=== PATIENT | female | born 1955 | race Caucasian/White ===

== ENCOUNTER → 2016-09-19 | Outpatient (CLI) | payer MEDICARE, OTHER ==
--- NOTE | 2016-09-19 11:50 | USB ---
Reason for exam: additional evaluation requested from prior study. History: Patient has history of breast cancer at age 59 and history of other cancer. Family history of breast cancer in mother at age 60. Benign US biopsy breast VAD RT of the right breast, September 02, 2015. Malignant US biopsy breast VAD RT of the right breast, January 27, 2015. Malignant US biopsy breast add'l VAD RT of the right breast, January 27, 2015. Malignant US biopsy breast add'l VAD RT of the right breast, January 27, 2015. Benign excisional biopsy of the right breast, 2013. Benign excisional biopsy of the left breast. US Breast RT Right breast ultrasound includes all four quadrants, the retroareolar region and axilla. Finding demonstrates a 1.9 x 0.7 x 1.1cm oval, solid, hypoechoic lesion at palpable 10 o'clock for which a biopsy is recommended, a 0.6 x 0.4 x 0.5cm oval, solid, hypoechoic lesion with some shadowing at 10 o'clock for which a biopsy is recommended and a 0.4 x 0.4 x 0.4cm oval, solid, hypoechoic lesion with some shadowing at 10 o'clock for which a biopsy is recommended. These results were verbally communicated with the patient and result sheet given to the patient on 09/19/16. ASSESSMENT: Suspicious, BI-RAD 4 RECOMMENDATION: Surgical consultation and ultrasound core biopsy of the right breast. (x 3) Called Dr. Lowry with mammographic findings patient will call on her own to schedule an appointment. PRELIMINARY REPORT CALLED AND FAXED TO DR. LOWRY ON 09/19/16 AT 300/TP.
== END | disposition home or self-care (01) ==
LOC: RADUSWWP 09:01
PROVIDERS: ATTEND Surgery
DX: R92.8 Other abnormal and inconclusive findings on diagnostic imaging of breast (principal); Z85.3 Personal history of malignant neoplasm of breast

== ENCOUNTER → 2016-09-19 | Outpatient (CLI) | payer MEDICARE, OTHER ==
--- NOTE | 2016-09-19 11:46 | MM ---
Reason for exam: additional evaluation requested from prior study. Last mammogram was performed 1 year and 8 months ago. History: Patient has history of breast cancer at age 59 and history of other cancer. Family history of breast cancer in mother at age 60. Benign US biopsy breast VAD RT of the right breast, September 02, 2015. Malignant US biopsy breast VAD RT of the right breast, January 27, 2015. Malignant US biopsy breast add'l VAD RT of the right breast, January 27, 2015. Malignant US biopsy breast add'l VAD RT of the right breast, January 27, 2015. Benign excisional biopsy of the right breast, 2013. Benign excisional biopsy of the left breast. Physical Findings: Nurse Summary: 0.5cm nodule in the right breast at 9 o'clock (nurse swati). MG 3D Diag Mammo W/Cad RT CC, MLO, ML, and XCCL view(s) were taken of the right breast. Prior study comparison: January 27, 2015, right breast MG diagnostic mammo RT wo CAD. There are scattered fibroglandular densities. Finding #1: There are fine, segmental calcifications in the right breast, 11 cm from the nipple, present on 2014. Finding #2: There is a typically benign 13mm fat containing, oval, circumscribed, superficial mass located 3 cm from the nipple in the upper outer quadrant of the right breast, consistent with palpable area, new from prior. New finding since January 27, 2015. These results were verbally communicated with the patient and result sheet given to the patient on 09/19/16. ASSESSMENT: Suspicious, BI-RAD 4 RECOMMENDATION: Surgical consultation and ultrasound core biopsy of the right breast. Called Dr. Lowry with mammographic findings patient will call on her own to schedule an appointment. PRELIMINARY REPORT CALLED AND FAXED TO DR. LOWRY ON 09/19/16 AT 300/TP.
== END | disposition home or self-care (01) ==
LOC: RADMAMWWP 08:55
PROVIDERS: ATTEND Surgery Plastic and Reconstructive Surgery
DX: C50.919 Malignant neoplasm of unspecified site of unspecified female breast (principal)
CPT/HCPCS: G0206; G0279

== ENCOUNTER 2016-10-31 13:31 | Observation (INO) | payer MEDICARE, OTHER ==
[2016-10-31] MEDS ORDERED: SODIUM CHLORIDE 0.9% 1,000 ML IV STA (15:27)
[2016-10-31 16:23] LABS: Basophils % (A) 0 %; CH 32.5; Eosinophils # (A) 0.1 k/uL (0-0.7); Eosinophils % (A) 2 %; HCT 42.1 % (34.0-46.0); HDW 3.01; HGB 14.4 gm/dL (11.4-16.0); Luc # (Auto) 0.12; Luc % (Auto) 1; Lymphocytes # (A) 1.6 k/uL (1.0-4.8); Lymphocytes % (A) 18 %; MCHC 34.2 g/dL (31.0-37.0); MCV 93.4 fL (80.0-100.0); Mean Platelet Volume 7.7; Monocytes # (A) 0.5 k/uL (0-1.0); Monocytes % (A) 5 %; Neutrophils # (A) 6.5 k/uL (1.3-7.7); Neutrophils % (A) 74 %; RBC 4.51 m/uL (3.80-5.40); RDW 14.1 % (11.5-15.5); WBC 8.8 k/uL (3.8-10.6); WBC (Perox) 8.15
[2016-10-31 16:24] LABS: Appearance,Urine Clear (Clear); Bilirubin,Urine Negative (Negative); Glucose,Urine (UA) Negative (Negative); Ketones,Urine Negative (Negative); Leukocyte Esterase,Urine Negative (Negative); Nitrite,Urine Negative (Negative); Protein,Urine Negative (Negative); Specific Gravity,Urine 1.004 (1.001-1.035); UA Billing (MACRO vs. MICRO) CHEM; Urobilinogen,Urine <2.0 mg/dL (<2.0)
--- NOTE | 2016-10-31 16:25 | XR ---
EXAMINATION TYPE: XR chest 2V DATE OF EXAM: 10/31/2016 4:22 PM COMPARISON: 02/28/2016 HISTORY: Shortness of breath TECHNIQUE: Frontal and lateral views of the chest are obtained. FINDINGS: Scattered senescent parenchymal changes noted. Hyperinflation compatible with COPD. No evidence for infiltrate. No evidence for atelectasis. Heart size is stable. Mediastinal structures are stable and grossly unremarkable. No evidence for hilar prominence. Degenerative changes dorsal spine. IMPRESSION: 1. No evidence for acute pulmonary disease.
[2016-10-31 16:30] LABS: INR 1.1 (<1.1); Prothrombin Time 11.2 sec (9.0-12.0)
[2016-10-31 16:34] LABS: ALT 23 U/L (9-52); AST 17 U/L (14-36); Alkaline Phosphatase 104 U/L (38-126); Anion Gap 12 mmol/L; Blood Urea Nitrogen 9 mg/dL (7-17); Calcium 9.3 mg/dL (8.4-10.2); Carbon Dioxide 27 mmol/L (22-30); Chloride 104 mmol/L (98-107); Glucose 101 mg/dL (74-99); Non-African American GFR(MDRD) >60 (>60 ml/min/1.73 sqM); Potassium 3.5 mmol/L (3.5-5.1); Sodium 143 mmol/L (137-145); Total Bilirubin 0.4 mg/dL (0.2-1.3); Total Protein 7.5 g/dL (6.3-8.2)
[2016-10-31 16:42] LABS: Partial Thromboplastin Time 21.1 sec (22.0-30.0)
[2016-10-31 16:53] LABS: Creatine Kinase 28 U/L (30-135)
[2016-10-31 17:03] LABS: Creatine Kinase MB 0.3 ng/mL (0.0-2.4)
[2016-10-31 17:06] LABS: Troponin I <0.012 ng/mL (0.000-0.034)
[2016-10-31] MEDS ORDERED: LORazepam 1 MG TAB PO STA (17:41)
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
[2016-10-31] MEDS ORDERED: LABETALOL 5 MG/ML VIAL MDV IVP STA (18:33)
[2016-10-31] MEDS ORDERED: NITROGLYCERIN SL TABS 0.4 MG TAB SUBLINGUAL PRN (19:57)
[2016-10-31] MEDS ORDERED: ACETAMINOPHEN PO PRN (20:03)
[2016-10-31] MEDS ORDERED: DIPHENHYDRAMINE PO PRN (20:03)
[2016-10-31] MEDS ORDERED: MELOXICAM 7.5 MG TAB PO PRN (20:03)
[2016-10-31] MEDS ORDERED: ALPRAZolam 0.25 MG TAB PO PRN (20:03)
[2016-10-31] MEDS ORDERED: PANTOPRAZOLE 40 MG TABLET PO PRN (20:03)
[2016-10-31] MEDS ORDERED: ALBUTEROL NEBULIZED 2.5 MG/3 ML INHALATION PRN (20:03)
[2016-10-31] MEDS: FUROSEMIDE 40 MG TAB PO SCH (21:51)
[2016-10-31] MEDS: PHENYTOIN SODIUM EXTENDED 100 MG CAP PO SCH (21:52)
[2016-10-31] MEDS: busPIRone HCl 10 MG TAB PO SCH (21:52)
[2016-10-31] MEDS: NYSTATIN 100,000 UNIT/GM POWD 15 GM TOPICAL SCH (21:54)
[2016-10-31] MEDS: AMMONIUM LACTATE 12% LOTION 225 GM BTL TOPICAL SCH (21:54)
[2016-10-31] MEDS: TRIAMCINOLONE 0.1% CREAM 80 GM TUBE TOPICAL SCH (21:54)
[2016-10-31 22:15] VITALS: BMI 48.2
[2016-10-31] MEDS: ACETAMINOPHEN TAB 325 MG TAB PO PRN (22:34)
[2016-10-31 22:44] LABS: Creatine Kinase 29 U/L (30-135)
[2016-10-31 22:58] LABS: Creatine Kinase MB <0.2 ng/mL (0.0-2.4); Troponin I <0.012 ng/mL (0.000-0.034)
[2016-10-31 23:54] VITALS: RESP 18
[2016-11-01 03:33] LABS: Cholesterol 181 mg/dL (<200); HDL Cholesterol 43 mg/dL (40-60); Triglycerides 125 mg/dL (<150)
[2016-11-01 03:47] LABS: Creatine Kinase 30 U/L (30-135)
[2016-11-01 04:00] LABS: Creatine Kinase MB <0.2 ng/mL (0.0-2.4); Troponin I <0.012 ng/mL (0.000-0.034)
[2016-11-01] MEDS ORDERED: ESCITALOPRAM 20 MG TAB PO SCH (09:00)
[2016-11-01] MEDS ORDERED: SPIRONOLACTONE 25 MG TAB PO SCH (09:00)
[2016-11-01] MEDS ORDERED: ATORVASTATIN 10 MG TAB PO SCH (09:00)
[2016-11-01] MEDS ORDERED: CHOLECALCIFEROL 1,000 UNIT TAB PO SCH (09:00)
[2016-11-01] MEDS ORDERED: amLODIPine 10 MG TAB PO SCH (09:00)
[2016-11-01] MEDS ORDERED: LORATADINE 10 MG TAB PO SCH (09:00)
[2016-11-01] MEDS ORDERED: DOCUSATE 100 MG CAP PO SCH (09:00)
[2016-11-01] MEDS ORDERED: LETROZOLE 2.5 MG TAB PO SCH (09:00)
[2016-11-01] MEDS ORDERED: ASPIRIN 325 MG TAB PO SCH (09:00)
[2016-11-01] MEDS ORDERED: METOPROLOL SUCCINATE (ER) 50 MG TAB.ER.24H PO SCH (09:00)
[2016-11-01] MEDS ORDERED: ASPIRIN 81 MG CHEW PO SCH (09:00)
[2016-11-01] MEDS ORDERED: ATORVASTATIN 20 MG TAB PO SCH (09:30)
--- NOTE | 2016-11-01 09:45 | CONS ---
DATE OF CONSULTATION: A 61-year-old female. The patient presented to the hospital with elevated blood pressure and atypical chest discomfort. Her blood pressure on admission was 172/80 mmHg. She did have low-grade fever of 100.9 and 100.1. She stated that at home her blood pressure was 180 systolic. Pulse was 113. She was dizzy and lightheaded and she had chest discomfort off and on and was complaining of shortness of breath. She is taking a lot of water pills, but has not really helped her. REVIEW OF SYSTEMS: She denies any fever, chills or rigors. No cough or expectoration. No nausea, vomiting or diarrhea. No hematuria or dysuria. No strokes or seizures. No skin lesions or musculoskeletal complaints at this time. ALLERGIES. She has an extensive allergy list including MARY KAY INHIBITORS. She had swelling around her mouth with MARY KAY INHIBITORS. Her medication list was also reviewed and it is quite extensive. The cardiac medications are Lasix 40 mg twice daily, metoprolol succinate 50 mg daily, aspirin, spironolactone 25 mg daily, atorvastatin 10 mg daily, amlodipine 10 mg daily. Past medical history includes morbid obesity, heart failure, however, LV function on 2-D echo is normal. She states she has pulmonary hypertension and her PA pressures are only mildly increased by echo. She has history of pulmonary embolism, seizure disorder, dyslipidemia and hypertension. She also had breast cancer and had problems with her breast including hematoma. She has been seen by ID in the past. She has a history of kidney stones and gallstones. There is a history of seizures. She has also had adenoidectomy and tonsillectomy. She is a current smoker. On examination, she is lying comfortably in bed. She looks very comfortable. No respiratory distress. Blood pressure is 175/77 mmHg , pulse rate is in the 70s. Temperature is 99.7, 98.3 and 98.9. Heart sounds S1 and S2 soft. No murmurs or gallops. Breath sounds are reduced bilaterally and reduced air entry bilaterally, poor respiratory effort. Abdomen is soft, nontender. No JVD. She is obese, but she was able to lie flat in bed without any respiratory distress. Labs are reviewed. White count is normal. Hemoglobin is normal. Electrolytes are normal. Kidney functions are normal. Three sets of cardiac enzymes are normal. LDL was 113. IMPRESSION: 1. Uncontrolled hypertension. 2. Morbid obesity. 3. Current smoker. 4. Normal stress test last year. The 2-D echo shows preserved LV systolic function and mild pulmonary hypertension only. SUGGEST: Hypertension management. I would avoid MARY KAY INHIBITORS and also unfortunately I would have to avoid angiotensin receptor blockers because it seems based upon her history that she may have had angioedema to LISINOPRIL. I would stop metoprolol and switch to carvedilol 6.25 mg twice daily also increase the dose of spironolactone to 50 mg p.o. daily, which will help with any diastolic heart failure. Continue Lasix at the current dose. LDL is 113 and I would increase the dose of atorvastatin to 20 mg p.o. daily. Other pulmonary and medical issues management per admitting physicians. From a cardiac standpoint, she may go to the medical floor on telemetry and get a pulmonary and medical workup as clinically indicated. From a cardiac standpoint, she has had an echocardiogram within the last 6 months. She has had a stress test, which was normal within the last 6 months or so. She will follow up with Dr. Marsha Rushing upon discharge. I would also check a cortisol level and a TSH level.
[2016-11-01] MEDS: FUROSEMIDE 40 MG TAB PO SCH (10:54)
[2016-11-01] MEDS: PHENYTOIN SODIUM EXTENDED 100 MG CAP PO SCH (10:55)
[2016-11-01] MEDS: busPIRone HCl 10 MG TAB PO SCH (10:56)
[2016-11-01] MEDS: NYSTATIN 100,000 UNIT/GM POWD 15 GM TOPICAL SCH (11:01)
[2016-11-01] MEDS: AMMONIUM LACTATE 12% LOTION 225 GM BTL TOPICAL SCH (11:01)
[2016-11-01] MEDS: TRIAMCINOLONE 0.1% CREAM 80 GM TUBE TOPICAL SCH (11:01)
[2016-11-01] MEDS: ACETAMINOPHEN TAB 325 MG TAB PO PRN (12:57)
[2016-11-01 13:35] VITALS: BP 178/80; PULSE 82; TEMP 99.8
[2016-11-01] MEDS ORDERED: RX INFO: IV CONTRAST WAS GIVEN 1 EACH MISC MISCELLANE PRN (15:59)
--- NOTE | 2016-11-01 16:58 | HP ---
DATE OF ADMISSION: This dictation is both H&P and discharge summary. Patient is a 61-year-old obese female, who came in with complaints of chest pain which is sharp in nature, across the chest area with some associated shortness of breath. Blood pressure is elevated, because of which patient was concerned and came to the hospital. Patient was tachycardic apparently at home. Patient's pain was about 10/10 in severity, nonradiating, not associated with diaphoresis, constant pain. Going on about 5 days before hospitalization. Still has pain in the chest, was complaining of some lightheadedness. Patient was evaluated by Cardiology. They cleared her for discharge although patient has low-grade fevers. I cannot explain the low-grade fevers. They are actually better compared to yesterday. Yesterday night she was having 100.7. The 24-hour T-max is 100.9 and today morning it is 99.8. Patient denied any dysuria. Patient's chest x-ray did not show pneumonic process. Patient does not have any leukocytosis. I cannot explain her fevers. Patient was asked to check the temperatures at home and patient was not started on antibiotics since there is no source of infection. Patient does not have any cellulitis anywhere. Except for some minimal abdominal discomfort, I did not find any significant source of infection. Patient was complaining of diarrhea because of which we obtained a Clostridium difficile. Patient had one episode of soft stool and lab was unable to run the lab test for Clostridium difficile because it is formed stool. Patient has home care at home. Home care will closely follow her at home and patient will follow with primary care physician and Dr. Ashley Rushing as an outpatient. Patient will be discharged today. Patient's d-dimer initially was 0.59 and second one is 0.7, minimally elevation, then normal. Although patient's chest pain is nonpleuritic reproducible in nature, probably musculoskeletal and fevers are probably related to her recent breast malignancy and most of her symptoms appeared to be anxiety. Patient does have significant anxiety since her diagnosis of breast cancer and lumpectomy. REVIEW OF SYSTEMS: CONSTITUTIONAL: No fever, no malaise, no fatigue. HEENT: No recent visual problems or hearing problems. Denied any sore throat. CARDIOVASCULAR: As described in HPI. PULMONARY: No shortness of breath, no cough, no hemoptysis. GASTROINTESTINAL: As described in HPI. NEUROLOGICAL: No headaches, no weakness, no numbness. HEMATOLOGICAL: Denies any bleeding or petechiae. GENITOURINARY: Denies any burning micturition, frequency, or urgency. MUSCULOSKELETAL/RHEUMATOLOGICAL: Denies any joint pain, swelling, or any muscle pain. ENDOCRINE: Denies any polyuria or polydipsia. GENERAL: As described in HPI. The rest of the 14 point review of systems is negative. Medications include: phenytoin, Lasix, Toprol-XL 50 mg p.o. daily, alprazolam, albuterol, aspirin, cholecalciferol, femora, spironolactone, buspirone, ( ), Avastatin, triamcinolone, amlodipine, acetaminophen, hydrochloride, diphenhydramine, ammonium lactate, docusate, fexofenadine, meloxicam, nystatin, omeprazole. ALLERGIES: MULTIPLE ALLERGIES. Please refer to the documentation. Past medical history is significant for: Asthma, diastolic heart failure without any acute exacerbation, chronic obstructive pulmonary disease, CVA, TIA, DVT in the past, hyperlipidemia, hypertension, history of pulmonary embolism in the past, seizure disorder Patient is not on any anticoagulation at this point of time. Seizure disorder, adenoidectomy, tonsillectomy in the past, anxiety, depression. SOCIAL HISTORY: Patient used to smoke occasionally, but she quit. Denied any alcohol abuse or any drug abuse. FAMILY HISTORY: Significant for DVT and cancer in mother and mother of cerebrovascular accident. Father had CVA, TIA. PHYSICAL EXAMINATION: Temperature 99.8, pulse of 82, respiratory rate of 18, blood pressure 178/80, saturating at 94% on room air. GENERAL: Morbidly obese. Alert and oriented x3. HEENT: Pupils are round and equally reacting to light. EOMI. No scleral icterus. No conjunctival pallor. Normocephalic, atraumatic. No pharyngeal erythema. No thyromegaly. CARDIOVASCULAR: Patient has reproducible chest pain. PULMONARY: Chest is clear to auscultation, no wheezing or crackles. ABDOMEN: Soft, nontender, nondistended, normoactive bowel sounds. No palpable organomegaly. MUSCULOSKELETAL: No joint swelling or deformity. EXTREMITIES: No cyanosis, clubbing, or pedal edema. NEUROLOGICAL: Gross neurological examination did not reveal any focal deficits. SKIN: No rashes. ASSESSMENT AND PLAN: 1. Chest pain, appears to be reproducible in nature, musculoskeletal in nature. Ruled out acute coronary artery syndromes and unstable angina. Cardiology evaluated the patient. 2. Low-grade fever. My suspicion is low for pulmonary embolism. Patient had history of pulmonary embolism in the past. Patient is definitely high risk for pulmonary embolism. Her pretest probability is high. Since the d-dimer is negative, my suspicion is low for pulmonary embolism. Low-grade fevers are probably because of her malignancy itself. I did not find anything signs or symptoms of infection at this point of time. 3. Chronic diastolic dysfunction without any acute exacerbation. 4. Essential hypertension and accelerated hypertension for which metoprolol is being changed to Coreg. Patient had a stress test last year which was negative. 5. Recent diagnosis of breast cancer. 6. Cerebrovascular accident. 7. Seizure disorder. 8. Hyperlipidemia. 9. Hypertension. 10. Morbid obesity. Counseling was provided. Patient will be discharged today. The patient will continue all of her medications. The only change we are making is Coreg 6.25 p.o. b.i.d. Patient is not tachycardic. Patient will follow with Dr. Ashley Rushing on November 17 at 11:30, primary care physician Dr. Lisa Mcgill in 3 to 7 days. Activity as tolerated. Cardiac diet. Discharge instructions will be provided.
[2016-11-01] MEDS ORDERED: CARVEDILOL 6.25 MG TAB PO SCH (17:30)
[2016-11-02] MEDS ORDERED: SPIRONOLACTONE 25 MG TAB PO SCH (09:00)
== END 2016-11-01 16:13 | disposition home health service (06) ==
LOC: EC 13:31 → 3OBS 19:57
PROVIDERS: ADMIT Hospitalist; ATTEND Hospitalist
DX: R07.89 Other chest pain (principal); R50.9 Fever, unspecified; R19.7 Diarrhea, unspecified; Z86.718 Personal history of other venous thrombosis and embolism; F41.9 Anxiety disorder, unspecified; J45.909 Unspecified asthma, uncomplicated; J44.9 Chronic obstructive pulmonary disease, unspecified; I50.32 Chronic diastolic (congestive) heart failure; I11.0 Hypertensive heart disease with heart failure; E78.5 Hyperlipidemia, unspecified; R79.89 Other specified abnormal findings of blood chemistry; G40.909 Epilepsy, unspecified, not intractable, without status epilepticus; G80.9 Cerebral palsy, unspecified; G51.0 Bell's palsy; F32.9 Major depressive disorder, single episode, unspecified; E66.01 Morbid (severe) obesity due to excess calories; Z68.42 Body mass index [BMI] 45.0-49.9, adult; F17.210 Nicotine dependence, cigarettes, uncomplicated; Z79.899 Other long term (current) drug therapy; Z79.1 Long term (current) use of non-steroidal anti-inflammatories (NSAID); Z79.82 Long term (current) use of aspirin; Z88.1 Allergy status to other antibiotic agents; Z91.041 Radiographic dye allergy status; Z88.5 Allergy status to narcotic agent; Z91.010 Allergy to peanuts; Z88.0 Allergy status to penicillin; Z88.2 Allergy status to sulfonamides; Z88.8 Allergy status to other drugs, medicaments and biological substances; Z91.018 Allergy to other foods; Z91.048 Other nonmedicinal substance allergy status; Z86.711 Personal history of pulmonary embolism; Z85.3 Personal history of malignant neoplasm of breast; Z86.73 Personal history of transient ischemic attack (TIA), and cerebral infarction without residual deficits; Z79.811 Long term (current) use of aromatase inhibitors; I27.2 Other secondary pulmonary hypertension
CPT/HCPCS: 96374; 99285; 36415; 93005; 85379 ×2; 83880; 80061; 80053; 84443; 82533; 82550 ×2; 82553 ×2; 80185; 83735; 84484 ×2; 85025; 85610; 85730; 81003; 87040; 87086; 71020; G0378 ×2

== ENCOUNTER → 2016-11-08 | Day surgery (SDC) | payer MEDICARE, OTHER ==
[~2016-11-08] MED LIST: BACITRACIN OINT 1 EACH PACKET TOPICAL ONE
--- NOTE | 2016-11-08 15:38 | USB ---
Ultrasound-guided core biopsy right breast CLINICAL HISTORY: Abnormal right breast mammogram and ultrasound COMPARISON: 09/19/2016 ultrasound and mammogram FINDINGS: Only 2 lesions are seen at the 10:00 position of the right breast on today's exam. Third lesion was not replicated. The procedure was discussed with the patient. The risks, complications, benefits , and alternatives were discussed and any questions were answered. Informed consent was obtained. The patient was placed supine on the ultrasound table and prepped and draped in the usual sterile fashion. All elements of maximal barrier and sterile technique were utilized. Under ultrasound guidance, access into the The 2 lesions at the 10:00 position of the right breast was obtained, and 5 samples were obtained from each lesion. Surgical clip was placed post biopsy. Mammogram demonstrated the clip to be in ideal position relative to each lesion. The patient was stable throughout the procedure and remained stable upon discharge from Department of Radiology. IMPRESSION: 1. Successful ultrasound guided core biopsy of 2 lesions at the 10:00 position right breast. Note is made the third lesion described was not seen on today's exam. Pathology Results: Benign A. BREAST, RIGHT SITE A AT TEN O'CLOCK, ULTRASOUND GUIDED CORE BIOPSY: FAT NECROSIS WITH HYALINIZED FIBROSIS, FIBROPLASIA, VASCULAR PROLIFERATION, LYMPHOHISTIOCYTIC INFLAMMATION AND HEMOSIDERIN PIGMENT. BREAST ELEMENTS ARE NOT IDENTIFIED. B. BREAST, RIGHT SITE B AT TEN O'CLOCK, ULTRASOUND GUIDED CORE BIOPSY: FAT NECROSIS, FIBROSIS, FIBROPLASIA, VASCULAR PROLIFERATION, LYMPHOHISTIOCYTIC INFLAMMATION AND HEMOSIDERIN DEPOSITION. BREAST ELEMENTS ARE NOT IDENTIFIED. Recommendation Follow up ultrasound of the right breast in 6 months. Manage on a clinical basis. VIPUL
--- NOTE | 2016-11-09 07:48 | MM ---
Reason for exam: additional evaluation requested from abnormal screening. Last mammogram was performed 2 months ago. History: Patient has history of breast cancer at age 59 and history of other cancer. Family history of breast cancer in mother at age 60. Benign US biopsy breast VAD RT of the right breast, September 02, 2015. Malignant US biopsy breast VAD RT of the right breast, January 27, 2015. Malignant US biopsy breast add'l VAD RT of the right breast, January 27, 2015. Malignant US biopsy breast add'l VAD RT of the right breast, January 27, 2015. Benign excisional biopsy of the right breast, 2013. Benign excisional biopsy of the left breast. MG Diagnostic Mammo RT Wo CAD CC and MLO view(s) were taken of the right breast. Prior study comparison: September 19, 2016, right breast MG 3d diag mammo w/cad RT. January 27, 2015, right breast MG diagnostic mammo RT wo CAD. ASSESSMENT: Post procedure mammogram for marker placement RECOMMENDATION: Ultrasound of the right breast in 6 months. PENDING PATHOLOGY RESULTS.
== END ==
LOC: RADUSWWP 13:57
PROVIDERS: ATTEND Surgery
DX: R92.8 Other abnormal and inconclusive findings on diagnostic imaging of breast (principal); N64.1 Fat necrosis of breast; N60.31 Fibrosclerosis of right breast; Z85.3 Personal history of malignant neoplasm of breast; Z85.9 Personal history of malignant neoplasm, unspecified; Z80.3 Family history of malignant neoplasm of breast; Z88.5 Allergy status to narcotic agent; Z88.0 Allergy status to penicillin; Z88.2 Allergy status to sulfonamides; Z88.8 Allergy status to other drugs, medicaments and biological substances; Z91.041 Radiographic dye allergy status
CPT/HCPCS: 88305; 19083; 19084; G0206; A4648

== ENCOUNTER → 2017-02-23 | Outpatient (CLI) | payer MEDICARE, OTHER ==
--- NOTE | 2017-02-27 09:37 | MM ---
Reason for exam: follow-up at short interval from prior study. Last mammogram was performed 3 months ago. History: Patient is postmenopausal, has history of breast cancer at age 59, and has history of other cancer at age 59. Family history of breast cancer in mother at age 60. Benign US breast needle core RT of the right breast, November 08, 2016. Benign US breast needle core addl RT of the right breast, November 08, 2016. Benign US biopsy breast VAD RT of the right breast, September 02, 2015. Malignant US biopsy breast VAD RT of the right breast, January 27, 2015. Malignant US biopsy breast add'l VAD RT of the right breast, January 27, 2015. Malignant US biopsy breast add'l VAD RT of the right breast, January 27, 2015. Benign excisional biopsy of the right breast, 2013. Benign excisional biopsy of the left breast. Taking antineoplastic for 2 years. Physical Findings: Nurse Summary: A 2 x 2cm nodule in the right breast at 10 o'clock (nurse ts). MG 3D Diag Mammo W/Cad PRADIP Bilateral CC and MLO view(s) were taken. Prior study comparison: November 08, 2016, right breast MG diagnostic mammo RT wo CAD. September 19, 2016, right breast MG 3d diag mammo w/cad RT. The breast tissue is heterogeneously dense. This may lower the sensitivity of mammography. Finding #1: Architectural distortion in the upper outer quadrant, posterior position of the right breast consistent with known lumpectomy. Finding #2: There are typically benign round calcifications in the upper inner quadrant of both breasts. There are grouped benign calcifications in the posterior position of the right breast, stable. Previous mammotome biopsy in the right breast x 4. There is no discrete abnormality. Left breast smaller in size. These results were verbally communicated with the patient and result sheet given to the patient on 02/23/17. ASSESSMENT: Benign, BI-RAD 2 RECOMMENDATION: Follow-up diagnostic mammogram of both breasts in 1 year.
--- NOTE | 2017-02-27 09:39 | USB ---
Reason for exam: follow-up at short interval from prior study. History: Patient is postmenopausal, has history of breast cancer at age 59, and has history of other cancer at age 59. Family history of breast cancer in mother at age 60. Benign US breast needle core RT of the right breast, November 08, 2016. Benign US breast needle core addl RT of the right breast, November 08, 2016. Benign US biopsy breast VAD RT of the right breast, September 02, 2015. Malignant US biopsy breast VAD RT of the right breast, January 27, 2015. Malignant US biopsy breast add'l VAD RT of the right breast, January 27, 2015. Malignant US biopsy breast add'l VAD RT of the right breast, January 27, 2015. Benign excisional biopsy of the right breast, 2013. Benign excisional biopsy of the left breast. Taking antineoplastic for 2 years. US Breast RT Right breast ultrasound includes all four quadrants, the retroareolar region and axilla. Finding demonstrate a 1.6 x 1.2 x 1.1cm solid, hypoechoic, lesion at 10 o'clock with fat density mammogram, benign biopsied October 2016. These results were verbally communicated with the patient and result sheet given to the patient on 02/23/17. ASSESSMENT: Benign, BI-RAD 2 RECOMMENDATION: Follow-up diagnostic mammogram of both breasts in 1 year.
== END | disposition home or self-care (01) ==
LOC: RADMAMWWP 13:38
PROVIDERS: ATTEND Surgery
DX: Z08 Encounter for follow-up examination after completed treatment for malignant neoplasm (principal); Z85.3 Personal history of malignant neoplasm of breast
CPT/HCPCS: 76641; G0204; G0279

== ENCOUNTER 2017-04-03 12:41 | Inpatient (IN) | payer MEDICARE, OTHER ==
[2017-04-03] MEDS ORDERED: LORazepam 1 MG TAB PO STA (13:04)
[2017-04-03] MEDS ORDERED: KETOROLAC 60 MG/2 ML VIAL IM STA (13:32)
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
[2017-04-03] MEDS ORDERED: KETOROLAC 30 MG/ML 1 ML VIAL IVP STA (13:43)
[2017-04-03 13:48] LABS: Basophils % (A) 0 %; Eosinophils # (A) 0.3 k/uL (0-0.7); Eosinophils % (A) 3 %; HCT 42.6 % (34.0-46.0); HGB 13.9 gm/dL (11.4-16.0); Luc # (Auto) 0.15; Luc % (Auto) 2; Lymphocytes # (A) 1.1 k/uL (1.0-4.8); Lymphocytes % (A) 15 %; MCH 31.8 pg (25.0-35.0); MCHC 32.6 g/dL (31.0-37.0); MCV 97.6 fL (80.0-100.0); Mean Platelet Volume 7.1; Monocytes # (A) 0.4 k/uL (0-1.0); Monocytes % (A) 5 %; Neutrophils # (A) 5.4 k/uL (1.3-7.7); Neutrophils % (A) 75 %; RBC 4.36 m/uL (3.80-5.40); WBC 7.3 k/uL (3.8-10.6); WBC (Perox) 6.86
[2017-04-03 14:03] LABS: ALT 24 U/L (9-52); AST 17 U/L (14-36); Alkaline Phosphatase 109 U/L (38-126); Anion Gap 9 mmol/L; Blood Urea Nitrogen 7 mg/dL (7-17); Calcium 9.2 mg/dL (8.4-10.2); Carbon Dioxide 27 mmol/L (22-30); Chloride 103 mmol/L (98-107); Glucose 117 mg/dL (74-99); Non-African American GFR(MDRD) >60 (>60 ml/min/1.73 sqM); Sodium 139 mmol/L (137-145); Total Bilirubin 0.4 mg/dL (0.2-1.3); Total Protein 7.2 g/dL (6.3-8.2)
--- NOTE | 2017-04-03 14:14 | XR ---
EXAMINATION TYPE: XR chest 2V DATE OF EXAM: 04/03/2017 COMPARISON: 03/08/2017 HISTORY: Weakness, anxiety, headache and chest pain. TECHNIQUE: Frontal and lateral views of the chest are obtained. FINDINGS: There is no focal air space opacity, pleural effusion, or pneumothorax seen. The cardiac silhouette size is mildly enlarged. The osseous structures are intact. Minimal degenerative changes are seen of the thoracic spine. IMPRESSION: No acute cardiopulmonary process.
[2017-04-03 14:16] LABS: Creatine Kinase 30 U/L (30-135)
[2017-04-03 14:25] LABS: Appearance,Urine Clear (Clear); Bacteria,Urine Rare /hpf; Bilirubin,Urine Negative (Negative); Glucose,Urine (UA) Negative (Negative); Ketones,Urine Negative (Negative); Leukocyte Esterase,Urine Small (Negative); Mucus,Urine Rare /hpf; Nitrite,Urine Negative (Negative); PH, Urine 6.5 (5.0-8.0); Particle Count 1589; Protein,Urine Negative (Negative); RBC,Urine 2 /hpf (0-5); Specific Gravity,Urine 1.003 (1.001-1.035); Squamous Epithelial Cell,Urine 1 /hpf (0-4); UA Billing (MACRO vs. MICRO) MICRO; Urobilinogen,Urine <2.0 mg/dL (<2.0); WBC,Urine 7 /hpf (0-5)
[2017-04-03 14:29] LABS: Creatine Kinase MB 0.4 ng/mL (0.0-2.4); Troponin I <0.012 ng/mL (0.000-0.034)
[2017-04-03] MEDS ORDERED: ACETAMINOPHEN TAB 325 MG TAB PO PRN (14:54)
[2017-04-03] MEDS ORDERED: NALOXONE 0.4 MG/ML 1 ML VIAL IV PRN (14:54)
[2017-04-03] MEDS ORDERED: ALBUTEROL INHALER 60 PUFF/8 GM INHALER INHALATION PRN (15:00)
[2017-04-03] MEDS ORDERED: SENNOSIDES-DOCUSATE SODIUM 1 EACH TAB PO PRN (15:00)
[2017-04-03] MEDS ORDERED: NON-FORMULARY DRUG (Acetaminophen [Tylenol 8 Hour] 650 MG) PO PRN (15:00)
[2017-04-03] MEDS ORDERED: PROCHLORPERAZINE 10 MG TAB PO PRN (15:00)
[2017-04-03] MEDS ORDERED: ceFAZolin 1,000 MG in DEXTROSE/WATER 1 50ML.BAG IVPB STA (15:07)
[2017-04-03] MEDS ORDERED: VANCOMYCIN 1,000 MG in SODIUM CHLORIDE 0.9% 250 ML IVPB STA (15:15)
[2017-04-03] MEDS ORDERED: VANCOMYCIN IV PER PHARMACY 1 EACH MISC MISCELLANE PRN (15:15)
[2017-04-03] MEDS ORDERED: DAPTOmycin 500 MG in SODIUM CHLORIDE 0.9% 50 ML IV STA (15:27)
[2017-04-03] MEDS: CARVEDILOL 12.5 MG TAB PO SCH (16:38)
[2017-04-03] MEDS: PHENYTOIN SODIUM EXTENDED 100 MG CAP PO SCH ×2 (16:38→21:43)
[2017-04-03] MEDS: LOPERAMIDE 2 MG CAP PO SCH ×2 (16:38→21:43)
[2017-04-03] MEDS ORDERED: NON-FORMULARY DRUG (Omeprazole [Omeprazole] 20 MG) PO PRN (20:48)
[2017-04-03] MEDS: IPRATROPIUM-ALBUTEROL 3 ML NEB INHALATION PRN (21:09)
[2017-04-03] MEDS: busPIRone HCl 10 MG TAB PO SCH ×2 (21:26→21:43)
[2017-04-03] MEDS: HYDROcodone/APAP 5-325MG 1 EACH TAB PO PRN (21:42)
[2017-04-03] MEDS: FUROSEMIDE 40 MG TAB PO SCH (21:43)
[2017-04-03] MEDS: ceFAZolin 1,000 MG in DEXTROSE/WATER 1 50ML.BAG IVPB SCH (21:43)
[2017-04-04] MEDS ORDERED: ALPRAZolam 0.5 MG TAB PO STA (01:09)
[2017-04-04] MEDS: DICLOFENAC SODIUM GEL 100 GM TUBE TOPICAL SCH ×5 (01:29→21:41)
[2017-04-04] MEDS ORDERED: HYDROcodone/APAP 5-325MG 1 EACH TAB ONE (03:22)
--- NOTE | 2017-04-04 05:30 | HP ---
HISTORY AND PHYSICAL DATE OF ADMISSION: 04/03/2017 PRESENTING COMPLAINT: Lower extremity cellulitis. HISTORY OF PRESENTING COMPLAINT: This is a 61-year-old patient who follows with visiting physicians. Patient's chronic stable medical conditions include COPD, morbid obesity, lower extremity lymphedema, hypertension, hyperlipidemia, seizure disorder, depression, anxiety. Patient lives at home, has her son and the granddaughter's mother. Patient noticed some increasing swelling of the lower extremity, some redness. She is also troubled why her granddaughter's mother who is not letting being taking care of herself does not allow any help to come in the home hence she is rather frustrated about the same. Normally patient is able to get around the house, sometimes may use a cane or walker. REVIEW OF SYSTEMS: CONSTITUTIONAL: None. HEENT: None. RESPIRATORY: None. CARDIOVASCULAR: None. GASTROINTESTINAL: Occasional diarrhea. GENITOURINARY: None. MUSCULOSKELETAL: Aches and pains in the joints. DERMATOLOGICAL: Redness in the lower extremity. HEMATOLOGICAL: None. LYMPHATIC: None. Psychiatry: Some anxiety. NEUROLOGICAL: None. PAST MEDICAL HISTORY: Seizure disorder, pulmonary embolism, hypertension, hyperlipidemia, DVT, questionable stroke, COPD, pulmonary hypertension, some cerebral palsy, grand mal seizure last one at the age of 18, kidney stones. PAST SURGICAL HISTORY: Adenoidectomy, tonsillectomy, partial mastectomy on the left, right breast lumpectomy and removal of 12 cancerous lymph nodes. PSYCH HISTORY: History of anxiety depression. SOCIAL HISTORY: The patient is a . At home family members are there. Patient occasionally will smoke a cigarette here and there and occasionally drink alcohol. 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 FAMILY HISTORY: Family history of stroke, DVT. HOME MEDICATIONS: 1. Senokot S 1 tablet p.o. b.i.d. p.r.n. 2. Compazine 10 mg p.o. q.6 p.r.n. 3. Buspirone 30 mg p.o. b.i.d. 4. Aldactone 25 mg p.o. daily. 5. Dilantin 100 mg p.o. q.i.d. 6. Omeprazole 20 mg p.o. daily p.r.n. 7. Femara 2.5 mg p.o. daily. 8. DuoNeb q.i.d. p.r.n. 9. Lasix 40 mg p.o. b.i.d. 10.Radha 180 mg p.o. daily. 11.Lexapro 20 mg p.o. daily. 12.Vitamin D3, 2000 units p.o. daily. 13.Coreg 12.5 p.o. b.i.d. 14.Lipitor 10 mg p.o. daily. 15.Aspirin 81 mg p.o. daily. 16.ProAir 2 puffs q.4 p.r.n. ALLERGIES: Allergies to ADHESIVES, CORTISONE, CRANBERRY, BENADRYL, IV CONTRAST DYE, LISINOPRIL, REGLAN, PENICILLIN, BACTRIM. PHYSICAL EXAMINATION: On examination, temperature 98.7 pulse 90, respiratory 18, blood pressure 139/98, pulse ox 98% on room air. GENERAL APPEARANCE: Well built, BMI 52.7, sitting up, not in distress. EYES: Pupils equal. Conjunctivae normal. HENT: Oral cavity normal. NECK: Short thick. JVD unable to assess. Mass not palpable. RESPIRATORY: Effort normal. LUNGS: Diminished breath sounds. CARDIOVASCULAR: First and second sounds normal. Some edema present. ABDOMEN: Large, soft. Liver and spleen not palpable. No tenderness. LYMPHATIC: No lymph node palpable in the neck or axillae. PSYCHIATRY: Alert and oriented x3. Mood and affect normal. EXTREMITIES: Lower extremity lymphedema including swelling and has redness just above the ankles with mild tenderness. INVESTIGATIONS: White count 7.3, hemoglobin 13.9. Potassium 4. BUN 7, creatinine 0.49. ASSESSMENT: 1. Bilateral lower extremity cellulitis, present on admission. 2. Bilateral lower extremity lymphedema. 3. Morbid obesity, body mass index more than 50. 4. Chronic obstructive pulmonary disease. 5. Essential hypertension. 6. Hyperlipidemia. 7. Chronic seizure disorder. 8. Depression anxiety, not otherwise specified. 9. Social stressor. PLAN: Home medications will be resumed. Patient is put on IV Ancef. Will also use Silvadene cream with Kerlix and Humza wrap. dairy farm worker is involved, consulted as patient not keen to go back to the same place. Care was discussed with the patient. Dr. Gaviria from [place] was consulted. MMODL / IJN: [id number] /
[2017-04-04] MEDS: busPIRone HCl 10 MG TAB PO SCH ×2 (08:38→21:42)
[2017-04-04] MEDS: PHENYTOIN SODIUM EXTENDED 100 MG CAP PO SCH ×4 (08:38→21:43)
[2017-04-04] MEDS: LETROZOLE 2.5 MG TAB PO SCH (08:38)
[2017-04-04] MEDS: FUROSEMIDE 40 MG TAB PO SCH ×2 (08:39→21:43)
[2017-04-04] MEDS: CARVEDILOL 12.5 MG TAB PO SCH ×2 (08:39→16:43)
[2017-04-04] MEDS: ASPIRIN 81 MG PO SCH (08:39)
[2017-04-04] MEDS: ENOXAPARIN 40 MG/0.4 ML SYRINGE SQ SCH (08:39)
[2017-04-04] MEDS: LORATADINE 10 MG TAB PO SCH (08:39)
[2017-04-04] MEDS: ESCITALOPRAM 20 MG TAB PO SCH (08:39)
[2017-04-04] MEDS: CHOLECALCIFEROL 1,000 UNIT TAB PO SCH (08:39)
[2017-04-04] MEDS: SPIRONOLACTONE 25 MG TAB PO SCH (08:39)
[2017-04-04] MEDS: ATORVASTATIN 10 MG TAB PO SCH (08:39)
[2017-04-04] MEDS: HYDROcodone/APAP 5-325MG 1 EACH TAB PO PRN ×3 (08:41→21:43)
[2017-04-04] MEDS: LOPERAMIDE 2 MG CAP PO SCH ×4 (08:41→21:43)
[2017-04-04] MEDS: IPRATROPIUM-ALBUTEROL 3 ML NEB INHALATION PRN ×3 (09:12→20:44)
[2017-04-04] MEDS: ceFAZolin 1,000 MG in DEXTROSE/WATER 1 50ML.BAG IVPB SCH ×2 (10:14→12:09)
[2017-04-04] MEDS: PANTOPRAZOLE 40 MG/10 ML VIAL IV SCH (10:14)
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
[2017-04-04] MEDS: DAPTOmycin 500 MG in SODIUM CHLORIDE 0.9% 50 ML IV SCH (16:42)
[2017-04-04] MEDS ORDERED: SILVER sulfADIAZINE Cream 400 GM 1 APPLIC APPLIC TOPICAL SCH (19:13)
--- NOTE | 2017-04-04 19:20 | PN ---
PROGRESS NOTE DATE OF SERVICE: April 04, 2017. PRESENT COMPLAINT: Lower extremity cellulitis. INTERVAL HISTORY: Patient admitted with bilateral lower extremity cellulitis, has chronic lymphedema. Also got some social situation at home. Sitting up. Did tolerate a diet. No fever. REVIEW OF SYSTEMS: Done for constitutional, cardiovascular, GI, pulmonary, dermatologic, relevant findings as above. CURRENT MEDICATIONS: Reviewed that include IV daptomycin and Silvadene cream. PHYSICAL EXAMINATION: Temperature 98.3, pulse 88, respiratory rate 16. Blood pressure is 144/72 pulse ox noted. General appearance: Sitting up, comfortable. EYES: Pupils equal. Conjunctivae normal. Neck JVD not raised. Mass not palpable. Respiratory effort lungs fair entry. Cardiovascular first and second sounds normal. Edema present. ABDOMEN: Soft, nontender. Lower extremity dermatological cellulitis present. INVESTIGATIONS: No blood work from today. ASSESSMENT: 1. Bilateral lower extremity cellulitis acute present on admission. 2. Bilateral chronic lower extremity lymphedema. 3. Morbid obesity. BMI more than 150. 4. Chronic obstructive pulmonary disease. 5. Essential hypertension. 6. Hyperlipidemia. 7. Chronic seizure disorder. 8. Depression/anxiety not otherwise specified. 9. Social stressors. PLAN: Continue current antibiotics. Silvadene with acrylics and Humza wraps. break off worker is involved. Follow. MMODL / IJN: [id number] /
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
[2017-04-05] MEDS ORDERED: NAPROXEN 250 MG TAB PO PRN (01:46)
[2017-04-05] MEDS ORDERED: hydrOXYzine HCL 25 MG TAB PO PRN (01:56)
[2017-04-05] MEDS: HYDROcodone/APAP 5-325MG 1 EACH TAB PO PRN ×3 (02:31→17:11)
[2017-04-05] MEDS: CARVEDILOL 12.5 MG TAB PO SCH ×2 (08:30→17:11)
[2017-04-05] MEDS: ASPIRIN 81 MG PO SCH (08:30)
[2017-04-05] MEDS: busPIRone HCl 10 MG TAB PO SCH ×2 (08:31→21:05)
[2017-04-05] MEDS: CHOLECALCIFEROL 1,000 UNIT TAB PO SCH (08:31)
[2017-04-05] MEDS: ATORVASTATIN 10 MG TAB PO SCH (08:31)
[2017-04-05] MEDS: DICLOFENAC SODIUM GEL 100 GM TUBE TOPICAL SCH ×4 (08:31→21:04)
[2017-04-05] MEDS: ESCITALOPRAM 20 MG TAB PO SCH (08:32)
[2017-04-05] MEDS: ENOXAPARIN 40 MG/0.4 ML SYRINGE SQ SCH (08:32)
[2017-04-05] MEDS: FUROSEMIDE 40 MG TAB PO SCH ×2 (08:32→21:04)
[2017-04-05] MEDS: LETROZOLE 2.5 MG TAB PO SCH (08:33)
[2017-04-05] MEDS: LORATADINE 10 MG TAB PO SCH (08:33)
[2017-04-05] MEDS: LOPERAMIDE 2 MG CAP PO SCH ×4 (08:33→21:04)
[2017-04-05] MEDS: PANTOPRAZOLE 40 MG/10 ML VIAL IV SCH (08:33)
[2017-04-05] MEDS: SPIRONOLACTONE 25 MG TAB PO SCH (08:34)
[2017-04-05] MEDS: PHENYTOIN SODIUM EXTENDED 100 MG CAP PO SCH ×4 (08:34→21:04)
[2017-04-05] MEDS: DAPTOmycin 500 MG in SODIUM CHLORIDE 0.9% 50 ML IV SCH (15:46)
--- NOTE | 2017-04-05 19:31 | P.PN ---
Progress Note - Text Progress Note Date: 04/05/17 DATE OF SERVICE: 04/05/2017 PRESENTING COMPLAINT: Extremity cellulitis HISTORY OF PRESENT ILLNESS: 61-year-old female who currently lives with her son and [id number] noted some increasing swelling to her lower extremity and some redness. There are some social concerns about the care received by the patient, family is not allowing outside help to come in to assist. Patient admitted for lower extremity cellulitis. INTERVAL HISTORY: 04/05/2017: Patient seen in follow-up today, patient sitting up in a chair appears mildly anxious. Her extremities continue to be managed with local wound care of Silvadene and soft dressings. Antimicrobial therapy of daptomycin until cultures returned. States she would prefer to go to [facility] for rehab. Case management following this part of her case. Patient's tolerating her diet, ambulatory with some assistance with a cane or a walker, moving her bowels REVIEW OF SYSTEMS: Done for constitutional ,cardiovascular, GI, pulmonary with relevant findings as above. CURRENT MEDICATIONS Tylenol, [place], DuoNeb's, aspirin, Lipitor, BuSpar, Coreg, vitamin D3, will tear and gel, Lovenox, Lasix, Atarax, Femara, Imodium, Claritin, Naprosyn, Protonix, Dilantin, Compazine. PHYSICAL EXAM VITAL SIGNS: Temperature 98.8, pulse 72, respiratory rate 16, blood pressure 120/77, oxygen saturation 94% on room air. GENERAL APPEARANCE: Sitting up in the chair mildly anxious EYES: Pupils equal. Conjunctiva normal. NECK: JVD not raised. Mass not palpable. RESPIRATORY: Respiratory effort normal. Lungs diminished to auscultation. CARDIOVASCULAR: First and second sounds normal. Mild edema. ABDOMEN: Soft. Liver and spleen not palpable. No tenderness. No mass palpable. PSYCHIATRY: Alert and oriented x3. Mood and affect only anxious. INVESTIGATIONS: No new daily labs ASSESSMENT: -Bilateral lower extremity cellulitis, present on admission. -Bilateral lower extremity lymphedema. -Morbid obesity, body mass index more than 50. -Chronic obstructive pulmonary disease. -Essential hypertension. -Hyperlipidemia. -Chronic seizure disorder. -Depression anxiety not otherwise specified. -Social stressor. PLAN: Continue IV antibiotics, local dressing changes with Silvadene and Kerlix and Humza wraps. Social work involved to help with placement of patient at discharge. Plan of care discussed with the patient the bedside she is in agreement. We will follow closely. TINSMITH APPRENTICE statement: Patient was seen and examined by nurse practitioner Anna Gordillo and all elements of the case discussed with attending Dr. Perdue
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
--- NOTE | 2017-04-05 23:02 | PN ---
PROGRESS NOTE DATE OF SERVICE: 04/05/2017. ATTENDING NOTE: Patient was seen and examined by me. I discussed with my nurse practitioner, Ms. Gordillo. Patient admitted with bilateral lower extremity cellulitis. Having a lot of itching; hence, Silvadene is being changed to zinc. Looking into an ECF. EXAMINATION: Afebrile, pulse 72, respirations 16, blood pressure 125/77. LUNGS: Clear. CARDIOVASCULAR: Heart sounds muffled. Awake, comfortable, tolerating a diet. ASSESSMENT: Bilateral lower extremity cellulitis. PLAN: Continue with antibiotics as per Dr. Gaviria. Silvadene cream has been changed to zinc. Looking at discharge to ECF. MMODL / IJN: [id number] /
[2017-04-05] MEDS: ZINC OXIDE 20% OINT 28.4 GM TUBE TOPICAL SCH (23:22)
[2017-04-06] MEDS ORDERED: PANTOPRAZOLE 40 MG TABLET PO SCH (07:30)
[2017-04-06 07:54] VITALS: BP 155/98; PULSE 84; RESP 16; TEMP 97.6
[2017-04-06] MEDS: ATORVASTATIN 10 MG TAB PO SCH (07:55)
[2017-04-06] MEDS: CHOLECALCIFEROL 1,000 UNIT TAB PO SCH (07:55)
[2017-04-06] MEDS: ASPIRIN 81 MG PO SCH (07:55)
[2017-04-06] MEDS: busPIRone HCl 10 MG TAB PO SCH (07:55)
[2017-04-06] MEDS: CARVEDILOL 12.5 MG TAB PO SCH (07:55)
[2017-04-06] MEDS: DICLOFENAC SODIUM GEL 100 GM TUBE TOPICAL SCH ×2 (07:55→13:26)
[2017-04-06] MEDS: ESCITALOPRAM 20 MG TAB PO SCH ×2 (07:56→07:59)
[2017-04-06] MEDS: ENOXAPARIN 40 MG/0.4 ML SYRINGE SQ SCH (07:56)
[2017-04-06] MEDS: FUROSEMIDE 40 MG TAB PO SCH (07:56)
[2017-04-06] MEDS: LOPERAMIDE 2 MG CAP PO SCH ×2 (07:57→13:26)
[2017-04-06] MEDS: LETROZOLE 2.5 MG TAB PO SCH (07:57)
[2017-04-06] MEDS: PHENYTOIN SODIUM EXTENDED 100 MG CAP PO SCH ×2 (07:57→13:26)
[2017-04-06] MEDS: LORATADINE 10 MG TAB PO SCH (07:57)
[2017-04-06] MEDS: ZINC OXIDE 20% OINT 28.4 GM TUBE TOPICAL SCH (07:58)
[2017-04-06] MEDS: SPIRONOLACTONE 25 MG TAB PO SCH (07:58)
[2017-04-06] MEDS: HYDROcodone/APAP 5-325MG 1 EACH TAB PO PRN (08:05)
--- NOTE | 2017-04-06 14:45 | DS ---
DISCHARGE SUMMARY DATE OF ADMISSION: 04/03/17. DATE OF DISCHARGE: 04/06/17. FINAL DIAGNOSES: 1. Acute bilateral lower extremity cellulitis present on admission. 2. Chronic bilateral lower extremity lymphedema. 3. Morbid obesity. BMI more than 50. 4. Chronic obstructive pulmonary disease. 5. Essential hypertension. 6. Hyperlipidemia. 7. Chronic seizure disorder. 8. Depression and anxiety, not otherwise specified. HOSPITAL COURSE: This is a patient who presented with bilateral lower extremity cellulitis, was put on IV Augmentin and did well. Initially Silvadene cream was used but she started itching with that; hence, switched to zinc ointment. The patient is having difficulty managing her affairs; hence, the social security specialist has gone to the court to get guardianship. Otherwise patient is tolerating a diet. EXAM: LUNGS: Decreased breath sounds. CARDIOVASCULAR: Heart sounds muffled. EXTREMITIES: Redness on both lower extremities above the ankle decreased. The patient's potassium is 4, white count is 7.3. DISCHARGE MEDICATIONS: 1. Dilantin 100 mg p.o. q.i.d. 2. Lasix 40 mg p.o. b.i.d. 3. ProAir 2 puffs q.4h p.r.n. 4. Aspirin 81 mg p.o. daily. 5. Vitamin D3 2000 units p.o. daily. 6. Humira 2.5 mg p.o. daily. 7. Aldactone 25 mg p.o. daily. 8. Lexapro 20 mg p.o. daily. 9. Lipitor 10 mg p.o. daily. 10.Tylenol 650 mg p.o. t.i.d. p.r.n. 11.Radha 180 mg p.o. daily. 12.Omeprazole 20 mg p.o. daily p.r.n. 13.Coreg 12.5 p.o. b.i.d. 14.Buspirone 30 mg p.o. b.i.d. 15.DuoNeb q.i.d. p.r.n. 16.Compazine 10 mg q.6h p.r.n. 17.Imodium 2 mg q.i.d. p.r.n. 18.Naproxen 250 mg p.o. b.i.d., 20 tablets. 19.Bactrim DS 1 tab p.o. q.12 for 10 tablets. 20.Zinc oxide 20% topical b.i.d. lower extremity. 21.Atarax 25 mg p.o. t.i.d. p.r.n. for itching. DISPOSITION: [facility]. Lower extremity wound to get zinc to continue. Follow up with Dr. Boogie at [facility] and patient to follow with visiting physician after discharge from [facility]. Coordination of care and DC planning more than 35 minutes. MMODL / IJN: [id number] /
[2017-04-06] MEDS: DAPTOmycin 500 MG in SODIUM CHLORIDE 0.9% 50 ML IV SCH (15:12)
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
== END 2017-04-06 15:55 | DRG 603 ==
LOC: EC 12:41 → 4MS4W 14:56
PROVIDERS: ADMIT Hospitalist; ATTEND Hospitalist
DX: L03.115 Cellulitis of right lower limb (principal); I27.20 Pulmonary hypertension, unspecified; Z68.43 Body mass index [BMI] 50.0-59.9, adult; I11.0 Hypertensive heart disease with heart failure; I50.9 Heart failure, unspecified; E66.01 Morbid (severe) obesity due to excess calories; G40.409 Other generalized epilepsy and epileptic syndromes, not intractable, without status epilepticus; I89.0 Lymphedema, not elsewhere classified; L03.116 Cellulitis of left lower limb; E78.5 Hyperlipidemia, unspecified; J44.9 Chronic obstructive pulmonary disease, unspecified; G80.9 Cerebral palsy, unspecified; F17.210 Nicotine dependence, cigarettes, uncomplicated; L29.9 Pruritus, unspecified; F41.8 Other specified anxiety disorders; Z79.811 Long term (current) use of aromatase inhibitors; Z79.82 Long term (current) use of aspirin; Z79.899 Other long term (current) drug therapy; Z86.711 Personal history of pulmonary embolism; Z86.718 Personal history of other venous thrombosis and embolism; Z87.442 Personal history of urinary calculi; Z90.12 Acquired absence of left breast and nipple; Z86.73 Personal history of transient ischemic attack (TIA), and cerebral infarction without residual deficits; Z91.048 Other nonmedicinal substance allergy status; Z88.8 Allergy status to other drugs, medicaments and biological substances; Z91.018 Allergy to other foods; Z91.041 Radiographic dye allergy status; Z88.0 Allergy status to penicillin; Z88.2 Allergy status to sulfonamides; Z88.1 Allergy status to other antibiotic agents; Z88.5 Allergy status to narcotic agent; Z91.010 Allergy to peanuts
CPT/HCPCS: 36415; 71020; 80053; 81001; 82550; 82553; 83735; 83880; 84100; 84484; 85025; 93005; 94640; 94760; 96365; 96375; 99285

== ENCOUNTER → 2017-10-12 | Outpatient (CLI) | payer MEDICARE, OTHER ==
--- NOTE | 2017-10-12 10:04 | CT ---
EXAMINATION TYPE: CT abdomen pelvis wo con DATE OF EXAM: 10/12/2017 COMPARISON: 08/21/2015 HISTORY: Kidney stones and Frequent UTI CT DLP: 1428 mGycm Examination of the solid and hollow viscera is limited given the lack of contrast. FINDINGS: LUNG BASES: No evidence for nodule. No evidence for infiltrate. There is evidence of cardiomegaly. LIVER/GB: Calcified cholelithiasis. No space-occupying hepatic lesion. PANCREAS: No pancreatic mass identified. No inflammatory process seen. SPLEEN: No evidence for splenomegaly. No intrasplenic lesions seen. ADRENALS: No adrenal nodules identified. No evidence for thickening. 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 1 cm calculus lower pole right kidne y nonobstructing. No additional renal calculi are seen. There is no evidence for hydronephrosis or re nal mass. BOWEL: Appendix has a normal appearance. No evidence of bowel obstruction. No inflammatory process. Lymph nodes: No evidence for adenopathy greater than 1 cm. Abdominal aorta: Atheromatous changes seen. No evidence for aneurysm. Genital organs: Small ovarian left follicular cyst measuring 1.1 cm with focal calcification. Unchang ed from prior study. Uterus and right ovary are unremarkable. Other: No significant abnormality. IMPRESSION: 1. Nonobstructing right-sided nephrolithiasis. 2. Stable left ovarian cystic lesion with focal calcification. 3. Cholelithiasis.
== END | disposition home or self-care (01) ==
LOC: RADCTMAIN 09:20
PROVIDERS: ATTEND Urology
DX: N20.0 Calculus of kidney (principal); N83.202 Unspecified ovarian cyst, left side; K80.20 Calculus of gallbladder without cholecystitis without obstruction
CPT/HCPCS: 74176

== ENCOUNTER → 2017-11-08 | Outpatient (CLI) | payer MEDICARE, OTHER ==
--- NOTE | 2017-11-08 13:29 | BD ---
EXAMINATION TYPE: Axial Bone Density DATE OF EXAM: 11/08/2017 COMPARISON: NONE CLINICAL HISTORY: Postmenopausal female. Osteoporosis screening. Height: 58.5 IN Weight: 260 LBS FRAX RISK QUESTIONS: RISK FACTORS HISTORY OF: History of Wrist Fracture: LEFT WRIST When: AGE 8 Family History of Osteoporosis: YES MOTHER AND GRANDMOTHER Active: LIMITED Postmenopausal woman: AGE 49 Lost more than 2 inches in height since high school: YES 3 " Adrenal Insufficiency: YES MEDICATIONS: Additional Medications: ACETAMINOPHEN, ALBUTEROL, ASPIRIN 81 MG, ATORVASTATIN, BUSPIRONE HCL, DUONEB, FEMARA, HYDROXYZINE, LAC-HYDRIN CREAM, LASIX, LEXAPRO, MELATONIN, MOBIC, NORCO, NORVASC, OMEPRAZOLE, OXYBUTYNIN CHLORIDE, PHENTOIN, POTASSIUM, SENNA PLUS, SPIRONOLACTONE, XANAX Additional History: BREAST CANCER WITH CHEMO AGE 59 LIMITED DUE TO PT COUGHING AND PTS MOBILITY. EXAM MEASUREMENTS: Bone mineral densitometry was performed using the [employer] System. Bone mineral density as measured about the Lumbar spine is: ----- L1-L4(G/cm2): 1.196 T Score Values are as follows: ----- L2: -0.2 ----- L3: 0.0 ----- L4: -1.4 ----- L1-L4: 0.1 Bone mineral density BASELINE Bone mineral density about the R hip (g/cm2): 0.779 Bone mineral density about the L hip (g/cm2): 0.727 T Score values are as follows: -----R Neck: -1.9 -----L Neck: -2.2 -----R Total: -1.9 -----L Total: -2.3 Bone mineral density BASELINE IMPRESSION: Osteopenia (T Score between -2.5 and -1). There is slightly increased risk of fracture and the patient may be considered for treatment. Re-Screen 2-5 years. NOTE: T-SCORE=SD OF THE YOUNG ADULT MEAN.
== END | disposition home or self-care (01) ==
LOC: RADBDWWP 08:01
PROVIDERS: ATTEND Internal Medicine Hematology & Oncology
DX: C50.511 Malignant neoplasm of lower-outer quadrant of right female breast (principal); M85.88 Other specified disorders of bone density and structure, other site; I10 Essential (primary) hypertension; E78.5 Hyperlipidemia, unspecified; Z87.39 Personal history of other diseases of the musculoskeletal system and connective tissue
CPT/HCPCS: 77080

== ENCOUNTER → 2017-12-14 | Outpatient (CLI) | payer MEDICARE, OTHER ==
--- NOTE | 2017-12-14 14:36 | XR ---
EXAMINATION TYPE: XR KUB DATE OF EXAM: 12/14/2017 2:27 PM CLINICAL HISTORY: Kidney stone per order. TECHNIQUE: Two Upright KUB images of the abdomen are obtained. COMPARISON: CT abdomen and pelvis October 12, 2017 . FINDINGS: There is persistent 13 mm calculus lower pole right kidney cyst superior L5 level. No new n ephrolithiasis. There is overall nonobstructive bowel gas pattern. There is multilevel spurring and disc space narrow ing throughout the spine. Slight levoconvex scoliosis is redemonstrated. Moderate degenerative change in both hips with joint space narrowing and spurring is present. IMPRESSION: Stable roughly 13 mm right renal calculus lower pole collecting system.
== END | disposition home or self-care (01) ==
LOC: RADXRMAIN 14:12
PROVIDERS: ATTEND Urology
DX: N20.0 Calculus of kidney (principal)
CPT/HCPCS: 74018

== ENCOUNTER 2018-11-15 17:16 | Emergency (ER) | payer MEDICARE, OTHER ==
--- NOTE | 2018-11-15 18:23 | XR ---
EXAMINATION TYPE: XR shoulder complete RT DATE OF EXAM: 11/15/2018 COMPARISON: NONE HISTORY: Shoulder pain TECHNIQUE: 3 views FINDINGS: There is spurring of the humeral head. I see no fracture nor dislocation. There is spurring at the AC joint. IMPRESSION: Osteoarthritis. No fracture seen.
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
[2018-11-15 20:45] VITALS: BP 142/78; PULSE 88; RESP 20; TEMP 98
== END 2018-11-15 20:48 | disposition home or self-care (01) ==
LOC: EC 17:16
DX: S43.004A Unspecified dislocation of right shoulder joint, initial encounter (principal); J44.9 Chronic obstructive pulmonary disease, unspecified; I11.0 Hypertensive heart disease with heart failure; I50.9 Heart failure, unspecified; E78.5 Hyperlipidemia, unspecified; F32.9 Major depressive disorder, single episode, unspecified; F41.9 Anxiety disorder, unspecified; G40.909 Epilepsy, unspecified, not intractable, without status epilepticus; Z79.02 Long term (current) use of antithrombotics/antiplatelets; Z79.899 Other long term (current) drug therapy; Z91.040 Latex allergy status; Z88.8 Allergy status to other drugs, medicaments and biological substances; Z91.018 Allergy to other foods; Z88.1 Allergy status to other antibiotic agents; Z88.5 Allergy status to narcotic agent; Z91.041 Radiographic dye allergy status; Z88.0 Allergy status to penicillin; Z88.2 Allergy status to sulfonamides; Z91.010 Allergy to peanuts; Z87.891 Personal history of nicotine dependence; Z86.718 Personal history of other venous thrombosis and embolism; Z86.73 Personal history of transient ischemic attack (TIA), and cerebral infarction without residual deficits; Z86.711 Personal history of pulmonary embolism; Z90.12 Acquired absence of left breast and nipple
CPT/HCPCS: 23650; 99284

== ENCOUNTER 2018-11-18 06:21 | Emergency (ER) | payer MEDICARE, OTHER ==
[2018-11-18 06:57] VITALS: RESP 18; TEMP 99.1
--- NOTE | 2018-11-18 07:08 | XR ---
EXAM: XR Right Shoulder Complete, 2 or More Views CLINICAL HISTORY: Pain TECHNIQUE: Two or more views of the right shoulder. COMPARISON: 11/15/2018 FINDINGS: Bones/joints: Degenerative changes are noted involving the glenohumeral joint and the acromioclavicular joint, similar to previous exam. No dislocation or acute traumatic injury identified. Soft tissues: No significant interval change. No soft tissue calcifications identified. IMPRESSION: Similar degenerative changes of the right shoulder without acute traumatic injury or abnormal alignment.
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
[2018-11-18 08:26] VITALS: BP 156/95; PULSE 78
== END 2018-11-18 08:44 | disposition home or self-care (01) ==
LOC: EC 06:21
DX: S46.911A Strain of unspecified muscle, fascia and tendon at shoulder and upper arm level, right arm, initial encounter (principal); J44.9 Chronic obstructive pulmonary disease, unspecified; I11.0 Hypertensive heart disease with heart failure; I50.9 Heart failure, unspecified; E78.5 Hyperlipidemia, unspecified; G40.909 Epilepsy, unspecified, not intractable, without status epilepticus; F41.9 Anxiety disorder, unspecified; F32.9 Major depressive disorder, single episode, unspecified; Z79.82 Long term (current) use of aspirin; Z79.899 Other long term (current) drug therapy; Z91.048 Other nonmedicinal substance allergy status; Z88.8 Allergy status to other drugs, medicaments and biological substances; Z91.018 Allergy to other foods; Z88.1 Allergy status to other antibiotic agents; Z88.5 Allergy status to narcotic agent; Z91.010 Allergy to peanuts; Z91.041 Radiographic dye allergy status; Z88.0 Allergy status to penicillin; Z88.2 Allergy status to sulfonamides; Z87.891 Personal history of nicotine dependence; Z90.12 Acquired absence of left breast and nipple; Z86.73 Personal history of transient ischemic attack (TIA), and cerebral infarction without residual deficits; Z86.718 Personal history of other venous thrombosis and embolism; Z86.711 Personal history of pulmonary embolism; X50.9XXA Other and unspecified overexertion or strenuous movements or postures, initial encounter
CPT/HCPCS: 99283

== ENCOUNTER → 2019-04-02 | Outpatient (CLI) | payer MEDICARE, OTHER ==
--- NOTE | 2019-04-02 13:45 | MM ---
Reason for exam: additional evaluation requested from prior study. Last mammogram was performed 2 years and 1 month ago. History: Patient is postmenopausal, has history of breast cancer at age 59, and has history of other cancer at age 59. Family history of breast cancer in mother at age 60. Benign US breast needle core RT of the right breast, November 08, 2016. Benign US breast needle core addl RT of the right breast, November 08, 2016. Benign US biopsy breast VAD RT of the right breast, September 02, 2015. Malignant US biopsy breast VAD RT of the right breast, January 27, 2015. Malignant US biopsy breast add'l VAD RT of the right breast, January 27, 2015. Malignant US biopsy breast add'l VAD RT of the right breast, January 27, 2015. Benign excisional biopsy of the right breast, 2013. Benign excisional biopsy of the left breast. Lumpectomy. Chemotherapy. Taking antineoplastic for 4 years. Physical Findings: Nurse Summary: 1 x 1cm nodule in the right breast at 12 o'clock (nurse TM). MG 3D Diag Mammo W/Cad PRADIP Bilateral CC and MLO view(s) were taken. Prior study comparison: February 23, 2017, bilateral MG 3d diag mammo w/cad PRADIP. November 08, 2016, right breast MG diagnostic mammo RT wo CAD. Finding: There are increased typically benign course grouped/clustered calcifications in the upper outer quadrant, anterior position of the right breast adjacent to ribbon clip. This corresponds to palpable. Consider biopsy of palpable. No radiation history. These results were verbally communicated with the patient and result sheet given to the patient on 04/02/19. ASSESSMENT: Incomplete: need additional imaging evaluation, BI-RAD 0 RECOMMENDATION: Ultrasound of the right breast.
--- NOTE | 2019-04-02 13:48 | USB ---
Reason for exam: additional evaluation requested from abnormal screening. History: Patient is postmenopausal, has history of breast cancer at age 59, and has history of other cancer at age 59. Family history of breast cancer in mother at age 60. Benign US breast needle core RT of the right breast, November 08, 2016. Benign US breast needle core addl RT of the right breast, November 08, 2016. Benign US biopsy breast VAD RT of the right breast, September 02, 2015. Malignant US biopsy breast VAD RT of the right breast, January 27, 2015. Malignant US biopsy breast add'l VAD RT of the right breast, January 27, 2015. Malignant US biopsy breast add'l VAD RT of the right breast, January 27, 2015. Benign excisional biopsy of the right breast, 2013. Benign excisional biopsy of the left breast. Lumpectomy. Chemotherapy. Taking antineoplastic for 4 years. US Breast Limited RT Right limited breast ultrasound including focal area of concern, retroareolar and axilla demonstrates a 15 x 11 x 13mm irregular, hypoechoic lesion at 10 o'clock. This had been present. No shadowing appears to corresponds. No dystrophic calcifications. No cystic or solid lesion at palpable. Biopsied 2017 with benign results. These results were verbally communicated with the patient and result sheet given to the patient on 04/02/19. ASSESSMENT: Benign, BI-RAD 2 RECOMMENDATION: Follow-up diagnostic mammogram of both breasts in 1 year.
== END | disposition home or self-care (01) ==
LOC: RADMAMWWP 10:34
PROVIDERS: ATTEND Internal Medicine Hematology & Oncology
DX: Z08 Encounter for follow-up examination after completed treatment for malignant neoplasm (principal); Z85.3 Personal history of malignant neoplasm of breast
CPT/HCPCS: 77066; 76642; G0279; 77062

== ENCOUNTER → 2020-09-28 | Outpatient (CLI) | payer MEDICARE, OTHER ==
--- NOTE | 2020-09-28 14:43 | CT ---
EXAMINATION TYPE: CT soft tissue neck wo con DATE OF EXAM: 09/28/2020 HISTORY: Mass in neck, R 22.1 COMPARISON: None CT DLP: 625.30 mGycm. Automated Exposure Control for Dose Reduction was Utilized. TECHNIQUE: CT scan of the neck is performed without contrast, axial images are obtained, coronal and sagittal reformatted images are reviewed. FINDINGS: Lack of contrast could compromise sensitivity. Patient is canted within the gantry which co uld limit evaluation Airway: No gross abnormality seen. Parotid/submandibular glands: No gross abnormality seen. Carotid/Vascular Structures: Not evaluated due to lack of contrast Osseous Structures: Degenerative disc changes are present , there is multilevel facet arthropathy, fo raminal encroachment Other: Thyroid gland shows heterogeneous density and there is a small focal calcification on the righ t. There is no supraclavicular or cervical adenopathy. Question a soft tissue mass, asymmetric appear ance to the medial aspect of the right orbit as compared to the left which is incompletely evaluated. IMPRESSION: No significant abnormality is seen within the neck. Possible right orbital mass is in ad equately evaluated. Noncontrast exam.
== END | disposition home or self-care (01) ==
LOC: RADCTMAIN 10:34
PROVIDERS: ATTEND Family Medicine
DX: R22.1 Localized swelling, mass and lump, neck (principal)
CPT/HCPCS: 70490

== ENCOUNTER → 2020-12-23 | Outpatient (CLI) | payer MEDICARE, OTHER ==
--- NOTE | 2020-12-23 16:54 | MR ---
EXAMINATION TYPE: MR orbits wo con DATE OF EXAM: 12/23/2020 COMPARISON: CT neck September 28, [address] brain August 03, 2014 HISTORY: Right orbital mass. TECHNIQUE: Multiplanar, multisequence imaging of the orbits is performed without IV contrast. Patient refused IV contrast as ordered. FINDINGS: Exam is degraded by patient motion artifact making evaluation suboptimal. The globes are in tact bilaterally. Rectus muscles are likely symmetric and within normal limits but artifact degradati on is present. There is redemonstration of oval intraorbital extraconal lesion in the right orbit [place] ng the superior medial aspect that is fairly well defined measuring roughly 1.9 cm AP diameter by 1.4 cm transversely series 601 image 11 by roughly 1.8 cm craniocaudal dimension coronal image 11. This lesion is isointense to brain parenchyma on T1 fat saturation images and shows low signal posterior t hree fourths with increased signal anterior one fourth portion on T2 weighted images with horizontal separation. Lesion in retrospect was present 2015 study axial image 37 through 39 but was smaller in size versus 21 CT where it has soft tissue density on both. It is distinct from the medial rectus mus antonio. Difficulty evaluating its relationship to the superior oblique muscle but likely not part of or contiguous with. Without contrast imaging further characterization cannot be performed. No bony destr uction on CT. No calcification. IMPRESSION: As above. Suboptimal study, given the lesion in retrospect was present 2014 and is slowly growing in size a nonaggressive etiology is strongly favored.
== END | disposition home or self-care (01) ==
LOC: RADMRIMAIN 10:05
PROVIDERS: ATTEND Nurse Practitioner Gerontology
DX: H05.89 Other disorders of orbit (principal)
CPT/HCPCS: 70540

== ENCOUNTER 2022-01-20 04:12 | Emergency (ER) | payer MEDICARE, OTHER ==
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
[2022-01-20] MEDS ORDERED: MAGNESIUM CITRATE 296 ML BOTTLE PO ONE (06:10)
[2022-01-20 07:27] VITALS: BP 133/77; PULSE 87; RESP 18; TEMP 98.7
== END 2022-01-20 08:45 | disposition home or self-care (01) ==
LOC: EC 04:12 → EEVIPCON 04:12 → EC 07:28
DX: K59.00 Constipation, unspecified (principal); K64.9 Unspecified hemorrhoids; J45.909 Unspecified asthma, uncomplicated; J44.9 Chronic obstructive pulmonary disease, unspecified; Z86.73 Personal history of transient ischemic attack (TIA), and cerebral infarction without residual deficits; Z86.718 Personal history of other venous thrombosis and embolism; E78.5 Hyperlipidemia, unspecified; I11.9 Hypertensive heart disease without heart failure; N18.9 Chronic kidney disease, unspecified; F41.9 Anxiety disorder, unspecified; F32.A Depression, unspecified; Z88.8 Allergy status to other drugs, medicaments and biological substances; Z91.018 Allergy to other foods; Z91.041 Radiographic dye allergy status; Z88.0 Allergy status to penicillin; Z88.2 Allergy status to sulfonamides
CPT/HCPCS: 99284

== ENCOUNTER → 2022-04-18 | Outpatient (CLI) | payer OTHER ==
--- NOTE | 2022-04-18 16:07 | CT ---
EXAMINATION TYPE: CT abdomen pelvis wo con DATE OF EXAM: 04/18/2022 HISTORY: Kidney stone CT DLP: 743.5 mGycm. Automated Exposure Control for Dose Reduction was Utilized. TECHNIQUE: CT scan of the abdomen and pelvis is performed without oral or IV contrast. COMPARISON: Prior CT August 02, 2021 and older studies Findings: LUNG BASES: Cardiomegaly is redemonstrated. Coronary artery calcification and/or coronary stents are redemonstrated. LIVER/GB: Rim calcified 1.4 cm gallstone in gallbladder is redemonstrated. PANCREAS: No significant abnormality is seen. SPLEEN: No significant abnormality is seen. ADRENALS: Low dense thickening to left adrenal gland favoring benign lipid rich hyperplasia is redemo nstrated. KIDNEYS: Staghorn type calculus lower pole right kidney measuring 2.5 cm long axis axial image 52 is redemonstrated . No left-sided nephrolithiasis is clearly seen. Stable prominent right renal pelvis without hydroureter or new calyceal dilatation. There is no left-sided hydroureter. There are multip le scattered pelvic phleboliths redemonstrated. BOWEL: A small hiatal hernia is redemonstrated. Normal appearing appendix is seen from cecum in the right lower quadrant. Moderate right-sided colonic fecal prominence current study. Hyperdense materia l distal colon could reflect ingested food product. No suspicious small or large bowel dilatation is present. GENITAL ORGANS: Anteverted uterus projects to left of midline. Slightly bulky fundus redemonstrated.. Fairly stable 2.8 cm hypodense left ovarian lesion favor benign thin-walled cyst. LYMPH NODES: No greater than 1cm abdominal or pelvic lymph nodes are appreciated. Prominent and sligh tly enlarged bilateral groin lymph nodes are larger from prior studies. For reference series 2.1 x 1. 5 cm right groin lymph node axial image 123 on current study. More prominent bilateral iliac chain ly mph nodes the bilateral pelvis. OSSEOUS STRUCTURES: Osseous structures remain demineralized. Multilevel spurring in the thoracic and upper lumbar spine is present. There is levoconvex scoliosis redemonstrated. OTHER: No significant additional abnormality is seen. IMPRESSION: 1. Stable 2.5 cm staghorn type calculus posteriorly in the right kidney. No new hydronephrosis. 2. New bilateral groin adenopathy and borderline pelvic iliac chain adenopathy. Neoplasm such as lymp alexa needs to be considered. Other etiologies not excluded. Clinical correlation and follow-up advise chen
== END | disposition home or self-care (01) ==
LOC: RADCTMAIN 14:35
PROVIDERS: ATTEND Emergency Medicine
DX: N20.0 Calculus of kidney (principal); R59.0 Localized enlarged lymph nodes
CPT/HCPCS: 74176

== ENCOUNTER → 2022-05-16 | Outpatient (CLI) | payer OTHER ==
--- NOTE | 2022-05-16 15:10 | MM ---
Reason for Exam: Follow-up at short interval from prior study. Last mammogram was performed 3 year(s) and 1 month(s) ago. Patient History: Menarche at age 11. Postmenopausal. Other cancer, age 59. Breast cancer, age 59. Lumpectomy. Benign Excisional Biopsy on the left side. 2013, Benign Excisional Biopsy on the right side. 11/08/2016, Benign Core Biopsy on the right side. 11/08/2016, Benign Core Biopsy on the right side. 09/02/2015, Benign Core Biopsy on the right side. 01/27/2015, Malignant Core Biopsy on the right side. 01/27/2015, Malignant Core Biopsy on the right side. 01/27/2015, Malignant Core Biopsy on the right side. Chemotherapy. Mother had breast cancer, age 60. Tissue Density: There are scattered fibroglandular densities. Findings: Analyzed By CAD. There is poor visualization of the left breast due to the patient's physical condition with stroke symptoms. However, this appearance is stable from prior examinations Right breast: Multiple core markers are present. There are several groups of calcifications present previously. Additional scattered benign-appearing calcifications are present. No suspicious cluster of microcalcifications is evident. No suspicious abnormality account for right breast pain is mammographically apparent. Overall Assessment: Benign, BI-RAD 2 Management: Screening Mammogram of both breasts in 1 year. A clinical breast exam by your physician is recommended on an annual basis and results should be correlated with mammographic findings. This exam should not preclude additional follow-up of suspicious palpable abnormalities. Results were given to the patient verbally at the time of exam. Electronically signed and approved by: Malcolm Zaldivar D.O. Radiologis
== END | disposition home or self-care (01) ==
LOC: RADMAMWWP 14:10
PROVIDERS: ATTEND Emergency Medicine
DX: C50.511 Malignant neoplasm of lower-outer quadrant of right female breast (principal); R59.9 Enlarged lymph nodes, unspecified; Z85.3 Personal history of malignant neoplasm of breast; Z80.3 Family history of malignant neoplasm of breast; Z78.0 Asymptomatic menopausal state; Z98.890 Other specified postprocedural states
CPT/HCPCS: 77062; 77066

== ENCOUNTER 2022-06-26 16:55 | Emergency (ER) | payer OTHER ==
[2022-06-26 17:04] VITALS: TEMP 98.1
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
--- NOTE | 2022-06-26 17:58 | CT ---
EXAMINATION TYPE: CT brain andriy wo con DATE OF EXAM: 06/26/2022 COMPARISON: CT brain 08/03/2014 HISTORY: fall CT DLP: 1634.2 mGycm Automated exposure control for dose reduction was used. Images of the brain and cervical spine obtained with no contrast. There is large area of encephalomalacia involving the right cerebral hemisphere in the posterior temp oral lobe and parietal lobe. There is no mass effect or midline shift. No sign of intracranial hemorr raf. There is normal aeration of the mastoid sinuses. There is cerebral cortical atrophy. The cervical vertebra have normal alignment. Disc spaces are fairly normal. No compression fracture. Facet joints are intact. There is multilevel cervical facet arthropathy. IMPRESSION: Negative CT scan cervical spine. No fracture. Encephalomalacia and atrophy involving the right posterior temporoparietal lobe without change compar ed to old exam. No acute intracranial abnormality. Cerebral atrophy.
--- NOTE | 2022-06-26 18:32 | XR ---
EXAMINATION TYPE: XR chest 2V DATE OF EXAM: 06/26/2022 COMPARISON: 04/03/2017 HISTORY: Pain TECHNIQUE: 2 views FINDINGS: There is no heart failure nor confluent pneumonic infiltrate. Costophrenic angles are clear . There are no hilar masses. Bony thorax is intact. IMPRESSION: No active cardiopulmonary disease. No change.
--- NOTE | 2022-06-26 18:33 | XR ---
EXAMINATION TYPE: XR shoulder complete RT DATE OF EXAM: 06/26/2022 COMPARISON: NONE HISTORY: Shoulder pain TECHNIQUE: 3 views FINDINGS: There is spurring at the glenohumeral joint. There is spurring at the AC joint. No fracture seen. Scapula is intact. 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 No fracture.
[2022-06-26 21:27] VITALS: BP 131/73; PULSE 79; RESP 15
== END 2022-06-26 21:55 | disposition home or self-care (01) ==
LOC: EC 16:55
DX: S16.1XXA Strain of muscle, fascia and tendon at neck level, initial encounter (principal); S00.81XA Abrasion of other part of head, initial encounter; S09.90XA Unspecified injury of head, initial encounter; M47.812 Spondylosis without myelopathy or radiculopathy, cervical region; M19.011 Primary osteoarthritis, right shoulder; G93.89 Other specified disorders of brain; I11.0 Hypertensive heart disease with heart failure; I50.9 Heart failure, unspecified; J44.9 Chronic obstructive pulmonary disease, unspecified; E78.5 Hyperlipidemia, unspecified; F32.A Depression, unspecified; F41.9 Anxiety disorder, unspecified; Z86.73 Personal history of transient ischemic attack (TIA), and cerebral infarction without residual deficits; Z86.711 Personal history of pulmonary embolism; Z88.2 Allergy status to sulfonamides; Z88.1 Allergy status to other antibiotic agents; Z88.0 Allergy status to penicillin; Z88.8 Allergy status to other drugs, medicaments and biological substances; Z91.09 Other allergy status, other than to drugs and biological substances; Z91.041 Radiographic dye allergy status; Z79.82 Long term (current) use of aspirin; Z79.899 Other long term (current) drug therapy; W18.09XA Striking against other object with subsequent fall, initial encounter
CPT/HCPCS: 70450; 71046; 72125; 99285

== ENCOUNTER → 2022-09-01 | Outpatient (CLI) | payer OTHER ==
[2022-09-01 15:55] LABS: ALT 35 U/L (8-44); AST 24 U/L (13-35); African American GFR (CKD) 110.3 (60.0-200.0); Albumin 4.3 g/dL (3.8-4.9); Albumin/Globulin Ratio 1.78 (1.60-3.17); Alkaline Phosphatase 57 U/L (41-126); BUN/Creat Ratio 21.98 Ratio (12.00-20.00); Blood Urea Nitrogen 13.1 mg/dL (9.0-27.0); Calcium 9.5 mg/dL (8.7-10.3); Carbon Dioxide 24.8 mmol/L (20.0-27.5); Chloride 107 mmol/L (96-109); Chol/HDL Ratio 2.33 Ratio; Globulin 2.4 g/dL (1.6-3.3); Glucose 84 mg/dL (70-110); LDL Cholesterol,Calculated 53.6 mg/dL (0.0-131.0); Non-African American GFR(CKD) 95.2 (60.0-200.0); Potassium 4.4 mmol/L (3.5-5.5); Sodium 142 mmol/L (135-145); Total Protein 6.7 g/dL (6.2-8.2)
[2022-09-01 16:45] LABS: Basophils # (A) 0.03 X 10*3/uL (0.00-0.10); Basophils % (A) 0.5 %; Eosinophils # (A) 0.13 X 10*3/uL (0.04-0.35); Eosinophils % (A) 2.3 %; HCT 36.6 % (37.2-46.3); HGB 11.6 g/dL (12.0-15.0); Immature Grans, Automated 0.4 %; Lymphocytes # (A) 1.39 X 10*3/uL (0.90-5.00); Lymphocytes % (A) 24.8 %; MCH 31.4 pg (27.0-32.0); MCHC 31.7 g/dL (32.0-37.0); MCV 98.9 fL (80.0-97.0); Mean Platelet Volume 12.1 fL (9.5-12.2); Monocytes # (A) 0.31 X 10*3/uL (0.20-1.00); Monocytes % (A) 5.5 %; NRBC Per 100 WBC 0 /100 WBCS (0.0-0.0); Neutrophils # (A) 3.72 X 10*3/uL (1.80-7.70); Neutrophils % (A) 66.5 %; Platelet Count 179 X 10*3/uL (140-440); RDW 13.2 % (11.5-14.5)
== END | disposition home or self-care (01) ==
LOC: LABWHC1 10:10
PROVIDERS: ATTEND Emergency Medicine
DX: I11.0 Hypertensive heart disease with heart failure (principal); I50.22 Chronic systolic (congestive) heart failure; E78.2 Mixed hyperlipidemia; G40.89 Other seizures
CPT/HCPCS: 36415; 80053; 80061; 80177; 82306; 84439; 84443; 85025

== ENCOUNTER → 2022-11-03 | Outpatient (CLI) | payer OTHER ==
--- NOTE | 2022-11-03 14:38 | US ---
EXAMINATION TYPE: US thyroid st tissue head/neck DATE OF EXAM: 11/03/2022 COMPARISON: CT cervical spine June 26, 2022 CLINICAL INDICATION: Female, 67 years old with history of M43.6 TORTICOLLIS R13.10 DYSPHAGIA, UNSPECI FIED; Dysphagia. Patient states having enlarged lymph nodes in her groin and waiting to see if it is lymphoma. GLAND SIZE: Right Lobe: 4.5 x 2.2 x 2.3 cm Overall Parenchyma: homogenous Left Lobe: 4.5 x 1.7 x 1.8 cm Overall Parenchyma: homogeneous Isthmus Thickness: 0.3 cm NODULES RIGHT: # of nodules measured on right: 3 1. 0.8 X 0.7 x 0.7 cm, upper lateral, mixed cystic and solid, hypoechoic nodule, which is wider randy n tall, with ill-defined margins, without echogenic foci. Prior size: no prior 2. 1.0 X 0.9 x 1.4 cm, lower mid, solid or almost completely solid, hypoechoic nodule, which is julianne ler than wide, with ill-defined margins, with macrocalcification. Prior size: no prior TR 5 lesion. 3. 1.1 X 1.1 x 1.0 cm, lower lateral, solid or almost completely solid, isoechoic nodule, which is wider than tall, with ill-defined margins, without echogenic foci. Prior size: No prior LEFT: # of nodules measured on left: 1 1. 0.4 X 0.4 x 0.5 cm, lower mid, solid or almost completely solid, hypoechoic nodule, which is julianne ler than wide, with ill-defined margins, without echogenic foci. Prior size: No prior ISTHMUS: # of nodules measured in the isthmus: 0 Bilateral neck scanned, prominent lymph nodes visualized bilaterally. Largest on right lateral super ior neck with short axis measurement = 0.8 cm and cortical thickness- 4.0 mm. Largest on left later al neck with short axis measurement = 0.6 cm and cortical thickness- 3.5 mm, possible two lymph nodes together. Homogeneous normal-sized thyroid with small bilateral nodules noted as detailed above IMPRESSION: As above. Imaging guided sampling of the #2 right sided nodule recommended.
== END | disposition home or self-care (01) ==
LOC: RADUSWWP 13:09
PROVIDERS: ATTEND Emergency Medicine
DX: M43.6 Torticollis (principal); R13.10 Dysphagia, unspecified
CPT/HCPCS: 76536

== ENCOUNTER 2023-05-17 08:32 | Inpatient (IN) | payer OTHER ==
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
[~2023-05-17 08:32] MED LIST changes: -BACITRACIN OINT 1 EACH PACKET TOPICAL ONE; +DEXAMETHASONE SOD PHOSPHATE 4 MG/ML 1 ML VIAL IV ONE; +ONDANSETRON 4 MG/2 ML VIAL IVP ONE
--- NOTE | 2023-05-17 09:09 | XR ---
EXAMINATION TYPE: XR KUB DATE OF EXAM: 05/17/2023 HISTORY: Pain Comparison: None.Single KUB is submitted for interpretation. Findings: Right renal calculi: Right-sided staghorn calculus measuring 3.2 x 2.0 cm. Additional calculus overli es the right kidney at its upper pole likely reflective of a gallstone. Right ureteral calculi: None Visualized. Left renal calculi: Limited by overlying bowel content. Left ureteral calculi: None Visualized. Pelvic calcifications: None Visualized. Bowel gas pattern is unremarkable. No free air. No mass effects. IMPRESSION: 1. Right-sided staghorn calculus measuring 3.2 x 2.0 cm. Additional calculus overlies the right kidne y at its upper pole likely reflective of a gallstone.
[2023-05-17] MEDS ORDERED: IOPAMIDOL-370 50ML BTL MISCELLANE ONE ×2 (10:08)
[2023-05-17] MEDS: LACTATED RINGERS 1,000 ML IV SCH ×2 (10:40→15:34)
[2023-05-17] MEDS ORDERED: NEOSTIGMINE 1 MG/ML 10 ML VIAL ONE (10:47)
[2023-05-17] MEDS ORDERED: MIDAZOLAM 2 MG/2 ML VIAL ONE (10:47)
[2023-05-17] MEDS ORDERED: ROCURONIUM 10 MG/ML (5 ML VIAL) IV ONE (10:47)
[2023-05-17] MEDS ORDERED: ePHEDrine 50 MG/ML 1 ML VIAL ONE (10:47)
[2023-05-17] MEDS ORDERED: GENTAMICIN 80 MG in SODIUM CHLORIDE 0.9% 100 ML IVPB ONE (10:47)
[2023-05-17] MEDS ORDERED: GLYCOPYRROLATE 0.2 MG/ML 2 ML VIAL ONE (10:47)
[2023-05-17] MEDS ORDERED: fentaNYL (PF) 50 MCG/ML 2 ML AMP ONE (10:47)
[2023-05-17] MEDS ORDERED: ETOMIDATE 2 MG/ML 10 ML VIAL ONE (10:47)
[2023-05-17] MEDS ORDERED: LIDOCAINE 1% INJ 10MG/ML (20 ML MDV) ONE (10:47)
[2023-05-17] MEDS ORDERED: IV FLUID CONTINUATION 1,000 ML IV ONE ×2 (10:49→11:17)
[2023-05-17] MEDS ORDERED: LACTATED RINGERS 1,000 ML IV ONE (12:04)
[2023-05-17] MEDS ORDERED: CARBAMIDE PEROXIDE 6.5% DROPS 15 ML BTL BOTH EARS PRN (12:14)
[2023-05-17] MEDS ORDERED: MECLIZINE 25 MG TAB PO PRN (12:14)
[2023-05-17] MEDS ORDERED: LORATADINE 10 MG TAB PO PRN (12:14)
[2023-05-17] MEDS ORDERED: ALBUTEROL NEBULIZED 2.5 MG/3 ML INHALATION PRN (12:14)
[2023-05-17] MEDS ORDERED: MAG HYDROX/AL HYDROX/SIMETH 30 ML CUP PO PRN (12:18)
[2023-05-17] MEDS ORDERED: ONDANSETRON 4 MG/2 ML VIAL IVP PRN ×2 (12:18→15:43)
[2023-05-17] MEDS ORDERED: MORPHINE SULFATE 2 MG/ML SYRINGE IVP PRN ×2 (12:19→15:42)
--- NOTE | 2023-05-17 12:23 | P.OP ---
Date of Procedure: 05/17/23 Preoperative Diagnosis: Right renal stone, large, infected Postoperative Diagnosis: Same Procedure(s) Performed: Cystoscopy, placement of occluding balloon catheter right, percutaneous nephrostomy (Dr. velazquez), percutaneous nephrostolithotomy ultrasound right, placement of 10 J nephrostomy tube right Anesthesia: [place] Surgeon: Doug Cleveland Estimated Blood Loss (ml): 100 Pathology: other Condition: stable (Stone) Disposition: PACU Indications for Procedure: Patient is 67. She has an infected partial staghorn 3 x 2 cm in the right upper pole the kidney. She comes for percutaneous nephrostolithotomy, right Description of Procedure: Patient brought to the operating suite. On the transport renny is given a general anesthetic. She's placed in a frog position with a sterile prep. Cystoscopy Foroblique lens and 21-Panamanian sheath identifies the right ureteral orifice which was intubated with an occluding balloon catheter up to the UPJ. The cystoscope was removed. A Dimas catheters placed in the bladder and secured to the ureteral catheter The patient is placed in prone position. The right flank is exposed and prepped. Dr. Velazquez of radiology performed percutaneous access to the right upper pole calyx. I then dilate the tract to 30-Panamanian and put in a rigid sheath. The stones are seen. With ultrasound I break the stone into smaller pieces the largest of which are basketed. I then take the flexible nephroscope looked throughout the collecting system basketing a small fragments. There is no remaining stone at the end of the procedure. A 10 J nephrostomy tubes placed over the working wire and secured to the skin. The patient is awakened and returned recovery room good condition. Blood loss is approximately 100 mL. She'll be placed in the hospital postoperatively.
[2023-05-17] MEDS: fentaNYL (PF) 50 MCG/ML 2 ML AMP IV PRN ×2 (12:44→12:59)
[2023-05-17] MEDS ORDERED: HYDROmorphone 0.5 MG/0.5 ML SYRINGE IVP ONE ×3 (13:24→15:02)
--- NOTE | 2023-05-17 13:26 | XR ---
EXAMINATION TYPE: XR chest 1V DATE OF EXAM: 05/17/2023 COMPARISON: NONE HISTORY: Line placement. TECHNIQUE: Single frontal view of the chest is obtained. IMPRESSION: Left internal jugular central venous catheter has its catheter tip near the brachiocephalic and super ior vena cava junction. The lungs are clear. The cardiac silhouette is moderately enlarged and the pulmonary vessels are within normal limits.
--- NOTE | 2023-05-17 13:28 | FL ---
EXAMINATION TYPE: FL Perc Nephrostomy New Access DATE OF EXAM: 05/17/2023 COMPARISON: NONE HISTORY: Procedure had been discussed with the patient by Dr. Cleveland, risks, benefits, alternatives, were dis cussed and any questions were answered. Informed consent was obtained. The patient was in a semipro ne position prepped and draped on the OR table in the usual sterile fashion. Utilizing a 15 cm lengt h Chiba needle a single pass was made into a lower pole posterior calyx under fluoroscopic guidance. An 0.018 guidewire is passed through the needle and there was placement of a 6-Sammarinese catheter sheat h system. There was conversion to a 0.035 system was performed with passage of a guidewire into the ureter utilizing a directional catheter. A second safety wire was placed. Remaining portion of pro cedure performed by . Approximately 1 minute and 31 seconds of fluoroscopy was provided. T he DAP 10.623. IMPRESSION: 1. Successful intraoperative right nephrostomy prior to nephrolithotomy.
[2023-05-17] MEDS ORDERED: ACETAMINOPHEN IV (For NPO) 1,000 MG/100 ML VIAL IVPB ONE (14:21)
[2023-05-17] MEDS: DEXTROSE 5%-0.45% NACL 1,000 ML IV SCH (16:10)
[2023-05-17] MEDS: levETIRAcetam 500 MG TAB PO SCH ×2 (17:05→20:00)
[2023-05-17] MEDS: oxyBUTYnin chloride 5 MG TAB PO SCH (17:05)
[2023-05-17] MEDS: HYDROcodone/APAP 7.5-325MG 1 EACH TAB PO PRN (19:26)
[2023-05-17] MEDS: FLUTICASONE 50MCG/SPRAY NASAL 16GM NASAL SCH (20:00)
[2023-05-17] MEDS: ATORVASTATIN 10 MG TAB PO SCH (20:00)
[2023-05-18] MEDS: DEXTROSE 5%-0.45% NACL 1,000 ML IV SCH ×3 (00:15→14:36)
[2023-05-18] MEDS: HYDROcodone/APAP 7.5-325MG 1 EACH TAB PO PRN ×4 (04:41→23:56)
[2023-05-18] MEDS: FUROSEMIDE 40 MG TAB PO SCH (09:30)
[2023-05-18] MEDS: POTASSIUM CHLORIDE ER 20 MEQ TAB.ER PO SCH (09:30)
[2023-05-18] MEDS: ESCITALOPRAM 20 MG TAB PO SCH (09:30)
[2023-05-18] MEDS: FAMOTIDINE 20 MG TAB PO SCH (09:30)
[2023-05-18] MEDS: amLODIPine 10 MG TAB PO SCH (09:31)
[2023-05-18] MEDS: oxyBUTYnin chloride 5 MG TAB PO SCH ×3 (09:31→17:56)
[2023-05-18] MEDS: FLUTICASONE 50MCG/SPRAY NASAL 16GM NASAL SCH ×2 (09:31→20:01)
[2023-05-18] MEDS: SPIRONOLACTONE 25 MG TAB PO SCH (09:31)
[2023-05-18] MEDS: levETIRAcetam 500 MG TAB PO SCH ×3 (09:32→20:01)
[2023-05-18] MEDS: HYDROmorphone 0.5 MG/0.5 ML SYRINGE IVP PRN ×2 (09:32→19:50)
[2023-05-18] MEDS: LACTATED RINGERS 1,000 ML IV SCH (09:36)
--- NOTE | 2023-05-18 12:45 | P.PN ---
Subjective patient did have a fever of 101 last night, is complaining of right flank pain this morning. Objective - Vital Signs Vital signs: Vital Signs Temp 100.1 F H 05/18/23 11:35 Pulse 88 05/18/23 11:35 Resp 27 H 05/18/23 11:35 BP 152/82 05/18/23 11:35 Pulse Ox 94 L 05/18/23 11:35 FiO2 Intake & Output 05/17/23 05/18/23 05/18/23 18:59 06:59 18:59 Intake Total 1951 120 Output Total 1050 600 Balance 902 -480 Weight 81.5 kg Intake: IV 1951 Oral 120 Output: Drainage 200 Right Back 200 Urine 950 400 Uretheral (Mcfarland) 400 Estimated Blood Loss 100 Other: Voiding Method Indwelling Catheter Indwelling Catheter Indwelling Catheter - Constitutional General appearance: Present: no acute distress - Gastrointestinal General gastrointestinal: Present: soft, tenderness (right flank) Assessment and Plan Assessment: statys post right PCNL, having pain and low-grade fever -pain control -keep mcfarland in place -will start Ceftrixone
[2023-05-18] MEDS: ACETAMINOPHEN TAB 325 MG TAB PO PRN (20:01)
[2023-05-18] MEDS: ATORVASTATIN 10 MG TAB PO SCH (20:01)
[2023-05-18] MEDS: methocarbamoL 750 MG TAB PO SCH (21:18)
[2023-05-18] MEDS: ALPRAZolam 0.25 MG TAB PO PRN (23:55)
[2023-05-19] MEDS: HYDROmorphone 0.5 MG/0.5 ML SYRINGE IVP PRN (00:32)
[2023-05-19] MEDS: DEXTROSE 5%-0.45% NACL 1,000 ML IV SCH ×2 (00:33→13:44)
[2023-05-19] MEDS: PROCHLORPERAZINE INJ 10 MG/2 ML VIAL IVP PRN (06:07)
[2023-05-19] MEDS: ALPRAZolam 0.25 MG TAB PO PRN ×2 (08:07→19:59)
[2023-05-19] MEDS: HYDROcodone/APAP 7.5-325MG 1 EACH TAB PO PRN ×3 (08:07→19:59)
[2023-05-19] MEDS: SPIRONOLACTONE 25 MG TAB PO SCH (08:08)
[2023-05-19] MEDS: FAMOTIDINE 20 MG TAB PO SCH (08:08)
[2023-05-19] MEDS: levETIRAcetam 500 MG TAB PO SCH ×3 (08:08→19:59)
[2023-05-19] MEDS: FUROSEMIDE 40 MG TAB PO SCH (08:08)
[2023-05-19] MEDS: POTASSIUM CHLORIDE ER 20 MEQ TAB.ER PO SCH (08:08)
[2023-05-19] MEDS: amLODIPine 10 MG TAB PO SCH (08:08)
[2023-05-19] MEDS: FLUTICASONE 50MCG/SPRAY NASAL 16GM NASAL SCH ×2 (08:08→19:58)
[2023-05-19] MEDS: methocarbamoL 750 MG TAB PO SCH ×3 (08:09→19:59)
[2023-05-19] MEDS: oxyBUTYnin chloride 5 MG TAB PO SCH ×3 (08:51→18:11)
[2023-05-19] MEDS: ESCITALOPRAM 20 MG TAB PO SCH (08:53)
--- NOTE | 2023-05-19 11:47 | P.PN ---
Subjective Progress Note Date: 05/19/23 The patient is status post right percutaneous nephrostolithotomy for an infected Staghorn calculus did the surgery was done 05/17/23. She is now afebrile. She is still having a moderate amount of discomfort. The urine in the nephrostomy tube is still has old blood. The urine in the catheter is clear. Objective - Vital Signs Vital signs: Vital Signs Temp 98.8 F 05/19/23 08:00 Pulse 100 05/19/23 08:00 Resp 16 05/19/23 08:00 BP 143/82 05/19/23 08:00 Pulse Ox 94 L 05/19/23 08:00 FiO2 Intake & Output 05/18/23 05/19/23 05/19/23 18:59 06:59 18:59 Intake Total 1200 Output Total 683 745 Balance -683 455 Intake: Intake, IV Titration 1200 Amount Dextrose 5%-0.45% NaCl 1, 1200 000 ml @ 100 mls/hr IV . Q10H [facility] Rx#:[id number] Output: Drainage 8 45 Right Back 8 45 Urine 675 700 Other: Voiding Method Indwelling Catheter Indwelling Catheter Ileal Conduit (Right) Assessment and Plan Assessment: Impression: Status post percutaneous nephrostolithotomy right. History of cerebral palsy with decreased mobility. Recommendations: The patient will continue with IV antibiotics and supportive IV fluids. Suspect she'll be here another 48 hours. Leave the tube can be removed and this will help control her discomfort. The patient lives by herself and with her immobility if she is ready to for discharge but can't care for herself she may require temporary rehab
[2023-05-19 18:51] LABS: Basophils % (A) 0 %; Eosinophils % (A) 0 %; HCT 32.3 % (34.0-46.0); HGB 10.7 gm/dL (11.4-16.0); Lymphocytes # (A) 0.6 k/uL (1.0-4.8); Lymphocytes % (A) 4 %; MCH 32.3 pg (25.0-35.0); MCHC 33.3 g/dL (31.0-37.0); Mean Platelet Volume 9.6; Monocytes # (A) 0.5 k/uL (0-1.0); Monocytes % (A) 4 %; Neutrophils # (A) 12.3 k/uL (1.3-7.7); Neutrophils % (A) 91 %; Platelet Count 100 k/uL (150-450); RBC 3.33 m/uL (3.80-5.40); WBC 13.6 k/uL (3.8-10.6)
[2023-05-19] MEDS: ATORVASTATIN 10 MG TAB PO SCH (19:59)
[2023-05-19 23:15] LABS: ALT 21 U/L (8-44); AST 28 U/L (13-35); Albumin 3.2 g/dL (3.8-4.9); Albumin/Globulin Ratio 1.39 Ratio (1.60-3.17); Alkaline Phosphatase 66 U/L (41-126); Calcium 8.6 mg/dL (8.7-10.3); Carbon Dioxide 25.9 mmol/L (21.6-31.8); Chloride 100 mmol/L (96-109); Globulin 2.3 g/dL (1.6-3.3); Glucose 119 mg/dL (70-110); Potassium 3.6 mmol/L (3.5-5.5); Sodium 134 mmol/L (135-145); Total Bilirubin 0.8 mg/dL (0.3-1.2); Total Protein 5.5 g/dL (6.2-8.2)
[2023-05-20] MEDS: DEXTROSE 5%-0.45% NACL 1,000 ML IV SCH ×3 (00:51→21:46)
[2023-05-20] MEDS: HYDROmorphone 0.5 MG/0.5 ML SYRINGE IVP PRN ×2 (03:43→21:47)
[2023-05-20] MEDS: PROCHLORPERAZINE INJ 10 MG/2 ML VIAL IVP PRN (03:44)
[2023-05-20] MEDS: POTASSIUM CHLORIDE ER 20 MEQ TAB.ER PO SCH (07:45)
[2023-05-20] MEDS: SPIRONOLACTONE 25 MG TAB PO SCH (07:45)
[2023-05-20] MEDS: FAMOTIDINE 20 MG TAB PO SCH (07:45)
[2023-05-20] MEDS: levETIRAcetam 500 MG TAB PO SCH ×3 (07:45→21:47)
[2023-05-20] MEDS: ESCITALOPRAM 20 MG TAB PO SCH (07:47)
[2023-05-20] MEDS: FUROSEMIDE 40 MG TAB PO SCH (07:48)
[2023-05-20] MEDS: methocarbamoL 750 MG TAB PO SCH ×3 (07:48→21:47)
[2023-05-20] MEDS: oxyBUTYnin chloride 5 MG TAB PO SCH ×3 (07:48→17:28)
[2023-05-20] MEDS: FLUTICASONE 50MCG/SPRAY NASAL 16GM NASAL SCH ×2 (07:48→21:54)
[2023-05-20] MEDS: amLODIPine 10 MG TAB PO SCH (07:48)
--- NOTE | 2023-05-20 12:41 | P.PN ---
Subjective Progress Note Date: 05/20/23 The patient is status post right percutaneous nephrostolithotomy. Lives alone. She has cerebral palsy. She has been minimally active during this hospitalization. Her urine is clearing from the right nephrostomy tube. She is on IV antibiotics for her urine infection as the Proteus that she is growing is resistant to oral antibiotics that she can tolerate. She states that she has multiple antibiotic ALLERGIES. I will advance her diet. Hopefully can pull the nephrostomy tube tomorrow. The catheter in the bladder can be removed tomorrow. She may need temporary rehab placement. Objective - Vital Signs Vital signs: Vital Signs Temp 99 F 05/20/23 10:45 Pulse 107 H 05/20/23 08:00 Resp 16 05/20/23 08:00 BP 115/75 05/20/23 08:00 Pulse Ox 93 L 05/20/23 08:00 FiO2 Intake & Output 05/19/23 05/20/23 05/20/23 18:59 06:59 18:59 Intake Total 2090 Output Total 1150 1200 Balance -1150 890 Intake: Intake, IV Titration 1200 Amount Dextrose 5%-0.45% NaCl 1, 1200 000 ml @ 100 mls/hr IV . Q10H [facility] Rx#:[id number] Oral 890 Output: Drainage 50 Right Back 50 Urine 1100 1200 Other: Voiding Method Indwelling Catheter Indwelling Catheter Indwelling Catheter Ileal Conduit (Right) Ileal Conduit (Right) Ileal Conduit (Right) - Labs CBC & Chem 7: 05/19/23 17:33 05/19/23 17:33 Labs: Abnormal Lab Results - Last 24 Hours (Table) 05/19/23 05/19/23 Range/Units 17:33 17:33 WBC 13.6 H (3.8-10.6) k/uL RBC 3.33 L (3.80-5.40) m/uL Hgb 10.7 L (11.4-16.0) gm/dL Hct 32.3 L (34.0-46.0) % Plt Count 100 L (150-450) k/uL Neutrophils # 12.3 H (1.3-7.7) k/uL Lymphocytes # 0.6 L (1.0-4.8) k/uL Sodium 134 L (135-145) mmol/L Glucose 119 H (70-110) mg/dL Calcium 8.6 L (8.7-10.3) mg/dL Total Protein 5.5 L (6.2-8.2) g/dL Albumin 3.2 L (3.8-4.9) g/dL Albumin/Globulin Ratio 1.39 L (1.60-3.17) Ratio
[2023-05-20] MEDS: HYDROcodone/APAP 7.5-325MG 1 EACH TAB PO PRN (18:32)
[2023-05-20] MEDS: ATORVASTATIN 10 MG TAB PO SCH (21:47)
[2023-05-21] MEDS: HYDROcodone/APAP 7.5-325MG 1 EACH TAB PO PRN (04:51)
[2023-05-21] MEDS: amLODIPine 10 MG TAB PO SCH (08:02)
--- NOTE | 2023-05-21 08:02 | P.PN ---
Subjective Progress Note Date: 05/21/23 The patient is status post right percutaneous nephrostolithotomy for a staghorn infected calculus. SHe is slowly recuperating. The nephrostomy tube was removed this morning. The Dimas catheter be removed later. Social work was involved for temporary rehab until she is able to care for herself at home. Objective - Vital Signs Vital signs: Vital Signs Temp 99.1 F 05/21/23 07:07 Pulse 115 H 05/21/23 07:07 Resp 15 05/21/23 07:07 BP 94/65 05/21/23 07:07 Pulse Ox 93 L 05/21/23 07:07 FiO2 Intake & Output 05/20/23 05/21/23 05/21/23 18:59 06:59 18:59 Intake Total 480 Output Total 600 1000 10 Balance -120 -1000 -10 Intake: Oral 480 Output: Drainage 10 Right Back 10 Urine 600 1000 Uretheral (Dimas) 600 Other: Voiding Method Indwelling Catheter Indwelling Catheter Ileal Conduit (Right) Ileal Conduit (Right) - Labs CBC & Chem 7: 05/19/23 17:33 05/19/23 17:33
[2023-05-21] MEDS: DEXTROSE 5%-0.45% NACL 1,000 ML IV SCH ×2 (08:09→18:40)
[2023-05-21] MEDS: methocarbamoL 750 MG TAB PO SCH ×3 (08:12→23:34)
[2023-05-21] MEDS: oxyBUTYnin chloride 5 MG TAB PO SCH ×3 (08:12→18:14)
[2023-05-21] MEDS: FAMOTIDINE 20 MG TAB PO SCH (08:13)
[2023-05-21] MEDS: FUROSEMIDE 40 MG TAB PO SCH ×2 (08:13→10:58)
[2023-05-21] MEDS: FLUTICASONE 50MCG/SPRAY NASAL 16GM NASAL SCH ×2 (08:13→21:54)
[2023-05-21] MEDS: SPIRONOLACTONE 25 MG TAB PO SCH (08:13)
[2023-05-21] MEDS: levETIRAcetam 500 MG TAB PO SCH ×4 (08:13→22:07)
[2023-05-21] MEDS: ESCITALOPRAM 20 MG TAB PO SCH (08:13)
[2023-05-21] MEDS: POTASSIUM CHLORIDE ER 20 MEQ TAB.ER PO SCH (08:13)
[2023-05-21] MEDS: ACETAMINOPHEN TAB 325 MG TAB PO PRN (16:45)
[2023-05-21] MEDS ORDERED: IPRATROPIUM-ALBUTEROL 3 ML NEB INHALATION PRN (17:08)
[2023-05-21] MEDS ORDERED: NYSTATIN 100,000 UNIT/GM POWD 15 GM TOPICAL PRN (17:11)
[2023-05-21] MEDS ORDERED: ACETAMINOPHEN TAB 325 MG TAB PO PRN (17:11)
--- NOTE | 2023-05-21 17:33 | XR ---
EXAMINATION TYPE: XR chest 1V portable DATE OF EXAM: 05/21/2023 5:14 PM CLINICAL INDICATION:Female, 67 years old with history of fever; COMPARISON: Chest radiographs from 05/17/2023. TECHNIQUE: XR chest 1V portable Frontal view of the chest. FINDINGS: Lungs/Pleura: There is no evidence of pleural effusion, focal consolidation, or pneumothorax. Pulmonary vascularity: Unremarkable. Heart/mediastinum: Cardiomediastinal silhouette is unremarkable. Musculoskeletal: No acute osseous pathology. Other findings: None Left central venous catheter with tip terminating at the superior cavoatrial junction. IMPRESSION: Cardiomegaly, pulmonary vascular congestion and bilateral pleural effusions. Correlate with BNP for c ongestive heart failure.
[2023-05-21] MEDS: IPRATROPIUM-ALBUTEROL 3 ML NEB INHALATION SCH ×2 (17:46→21:09)
[2023-05-21] MEDS: CEFEPIME 2 GM in SODIUM CHLORIDE 0.9% 100 ML IVPB SCH (18:14)
[2023-05-21] MEDS: HEPARIN SODIUM,PORCINE 5,000 UNIT/ML 1 ML VIAL SQ SCH ×2 (18:14→23:33)
[2023-05-21] MEDS ORDERED: FUROSEMIDE 10 MG/ML 2 ML VIAL IV STA (18:21)
--- NOTE | 2023-05-21 18:25 | P.PN ---
Subjective Progress Note Date: 05/21/23 Patient is in the hospital with a right percutaneous nephrostolithotomy for an infected stone. She underwent this successfully. She had some fever postoperatively as expected she seemed to defervesce. I pulled her nephrostomy tube this morning. She developed a fever this evening. Objective - Vital Signs Vital signs: Vital Signs Temp 99.1 F 05/21/23 11:40 Pulse 98 05/21/23 11:40 Resp 16 05/21/23 11:40 BP 89/60 05/21/23 11:40 Pulse Ox 92 L 05/21/23 11:40 FiO2 Intake & Output 05/20/23 05/21/23 05/21/23 18:59 06:59 18:59 Intake Total 480 Output Total 600 1000 1710 Balance -120 -1000 -1710 Intake: Oral 480 Output: Drainage 10 Right Back 10 Urine 600 1000 1700 Uretheral (Dimas) 600 Other: Voiding Method Indwelling Catheter Indwelling Catheter Indwelling Catheter Ileal Conduit (Right) Ileal Conduit (Right) Ileal Conduit (Right) - Constitutional General appearance: Present: cooperative - Gastrointestinal Gastrointestinal Comment(s): Mild tenderness right upper quadrant - Labs CBC & Chem 7: 05/19/23 17:33 05/19/23 17:33 Assessment and Plan Assessment: Impression: Postoperative fever. Atelectasis or pulmonary congestion on chest x-ray. history of congestive heart failure. Recommendations: Dr. Tobin of medicine was asked to see the patient. He is add ed cefepime. The chest x-minerva noted. She seems to be oriented this evening. Cultures have been obtained. A CBC will be drawn. We will see how she does.
[2023-05-21 19:01] LABS: Basophils % (A) 0 %; Eosinophils # (A) 0.1 k/uL (0-0.7); Eosinophils % (A) 0 %; HCT 32.6 % (34.0-46.0); HGB 10.7 gm/dL (11.4-16.0); Lymphocytes # (A) 0.7 k/uL (1.0-4.8); Lymphocytes % (A) 5 %; MCH 31.5 pg (25.0-35.0); MCHC 32.7 g/dL (31.0-37.0); MCV 96.4 fL (80.0-100.0); Mean Platelet Volume 8.6; Monocytes # (A) 0.6 k/uL (0-1.0); Monocytes % (A) 5 %; Neutrophils # (A) 11.3 k/uL (1.3-7.7); Neutrophils % (A) 87 %; Platelet Count 136 k/uL (150-450); RBC 3.38 m/uL (3.80-5.40); RDW 12.9 % (11.5-15.5); WBC 13.1 k/uL (3.8-10.6)
[2023-05-21] MEDS ORDERED: DILTIAZEM 125 MG in SODIUM CHLORIDE 0.9% 100 ML IV SCH (20:45)
[2023-05-21] MEDS: ALPRAZolam 0.25 MG TAB PO PRN (21:52)
[2023-05-21] MEDS: ATORVASTATIN 10 MG TAB PO SCH (21:52)
[2023-05-21] MEDS: HYDROCORTISONE 1% CREAM 30 GM TUBE TOPICAL SCH (23:33)
[2023-05-22] MEDS: CEFEPIME 2 GM in SODIUM CHLORIDE 0.9% 100 ML IVPB SCH ×3 (01:53→18:10)
--- NOTE | 2023-05-22 04:08 | CONS ---
CONSULTATION REASON FOR CONSULTATION: Advice regarding fever and other medical issues, requested by Urology. HISTORY OF PRESENT ILLNESS: This is a 67-year-old woman with a past medical history of multiple medical problems including asthma COPD, CHF, CVA, underwent multiple procedures for right large partial staghorn calculus. The patient also had recurrent Proteus infections previously. Currently, the patient is running fever. There is no history of headache, loss of consciousness, or seizures. The patient is extremely weak, also being worked up for ECF rehab. PAST MEDICAL HISTORY: Reviewed include asthma, CHF, COPD, CVA, TIA, DVT, pulmonary embolism, multiple other medical problems. Rest of the history and rest of the chart is also reviewed. HOME MEDICATIONS: Reviewed include carbamide. Dose and rest of medications reviewed. ALLERGIES: Reviewed include adhesives. Rest of the allergies are reviewed. FAMILY HISTORY: History of DVT and cancer. SOCIAL HISTORY: The patient used to be a retired nurse. No smoking. No alcohol. REVIEW OF SYSTEMS: Fourteen-point review is negative except as mentioned earlier. PHYSICAL EXAMINATION: VITAL SIGNS: Pulse is 98, blood pressure 89/60, respirations 16. HEENT: Conjunctivae normal. NECK: No JVD. CARDIOVASCULAR: S1, S2 muffled. RESPIRATION: Breath sounds diminished at the bases. A few scattered rhonchi and crackles. ABDOMEN: Soft, obese, nontender. LEGS: No edema. NERVOUS SYSTEM: Nonfocal. SKIN: No ulcer, rash, bleeding. JOINTS: No active deforming arthropathy. LABORATORY DATA: WBC 13.6, hemoglobin is 10.7. Chest x-ray, portable chest x-ray reviewed, right lower opacity present. ASSESSMENT: 1. Fever, for evaluation, possible right lower lobe pneumonia, rule out sepsis/urinary tract infection. 2. History of recent cystoscopy and percutaneous nephrostomy for right renal stone, large, infected. 3. Asthma, chronic obstructive pulmonary disease. 4. History of congestive heart failure. 5. Deep venous thrombosis. 6. Hypertension. 7. Hyperlipidemia. 8. History of pulmonary embolism. 9. History of seizure disorder. 10.Multiple complex medical issues. 11.Gait dysfunction. 12.ESBL in the urine and MRSA of the leg. RECOMMENDATIONS AND DISCUSSION: This is a 67-year-old woman, presented with multiple medical issues. At this time, I recommend to continue the current medication. I would recommend empiric Zosyn, change the antibiotic Zosyn because the patient is on Rocephin for several days. I would also recommend a chest x-ray PA and lateral to elucidate the possible pneumonia on the right side. Incentive spirometry. Intensive bronchodilator. Resume the home medications. DVT prophylaxis. I would also recommend a D-dimer also. If it is positive, I would recommend a CT angio of the chest. We will follow the patient closely. Resume the home medications. MMODL / IJN: [id number] /
[2023-05-22] MEDS: IPRATROPIUM-ALBUTEROL 3 ML NEB INHALATION SCH ×4 (08:59→22:03)
[2023-05-22] MEDS: HYDROCORTISONE 1% CREAM 30 GM TUBE TOPICAL SCH ×2 (09:00→20:35)
[2023-05-22] MEDS: ESCITALOPRAM 20 MG TAB PO SCH (09:46)
[2023-05-22] MEDS: oxyBUTYnin chloride 5 MG TAB PO SCH ×3 (09:46→18:10)
[2023-05-22] MEDS: MULTIVITAMINS, THERA 1 EACH TAB PO SCH (09:46)
[2023-05-22] MEDS: FUROSEMIDE 40 MG TAB PO SCH (09:46)
[2023-05-22] MEDS: ASPIRIN 81 MG PO SCH (09:47)
[2023-05-22] MEDS: POTASSIUM CHLORIDE ER 20 MEQ TAB.ER PO SCH ×4 (09:47→18:10)
[2023-05-22] MEDS: SPIRONOLACTONE 25 MG TAB PO SCH (09:47)
[2023-05-22] MEDS: methocarbamoL 750 MG TAB PO SCH ×3 (09:47→21:24)
[2023-05-22] MEDS: HEPARIN SODIUM,PORCINE 5,000 UNIT/ML 1 ML VIAL SQ SCH (09:48)
[2023-05-22] MEDS: FLUTICASONE 50MCG/SPRAY NASAL 16GM NASAL SCH ×2 (09:48→20:35)
[2023-05-22] MEDS: FAMOTIDINE 20 MG TAB PO SCH (09:48)
[2023-05-22 10:47] LABS: ALT 29 U/L (4-34); AST 38 U/L (14-36); African American GFR (CKD) >90 (>60 ml/min/1.73 sqM); Albumin 2.7 g/dL (3.5-5.0); Alkaline Phosphatase 73 U/L (38-126); Anion Gap 11 mmol/L; Blood Urea Nitrogen 18 mg/dL (7-17); Calcium 8.2 mg/dL (8.4-10.2); Carbon Dioxide 25 mmol/L (22-30); Chloride 97 mmol/L (98-107); Glucose 99 mg/dL (74-99); Non-African American GFR(CKD) >90 (>60 ml/min/1.73 sqM); Sodium 133 mmol/L (137-145); Total Bilirubin 1.4 mg/dL (0.2-1.3); Total Protein 5.5 g/dL (6.3-8.2)
[2023-05-22 11:03] LABS: Potassium 2.7 mmol/L (3.5-5.1)
[2023-05-22] MEDS: APIXABAN 5 MG TAB PO SCH ×2 (12:09→20:33)
[2023-05-22] MEDS: ALPRAZolam 0.25 MG TAB PO PRN (12:09)
[2023-05-22] MEDS: HYDROcodone/APAP 7.5-325MG 1 EACH TAB PO PRN (12:09)
[2023-05-22] MEDS: METOPROLOL TARTRATE 25 MG TAB PO SCH ×3 (12:09→21:24)
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
[2023-05-22 12:34] LABS: Basophils % (A) 0 %; Eosinophils % (A) 0 %; HCT 30.5 % (34.0-46.0); HGB 10.5 gm/dL (11.4-16.0); Lymphocytes # (A) 0.7 k/uL (1.0-4.8); Lymphocytes % (A) 6 %; MCH 32.7 pg (25.0-35.0); MCHC 34.3 g/dL (31.0-37.0); MCV 95.4 fL (80.0-100.0); Mean Platelet Volume 11.1; Monocytes # (A) 0.7 k/uL (0-1.0); Monocytes % (A) 6 %; Neutrophils % (A) 86 %; Platelet Count 139 k/uL (150-450); RDW 12.7 % (11.5-15.5); WBC 11.7 k/uL (3.8-10.6)
--- NOTE | 2023-05-22 14:08 | P.PN ---
Subjective Progress Note Date: 05/22/23 The patient is 5 days status post right percutaneous nephrostolithotomy for an upper pole staghorn calculus infected. She has cerebral palsy. She has had a slow postoperative course. Yesterday evening she had some low-grade fever and tachycardia. Josue was asked to see her in subsequent cardiology. She has atrial fibrillation which is no onset. Chest x-ray shows bilateral pleural effusions right greater than left. Her white count is down to 11 7. Pulmonary has been asked to see the patient. Objective - Vital Signs Vital signs: Vital Signs Temp 98.5 F 05/22/23 08:00 Pulse 106 H 05/22/23 12:00 Resp 18 05/22/23 12:00 BP 122/67 05/22/23 12:00 Pulse Ox 96 05/22/23 12:00 FiO2 Intake & Output 05/21/23 05/22/23 05/22/23 18:59 06:59 18:59 Output Total 1710 3000 Balance -1710 -3000 Output: Drainage 10 Right Back 10 Urine 1700 3000 Other: Voiding Method Indwelling Catheter Indwelling Catheter Indwelling Catheter Ileal Conduit (Right) - Labs CBC & Chem 7: 05/22/23 09:29 05/22/23 09:29 Labs: Abnormal Lab Results - Last 24 Hours (Table) 05/21/23 05/21/23 05/22/23 Range/Units 18:02 18:36 09:29 WBC 13.1 H (3.8-10.6) k/uL RBC 3.38 L (3.80-5.40) m/uL Hgb 10.7 L (11.4-16.0) gm/dL Hct 32.6 L (34.0-46.0) % Plt Count 136 L (150-450) k/uL Neutrophils # 11.3 H (1.3-7.7) k/uL Lymphocytes # 0.7 L (1.0-4.8) k/uL D-Dimer 12.81 H (<0.60) mg/L FEU Sodium 133 L (137-145) mmol/L Potassium 2.7 L* (3.5-5.1) mmol/L Chloride 97 L (98-107) mmol/L BUN 18 H (7-17) mg/dL Calcium 8.2 L (8.4-10.2) mg/dL Total Bilirubin 1.4 H (0.2-1.3) mg/dL AST 38 H (14-36) U/L Total Protein 5.5 L (6.3-8.2) g/dL Albumin 2.7 L (3.5-5.0) g/dL TSH (0.465-4.680) mIU/L 05/22/23 05/22/23 Range/Units 09:29 09:29 WBC 11.7 H (3.8-10.6) k/uL RBC 3.20 L (3.80-5.40) m/uL Hgb 10.5 L (11.4-16.0) gm/dL Hct 30.5 L (34.0-46.0) % Plt Count 139 L (150-450) k/uL Neutrophils # 10.0 H (1.3-7.7) k/uL Lymphocytes # 0.7 L (1.0-4.8) k/uL D-Dimer (<0.60) mg/L FEU Sodium (137-145) mmol/L Potassium (3.5-5.1) mmol/L Chloride (98-107) mmol/L BUN (7-17) mg/dL Calcium (8.4-10.2) mg/dL Total Bilirubin (0.2-1.3) mg/dL AST (14-36) U/L Total Protein (6.3-8.2) g/dL Albumin (3.5-5.0) g/dL TSH 0.311 L (0.465-4.680) mIU/L Assessment and Plan Assessment: Impression: Atrial fibrillation postoperatively. Pleural effusion. Status post percutaneous nephrostolithotomy Recommendation: I'll obtain a computed tomography scan to make sure there is nothing related to the percutaneous nephrostolithotomy that could contribute to the pleural effusion. Appreciate cardiology's consultation and pulmonary consultation is pending.
[2023-05-22 14:17] LABS: T4, Free (Free Thyroxine) 2.02 ng/dL (0.78-2.19)
[2023-05-22 15:13] LABS: Potassium 2.8 mmol/L (3.5-5.1)
--- NOTE | 2023-05-22 16:53 | PN ---
PROGRESS NOTE DATE OF SERVICE: 05/22/2023 SUBJECTIVE: This is a 67-year-old woman, who was admitted after urological surgery, had fever. The patient also developed atrial fibrillation. The patient also had possibly right pleural effusion and features of CHF also. The patient was transferred to telemetry and monitored closely at this time. The patient is started on empiric antibiotics also. Cardizem has been initiated. PAST MEDICAL HISTORY: Reviewed. REVIEW OF SYSTEMS: Fourteen-point review is negative except as mentioned earlier. CURRENT MEDICATIONS: Reviewed include cefepime and DuoNeb. Doses and rest of the medications are noted. PHYSICAL EXAMINATION: VITAL SIGNS: Pulse is 100, blood pressure 120/60, respirations 18. HEENT: Conjunctivae are normal. NECK: No jugular venous distention. CARDIOVASCULAR: S1 and S2 muffled. RESPIRATORY: Breath sounds diminished at the bases. Few scattered rhonchi. ABDOMEN: Soft and nontender. LEGS: No edema. LABORATORY DATA: Sodium 138, potassium 2.6. Rest of the labs are noted. ASSESSMENT: 1. Fever, possible right lower lobe pneumonia. Rule out sepsis/urinary tract infection. 2. Atrial fibrillation with fast ventricular rate. 3. Hypokalemia. 4. History of recent cystoscopy and percutaneous nephrostomy for right renal stone, large, infected. 5. Asthma/chronic obstructive pulmonary disease history. 6. History of congestive heart failure. 7. History of deep venous thrombosis. 8. Hypertension. 9. Hyperlipidemia. 10.History of pulmonary embolism. 11.History of seizure disorder. 12.Multiple complex medical issues. 13.Gait dysfunction. 14.Extended-spectrum beta-lactamase in the urine and methicillin-resistant Staphylococcus aureus in the leg previously. RECOMMENDATIONS: Recommend to continue current medical management. Continue symptomatic treatment. Continue with antibiotics. D-dimer is elevated to 0.81. I would recommend CT angio of the chest. Closely follow with multiple consultants. Continue with Cardizem. I would also recommend a 2D echo with Doppler. Potassium supplementation. Check magnesium and supplement magnesium. Prognosis is guarded because of multiple complex medical issues. Further recommendations to follow. TSH is 0.311, but free T4 is 2.02 upper limit of normal. I will check a T3 also to rule out the possibility of T3 toxicosis. MMODL / IJN: [id number] /
--- NOTE | 2023-05-22 17:14 | XR ---
EXAMINATION TYPE: XR chest 1V portable DATE OF EXAM: 05/22/2023 4:42 PM CLINICAL INDICATION:Female, 67 years old with history of chf; COMPARISON: Chest radiographs from 05/21/2023 TECHNIQUE: XR chest 1V portable Frontal view of the chest. FINDINGS: Lungs/Pleura: Large right pleural effusion remains. Small left pleural effusion possible. There is no evidence of pleural effusion, focal consolidation, or pneumothorax. Pulmonary vascularity: Unremarkable. Heart/mediastinum: Cardiomediastinal silhouette is unremarkable. Musculoskeletal: Degenerative changes of the shoulder joints. Left central venous catheter with tip near the superior cavoatrial junction. IMPRESSION: 1. Cardiomegaly with suspected large right pleural effusion 2. Left central venous catheter with tip near the superior cavoatrial junction.
[2023-05-22] MEDS: levETIRAcetam 500 MG TAB PO SCH ×2 (18:10→20:33)
[2023-05-22] MEDS: DEXTROSE 5%-0.45% NACL 1,000 ML IV SCH (18:11)
--- NOTE | 2023-05-22 19:00 | CT ---
EXAMINATION TYPE: CT chest abdomen wo con CT DLP: 621.9 mGycm, Automated exposure control for dose reduction was used. DATE OF EXAM: 05/22/2023 5:19 PM COMPARISON: 07/26/2022. CLINICAL INDICATION:Female, 67 years old with history of rt Pleural effusion post rt perc nephostlith otomy; PHH, Rt Pleural effusion post rt perc nephostlithotomy. Technique: Multiple axial images were obtained. Two-dimensional coronal and sagittal reconstructions were obtained. Contrast used: None Oral contrast used: without Oral Contrast Findings: CHEST: LUNGS/ PLEURA: Moderate right and small left pleural effusion with associated atelectasis. No airspac e consolidation. No pneumothorax. Low lung volumes are present. AIRWAY: Patent and unremarkable. HEART: There is mildly enlarged for size. Large severe atherosclerosis of the arterial vasculature. MEDIASTINUM: No gross evidence of adenopathy. VASCULATURE: No aortic aneurysm. Left central venous catheter tip in the superior vena cava. MUSCULOSKELETAL: Moderate disc degeneration changes are present throughout the thoracolumbar spine. M oderate to severe degeneration changes of the shoulders. SOFT TISSUES/LYMPH NODES: Unremarkable. LOWER NECK: No significant findings. ABDOMEN: ABDOMEN LIVER: Unremarkable GALLBLADDER AND BILE DUCTS: Gallstone present in the gallbladder lumen. PANCREAS: Unremarkable. SPLEEN: Unremarkable. ADRENAL GLANDS: Unremarkable. KIDNEYS AND URETERS: There is heterogenous products around the right kidney compatible with blood pro ducts hematoma measuring 8.4 x 4.3 x 7.7 cm there is a single focus of gas present within this fluid. There remains a right renal desiccation measuring 9 mm. Mild right hydroureteronephrosis. No left-si ded obstructive uropathy or calculus visualized. STOMACH AND BOWEL: No evidence of bowel obstruction. PERITONEUM: No evidence of pneumoperitoneum or free fluid. VASCULATURE: No evidence of aortic aneurysm. MUSCULOSKELETAL: No acute osseous abnormalities. Moderate disc degeneration changes are present throu ghout the thoracolumbar spine. LYMPH NODES: No gross evidence for lymphadenopathy. SOFT TISSUE/ABDOMINAL WALL: Unremarkable IMPRESSION: 1. Posttreatment changes to the right kidney with perinephric probable hematoma and focus of gas. Co rrelate with date of surgery. If surgery was not performed recently been these could represent infect ious/inflammatory process. 2. There is a mild right hydroureteronephrosis which could be reactive to inflammation and blood pro ducts on the right kidney. Correlate for signs and symptoms of obstructive uropathy. 3. Persistent right nephric calcification measuring 9 mm. 4. Moderate right and small left pleural effusion. 5. Cholelithiasis. Follow up recommendations for incidental pulmonary nodules are per [employer] or [employer].
[2023-05-22] MEDS: ACETAMINOPHEN TAB 325 MG TAB PO PRN (20:33)
[2023-05-22] MEDS: ATORVASTATIN 10 MG TAB PO SCH (20:33)
[2023-05-23] MEDS: CEFEPIME 2 GM in SODIUM CHLORIDE 0.9% 100 ML IVPB SCH ×3 (01:57→16:51)
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
[2023-05-23] MEDS: HYDROcodone/APAP 7.5-325MG 1 EACH TAB PO PRN ×2 (06:34→18:31)
[2023-05-23] MEDS: APIXABAN 5 MG TAB PO SCH (07:02)
[2023-05-23] MEDS: IPRATROPIUM-ALBUTEROL 3 ML NEB INHALATION SCH ×4 (07:50→20:23)
--- NOTE | 2023-05-23 08:05 | P.PN ---
Progress Note - Text Progress Note Date: 05/23/23 The patient is in her 6 postoperative day from a right percutaneous nephrostolithotomy for an infected partial staghorn calculus of the upper pole. She has had a slow postoperative course. She is developed atrial fibrillation and has a significant right pleural effusion. A computed tomography scan of the abdomen was obtained yesterday identifying some blood around the kidney as expected but a notable pleural effusion. Upon reviewing the CAT scan it would appear as if the nephrostomy tube traverse below the lung based on anatomical location between the 11th and 12th rib. She has been seen by cardiology and pulmonary medicine. An aspiration of the pleura on the right side is being co nsidered. From urologic standpoint the patient can go on anticoagulation once the pulmonary status is clarified. There are couple remaining stones that we'll need to be dealt with ureteroscopically at a later date. The patient's white count was down to 11.7. Her hemoglobin is stable. Vital signs are stable other than the atrial fibrillation.
[2023-05-23] MEDS: ESCITALOPRAM 20 MG TAB PO SCH (08:54)
[2023-05-23] MEDS: ASPIRIN 81 MG PO SCH (08:54)
[2023-05-23] MEDS: levETIRAcetam 500 MG TAB PO SCH ×3 (08:54→22:03)
[2023-05-23] MEDS: METOPROLOL TARTRATE 25 MG TAB PO SCH (08:54)
[2023-05-23] MEDS: oxyBUTYnin chloride 5 MG TAB PO SCH ×3 (08:54→16:51)
[2023-05-23] MEDS: SPIRONOLACTONE 25 MG TAB PO SCH (08:54)
[2023-05-23] MEDS: FAMOTIDINE 20 MG TAB PO SCH (08:54)
[2023-05-23] MEDS: POTASSIUM CHLORIDE ER 20 MEQ TAB.ER PO SCH (08:55)
[2023-05-23] MEDS: FUROSEMIDE 40 MG TAB PO SCH (08:55)
[2023-05-23] MEDS: MULTIVITAMINS, THERA 1 EACH TAB PO SCH (08:55)
[2023-05-23] MEDS: methocarbamoL 750 MG TAB PO SCH ×3 (08:55→22:03)
[2023-05-23] MEDS: HYDROmorphone 0.5 MG/0.5 ML SYRINGE IVP PRN (09:00)
[2023-05-23] MEDS: FLUTICASONE 50MCG/SPRAY NASAL 16GM NASAL SCH ×2 (09:06→22:06)
--- NOTE | 2023-05-23 11:04 | CA ---
Transthoracic Echo Report Name: Kat Gonzalez Age: 67 Gender: F : 1955 Exam Date: 05/22/2023 12:00 Exam Location: [place] [facility] Ht (in): 56 Wt (lb): 179 Ordering Physician: Sumemr Wallace Attending/Referring Phys: [id number], [employer] Norberto Fleming Procedure CPT: Indications: LVF Cardiac Hx: Technical Quality: Fair Contrast 1: Total Dose (mL): Contrast 2: Total Dose (mL): MEASUREMENTS (Male / Female) Normal Values 2D ECHO LV Diastolic Diameter PLAX 4.8 cm 4.2 - 5.9 / 3.9 - 5.3 cm LV Systolic Diameter PLAX 3.1 cm IVS Diastolic Thickness 1.0 cm 0.6 - 1.0 / 0.6 - 0.9 cm LVPW Diastolic Thickness 1.4 cm 0.6 - 1.0 / 0.6 - 0.9 cm LV Relative Wall Thickness 0.5 RV Internal Dim ED PLAX 4.2 cm LVOT Diameter 2.0 cm Aortic Root Diameter 3.1 cm LA Systolic Diameter LX 4.1 cm 3.0 - 4.0 / 2.7 - 3.8 cm LV Diastolic Volume MOD BP 50.9 cm??? 67 - 155 / 56 - 104 cm??? LV Systolic Volume MOD BP 19.6 cm??? 22 - 58 / 19 - 49 cm??? LV Ejection Fraction MOD BP 61.4 % >= 55 % LV Cardiac Index MOD BP 1645.6 cm???/min???m??? LV Diastolic Volume MOD 4C 41.5 cm??? LV Systolic Volume MOD 4C 14.5 cm??? LV Ejection Fraction MOD 4C 65.0 % LV Cardiac Index MOD 4C 1422.5 cm???/min???m??? LV Diastolic Length 4C 6.6 cm LV Systolic Length 4C 5.7 cm LV Diastolic Volume MOD 2C 58.8 cm??? LV Systolic Volume MOD 2C 23.9 cm??? LV Ejection Fraction MOD 2C 59.3 % LV Cardiac Index MOD 2C 1838.2 cm???/min???m??? LV Diastolic Length 2C 7.0 cm LV Systolic Length 2C 6.3 cm LA Volume 53.1 cm??? 18 - 58 / 22 - 52 cm??? LA Volume Index 28.8 cm???/m??? 16 - 28 cm???/m??? Ascending Aorta Diameter 3.2 cm DOPPLER AV Peak Velocity 160.8 cm/s AV Peak Gradient 10.3 mmHg LVOT Peak Velocity 88.9 cm/s LVOT Peak Gradient 3.2 mmHg LVOT Velocity Time Integral 14.1 cm LVOT Stroke Volume 44.3 cm??? LVOT Stroke Volume Index 26.1 ml/m??? LVOT Cardiac Index 2329.9 cm???/min???m??? AV Area Cont Eq pk 1.7 cm??? MV Peak Velocity 131.3 cm/s MV Peak Gradient 6.9 mmHg MV Mean Velocity 64.9 cm/s MV Mean Gradient 2.2 mmHg MV Velocity Time Integral 26.5 cm MR Peak Velocity 184.6 cm/s MR Peak Gradient 13.6 mmHg Mitral E Point Velocity 97.7 cm/s Mitral A Point Velocity 33.0 cm/s Mitral E to A Ratio 3.0 MV Deceleration Time 269.4 ms TR Peak Velocity 273.3 cm/s TR Peak Gradient 29.9 mmHg Right Ventricular Systolic Press 34.9 mmHg PV Peak Velocity 175.7 cm/s PV Peak Gradient 12.3 mmHg FINDINGS Left Ventricle Normal LV size and wall thickness. Left ventricular ejection fraction is estimated at 55-60 %. Right Ventricle Moderate right ventricular dilatation. RVSP= 35mmHg. Right Atrium Moderate right atrial dilatation. Left Atrium Mildly increased left atrial diameter. Mildly increased left atrial volume. LA volume index= 31ml/m2 Mitral Valve Mild posterior annulus calcification. No mitral regurgitation. Aortic Valve Trileaflet aortic valve. Mild AV calcification. No aortic stenosis. No aortic regurgitation. Tricuspid Valve Structurally normal tricuspid valve. Mild TR. Pulmonic Valve Structurally normal pulmonic valve. No pulmonic regurgitation. Pericardium Normal pericardium. Right pleural effusion. Aorta Normal size aortic root and proximal ascending aorta. CONCLUSIONS Normal LV systolic function Normal pulmonary systolic pressure Aortic sclerosis was no stenosis or regurgitation Mitral annular calcification Previewed by: Dr. Shay Ellington MD (Electronically Signed) Final Date: 23 May 2023 11:03
[2023-05-23] MEDS ORDERED: METOPROLOL TARTRATE 25 MG TAB PO STA (11:28)
[2023-05-23 12:07] LABS: Basophils % (A) 0 %; Eosinophils # (A) 0.1 k/uL (0-0.7); Eosinophils % (A) 1 %; HCT 30.6 % (34.0-46.0); Lymphocytes # (A) 0.7 k/uL (1.0-4.8); Lymphocytes % (A) 7 %; MCH 31.6 pg (25.0-35.0); MCHC 32.8 g/dL (31.0-37.0); MCV 96.4 fL (80.0-100.0); Mean Platelet Volume 8.6; Monocytes # (A) 0.8 k/uL (0-1.0); Monocytes % (A) 9 %; Neutrophils # (A) 7.5 k/uL (1.3-7.7); Neutrophils % (A) 80 %; Platelet Count 219 k/uL (150-450); RBC 3.18 m/uL (3.80-5.40); RDW 12.8 % (11.5-15.5); WBC 9.4 k/uL (3.8-10.6)
[2023-05-23] MEDS: HYDROCORTISONE 1% CREAM 30 GM TUBE TOPICAL SCH ×2 (12:22→22:06)
[2023-05-23 12:28] LABS: African American GFR (CKD) >90 (>60 ml/min/1.73 sqM); Anion Gap 10 mmol/L; Blood Urea Nitrogen 18 mg/dL (7-17); Calcium 8.3 mg/dL (8.4-10.2); Carbon Dioxide 26 mmol/L (22-30); Chloride 96 mmol/L (98-107); Glucose 100 mg/dL (74-99); Non-African American GFR(CKD) >90 (>60 ml/min/1.73 sqM); Potassium 3.8 mmol/L (3.5-5.1); Sodium 132 mmol/L (137-145)
--- NOTE | 2023-05-23 14:09 | P.PN ---
Subjective Progress Note Date: 05/23/23 History of present illness: This is a 67 year old female patient of Dr. Romain Deutsch with past medical history of hypertension, family history of premature coronary artery disease, morbid obesity and dyslipidemia. We have been asked to evaluate the patient for A. fib with RVR. Patient was admitted to the hospital on 05/16 due to recurrent urinary tract infection with Proteus and right partial staghorn calculus in the upper pole status post cystoscopy, placement of occluding balloon catheter right, percutaneous nephrostomy placement of J nephrostomy tube right. The patient denies having any previous history of atrial fibrillation. Patient went into atrial fibrillation last evening. This morning she states that she is feeling tired. She states her breathing is better. She has a little chest pain nonspecific. No palpitations and no dizziness. She denies any recent cough no fevers today. She denies any lower extremity edema, no PND and no nausea or vomiting. EKG A. fib with RVR at 124 bpm Chest x-ray: Performed 05/21 cardiomegaly. Pulmonary vascular congestion and bilateral pleural effusions. WBC 13.1, hemoglobin 10.7, platelet count 137. Sodium 133, potassium 2.7, chloride 97, CO2 25, BUN 18 and creatinine 0.65. Calcium 8.2. Total bilirubin 1.4, AST 38, ALT 29, alkaline phosphatase 73. Home cardiac medications: Amlodipine 10 mg daily, aspirin 81 mg daily, atorvastatin 10 mg at bedtime, Lasix 40 mg daily, potassium chloride 20 mg daily, Aldactone 25 mg daily Dobutamine stress test performed in the office on 12/22/2022 was negative with normal myocardial perfusion and function. Echocardiogram performed 2017 in the office revealed normal LV size and function. Mild concentric hypertrophy. Mild mitral regurgitation. Mild tricuspid regurgitation. Mild pulmonic regurgitation. 05/23 Yesterday, patient was started on Lopressor 25 mg 3 times daily and also eliquis if cleared by urology. Eliquis is on hold for possible thoracentesis. Patient now has hematuria as well. Hemoglobin is at 10, BUN 18 creatinine 0.63. TSH 0.311. Normal free T4 2 0.02. Echocardiogram is pending. Patient has been afebrile, heart rate 102, blood pressure 111/73, pulse ox 95% on 2 L. Yesterday evening, patient underwent a chest x-ray which revealed cardiomegaly, pulmonary vascular congestion and bilateral pleural effusions. Patient is been seen by pulmonary medicine and plan for possible thoracentesis. Patient also had a CAT scan of the chest and abdomen which revealed posttreatment changes to the right kidney with perinephric probably hematoma and focus of gas. Correlate with date of surgery. Could be inflammation. Mild right hydroureteronephrosis which could be reactive to inflammation and blood products on the right kidney. Persistent right nephric calcification measuring I millimeters. Moderate right and small left pleural effusion. Cholelithiasis. Physical examination: Gen: This is a 67-year-old female. She is resting in bed appears to be comfortable and in no acute distress. VS: reviewed HEENT: Head is atraumatic, normocephalic. Pupils equal, round. Sclerae is anicteric. NECK: Supple. No JVD. LUNGS: Clear to auscultation. No wheezes or rhonchi. No intercostal retractions. HEART: Irregular rate and rhythm. No murmur. ABDOMEN: Soft No tenderness. EXTREMITIES: Mild bilateral pedal edema. No calf tenderness. NEUROLOGICAL: Patient is awake, alert and oriented x3. Assessment: New onset paroxysmal atrial fibrillation with RVR Recurrent urinary tract infections and renal calculus Bicytopenia with anemia and thrombocytopenia Hypokalemia Hypertension Dyslipidemia Morbid obesity Plan: Change Lopressor to 50 mg twice daily Hold eliquis Repeat lab work in the morning Obtain 2-D echocardiogram and Doppler study to assess cardiac structure and function Further recommendations to follow based upon clinical course Nurse practitioner note has been reviewed, I agree with documented findings and plan of care. Patient was seen and examined. Objective - Vital Signs Vital signs: Vital Signs Temp 99.1 F 05/23/23 12:00 Pulse 102 H 05/23/23 12:00 Resp 18 05/23/23 12:00 BP 111/73 05/23/23 12:00 Pulse Ox 95 05/23/23 12:00 FiO2 Intake & Output 05/22/23 05/23/23 05/23/23 18:59 06:59 18:59 Intake Total 240 0 Output Total 850 1075 600 Balance -112 -9718 -600 Intake: Oral 240 0 Output: Urine 850 1075 600 Other: Voiding Method Indwelling Catheter Indwelling Catheter Indwelling Catheter - Labs CBC & Chem 7: 05/23/23 11:30 05/23/23 11:30 Labs: Abnormal Lab Results - Last 24 Hours (Table) 05/22/23 05/23/23 05/23/23 Range/Units 14:47 11:30 11:30 RBC 3.18 L (3.80-5.40) m/uL Hgb 10.0 L (11.4-16.0) gm/dL Hct 30.6 L (34.0-46.0) % Lymphocytes # 0.7 L (1.0-4.8) k/uL Sodium 132 L (137-145) mmol/L Potassium 2.8 L (3.5-5.1) mmol/L Chloride 96 L (98-107) mmol/L BUN 18 H (7-17) mg/dL Glucose 100 H (74-99) mg/dL Calcium 8.3 L (8.4-10.2) mg/dL Free T3 pg/mL 2.1 L (2.8-5.3) pg/ml Microbiology - Last 24 Hours (Table) 05/21/23 18:08 Blood Culture - Preliminary Blood
--- NOTE | 2023-05-23 14:14 | PN ---
PROGRESS NOTE DATE OF SERVICE: 05/23/2023 SUBJECTIVE: This is a 67-year-old woman, who was admitted with possibly fever initially with urology surgery, had possibly right lower lobe pneumonia and fluid also. Dr. Thurston is following the patient closely. Chest and abdominal CAT scan was done, which showed right moderate pleural effusion and cholelithiasis. PHYSICAL EXAMINATION: VITAL SIGNS: Pulse is 102, blood pressure 120/70, respirations 18. HEENT: Conjunctivae are normal. NECK: No jugular venous distention. CARDIOVASCULAR: S1 and S2 muffled. RESPIRATORY: Breath sounds diminished at the bases, right more than left. ABDOMEN: Soft. Status post surgery. NERVOUS SYSTEM: Nonfocal. LABORATORY DATA: Potassium 3.8. Hemoglobin is 10. Free T4 is 2.1, which is actually low. ASSESSMENT: 1. Fever, possible right lower lobe pneumonia, rule out sepsis/urinary tract infection. 2. Atrial fibrillation with fast ventricular rate. 3. Hypokalemia. 4. Bilateral pleural effusion, right more than left. 5. History of recent cystoscopy and percutaneous nephrostomy for the right renal stone, large, infected. 6. Asthma/chronic obstructive pulmonary disease history. 7. History of congestive heart failure. 8. History of deep venous thrombosis. 9. Hypertension. 10.Hyperlipidemia. 11.History of pulmonary embolism. 12.History of seizure disorder. 13.Multiple complex medical issues. 14.Gait dysfunction. 15.Extended-spectrum beta-lactamase and methicillin-resistant Staphylococcus aureus history previously. RECOMMENDATIONS: Recommend to continue current medical management. Continue symptomatic treatment. Otherwise, continue with broad-spectrum IV antibiotics. Consult with Dr. Thurston for possible thoracocentesis. Follow closely with Urology. Cultures are negative so far. I would recommend to repeat labs in the morning. Further recommendations to follow. PT and OT evaluation. Possibly eventual ECF rehab. MMODL / IJN: [id number] /
[2023-05-23] MEDS: METOPROLOL TARTRATE 50 MG TAB PO SCH ×2 (16:51→22:02)
[2023-05-23] MEDS: DEXTROSE 5%-0.45% NACL 1,000 ML IV SCH (17:20)
[2023-05-23] MEDS: ATORVASTATIN 10 MG TAB PO SCH (22:03)
[2023-05-24] MEDS: CEFEPIME 2 GM in SODIUM CHLORIDE 0.9% 100 ML IVPB SCH ×3 (01:39→17:00)
[2023-05-24] MEDS: HYDROcodone/APAP 7.5-325MG 1 EACH TAB PO PRN ×3 (03:13→16:59)
[2023-05-24] MEDS: DEXTROSE 5%-0.45% NACL 1,000 ML IV SCH (06:34)
--- NOTE | 2023-05-24 07:31 | P.PN ---
Subjective Progress Note Date: 05/24/23 The patient is status post right percutaneous nephrostolithotomy for an infected stone. She has a slow postoperative course including congestive heart failure pleural effusion, atrial fibrillation. She has been seen by medicine,cardiology and pulmonary medicine. She is slowly feeling better. Her urine is clearing. Vital signs are stable. Her temperature is less than 100.. Objective - Vital Signs Vital signs: Vital Signs Temp 99.2 F 05/24/23 04:00 Pulse 105 H 05/24/23 04:00 Resp 18 05/24/23 04:00 BP 106/64 05/24/23 04:00 Pulse Ox 96 05/24/23 04:00 FiO2 Intake & Output 05/23/23 05/24/23 05/24/23 18:59 06:59 18:59 Intake Total 0 10 Output Total 1974 750 Balance -1974 Intake: IV 10 Invasive Line 2 10 Oral 0 Output: Urine 1974 Other: Voiding Method Indwelling Catheter Indwelling Catheter # Voids 1 - Labs CBC & Chem 7: 05/23/23 11:30 05/23/23 11:30 Labs: Abnormal Lab Results - Last 24 Hours (Table) 05/23/23 05/23/23 Range/Units 11:30 11:30 RBC 3.18 L (3.80-5.40) m/uL Hgb 10.0 L (11.4-16.0) gm/dL Hct 30.6 L (34.0-46.0) % Lymphocytes # 0.7 L (1.0-4.8) k/uL Sodium 132 L (137-145) mmol/L Chloride 96 L (98-107) mmol/L BUN 18 H (7-17) mg/dL Glucose 100 H (74-99) mg/dL Calcium 8.3 L (8.4-10.2) mg/dL Microbiology - Last 24 Hours (Table) 05/21/23 18:08 Blood Culture - Preliminary Blood 05/21/23 17:15 Urine Culture - Final Urine,Catheterized Assessment and Plan Assessment: Postop right percutaneous nephrostolithotomy for an infected Staghorn calculus. Atrial fibrillation, pleural effusion postoperative weakness Recommendations: The patient continues to recuperate. She'll probably need to go to [facility] for rehab prior to going home.
[2023-05-24] MEDS: IPRATROPIUM-ALBUTEROL 3 ML NEB INHALATION SCH ×4 (07:44→23:18)
[2023-05-24] MEDS: POTASSIUM CHLORIDE ER 20 MEQ TAB.ER PO SCH ×4 (09:05→13:30)
[2023-05-24] MEDS: ESCITALOPRAM 20 MG TAB PO SCH (09:05)
[2023-05-24] MEDS: oxyBUTYnin chloride 5 MG TAB PO SCH ×3 (09:05→17:00)
[2023-05-24] MEDS: levETIRAcetam 500 MG TAB PO SCH ×3 (09:05→20:51)
[2023-05-24] MEDS: METOPROLOL TARTRATE 50 MG TAB PO SCH ×2 (09:05→15:10)
[2023-05-24] MEDS: FAMOTIDINE 20 MG TAB PO SCH (09:05)
[2023-05-24] MEDS: ASPIRIN 81 MG PO SCH (09:05)
[2023-05-24] MEDS: SPIRONOLACTONE 25 MG TAB PO SCH (09:06)
[2023-05-24] MEDS: FLUTICASONE 50MCG/SPRAY NASAL 16GM NASAL SCH ×2 (09:06→20:52)
[2023-05-24] MEDS: HYDROCORTISONE 1% CREAM 30 GM TUBE TOPICAL SCH ×2 (09:06→20:52)
[2023-05-24] MEDS: methocarbamoL 750 MG TAB PO SCH ×2 (09:06→15:10)
[2023-05-24] MEDS: MULTIVITAMINS, THERA 1 EACH TAB PO SCH (09:06)
[2023-05-24] MEDS: FUROSEMIDE 40 MG TAB PO SCH (09:06)
[2023-05-24 09:33] LABS: HCT 30.4 % (34.0-46.0); HGB 9.9 gm/dL (11.4-16.0); MCH 31.9 pg (25.0-35.0); MCHC 32.6 g/dL (31.0-37.0); MCV 97.9 fL (80.0-100.0); Mean Platelet Volume 8.7; Platelet Count 211 k/uL (150-450); RBC 3.11 m/uL (3.80-5.40); RDW 12.9 % (11.5-15.5)
[2023-05-24 09:40] LABS: ALT 52 U/L (4-34); AST 60 U/L (14-36); African American GFR (CKD) >90 (>60 ml/min/1.73 sqM); Albumin 2.6 g/dL (3.5-5.0); Alkaline Phosphatase 91 U/L (38-126); Anion Gap 9 mmol/L; Blood Urea Nitrogen 18 mg/dL (7-17); Calcium 8.2 mg/dL (8.4-10.2); Carbon Dioxide 26 mmol/L (22-30); Chloride 96 mmol/L (98-107); Glucose 116 mg/dL (74-99); Non-African American GFR(CKD) >90 (>60 ml/min/1.73 sqM); Potassium 3.3 mmol/L (3.5-5.1); Sodium 131 mmol/L (137-145); Total Bilirubin 1.1 mg/dL (0.2-1.3); Total Protein 5.5 g/dL (6.3-8.2)
[2023-05-24 10:11] LABS: Band Neutrophils % 1 %; Eosinophils # (M) 0.43 k/uL (0-0.7); Lymphocytes # (M) 0.68 k/uL (1.0-4.8); Monocytes # (M) 0.68 k/uL (0-1.0); Neutrophils % (M) 78 %; Nucleated Red Blood Cells 1 /100 WBC (0-0); Total Cells Counted 200; WBC 8.5 k/uL (3.8-10.6)
[2023-05-24] MEDS ORDERED: Potassium Replacement Protocol 1 EACH MISC MISCELLANE PRN (10:44)
--- NOTE | 2023-05-24 14:24 | P.PN ---
Subjective Progress Note Date: 05/24/23 History of present illness: This is a 67 year old female patient of Dr. Romain Deutsch with past medical history of hypertension, family history of premature coronary artery disease, morbid obesity and dyslipidemia. We have been asked to evaluate the patient for A. fib with RVR. Patient was admitted to the hospital on 05/16 due to recurrent urinary tract infection with Proteus and right partial staghorn calculus in the upper pole status post cystoscopy, placement of occluding balloon catheter right, percutaneous nephrostomy placement of J nephrostomy tube right. The patient denies having any previous history of atrial fibrillation. Patient went into atrial fibrillation last evening. This morning she states that she is feeling tired. She states her breathing is better. She has a little chest pain nonspecific. No palpitations and no dizziness. She denies any recent cough no fevers today. She denies any lower extremity edema, no PND and no nausea or vomiting. EKG A. fib with RVR at 124 bpm Chest x-ray: Performed 05/21 cardiomegaly. Pulmonary vascular congestion and bilateral pleural effusions. WBC 13.1, hemoglobin 10.7, platelet count 137. Sodium 133, potassium 2.7, chloride 97, CO2 25, BUN 18 and creatinine 0.65. Calcium 8.2. Total bilirubin 1.4, AST 38, ALT 29, alkaline phosphatase 73. Home cardiac medications: Amlodipine 10 mg daily, aspirin 81 mg daily, atorvastatin 10 mg at bedtime, Lasix 40 mg daily, potassium chloride 20 mg daily, Aldactone 25 mg daily Dobutamine stress test performed in the office on 12/22/2022 was negative with normal myocardial perfusion and function. Echocardiogram performed 2017 in the office revealed normal LV size and function. Mild concentric hypertrophy. Mild mitral regurgitation. Mild tricuspid regurgitation. Mild pulmonic regurgitation. 05/23 Yesterday, patient was started on Lopressor 25 mg 3 times daily and also eliquis if cleared by urology. Eliquis is on hold for possible thoracentesis. Patient now has hematuria as well. Hemoglobin is at 10, BUN 18 creatinine 0.63. TSH 0.311. Normal free T4 2 0.02. Echocardiogram is pending. Patient has been afebrile, heart rate 102, blood pressure 111/73, pulse ox 95% on 2 L. Yesterday evening, patient underwent a chest x-ray which revealed cardiomegaly, pulmonary vascular congestion and bilateral pleural effusions. Patient is been seen by pulmonary medicine and plan for possible thoracentesis. Patient also had a CAT scan of the chest and abdomen which revealed posttreatment changes to the right kidney with perinephric probably hematoma and focus of gas. Correlate with date of surgery. Could be inflammation. Mild right hydroureteronephrosis which could be reactive to inflammation and blood products on the right kidney. Persistent right nephric calcification measuring I millimeters. Moderate right and small left pleural effusion. Cholelithiasis. 05/24 Patient continues to have hematuria. Eliquis is on hold and has been cleared to resume tomorrow by Dr. Thurston. Dr. Cleveland has cleared eliquis to be resumed as well. Patient remains in atrial fibrillation heart rate is in the 80s and 90s, blood pressure 111/74, pulse ox 94% on 2 L. Repeat blood work reveals hemoglobin of 9.9. Sodium 131, potassium 3.3, BUN 18 creatinine 0.42. AST 60 and ALT 52. Potassium has been replaced. Echocardiogram reveals normal LV systolic function. Normal pulmonary systolic pressure. Aortic sclerosis with no stenosis or regurgitation. Mitral annular calcification. Physical examination: Gen: This is a 67-year-old female. She is resting in bed appears to b e comfortable and in no acute distress. VS: reviewed HEENT: Head is atraumatic, normocephalic. Pupils equal, round. Sclerae is anicteric. NECK: Supple. No JVD. LUNGS: Clear to auscultation. No wheezes or rhonchi. No intercostal retractions. HEART: Irregular rate and rhythm. No murmur. ABDOMEN: Soft No tenderness. Dim[place] with hematuria. EXTREMITIES: Mild bilateral pedal edema. No calf tenderness. NEUROLOGICAL: Patient is awake, alert and oriented x3. Assessment: New onset paroxysmal atrial fibrillation with RVR Recurrent urinary tract infections and renal calculus Bicytopenia with anemia and thrombocytopenia Hypokalemia Hypertension Dyslipidemia Morbid obesity Plan: Change Lopressor to 50 mg twice daily Hold eliquis Repeat lab work in the morning Resume eliquis 5 mg twice daily tomorrow Further recommendations to follow based upon clinical course Nurse practitioner note has been reviewed, I agree with documented findings and plan of care. Patient was seen and examined. Objective - Vital Signs Vital signs: Vital Signs Temp 98.4 F 05/24/23 08:48 Pulse 89 05/24/23 13:56 Resp 16 05/24/23 11:09 BP 111/74 05/24/23 11:09 Pulse Ox 94 L 05/24/23 11:09 FiO2 Intake & Output 05/23/23 05/24/23 05/24/23 18:59 06:59 18:59 Intake Total 0 10 Output Total 1974 591 725 Balance -1974740 -725 Weight 81.5 kg Intake: IV 10 Invasive Line 2 10 Oral 0 Output: Urine 1974 750 725 Other: Voiding Method Indwelling Catheter Indwelling Catheter Indwelling Catheter # Voids 1 - Labs CBC & Chem 7: 05/24/23 08:51 05/24/23 08:51 Labs: Abnormal Lab Results - Last 24 Hours (Table) 05/24/23 05/24/23 Range/Units 08:51 08:51 RBC 3.11 L (3.80-5.40) m/uL Hgb 9.9 L (11.4-16.0) gm/dL Hct 30.4 L (34.0-46.0) % Lymphocytes # (Manual) 0.68 L (1.0-4.8) k/uL Nucleated RBCs 1 H (0-0) /100 WBC Sodium 131 L (137-145) mmol/L Potassium 3.3 L (3.5-5.1) mmol/L Chloride 96 L (98-107) mmol/L BUN 18 H (7-17) mg/dL Creatinine 0.42 L (0.52-1.04) mg/dL Glucose 116 H (74-99) mg/dL Calcium 8.2 L (8.4-10.2) mg/dL AST 60 H (14-36) U/L ALT 52 H (4-34) U/L Total Protein 5.5 L (6.3-8.2) g/dL Albumin 2.6 L (3.5-5.0) g/dL Microbiology - Last 24 Hours (Table) 05/21/23 18:08 Blood Culture - Preliminary Blood 05/21/23 17:15 Urine Culture - Final Urine,Catheterized
[2023-05-24] MEDS: HYDROmorphone 0.5 MG/0.5 ML SYRINGE IVP PRN (15:09)
--- NOTE | 2023-05-24 15:51 | P.PN ---
Subjective Progress Note Date: 05/24/23 I am seeing this patient in consultation today 05/23/2023 for a moderate size right pleural effusion. Patient is a 67-year-old white female with extensive past medical history significant for cerebral palsy, seizure disorder, CVA, hyperlipidemia, hypertension, pulmonary embolus, among other things. She has recurrent urinary tract infections with Proteus mirabilis and infected right- sided renal calculus. She was brought in for elective right-sided percutaneous nephrostolithotomy and placement of a J nephrostomy tube on May 17. No immediate perioperative complications reported. 2 days ago, she went atrial fibrillation with ventricular rate. She was transferred to the cardiac stepdown unit. Temporarily on cardizem infusion, which is discontinued. Patient self denies any history of atrial fibrillation. Chest x-ray showed cardiomegaly, pulmonary vascular Congestion, and bilateral pleural effusions. She does receive Lasix 40 mg by mouth every morning and Aldactone. Repeat chest x-ray yesterday morning continues to show a moderate size right pleural effusion. Patient is currently resting in bed, on 2 L/m nasal cannula, in no acute distress. Patient is a poor historian. She reportedly lives independently in an apartment with PACE assistance. She is oriented to self and time. She is crying. She is febrile and diaphoretic. She remains in atrial fibrillation with RVR. Heart rate averaging 100-120 bpm. BP is normotensive. She is anticoagulated on Eliquis. She is empirically covered on cefepime for her previous Proteus urinary infection. She has a indwelling urinary catheter draining an adequate amount of shanique colored urine. Follow-up abdominal CT done yesterday demo nstrates posttreatment changes to the right kidney with perinephric probable hematoma and focus of gas measuring 8.4 x 4.3 x 7.7 cm. There is mild right hydroureteronephrosis which could be reactive inflammation and blood products on the right kidney. There is persistent right nephric calcification measuring 9 mm. There is moderate right and small left pleural effusions. And cholelithiasis without cholecystitis. The moderate right and small left pleural effusions were again noted. There is associated atelectasis. No focal consolidations. Most recent CBC from yesterday shows a WBC count 11.7, hemoglobin 10.5, hematocrit 30.5, platelets 139. Sodium 133, potassium 2.8, chloride 97, serum bicarb 25, UN 18, creatinine 0.65, glucose 99. Potassium is being replaced. Patient is being monitored on the cardiac stepdown unit. On today's evaluation of 05/24/2023, no interval worsening the patient was started status. The patient is currently stable. The patient is on 2 L of oxygen by nasal cannula. Producing adequate urine output. BUN is at 80 with a creatinine of 0.4 and sodium levels of 131. The white cell count of 8.4 with a hemoglobin of 9.9. The patient remains on IV cefepime. Respiratory medications are unchanged and the patient continues to be on anticoagulation with Eliquis. Objective - Vital Signs Vital signs: Vital Signs Temp 98.4 F 05/24/23 08:48 Pulse 89 05/24/23 11:09 Resp 16 05/24/23 11:09 BP 111/74 05/24/23 11:09 Pulse Ox 94 L 05/24/23 11:09 FiO2 Intake & Output 05/23/23 05/24/23 05/24/23 18:59 06:59 18:59 Intake Total 0 10 Output Total 1974 750 725 Balance -1974 -740 -725 Weight 81.5 kg Intake: IV 10 Invasive Line 2 10 Oral 0 Output: Urine 1974 750 725 Other: Voiding Method Indwelling Catheter Indwelling Catheter Indwelling Catheter # Voids 1 - Exam GENERAL EXAM: Alert, 67-year-old white female, she is diaphoretic and weak, she is crying. HEAD: Normocephalic and atraumatic EYES: Normal reaction of pupils, equal size. NOSE: Clear with pink turbinates. THROAT: No erythema or exudates. NECK: No masses, no JVD. Left IJ triple-lumen central line catheter. CHEST: No chest wall deformity. LUNGS: Equal air entry with dullness at the bases. No crackles, rhonchi, wheezes. On 2 L/m nasal cannula. No conversational dyspnea or accessory muscle use.. CVS: S1 and S2 normal with no audible murmur, irregular rhythm. No extra heart sounds. Tachycardic ABDOMEN: No hepatosplenomegaly, active bowel sounds, no guarding or rigidity. SPINE: No scoliosis or deformity. Percutaneous site right inferior back, dressed with gauze. No shadowing. SKIN: Bilateral lower extremity chronic venous changes. CENTRAL NERVOUS SYSTEM: There appears to be left-sided hemiparesis. She is oriented to self and place. EXTREMITIES: There is no peripheral edema, clubbing, or cyanosis. Peripheral pulses are intact. - Labs CBC & Chem 7: 05/24/23 08:51 05/24/23 08:51 Labs: Abnormal Lab Results - Last 24 Hours (Table) 05/24/23 05/24/23 Range/Units 08:51 08:51 RBC 3.11 L (3.80-5.40) m/uL Hgb 9.9 L (11.4-16.0) gm/dL Hct 30.4 L (34.0-46.0) % Lymphocytes # (Manual) 0.68 L (1.0-4.8) k/uL Nucleated RBCs 1 H (0-0) /100 WBC Sodium 131 L (137-145) mmol/L Potassium 3.3 L (3.5-5.1) mmol/L Chloride 96 L (98-107) mmol/L BUN 18 H (7-17) mg/dL Creatinine 0.42 L (0.52-1.04) mg/dL Glucose 116 H (74-99) mg/dL Calcium 8.2 L (8.4-10.2) mg/dL AST 60 H (14-36) U/L ALT 52 H (4-34) U/L Total Protein 5.5 L (6.3-8.2) g/dL Albumin 2.6 L (3.5-5.0) g/dL Microbiology - Last 24 Hours (Table) 05/21/23 18:08 Blood Culture - Preliminary Blood 05/21/23 17:15 Urine Culture - Final Urine,Catheterized Assessment and Plan Assessment: Acute hypoxemic respiratory failure, on 2 L/m nasal cannula, likely related to exacerbation of congestive heart failure, unknown systolic or diastolic type. Chest x-ray shows cardiomegaly with pulmonary vascular congestion and bilateral pleural effusions, right greater than left. Suspected urosepsis Recurrent urinary tract infections and infected right renal calculi status post cystoscopy, percutaneous nephrostolithotomy and placement of a right J nephrostomy tube on 05/17/23. Follow-up CAT scan of the chest and abdomen was noted. The patient has posttreatment changes in the right kidney along with perinephric probable hematoma and the focus of a gas. This is probably inflammatory in nature. At the same time, the patient has not mild right hydroureteronephrosis and a small right-sided pleural effusion is small left- sided pleural effusion along with cholelithiasis History of recurrent urinary tract infections, previous isolated organism Proteus mirabilis Possible new onset atrial fibrillation with rapid ventricular rate, anticoagulated on Eliquis Bicytopenia Hypokalemia, being replaced History of cerebral palsy History of seizure disorder Hyperlipidemia Hypertension History of CVA History of left-sided weakness and gait abnormality Morbid obesity, with a BMI of 40.3 kg/m Plan: I reviewed the CAT scan of the chest and the patient was effectively change in the right lung base and some reactive right-sided pleural effusion. Amount of fluid is small and the patient is not very much excited to undergo a drainage procedure at this point in time. She is not having any significant respiratory distress. This is likely a reactive pleural effusion. Patient is status post operative day #7 following a cystoscopy and percutaneous nephrostolithotomy and placement of right IJ nephrostomy tube. Patient is currently covered on cefepime for history of recurrent urinary tract infections, with her most recent previous isolated organism Proteus mirabilis, susceptible to cefepime. She remains intermittently febrile. Blood and urine cultures are pending. She remains in atrial fibrillation with rapid ventricular rate. Cardiology is managing. Ventricular response is more controlled. Currently receiving metoprolol 25 mg by mouth 3 times a day. Was previously on Cardizem, which is discontinued. Anticoagulated and Eliquis currently. She is also receiving diuretics in the form of Lasix 40 mg by mouth daily and Aldactone. Echocardiogram is pending. She is on 2 L of oxygen by nasal cannula without having any significant respiratory distress. I reviewed the CAT scan of the chest and abdomen and the patient has posttreatment changes in the right kidney along with perinephric probable hematoma and the focus of a gas. This is probably inflammatory in nature. At the same time, the patient has not mild right hydroureteronephrosis and a small right-sided pleural effusion is small left-sided pleural effusion along with cholelithiasis. Denies having any significant respiratory distress at this point in time. There is compressive atelectasis of the right lung which is essentially asymptomatic and reactive right-sided pleural effusion. No need for thoracentesis at this point in time. Will monitor clinically.
[2023-05-24] MEDS: ACETAMINOPHEN TAB 325 MG TAB PO PRN (16:13)
[2023-05-24] MEDS: DEXTROSE 5%-0.9% NACL 1,000 ML IV SCH (16:16)
[2023-05-24] MEDS: ATORVASTATIN 10 MG TAB PO SCH (20:51)
[2023-05-24] MEDS ORDERED: SODIUM CHLORIDE 0.9% 500 ML 500 ML IV ONE (21:36)
[2023-05-25] MEDS: METOPROLOL TARTRATE 50 MG TAB PO SCH ×4 (01:21→19:59)
[2023-05-25] MEDS: methocarbamoL 750 MG TAB PO SCH ×4 (01:21→21:37)
[2023-05-25] MEDS: CEFEPIME 2 GM in SODIUM CHLORIDE 0.9% 100 ML IVPB SCH ×3 (03:17→16:43)
[2023-05-25] MEDS: ACETAMINOPHEN TAB 325 MG TAB PO PRN (03:17)
[2023-05-25 06:23] LABS: Glucose,Whole Blood 112 mg/dL (70-110)
[2023-05-25] MEDS: IPRATROPIUM-ALBUTEROL 3 ML NEB INHALATION SCH ×4 (07:26→21:09)
--- NOTE | 2023-05-25 07:49 | P.PN ---
Subjective Progress Note Date: 05/25/23 The patient is in the hospital status post right percutaneous nephrostolithotomy for a partial staghorn infected stone on the right. She has had a slow postoperative course aggravated by pleural effusion, atrial fibrillation, postoperative fevers. Her white count is normalized. She is feeling better. She is breathing better. She is not having pain. Objective - Vital Signs Vital signs: Vital Signs Temp 99.6 F 05/25/23 03:21 Pulse 86 05/25/23 07:34 Resp 16 05/25/23 03:21 BP 95/55 05/25/23 03:21 Pulse Ox 97 05/25/23 07:27 FiO2 Intake & Output 05/24/23 05/25/23 05/25/23 18:59 06:59 18:59 Intake Total 0 Output Total 1425 1100 Balance -1425 -1100 Weight 81.5 kg 77 kg Intake: Oral 0 Output: Urine 1425 1100 Other: Voiding Method Indwelling Catheter Indwelling Catheter - Labs CBC & Chem 7: 05/24/23 08:51 05/24/23 08:51 Labs: Abnormal Lab Results - Last 24 Hours (Table) 05/24/23 05/24/23 05/25/23 Range/Units 08:51 08:51 06:21 RBC 3.11 L (3.80-5.40) m/uL Hgb 9.9 L (11.4-16.0) gm/dL Hct 30.4 L (34.0-46.0) % Lymphocytes # (Manual) 0.68 L (1.0-4.8) k/uL Nucleated RBCs 1 H (0-0) /100 WBC Sodium 131 L (137-145) mmol/L Potassium 3.3 L (3.5-5.1) mmol/L Chloride 96 L (98-107) mmol/L BUN 18 H (7-17) mg/dL Creatinine 0.42 L (0.52-1.04) mg/dL Glucose 116 H (74-99) mg/dL POC Glucose (mg/dL) 112 H (70-110) mg/dL Calcium 8.2 L (8.4-10.2) mg/dL AST 60 H (14-36) U/L ALT 52 H (4-34) U/L Total Protein 5.5 L (6.3-8.2) g/dL Albumin 2.6 L (3.5-5.0) g/dL Microbiology - Last 24 Hours (Table) 05/21/23 18:08 Blood Culture - Preliminary Blood Assessment and Plan Assessment: Impression: Postoperative right percutaneous nephrostolithotomy secondary A. fib, pleural effusion, probably secondary to atelectasis. Recommendations: The patient is nearing discharge. She is on anticoagulation for her A. fib as well as medication. She is breathing better. Her pain is gone. She is afebrile. Her white count is now 8400. She will probably need to go to [facility] temporarily she lives alone which would be very challenging given her oral state aggravated by her cerebral palsy. Pending further medical recommendations as when she is ready for discharge him urologic standpoint other than removing her Dimas she is ready.
[2023-05-25] MEDS ORDERED: APIXABAN 5 MG TAB PO SCH (08:00)
[2023-05-25] MEDS: levETIRAcetam 500 MG TAB PO SCH ×3 (08:31→19:59)
[2023-05-25] MEDS: ESCITALOPRAM 20 MG TAB PO SCH (08:31)
[2023-05-25] MEDS: MULTIVITAMINS, THERA 1 EACH TAB PO SCH (08:31)
[2023-05-25] MEDS: FAMOTIDINE 20 MG TAB PO SCH (08:31)
[2023-05-25] MEDS: POTASSIUM CHLORIDE ER 20 MEQ TAB.ER PO SCH (08:31)
[2023-05-25] MEDS: oxyBUTYnin chloride 5 MG TAB PO SCH ×3 (08:31→16:43)
[2023-05-25] MEDS: SPIRONOLACTONE 25 MG TAB PO SCH (08:31)
[2023-05-25] MEDS: ASPIRIN 81 MG PO SCH (08:31)
[2023-05-25] MEDS: FLUTICASONE 50MCG/SPRAY NASAL 16GM NASAL SCH ×2 (08:32→20:00)
[2023-05-25] MEDS: HYDROCORTISONE 1% CREAM 30 GM TUBE TOPICAL SCH ×2 (08:32→20:00)
[2023-05-25] MEDS: FUROSEMIDE 40 MG TAB PO SCH (08:32)
[2023-05-25 08:57] LABS: HCT 32.2 % (34.0-46.0); HGB 10.3 gm/dL (11.4-16.0); MCH 31.5 pg (25.0-35.0); MCHC 31.9 g/dL (31.0-37.0); MCV 98.6 fL (80.0-100.0); Mean Platelet Volume 9.6; Platelet Count 265 k/uL (150-450); RBC 3.27 m/uL (3.80-5.40); WBC 8.3 k/uL (3.8-10.6)
[2023-05-25 08:59] LABS: ALT 62 U/L (4-34); African American GFR (CKD) >90 (>60 ml/min/1.73 sqM); Albumin 2.7 g/dL (3.5-5.0); Anion Gap 10 mmol/L; Blood Urea Nitrogen 16 mg/dL (7-17); Calcium 8.3 mg/dL (8.4-10.2); Carbon Dioxide 25 mmol/L (22-30); Chloride 98 mmol/L (98-107); Glucose 93 mg/dL (74-99); Non-African American GFR(CKD) >90 (>60 ml/min/1.73 sqM); Sodium 133 mmol/L (137-145); Total Protein 5.8 g/dL (6.3-8.2)
[2023-05-25 09:06] LABS: Potassium 4.3 mmol/L (3.5-5.1)
[2023-05-25 09:07] LABS: AST 65 U/L (14-36); Alkaline Phosphatase 92 U/L (38-126)
[2023-05-25] MEDS: DEXTROSE 5%-0.9% NACL 1,000 ML IV SCH (10:21)
--- NOTE | 2023-05-25 11:43 | P.PN ---
Subjective Progress Note Date: 05/25/23 History of present illness: This is a 67 year old female patient of Dr. Romain Deutsch with past medical history of hypertension, family history of premature coronary artery disease, morbid obesity and dyslipidemia. We have been asked to evaluate the patient for A. fib with RVR. Patient was admitted to the hospital on 05/16 due to recurrent urinary tract infection with Proteus and right partial staghorn calculus in the upper pole status post cystoscopy, placement of occluding balloon catheter right, percutaneous nephrostomy placement of J nephrostomy tube right. The patient denies having any previous history of atrial fibrillation. Patient went into atrial fibrillation last evening. This morning she states that she is feeling tired. She states her breathing is better. She has a little chest pain nonspecific. No palpitations and no dizziness. She denies any recent cough no fevers today. She denies any lower extremity edema, no PND and no nausea or vomiting. EKG A. fib with RVR at 124 bpm Chest x-ray: Performed 05/21 cardiomegaly. Pulmonary vascular congestion and bilateral pleural effusions. WBC 13.1, hemoglobin 10.7, platelet count 137. Sodium 133, potassium 2.7, chloride 97, CO2 25, BUN 18 and creatinine 0.65. Calcium 8.2. Total bilirubin 1.4, AST 38, ALT 29, alkaline phosphatase 73. Home cardiac medications: Amlodipine 10 mg daily, aspirin 81 mg daily, atorvastatin 10 mg at bedtime, Lasix 40 mg daily, potassium chloride 20 mg daily, Aldactone 25 mg daily Dobutamine stress test performed in the office on 12/22/2022 was negative with normal myocardial perfusion and function. Echocardiogram performed 2017 in the office revealed normal LV size and function. Mild concentric hypertrophy. Mild mitral regurgitation. Mild tricuspid regurgitation. Mild pulmonic regurgitation. 05/23 Yesterday, patient was started on Lopressor 25 mg 3 times daily and also eliquis if cleared by urology. Eliquis is on hold for possible thoracentesis. Patient now has hematuria as well. Hemoglobin is at 10, BUN 18 creatinine 0.63. TSH 0.311. Normal free T4 2 0.02. Echocardiogram is pending. Patient has been afebrile, heart rate 102, blood pressure 111/73, pulse ox 95% on 2 L. Yesterday evening, patient underwent a chest x-ray which revealed cardiomegaly, pulmonary vascular congestion and bilateral pleural effusions. Patient is been seen by pulmonary medicine and plan for possible thoracentesis. Patient also had a CAT scan of the chest and abdomen which revealed posttreatment changes to the right kidney with perinephric probably hematoma and focus of gas. Correlate with date of surgery. Could be inflammation. Mild right hydroureteronephrosis which could be reactive to inflammation and blood products on the right kidney. Persistent right nephric calcification measuring I millimeters. Moderate right and small left pleural effusion. Cholelithiasis. 05/24 Patient continues to have hematuria. Eliquis is on hold and has been cleared to resume tomorrow by Dr. Thurston. Dr. Cleveland has cleared eliquis to be resumed as well. Patient remains in atrial fibrillation heart rate is in the 80s and 90s, blood pressure 111/74, pulse ox 94% on 2 L. Repeat blood work reveals hemoglobin of 9.9. Sodium 131, potassium 3.3, BUN 18 creatinine 0.42. AST 60 and ALT 52. Potassium has been replaced. Echocardiogram reveals normal LV systolic function. Normal pulmonary systolic pressure. Aortic sclerosis with no stenosis or regurgitation. Mitral annular calcification. 05/25 Hematuria is improved from yesterday. She will be started on eliquis this morning she has been cleared by urology and pulmonary medicine. She remains in atrial fibrillation with controlled rate. Blood pressure 9462. She states her breathing is okay but she feels tired. She also is complaining of right-sided pain as well as shoulder pain. Pulmonary medicine is not planning for thoracentesis. Repeat blood work reveals hemoglobin 10.3, sodium 133, potassium 4.3, BUN 16 creatinine 0.39. Physical examination: Gen: This is a 67-year-old female. She is resting in bed appears to be comfortable and in no acute distress. VS: reviewed HEENT: Head is atraumatic, normocephalic. Pupils equal, round. Sclerae is anicteric. NECK: Supple. No JVD. LUNGS: Clear to auscultation. No wheezes or rhonchi. No intercostal retractions. HEART: Irregular rate and rhythm. No murmur. ABDOMEN: Soft No tenderness. Dimas with hematuria. EXTREMITIES: Mild bilateral pedal edema. No calf tenderness. NEUROLOGICAL: Patient is awake, alert and oriented x3. Assessment: New onset paroxysmal atrial fibrillation with RVR Recurrent urinary tract infections and renal calculus Bicytopenia with anemia and thrombocytopenia Hypokalemia Hypertension Dyslipidemia Morbid obesity Plan: Continue 50 mg twice daily Resume eliquis Further recommendations to follow based upon clinical course Nurse practitioner note has been reviewed, I agree with documented findings and plan of care. Patient was seen and examined. Objective - Vital Signs Vital signs: Vital Signs Temp 99.4 F 05/25/23 08:00 Pulse 115 H 05/25/23 08:00 Resp 18 05/25/23 08:00 BP 94/62 05/25/23 08:00 Pulse Ox 94 L 05/25/23 08:00 FiO2 Intake & Output 05/24/23 05/25/23 05/25/23 18:59 06:59 18:59 Intake Total 0 Output Total 1425 1100 600 Balance -1425 -1100 -600 Weight 81.5 kg 77 kg Intake: Oral 0 Output: Urine 1425 1100 600 Other: Voiding Method Indwelling Catheter Indwelling Catheter Indwelling Catheter - Labs CBC & Chem 7: 05/25/23 07:32 05/25/23 07:32 Labs: Abnormal Lab Results - Last 24 Hours (Table) 05/25/23 05/25/23 05/25/23 Range/Units 06:21 07:32 07:32 RBC 3.27 L (3.80-5.40) m/uL Hgb 10.3 L (11.4-16.0) gm/dL Hct 32.2 L (34.0-46.0) % Sodium 133 L (137-145) mmol/L Creatinine 0.39 L (0.52-1.04) mg/dL POC Glucose (mg/dL) 112 H (70-110) mg/dL Calcium 8.3 L (8.4-10.2) mg/dL AST 65 H (14-36) U/L ALT 62 H (4-34) U/L Total Protein 5.8 L (6.3-8.2) g/dL Albumin 2.7 L (3.5-5.0) g/dL Microbiology - Last 24 Hours (Table) 05/21/23 18:08 Blood Culture - Preliminary Blood
[2023-05-25] MEDS: APIXABAN 5 MG TAB PO SCH ×2 (11:50→19:59)
[2023-05-25 12:15] VITALS: BMI 38.0
--- NOTE | 2023-05-25 13:36 | XR ---
EXAMINATION TYPE: XR chest 1V portable DATE OF EXAM: 05/25/2023 Comparison: 05/22/2023 Clinical History: 67-year-old female SOB Findings: Moderate underlying pleural effusion extending up to the mid lung level. There is some focal medial l eft basilar opacity. Impression: 1. Ongoing moderate right pleural effusion with adjacent atelectasis and/or consolidation. Opacity ex tends up to the right midlung level. 2. Additional medial left basilar atelectasis versus infiltrate.
--- NOTE | 2023-05-25 16:40 | P.PN ---
Subjective Progress Note Date: 05/25/23 I am seeing this patient in consultation today 05/23/2023 for a moderate size right pleural effusion. Patient is a 67-year-old white female with extensive past medical history significant for cerebral palsy, seizure disorder, CVA, hyperlipidemia, hypertension, pulmonary embolus, among other things. She has recurrent urinary tract infections with Proteus mirabilis and infected right- sided renal calculus. She was brought in for elective right-sided percutaneous nephrostolithotomy and placement of a J nephrostomy tube on May 17. No immediate perioperative complications reported. 2 days ago, she went atrial fibrillation with ventricular rate. She was transferred to the cardiac stepdown unit. Temporarily on cardizem infusion, which is discontinued. Patient self denies any history of atrial fibrillation. Chest x-ray showed cardiomegaly, pulmonary vascular Congestion, and bilateral pleural effusions. She does receive Lasix 40 mg by mouth every morning and Aldactone. Repeat chest x-ray yesterday morning continues to show a moderate size right pleural effusion. Patient is currently resting in bed, on 2 L/m nasal cannula, in no acute distress. Patient is a poor historian. She reportedly lives independently in an apartment with PACE assistance. She is oriented to self and time. She is crying. She is febrile and diaphoretic. She remains in atrial fibrillation with RVR. Heart rate averaging 100-120 bpm. BP is normotensive. She is anticoagulated on Eliquis. She is empirically covered on cefepime for her previous Proteus urinary infection. She has a indwelling urinary catheter draining an adequate amount of shanique colored urine. Follow-up abdominal CT done yesterday demo nstrates posttreatment changes to the right kidney with perinephric probable hematoma and focus of gas measuring 8.4 x 4.3 x 7.7 cm. There is mild right hydroureteronephrosis which could be reactive inflammation and blood products on the right kidney. There is persistent right nephric calcification measuring 9 mm. There is moderate right and small left pleural effusions. And cholelithiasis without cholecystitis. The moderate right and small left pleural effusions were again noted. There is associated atelectasis. No focal consolidations. Most recent CBC from yesterday shows a WBC count 11.7, hemoglobin 10.5, hematocrit 30.5, platelets 139. Sodium 133, potassium 2.8, chloride 97, serum bicarb 25, UN 18, creatinine 0.65, glucose 99. Potassium is being replaced. Patient is being monitored on the cardiac stepdown unit. On today's evaluation of 05/24/2023, no interval worsening the patient was started status. The patient is currently stable. The patient is on 2 L of oxygen by nasal cannula. Producing adequate urine output. BUN is at 80 with a creatinine of 0.4 and sodium levels of 131. The white cell count of 8.4 with a hemoglobin of 9.9. The patient remains on IV cefepime. Respiratory medications are unchanged and the patient continues to be on anticoagulation with Eliquis. on 05/25/2023, I'm seeing the patient for a follow-up.Repeat chest x-ray was done and the patient continues to have a persistent right lower lobe atelectasis of the right-sided pleural effusion. The patient remains off anticoagulation. I'm considering a thoracentesis if the patient becomes more symptomatic. Otherwise, condition is stable for now. She remains on oxygen 2 L/m nasal ca nnula. No significant respiratory distress or the time being. The white cell count of 8.3 with a hemoglobin of 10.3 and the platelet count of 265. BUN is at 60 with a creatinine of 0.39 and a sodium level is at 133. Remains on antibiotics and the patient is still on IV cefepime. She is also on Lasix 40 mg by mouth daily. The rest of the medications unchanged. Remains on Aldactone 25 mg by mouth daily. Objective - Vital Signs Vital signs: Vital Signs Temp 98.4 F 05/25/23 12:00 Pulse 108 H 05/25/23 13:13 Resp 16 05/25/23 13:13 BP 97/69 05/25/23 12:00 Pulse Ox 95 05/25/23 12:00 FiO2 Intake & Output 05/24/23 05/25/23 05/25/23 18:59 06:59 18:59 Intake Total 0 Output Total 1425 1100 1350 Balance -1425 -1100 -1350 Weight 81.5 kg 77 kg 77 kg Intake: Oral 0 Output: Urine 1425 1100 1350 Other: Voiding Method Indwelling Catheter Indwelling Catheter Indwelling Catheter # Bowel Movements 2 - Labs CBC & Chem 7: 05/25/23 07:32 05/25/23 07:32 Labs: Abnormal Lab Results - Last 24 Hours (Table) 05/25/23 05/25/23 05/25/23 Range/Units 06:21 07:32 07:32 RBC 3.27 L (3.80-5.40) m/uL Hgb 10.3 L (11.4-16.0) gm/dL Hct 32.2 L (34.0-46.0) % Sodium 133 L (137-145) mmol/L Creatinine 0.39 L (0.52-1.04) mg/dL POC Glucose (mg/dL) 112 H (70-110) mg/dL Calcium 8.3 L (8.4-10.2) mg/dL AST 65 H (14-36) U/L ALT 62 H (4-34) U/L Total Protein 5.8 L (6.3-8.2) g/dL Albumin 2.7 L (3.5-5.0) g/dL Microbiology - Last 24 Hours (Table) 05/21/23 18:08 Blood Culture - Preliminary Blood Assessment and Plan Assessment: Acute hypoxemic respiratory failure, on 2 L/m nasal cannula, likely related to exacerbation of congestive heart failure, unknown systolic or diastolic type. Chest x-ray shows cardiomegaly with pulmonary vascular congestion and bilateral pleural effusions, right greater than left.patient had a follow-up chest x-ray that shows a persistent right-sided pleural effusion urosepsis, currently inactive and stable, maintained on antibiotics Recurrent urinary tract infections and infected right renal calculi status post cystoscopy, percutaneous nephrostolithotomy and placement of a right J nephrostomy tube on 05/17/23. Follow-up CAT scan of the chest and abdomen was noted. The patient has posttreatment changes in the right kidney along with perinephric probable hematoma and the focus of a gas. This is probably inflammatory in nature. At the same time, the patient has not mild right hydroureteronephrosis and a small right-sided pleural effusion is small left- sided pleural effusion along with cholelithiasis. Patient is status post operative day #8 following a cystoscopy and percutaneous nephrostolithotomy and placement of right IJ nephrostomy tube. Patient is currently covered on cefepime for history of recurrent urinary tract infections, with her most recent previous isolated organism Proteus mirabilis, susceptible to cefepime. History of recurrent urinary tract infections, previous isolated organism Proteus mirabilis Possible new onset atrial fibrillation with rapid ventricular rate, anticoagulated on Eliquis Bicytopenia Hypokalemia, being replaced History of cerebral palsy History of seizure disorder Hyperlipidemia Hypertension History of CVA History of left-sided weakness and gait abnormality Morbid obesity, with a BMI of 40.3 kg/m Plan: chest x-ray is showing a persistent right-sided pleural effusion. I reviewed the CAT scan of the chest and the patient was effectively change in the right lung base and some reactive right-sided pleural effusion. She remains in atrial fibrillation with rapid ventricular rate. Cardiology is managing. Ventricular response is more controlled. Currently receiving metoprolol 25 mg by mouth 3 times a day. She is also receiving diuretics in the form of Lasix 40 mg by mouth daily and Aldactone. She is on 2 L of oxygen by nasal cannula without having any significant respiratory distress. we'll consider thoracentesis and the patient develops any symptoms of worsening shortness of breath. Jana likely do a thoracentesis prior to her discharge further optimize her respiratory status.
[2023-05-25] MEDS: HYDROmorphone 0.5 MG/0.5 ML SYRINGE IVP PRN ×2 (16:48→21:36)
[2023-05-25] MEDS: ATORVASTATIN 10 MG TAB PO SCH (19:59)
--- NOTE | 2023-05-25 22:33 | P.PN ---
Subjective Progress Note Date: 05/24/23 Patient is a 67-year-old female with a past medical history of W-plasty, seizure disorder, hypertension, hyperlipidemia, history of PE and recurrent urinary tract infection with Proteus and right sided renal calculus was admitted to the hospital for elective right-sided percutaneous nephro lithotomy and placement of a nephrostomy tube on 05/17/2023. Patient went into atrial fibrillation and was transferred to cardiac unit. 05/24/2023 Patient is currently lying in the bed. Awake alert and requiring 2 L oxygen via nasal cannula. Complains of right flank pain and continues to have blood-tinged urine. No complaints of chest pain or shortness of breath. No nausea or vomiting. Tolerating oral diet slowly. Patient is being continued on antibiotics cefepime. Urine culture showed normal genital follow-up. Laboratory data showed WBC 8.4 hemoglobin 9.9 and platelets 2 level Sodium 131 potassium 3.3 chloride 96 bicarb is 26 BUN 18 and creatinine 0.42 and blood sugar is 116 and calcium 8.2 albumin 2.6 Current medications reviewed. Objective - Vital Signs Vital signs: Vital Signs Temp 98.4 F 05/24/23 08:48 Pulse 89 05/24/23 13:56 Resp 16 05/24/23 11:09 BP 111/74 05/24/23 11:09 Pulse Ox 94 L 05/24/23 11:09 FiO2 Intake & Output 05/23/23 05/24/23 05/24/23 18:59 06:59 18:59 Intake Total 0 10 Output Total 1974 750 725 Balance -19740 -725 Weight 81.5 kg Intake: IV 10 Invasive Line 2 10 Oral 0 Output: Urine 1974 750 725 Other: Voiding Method Indwelling Catheter Indwelling Catheter Indwelling Catheter # Voids 1 - Exam PHYSICAL EXAMINATION: Patient is lying in the bed comfortably, no acute distress, awake alert and oriented.. HEENT: Normocephalic. Neck is supple. Pupils reactive. Nostrils clear. Oral cavity is moist. Neck reveals no JVD, carotid bruits, or thyromegaly. CHEST EXAMINATION: Trachea is central. Symmetrical expansion. Lung barnard clear to auscultation and percussion. CARDIAC: Normal S1, S2 with no gallops. No murmurs ABDOMEN: Soft. Bowel sounds present. Nontender. No organomegaly. No abdominal bruits. Extremities: reveal no edema. No clubbing or cyanosis Neurologically awake, alert, oriented x2. Left-sided weakness. Able to move all 4 extremities. Skin: No rash or skin lesions. Psychiatric: Coperative. Nonsuicidal, Musculoskeletal: No joint swelling or deformity. Normal range of motion. - Labs CBC & Chem 7: 05/25/23 07:32 05/25/23 07:32 Labs: Abnormal Lab Results - Last 24 Hours (Table) 05/24/23 05/24/23 Range/Units 08:51 08:51 RBC 3.11 L (3.80-5.40) m/uL Hgb 9.9 L (11.4-16.0) gm/dL Hct 30.4 L (34.0-46.0) % Lymphocytes # (Manual) 0.68 L (1.0-4.8) k/uL Nucleated RBCs 1 H (0-0) /100 WBC Sodium 131 L (137-145) mmol/L Potassium 3.3 L (3.5-5.1) mmol/L Chloride 96 L (98-107) mmol/L BUN 18 H (7-17) mg/dL Creatinine 0.42 L (0.52-1.04) mg/dL Glucose 116 H (74-99) mg/dL Calcium 8.2 L (8.4-10.2) mg/dL AST 60 H (14-36) U/L ALT 52 H (4-34) U/L Total Protein 5.5 L (6.3-8.2) g/dL Albumin 2.6 L (3.5-5.0) g/dL Microbiology - Last 24 Hours (Table) 05/21/23 18:08 Blood Culture - Preliminary Blood 05/21/23 17:15 Urine Culture - Final Urine,Catheterized Assessment and Plan Assessment: Recurrent urinary tract infection with infected right renal calculi status post cystoscopy, percutaneous nephrolithotomy and placement of right JJ nephrostomy tube on 05/17/2023 New onset atrial fibrillation with RVR. Acute hypoxemic respiratory failure requiring 2 L oxygen via nasal cannula. Chest x-ray showed pulmonary vascular congestion, cardiomegaly and bilateral pleural effusion right greater than left. Hypokalemia. Replace History of cerebral palsy History of left-sided weakness and gait abnormality Hypertension Hyperlipidemia History of CVA Obesity with a BMI 38.1 DVT prophylaxis patient is already on Eliquis Plan: Patient be continued on daily monitoring. Eliquis is on hold today due to hematuria and will be restarted tomorrow as per cardiology recommendations. Patient remains on antibiotics in the form of cefepime. Continue with Lasix 40 mg every morning and Aldactone 25 mg p.o. every morning IV fluids will be changed to D5 normal saline and follow-up sodium level. Currently pain management Monitor H&H and follow-up closely. Pulmonary, cardiology and neurology is on board. Time with Patient: Greater than 30
--- NOTE | 2023-05-25 22:37 | P.PN ---
Subjective Progress Note Date: 05/25/23 Patient is a 67-year-old female with a past medical history of W-plasty, seizure disorder, hypertension, hyperlipidemia, history of PE and recurrent urinary tract infection with Proteus and right sided renal calculus was admitted to the hospital for elective right-sided percutaneous nephro lithotomy and placement of a nephrostomy tube on 05/17/2023. Patient went into atrial fibrillation and was transferred to cardiac unit. 05/24/2023 Patient is currently lying in the bed. Awake alert and requiring 2 L oxygen via nasal cannula. Complains of right flank pain and continues to have blood-tinged urine. No complaints of chest pain or shortness of breath. No nausea or vomiting. Tolerating oral diet slowly. Patient is being continued on antibiotics cefepime. Urine culture showed normal genital follow-up. Laboratory data showed WBC 8.4 hemoglobin 9.9 and platelets 2 level Sodium 131 potassium 3.3 chloride 96 bicarb is 26 BUN 18 and creatinine 0.42 and blood sugar is 116 and calcium 8.2 albumin 2.6 05/25/2023 Patient is currently resting in bed. Awake alert and oriented requiring oxygen at 2 L via nasal oriented with cannula. Patient is on antibiotics in form of cefepime. Afebrile. Blood pressure is controlled. Heart rate is still elevated at 108 this morning. Patient is being continued on metoprolol 50 mg 3 times daily and also anticoagulation was restarted today. No nausea or vomiting. No fever no chills. Pain is fairly controlled. Laboratory test showed WBC 8.3 hemoglobin 10.3 and platelets 265 Sodium 133 potassium 4.3 chloride 98 bicarb is 25 BUN 16 and creatinine 0.39 and albumin 2.7, AST 65 ALT 62 and alk phos 92 Repeat chest x-ray showed ongoing moderate right pleural effusion with adjacent atelectasis and/or consolidation. Opacity extends up to the right midlung le viktor. Additional medial left basilar atelectasis versus infiltrate. Current medications reviewed. Objective - Vital Signs Vital signs: Vital Signs Temp 98.4 F 05/25/23 12:00 Pulse 101 H 05/25/23 16:00 Resp 16 05/25/23 16:00 BP 97/54 05/25/23 16:00 Pulse Ox 96 05/25/23 16:00 FiO2 Intake & Output 05/25/23 05/25/23 05/26/23 06:59 18:59 06:59 Intake Total 0 600 Output Total 1100 1350 Balance -1100 -750 Weight 77 kg 77 kg Intake: Oral 0 600 Output: Urine 1100 1350 Other: Voiding Method Indwelling Catheter Indwelling Catheter # Bowel Movements 2 - Exam PHYSICAL EXAMINATION: Patient is lying in the bed comfortably, no acute distress, awake alert and oriented.. HEENT: Normocephalic. Neck is supple. Pupils reactive. Nostrils clear. Oral cavity is moist. Neck reveals no JVD, carotid bruits, or thyromegaly. CHEST EXAMINATION: Trachea is central. Symmetrical expansion. Bibasilar diminished sounds. Nonlabored breathing.. CARDIAC: Normal S1, S2 with no gallops. No murmurs ABDOMEN: Soft. Bowel sounds present. Nontender. No organomegaly. No abdominal bruits. Extremities: reveal no edema. No clubbing or cyanosis Neurologically awake, alert, oriented x2. Left-sided weakness. Able to move all 4 extremities. Skin: No rash or skin lesions. Psychiatric: Coperative. Nonsuicidal, Musculoskeletal: No joint swelling or deformity. Normal range of motion. - Labs CBC & Chem 7: 05/25/23 07:32 05/25/23 07:32 Labs: Abnormal Lab Results - Last 24 Hours (Table) 05/25/23 05/25/23 05/25/23 Range/Units 06:21 07:32 07:32 RBC 3.27 L (3.80-5.40) m/uL Hgb 10.3 L (11.4-16.0) gm/dL Hct 32.2 L (34.0-46.0) % Sodium 133 L (137-145) mmol/L Creatinine 0.39 L (0.52-1.04) mg/dL POC Glucose (mg/dL) 112 H (70-110) mg/dL Calcium 8.3 L (8.4-10.2) mg/dL AST 65 H (14-36) U/L ALT 62 H (4-34) U/L Total Protein 5.8 L (6.3-8.2) g/dL Albumin 2.7 L (3.5-5.0) g/dL Microbiology - Last 24 Hours (Table) 05/21/23 18:08 Blood Culture - Preliminary Blood Assessment and Plan Assessment: Recurrent urinary tract infection with infected right renal calculi status post cystoscopy, percutaneous nephrolithotomy and placement of right JJ nephrostomy tube on 05/17/2023 New onset atrial fibrillation with RVR. Acute hypoxemic respiratory failure requiring 2 L oxygen via nasal cannula. Chest x-ray showed pulmonary vascular congestion, cardiomegaly and bilateral pleural effusion right greater than left. Moderate right-sided pleural effusion as per repeat chest x-ray on 05/25/2023 Hypokalemia. Replace History of cerebral palsy History of left-sided weakness and gait abnormality Hypertension Hyperlipidemia History of CVA Obesity with a BMI 38.1 DVT prophylaxis patient is already on Eliquis Plan: Patient will be continued on telemonitoring. Eliquis was restarted today as per cardiology recommendations.. Patient remains on antibiotics in the form of cefepime. Continue with Lasix 40 mg every morning and Aldactone 25 mg p.o. every morning IV fluids changed to D5 normal saline and follow-up sodium level. Currently pain management Monitor H&H and follow-up closely. Pulmonary, cardiology and neurology is on board. Time with Patient: Greater than 30
[2023-05-25] MEDS: HYDROcodone/APAP 7.5-325MG 1 EACH TAB PO PRN (23:28)
[2023-05-26] MEDS: CEFEPIME 2 GM in SODIUM CHLORIDE 0.9% 100 ML IVPB SCH ×3 (02:11→17:20)
[2023-05-26] MEDS: DEXTROSE 5%-0.9% NACL 1,000 ML IV SCH ×2 (06:51→09:17)
[2023-05-26] MEDS: HYDROcodone/APAP 7.5-325MG 1 EACH TAB PO PRN ×2 (09:14→17:19)
[2023-05-26] MEDS: SPIRONOLACTONE 25 MG TAB PO SCH (09:14)
[2023-05-26] MEDS: FAMOTIDINE 20 MG TAB PO SCH (09:14)
[2023-05-26] MEDS: oxyBUTYnin chloride 5 MG TAB PO SCH ×3 (09:14→17:20)
[2023-05-26] MEDS: ASPIRIN 81 MG PO SCH (09:14)
[2023-05-26] MEDS: methocarbamoL 750 MG TAB PO SCH ×3 (09:14→20:52)
[2023-05-26] MEDS: APIXABAN 5 MG TAB PO SCH ×2 (09:15→20:01)
[2023-05-26] MEDS: ESCITALOPRAM 20 MG TAB PO SCH (09:15)
[2023-05-26] MEDS: METOPROLOL TARTRATE 50 MG TAB PO SCH ×3 (09:15→20:52)
[2023-05-26] MEDS: FUROSEMIDE 40 MG TAB PO SCH (09:15)
[2023-05-26] MEDS: levETIRAcetam 500 MG TAB PO SCH ×3 (09:15→20:00)
[2023-05-26] MEDS: MULTIVITAMINS, THERA 1 EACH TAB PO SCH (09:15)
[2023-05-26] MEDS: POTASSIUM CHLORIDE ER 20 MEQ TAB.ER PO SCH (09:15)
[2023-05-26 09:16] LABS: Basophils # (A) 0.1 k/uL (0-0.2); Basophils % (A) 1 %; Eosinophils # (A) 0.2 k/uL (0-0.7); Eosinophils % (A) 2 %; HCT 31.7 % (34.0-46.0); HGB 10.3 gm/dL (11.4-16.0); Lymphocytes % (A) 9 %; MCH 31.8 pg (25.0-35.0); MCHC 32.5 g/dL (31.0-37.0); MCV 97.9 fL (80.0-100.0); Mean Platelet Volume 7.5; Monocytes # (A) 0.5 k/uL (0-1.0); Monocytes % (A) 5 %; Neutrophils # (A) 8.5 k/uL (1.3-7.7); Neutrophils % (A) 81 %; Platelet Count 341 k/uL (150-450); RBC 3.24 m/uL (3.80-5.40); RDW 12.8 % (11.5-15.5); WBC 10.5 k/uL (3.8-10.6)
[2023-05-26] MEDS: IPRATROPIUM-ALBUTEROL 3 ML NEB INHALATION SCH ×4 (09:16→18:17)
[2023-05-26] MEDS: FLUTICASONE 50MCG/SPRAY NASAL 16GM NASAL SCH ×2 (09:21→20:01)
[2023-05-26] MEDS: HYDROCORTISONE 1% CREAM 30 GM TUBE TOPICAL SCH ×2 (09:21→20:01)
[2023-05-26 09:41] LABS: African American GFR (CKD) >90 (>60 ml/min/1.73 sqM); Anion Gap 8 mmol/L; Blood Urea Nitrogen 14 mg/dL (7-17); Calcium 8.1 mg/dL (8.4-10.2); Carbon Dioxide 27 mmol/L (22-30); Chloride 97 mmol/L (98-107); Glucose 106 mg/dL (74-99); Non-African American GFR(CKD) >90 (>60 ml/min/1.73 sqM); Potassium 3.8 mmol/L (3.5-5.1); Sodium 132 mmol/L (137-145)
--- NOTE | 2023-05-26 10:02 | P.PN ---
Subjective Progress Note Date: 05/26/23 No acute overnight events, pain is controlled. Objective - Vital Signs Vital signs: Vital Signs Temp 98.8 F 05/26/23 03:33 Pulse 82 05/26/23 09:27 Resp 17 05/26/23 03:33 BP 99/63 05/26/23 03:33 Pulse Ox 97 05/26/23 03:33 FiO2 Intake & Output 05/25/23 05/26/23 05/26/23 18:59 06:59 18:59 Intake Total 600 Output Total 1350 400 Balance -750 -400 Weight 77 kg Intake: Oral 600 Output: Urine 1350 400 Other: Voiding Method Indwelling Catheter Indwelling Catheter # Bowel Movements 2 - Labs CBC & Chem 7: 05/26/23 08:43 05/26/23 08:43 Labs: Abnormal Lab Results - Last 24 Hours (Table) 05/26/23 05/26/23 Range/Units 08:43 08:43 RBC 3.24 L (3.80-5.40) m/uL Hgb 10.3 L (11.4-16.0) gm/dL Hct 31.7 L (34.0-46.0) % Neutrophils # 8.5 H (1.3-7.7) k/uL Sodium 132 L (137-145) mmol/L Chloride 97 L (98-107) mmol/L Creatinine 0.38 L (0.52-1.04) mg/dL Glucose 106 H (74-99) mg/dL Calcium 8.1 L (8.4-10.2) mg/dL Microbiology - Last 24 Hours (Table) 05/21/23 18:08 Blood Culture - Preliminary Blood Assessment and Plan Assessment: statys post right PCNL, on May 17, has had a prolonged hospital course due to fever, pleural effusion, and if it clinically she is improving. -From urology standpoint she is okay for discharge, -will plan on removing the Dimas catheter prior to discharge
[2023-05-26] MEDS ORDERED: ZINC OXIDE PASTE (Z-GUARD) 1 APPLIC TOPICAL PRN (10:35)
--- NOTE | 2023-05-26 12:42 | P.PN ---
Subjective Progress Note Date: 05/26/23 This is a 67 year old female patient of Dr. Romain Deutsch with past medical history of hypertension, family history of premature coronary artery disease, morbid obesity and dyslipidemia. We have been asked to evaluate the patient for A. fib with RVR. Patient was admitted to the hospital on 05/16 due to recurrent urinary tract infection with Proteus and right partial staghorn calculus in the upper pole status post cystoscopy, placement of occluding balloon catheter right, percutaneous nephrostomy placement of J nephrostomy tube right. The patient denies having any previous history of atrial fibrillation. Patient went into atrial fibrillation last evening. This morning she states that she is feeling tired. She states her breathing is better. She has a little chest pain nonspecific. No palpitations and no dizziness. She denies any recent cough no fevers today. She denies any lower extremity edema, no PND and no nausea or vomiting. EKG A. fib with RVR at 124 bpm Chest x-ray: Performed 05/21 cardiomegaly. Pulmonary vascular congestion and bilateral pleural effusions. WBC 13.1, hemoglobin 10.7, platelet count 137. Sodium 133, potassium 2.7, chloride 97, CO2 25, BUN 18 and creatinine 0.65. Calcium 8.2. Total bilirubin 1.4, AST 38, ALT 29, alkaline phosphatase 73. Home cardiac medications: Amlodipine 10 mg daily, aspirin 81 mg daily, atorvastatin 10 mg at bedtime, Lasix 40 mg daily, potassium chloride 20 mg daily, Aldactone 25 mg daily Dobutamine stress test performed in the office on 12/22/2022 was negative with normal myocardial perfusion and function. Echocardiogram performed 2018 in the office revealed normal LV size and function. Mild concentric hypertrophy. Mild mitral regurgitation. Mild tricuspid regurgitation. Mild pulmonic regurgitation. 05/26/2023 The patient was seen and examined resting comfortably in bed. Continues to have hematuria. Currently on Eliquis and low dose aspirin. She is overall feeling fairly well. She feels her breathing is good. Denies any palpitations or dizziness. She is maintaining sinus mechanism. Objective - Vital Signs Vital signs: Vital Signs Temp 99.3 F 05/26/23 08:50 Pulse 65 05/26/23 11:00 Resp 16 05/26/23 11:00 BP 91/60 05/26/23 11:00 Pulse Ox 96 05/26/23 11:00 FiO2 Intake & Output 05/25/23 05/26/23 05/26/23 18:59 06:59 18:59 Intake Total 600 600 Output Total 1350 400 Balance -750 200 Weight 77 kg Intake: Oral 600 600 Output: Urine 1350 400 Other: Voiding Method Indwelling Catheter Indwelling Catheter Indwelling Catheter # Bowel Movements 2 - Exam HEENT: Head is atraumatic, normocephalic. Pupils equal, round. Sclerae is anicteric. NECK: Supple. No JVD. LUNGS: Clear to auscultation. No wheezes or rhonchi. No intercostal retrac tions. HEART: Regular rate and rhythm. No murmur. ABDOMEN: Soft No tenderness. Dimas with hematuria. EXTREMITIES: Mild bilateral pedal edema. No calf tenderness. NEUROLOGICAL: Patient is awake, alert and oriented x3. - Labs CBC & Chem 7: 05/26/23 08:43 05/26/23 08:43 Labs: Abnormal Lab Results - Last 24 Hours (Table) 05/26/23 05/26/23 Range/Units 08:43 08:43 RBC 3.24 L (3.80-5.40) m/uL Hgb 10.3 L (11.4-16.0) gm/dL Hct 31.7 L (34.0-46.0) % Neutrophils # 8.5 H (1.3-7.7) k/uL Sodium 132 L (137-145) mmol/L Chloride 97 L (98-107) mmol/L Creatinine 0.38 L (0.52-1.04) mg/dL Glucose 106 H (74-99) mg/dL Calcium 8.1 L (8.4-10.2) mg/dL Assessment and Plan Assessment: New onset paroxysmal atrial fibrillation with RVR, currently maintaining sinus mechanism. Recurrent urinary tract infections and renal calculus Bicytopenia with anemia and thrombocytopenia Hypokalemia Hypertension Dyslipidemia Morbid obesity Plan: From cardiology's perspective we will discontinue aspirin. Continue Eliquis. Continue current beta [email or web address]. We will continue to follow the patient and provide further recommendations accordingly. Nurse practitioner note has been reviewed, I agree with documented findings and plan of care. Patient was seen and examined.
[2023-05-26] MEDS: ACETAMINOPHEN TAB 325 MG TAB PO PRN ×2 (12:44→20:00)
--- NOTE | 2023-05-26 15:00 | P.PN ---
Subjective Progress Note Date: 05/26/23 I am seeing this patient in consultation today 05/23/2023 for a moderate size right pleural effusion. Patient is a 67-year-old white female with extensive past medical history significant for cerebral palsy, seizure disorder, CVA, hyperlipidemia, hypertension, pulmonary embolus, among other things. She has recurrent urinary tract infections with Proteus mirabilis and infected right- sided renal calculus. She was brought in for elective right-sided percutaneous nephrostolithotomy and placement of a J nephrostomy tube on May 17. No immediate perioperative complications reported. 2 days ago, she went atrial fibrillation with ventricular rate. She was transferred to the cardiac stepdown unit. Temporarily on cardizem infusion, which is discontinued. Patient self denies any history of atrial fibrillation. Chest x-ray showed cardiomegaly, pulmonary vascular Congestion, and bilateral pleural effusions. She does receive Lasix 40 mg by mouth every morning and Aldactone. Repeat chest x-ray yesterday morning continues to show a moderate size right pleural effusion. Patient is currently resting in bed, on 2 L/m nasal cannula, in no acute distress. Patient is a poor historian. She reportedly lives independently in an apartment with PACE assistance. She is oriented to self and time. She is crying. She is febrile and diaphoretic. She remains in atrial fibrillation with RVR. Heart rate averaging 100-120 bpm. BP is normotensive. She is anticoagulated on Eliquis. She is empirically covered on cefepime for her previous Proteus urinary infection. She has a indwelling urinary catheter draining an adequate amount of shanique colored urine. Follow-up abdominal CT done yesterday demo nstrates posttreatment changes to the right kidney with perinephric probable hematoma and focus of gas measuring 8.4 x 4.3 x 7.7 cm. There is mild right hydroureteronephrosis which could be reactive inflammation and blood products on the right kidney. There is persistent right nephric calcification measuring 9 mm. There is moderate right and small left pleural effusions. And cholelithiasis without cholecystitis. The moderate right and small left pleural effusions were again noted. There is associated atelectasis. No focal consolidations. Most recent CBC from yesterday shows a WBC count 11.7, hemoglobin 10.5, hematocrit 30.5, platelets 139. Sodium 133, potassium 2.8, chloride 97, serum bicarb 25, UN 18, creatinine 0.65, glucose 99. Potassium is being replaced. Patient is being monitored on the cardiac stepdown unit. On today's evaluation of 05/24/2023, no interval worsening the patient was started status. The patient is currently stable. The patient is on 2 L of oxygen by nasal cannula. Producing adequate urine output. BUN is at 80 with a creatinine of 0.4 and sodium levels of 131. The white cell count of 8.4 with a hemoglobin of 9.9. The patient remains on IV cefepime. Respiratory medications are unchanged and the patient continues to be on anticoagulation with Eliquis. on 05/25/2023, I'm seeing the patient for a follow-up.Repeat chest x-ray was done and the patient continues to have a persistent right lower lobe atelectasis of the right-sided pleural effusion. The patient remains off anticoagulation. I'm considering a thoracentesis if the patient becomes more symptomatic. Otherwise, condition is stable for now. She remains on oxygen 2 L/m nasal ca nnula. No significant respiratory distress or the time being. The white cell count of 8.3 with a hemoglobin of 10.3 and the platelet count of 265. BUN is at 60 with a creatinine of 0.39 and a sodium level is at 133. Remains on antibiotics and the patient is still on IV cefepime. She is also on Lasix 40 mg by mouth daily. The rest of the medications unchanged. Remains on Aldactone 25 mg by mouth daily. On 05/26/2023, no new complaints and the patient's condition is stable. No respiratory difficulties. The patient remains on oxygen at 2 L with a pulse ox of 96%. The rest of the labs show sodium level of 132, potassium level of 3.8, BUN is at 40 with a creatinine of 0.4. The basic concept and 0.5 with a hemoglobin of 10.3. Objective - Vital Signs Vital signs: Vital Signs Temp 99.3 F 05/26/23 08:50 Pulse 65 05/26/23 11:00 Resp 16 05/26/23 11:00 BP 91/60 05/26/23 11:00 Pulse Ox 96 05/26/23 11:00 FiO2 Intake & Output 05/25/23 05/26/23 05/26/23 18:59 06:59 18:59 Intake Total 600 600 Output Total 1350 400 Balance -750 200 Weight 77 kg Intake: Oral 600 600 Output: Urine 1350 400 Other: Voiding Method Indwelling Catheter Indwelling Catheter Indwelling Catheter # Bowel Movements 2 - Exam GENERAL EXAM: Alert, 67-year-old white female, she is diaphoretic and weak, she is crying. HEAD: Normocephalic and atraumatic EYES: Normal reaction of pupils, equal size. NOSE: Clear with pink turbinates. THROAT: No erythema or exudates. NECK: No masses, no JVD. Left IJ triple-lumen central line catheter. CHEST: No chest wall deformity. LUNGS: Equal air entry with dullness at the bases. No crackles, rhonchi, wheezes. On 2 L/m nasal cannula. No conversational dyspnea or accessory muscle use.. CVS: S1 and S2 normal with no audible murmur, irregular rhythm. No extra heart sounds. Tachycardic ABDOMEN: No hepatosplenomegaly, active bowel sounds, no guarding or rigidity. SPINE: No scoliosis or deformity. Percutaneous site right inferior back, dressed with gauze. No shadowing. SKIN: Bilateral lower extremity chronic venous changes. CENTRAL NERVOUS SYSTEM: There appears to be left-sided hemiparesis. She is oriented to self and place. EXTREMITIES: There is no peripheral edema, clubbing, or cyanosis. Peripheral pulses are intact. - Labs CBC & Chem 7: 05/26/23 08:43 05/26/23 08:43 Labs: Abnormal Lab Results - Last 24 Hours (Table) 05/26/23 05/26/23 Range/Units 08:43 08:43 RBC 3.24 L (3.80-5.40) m/uL Hgb 10.3 L (11.4-16.0) gm/dL Hct 31.7 L (34.0-46.0) % Neutrophils # 8.5 H (1.3-7.7) k/uL Sodium 132 L (137-145) mmol/L Chloride 97 L (98-107) mmol/L Creatinine 0.38 L (0.52-1.04) mg/dL Glucose 106 H (74-99) mg/dL Calcium 8.1 L (8.4-10.2) mg/dL Assessment and Plan Assessment: Acute hypoxemic respiratory failure, on 2 L/m nasal cannula, likely related to exacerbation of congestive heart failure, unknown systolic or diastolic type. Chest x-ray shows cardiomegaly with pulmonary vascular congestion and bilateral pleural effusions, right greater than left.patient had a follow-up chest x-ray that shows a persistent right-sided pleural effusion urosepsis, currently inactive and stable, maintained on antibiotics Recurrent urinary tract infections and infected right renal calculi status post cystoscopy, percutaneous nephrostolithotomy and placement of a right J nephrostomy tube on 05/17/23. Follow-up CAT scan of the chest and abdomen was noted. The patient has posttreatment changes in the right kidney along with perinephric probable hematoma and the focus of a gas. This is probably inflamm atory in nature. At the same time, the patient has not mild right hydroureteronephrosis and a small right-sided pleural effusion is small left- sided pleural effusion along with cholelithiasis. Patient is status post operative day #8 following a cystoscopy and percutaneous nephrostolithotomy and placement of right IJ nephrostomy tube. Patient is currently covered on cefepime for history of recurrent urinary tract infections, with her most recent previous isolated organism Proteus mirabilis, susceptible to cefepime. History of recurrent urinary tract infections, previous isolated organism P roteus mirabilis Possible new onset atrial fibrillation with rapid ventricular rate, anticoagulated on Eliquis Bicytopenia Hypokalemia, being replaced History of cerebral palsy History of seizure disorder Hyperlipidemia Hypertension History of CVA History of left-sided weakness and gait abnormality Morbid obesity, with a BMI of 40.3 kg/m Plan: chest x-ray is showing a persistent right-sided pleural effusion. I reviewed the CAT scan of the chest and the patient was effectively change in the right lung base and some reactive right-sided pleural effusion. She remains in atrial fibrillation with rapid ventricular rate. Cardiology is managing. Ventricular response is more controlled. Currently receiving metoprolol 25 mg by mouth 3 times a day. She is also receiving diuretics in the form of Lasix 40 mg by mouth daily and Aldactone. She is on 2 L of oxygen by nasal cannula without having any significant respiratory distress. I offered a thoracentesis for this patient. At this point point the patient stated that she was doing well and she denies having any significant complaints and she declined the procedure. I'm going to restart anticoagulation. Discharge planning is in progress. We'll sign off the case.
[2023-05-26] MEDS: LOPERAMIDE 2 MG CAP PO PRN (17:20)
[2023-05-26] MEDS: ATORVASTATIN 10 MG TAB PO SCH (20:01)
--- NOTE | 2023-05-26 23:14 | P.PN ---
Subjective Progress Note Date: 05/26/23 Patient is a 67-year-old female with a past medical history of W-plasty, seizure disorder, hypertension, hyperlipidemia, history of PE and recurrent urinary tract infection with Proteus and right sided renal calculus was admitted to the hospital for elective right-sided percutaneous nephro lithotomy and placement of a nephrostomy tube on 05/17/2023. Patient went into atrial fibrillation and was transferred to cardiac unit. 05/24/2023 Patient is currently lying in the bed. Awake alert and requiring 2 L oxygen via nasal cannula. Complains of right flank pain and continues to have blood-tinged urine. No complaints of chest pain or shortness of breath. No nausea or vomiting. Tolerating oral diet slowly. Patient is being continued on antibiotics cefepime. Urine culture showed normal genital follow-up. Laboratory data showed WBC 8.4 hemoglobin 9.9 and platelets 2 level Sodium 131 potassium 3.3 chloride 96 bicarb is 26 BUN 18 and creatinine 0.42 and blood sugar is 116 and calcium 8.2 albumin 2.6 05/25/2023 Patient is currently resting in bed. Awake alert and oriented requiring oxygen at 2 L via nasal oriented with cannula. Patient is on antibiotics in form of cefepime. Afebrile. Blood pressure is controlled. Heart rate is still elevated at 108 this morning. Patient is being continued on metoprolol 50 mg 3 times daily and also anticoagulation was restarted today. No nausea or vomiting. No fever no chills. Pain is fairly controlled. Laboratory test showed WBC 8.3 hemoglobin 10.3 and platelets 265 Sodium 133 potassium 4.3 chloride 98 bicarb is 25 BUN 16 and creatinine 0.39 and albumin 2.7, AST 65 ALT 62 and alk phos 92 Repeat chest x-ray showed ongoing moderate right pleural effusion with adjacent atelectasis and/or consolidation. Opacity extends up to the right midlung l evel. Additional medial left basilar atelectasis versus infiltrate. 05/26/2023 Patient is lying in the bed. Awake alert and oriented x 3. No complaints of chest pain or shortness of breath. No chest tightness. Patient did have some dark-colored urine this morning. Maintained on Dimas catheter. Otherwise heart rate is controlled and in sinus rhythm. Tolerating oral diet. Laboratory data showed sodium 132 potassium 3.8 chloride 97 bicarb is 27 BUN 14 creatinine 0.38 and blood sugar 106, hemoglobin stable at 10.3. Current medications reviewed. Objective - Vital Signs Vital signs: Vital Signs Temp 100.3 F H 05/26/23 20:00 Pulse 73 05/26/23 20:00 Resp 18 05/26/23 20:00 BP 136/70 05/26/23 20:00 Pulse Ox 90 L 05/26/23 20:00 FiO2 Intake & Output 05/26/23 05/26/23 05/27/23 06:59 18:59 06:59 Intake Total 1560 Output Total 775 Balance 785 Intake: Oral 1560 Output: Urine 775 Other: Voiding Method Indwelling Catheter Indwelling Catheter Indwelling Catheter # Bowel Movements 1 - Exam PHYSICAL EXAMINATION: Patient is lying in the bed comfortably, no acute distress, awake alert and oriented.. HEENT: Normocephalic. Neck is supple. Pupils reactive. Nostrils clear. Oral cavity is moist. Neck reveals no JVD, carotid bruits, or thyromegaly. CHEST EXAMINATION: Trachea is central. Symmetrical expansion. Bibasilar diminished sounds. Nonlabored breathing.. CARDIAC: Normal S1, S2 with no gallops. No murmurs ABDOMEN: Soft. Bowel sounds present. Nontender. No organomegaly. No abdominal bruits. Extremities: reveal no edema. No clubbing or cyanosis Neurologically awake, alert, oriented x2. Left-sided weakness. Able to move all 4 extremities. Skin: No rash or skin lesions. Psychiatric: Coperative. Nonsuicidal, Musculoskeletal: No joint swelling or deformity. Normal range of motion. - Labs CBC & Chem 7: 05/26/23 08:43 05/26/23 08:43 Labs: Abnormal Lab Results - Last 24 Hours (Table) 05/26/23 05/26/23 Range/Units 08:43 08:43 RBC 3.24 L (3.80-5.40) m/uL Hgb 10.3 L (11.4-16.0) gm/dL Hct 31.7 L (34.0-46.0) % Neutrophils # 8.5 H (1.3-7.7) k/uL Sodium 132 L (137-145) mmol/L Chloride 97 L (98-107) mmol/L Creatinine 0.38 L (0.52-1.04) mg/dL Glucose 106 H (74-99) mg/dL Calcium 8.1 L (8.4-10.2) mg/dL Assessment and Plan Assessment: Recurrent urinary tract infection with infected right renal calculi status post cystoscopy, percutaneous nephrolithotomy and placement of right JJ nephrostomy tube on 05/17/2023 New onset atrial fibrillation with RVR. Acute hypoxemic respiratory failure requiring 2 L oxygen via nasal cannula. Chest x-ray showed pulmonary vascular congestion, cardiomegaly and bilateral pleural effusion right greater than left. Moderate right-sided pleural effusion as per repeat chest x-ray on 05/25/2023 Hypokalemia. Replace History of cerebral palsy History of left-sided weakness and gait abnormality Hypertension Hyperlipidemia History of CVA Obesity with a BMI 38.1 DVT prophylaxis patient is already on Eliquis Plan: Patient will be continued on telemonitoring. Eliquis was restarted as per cardiology recommendations.. Patient remains on antibiotics in the form of cefepime. Continue with Lasix 40 mg every morning and Aldactone 25 mg p.o. every morning IV fluids changed to D5 normal saline and follow-up sodium level. Currently pain management Monitor H&H and follow-up closely. Pulmonary, cardiology and neurology is on board. Time with Patient: Greater than 30
[2023-05-27] MEDS: HYDROcodone/APAP 7.5-325MG 1 EACH TAB PO PRN (00:58)
[2023-05-27] MEDS: LOPERAMIDE 2 MG CAP PO PRN (00:58)
[2023-05-27] MEDS: CEFEPIME 2 GM in SODIUM CHLORIDE 0.9% 100 ML IVPB SCH ×3 (00:58→17:13)
[2023-05-27] MEDS: DEXTROSE 5%-0.9% NACL 1,000 ML IV SCH (04:36)
--- NOTE | 2023-05-27 07:47 | P.PN ---
Subjective Denies any flank pain, urine is clear this morning. It have a low-grade fever 100.3 Objective - Vital Signs Vital signs: Vital Signs Temp 99.1 F 05/27/23 02:00 Pulse 68 05/27/23 02:00 Resp 18 05/26/23 20:00 BP 112/76 05/27/23 02:00 Pulse Ox 92 L 05/27/23 02:00 FiO2 Intake & Output 05/26/23 05/27/23 05/27/23 18:59 06:59 18:59 Intake Total 1560 Output Total 775 110 Balance 785 -110 Intake: Oral 1560 Output: Urine 775 110 Other: Voiding Method Indwelling Catheter Indwelling Catheter # Bowel Movements 1 1 - Constitutional General appearance: Present: no acute distress - Gastrointestinal General gastrointestinal: Present: soft. Absent: distended, tenderness - Psychiatric Psychiatric: Present: A&O x's 3 - Labs CBC & Chem 7: 05/26/23 08:43 05/26/23 08:43 Labs: Abnormal Lab Results - Last 24 Hours (Table) 05/26/23 05/26/23 Range/Units 08:43 08:43 RBC 3.24 L (3.80-5.40) m/uL Hgb 10.3 L (11.4-16.0) gm/dL Hct 31.7 L (34.0-46.0) % Neutrophils # 8.5 H (1.3-7.7) k/uL Sodium 132 L (137-145) mmol/L Chloride 97 L (98-107) mmol/L Creatinine 0.38 L (0.52-1.04) mg/dL Glucose 106 H (74-99) mg/dL Calcium 8.1 L (8.4-10.2) mg/dL Microbiology - Last 24 Hours (Table) 05/21/23 18:08 Blood Culture - Final Blood Assessment and Plan Assessment: statys post right PCNL, on May 17, has had a prolonged hospital course due to fever, pleural effusion, clinically she is improving. -From urology standpoint she is okay for discharge, plan to discharge to subacute rehab -will plan on removing the Dimas catheter prior to discharge
[2023-05-27] MEDS: IPRATROPIUM-ALBUTEROL 3 ML NEB INHALATION SCH ×4 (08:55→20:27)
[2023-05-27 09:33] LABS: BUN/Creat Ratio 26.83 Ratio (12.00-20.00); Blood Urea Nitrogen 16.1 mg/dL (9.0-27.0); Calcium 8.3 mg/dL (8.7-10.3); Carbon Dioxide 25.6 mmol/L (21.6-31.8); Chloride 98 mmol/L (96-109); Glucose 112 mg/dL (70-110); Sodium 133 mmol/L (135-145)
[2023-05-27 09:45] LABS: Basophils # (A) 0.03 X 10*3/uL (0.00-0.10); Basophils % (A) 0.2 %; Eosinophils # (A) 0.19 X 10*3/uL (0.04-0.35); Eosinophils % (A) 1.5 %; HCT 29.5 % (37.2-46.3); HGB 9.4 g/dL (12.0-15.0); Lymphocytes # (A) 1.25 X 10*3/uL (0.90-5.00); Lymphocytes % (A) 9.6 %; MCH 30.9 pg (27.0-32.0); MCHC 31.9 g/dL (32.0-37.0); Mean Platelet Volume 10.4 FL (9.5-12.2); Monocytes # (A) 0.98 X 10*3/uL (0.20-1.00); Monocytes % (A) 7.6 %; NRBC Per 100 WBC 0 X 10*3/uL (0.00-0.01); Neutrophils % (A) 78.7 %; Platelet Count 347 X 10*3/uL (140-440); RBC 3.04 X 10*6/uL (4.10-5.20); RDW 12.8 % (11.5-14.5); WBC 12.96 X 10*3/uL (4.50-10.00)
[2023-05-27] MEDS: oxyBUTYnin chloride 5 MG TAB PO SCH ×3 (10:22→17:13)
[2023-05-27] MEDS: levETIRAcetam 500 MG TAB PO SCH ×3 (10:22→20:21)
[2023-05-27] MEDS: SPIRONOLACTONE 25 MG TAB PO SCH (10:22)
[2023-05-27] MEDS: METOPROLOL TARTRATE 50 MG TAB PO SCH ×3 (10:23→23:26)
[2023-05-27] MEDS: POTASSIUM CHLORIDE ER 20 MEQ TAB.ER PO SCH (10:23)
[2023-05-27] MEDS: MULTIVITAMINS, THERA 1 EACH TAB PO SCH (10:23)
[2023-05-27] MEDS: FUROSEMIDE 40 MG TAB PO SCH (10:23)
[2023-05-27] MEDS: APIXABAN 5 MG TAB PO SCH ×2 (10:23→20:21)
[2023-05-27] MEDS: FAMOTIDINE 20 MG TAB PO SCH (10:23)
[2023-05-27] MEDS: methocarbamoL 750 MG TAB PO SCH ×3 (10:23→20:21)
[2023-05-27] MEDS: HYDROCORTISONE 1% CREAM 30 GM TUBE TOPICAL SCH ×2 (10:32→20:21)
[2023-05-27] MEDS: FLUTICASONE 50MCG/SPRAY NASAL 16GM NASAL SCH ×2 (10:32→20:21)
[2023-05-27] MEDS: ESCITALOPRAM 20 MG TAB PO SCH (12:42)
[2023-05-27] MEDS: ACETAMINOPHEN TAB 325 MG TAB PO PRN (13:06)
--- NOTE | 2023-05-27 14:37 | P.PN ---
Subjective Progress Note Date: 05/27/23 This is a 67 year old female patient of Dr. Romain Deutsch with past medical history of hypertension, family history of premature coronary artery disease, morbid obesity and dyslipidemia. We have been asked to evaluate the patient for A. fib with RVR. Patient was admitted to the hospital on 05/16 due to recurrent urinary tract infection with Proteus and right partial staghorn calculus in the upper pole status post cystoscopy, placement of occluding balloon catheter right, percutaneous nephrostomy placement of J nephrostomy tube right. The patient denies having any previous history of atrial fibrillation. Patient went into atrial fibrillation last evening. This morning she states that she is feeling tired. She states her breathing is better. She has a little chest pain nonspecific. No palpitations and no dizziness. She denies any recent cough no fevers today. She denies any lower extremity edema, no PND and no nausea or vomiting. EKG A. fib with RVR at 124 bpm Chest x-ray: Performed 05/21 cardiomegaly. Pulmonary vascular congestion and bilateral pleural effusions. WBC 13.1, hemoglobin 10.7, platelet count 137. Sodium 133, potassium 2.7, chloride 97, CO2 25, BUN 18 and creatinine 0.65. Calcium 8.2. Total bilirubin 1.4, AST 38, ALT 29, alkaline phosphatase 73. Home cardiac medications: Amlodipine 10 mg daily, aspirin 81 mg daily, atorvastatin 10 mg at bedtime, Lasix 40 mg daily, potassium chloride 20 mg daily, Aldactone 25 mg daily Dobutamine stress test performed in the office on 12/22/2022 was negative with normal myocardial perfusion and function. Echocardiogram performed 2018 in the office revealed normal LV size and function. Mild concentric hypertrophy. Mild mitral regurgitation. Mild tricuspid regurgitation. Mild pulmonic regurgitation. 05/26/2023 The patient was seen and examined resting comfortably in bed. Continues to have hematuria. Currently on Eliquis and low dose aspirin. She is overall feeling fairly well. She feels her breathing is good. Denies any palpitations or dizziness. She is maintaining sinus mechanism. 05/27/2023 The patient was seen and examined resting comfortably in bed. She has declined thoracentesis and pulmonary signed off. She feels her breathing is stable. Denies any shortness of breath. She is maintaining sinus mechanism. Objective - Vital Signs Vital signs: Vital Signs Temp 99 F 12/10/23 08:00 Pulse 72 05/27/23 08:00 Resp 14 05/27/23 08:00 BP 100/60 05/27/23 08:00 Pulse Ox 98 05/27/23 08:55 FiO2 Intake & Output 05/26/23 05/27/23 05/27/23 18:59 06:59 18:59 Intake Total 1560 Output Total 775 110 Balance 785 -110 Intake: Oral 1560 Output: Urine 775 110 Other: Voiding Method Indwelling Catheter Indwelling Catheter # Bowel Movements 1 1 - Exam HEENT: Head is atraumatic, normocephalic. Pupils equal, round. Sclerae is anicteric. NECK: Supple. No JVD. LUNGS: Clear to auscultation. No wheezes or rhonchi. No intercostal retraction s. HEART: Regular rate and rhythm. No murmur. ABDOMEN: Soft No tenderness. Dimas with hematuria. EXTREMITIES: Mild bilateral pedal edema. No calf tenderness. NEUROLOGICAL: Patient is awake, alert and oriented x3. - Labs CBC & Chem 7: 05/27/23 05:26 05/27/23 05:26 Labs: Abnormal Lab Results - Last 24 Hours (Table) 05/27/23 05/27/23 Range/Units 05:26 05:26 WBC 12.96 H (4.50-10.00) X 10*3/uL RBC 3.04 L (4.10-5.20) X 10*6/uL Hgb 9.4 L (12.0-15.0) g/dL Hct 29.5 L (37.2-46.3) % MCHC 31.9 L (32.0-37.0) g/dL Immature Gran # 0.31 H (0.00-0.04) X 10*3/uL Neutrophils # 10.20 H (1.80-7.70) X 10*3/uL Sodium 133 L (135-145) mmol/L BUN/Creatinine Ratio 26.83 H (12.00-20.00) Ratio Glucose 112 H (70-110) mg/dL Calcium 8.3 L (8.7-10.3) mg/dL Microbiology - Last 24 Hours (Table) 05/21/23 18:08 Blood Culture - Final Blood Assessment and Plan Assessment: New onset paroxysmal atrial fibrillation with RVR, currently maintaining sinus mechanism. Recurrent urinary tract infections and renal calculus Bicytopenia with anemia and thrombocytopenia Hypokalemia Hypertension Dyslipidemia Morbid obesity Plan: From cardiology's perspective we will Continue Eliquis. Continue current beta kaylynn. From our standpoint she is cleared for discharge once cleared by urology and primary. Nurse practitioner note has been reviewed, I agree with documented findings and plan of care. Patient was seen and examined.
[2023-05-27] MEDS ORDERED: SODIUM CHLORIDE 0.9% 500 ML 250 ML IV ONE (18:40)
[2023-05-27] MEDS ORDERED: IBUPROFEN 400 MG TAB PO PRN (18:43)
[2023-05-27] MEDS: SODIUM CHLORIDE 0.9% 1,000 ML IV SCH (18:57)
[2023-05-27] MEDS: ATORVASTATIN 10 MG TAB PO SCH (20:21)
[2023-05-28] MEDS: CEFEPIME 2 GM in SODIUM CHLORIDE 0.9% 100 ML IVPB SCH ×3 (01:13→19:42)
[2023-05-28] MEDS: SODIUM CHLORIDE 0.9% 1,000 ML IV SCH (04:16)
[2023-05-28] MEDS: MULTIVITAMINS, THERA 1 EACH TAB PO SCH (08:27)
[2023-05-28] MEDS: APIXABAN 5 MG TAB PO SCH ×2 (08:27→22:11)
[2023-05-28] MEDS: FAMOTIDINE 20 MG TAB PO SCH (08:27)
[2023-05-28] MEDS: SPIRONOLACTONE 25 MG TAB PO SCH (08:28)
[2023-05-28] MEDS: FUROSEMIDE 40 MG TAB PO SCH (08:28)
[2023-05-28] MEDS: methocarbamoL 750 MG TAB PO SCH ×3 (08:28→22:11)
[2023-05-28] MEDS: POTASSIUM CHLORIDE ER 20 MEQ TAB.ER PO SCH (08:28)
[2023-05-28] MEDS: levETIRAcetam 500 MG TAB PO SCH ×3 (08:28→22:11)
[2023-05-28] MEDS: ESCITALOPRAM 20 MG TAB PO SCH (08:28)
[2023-05-28] MEDS: FLUTICASONE 50MCG/SPRAY NASAL 16GM NASAL SCH ×2 (08:29→22:12)
[2023-05-28] MEDS: HYDROCORTISONE 1% CREAM 30 GM TUBE TOPICAL SCH ×2 (08:29→22:12)
[2023-05-28] MEDS: IPRATROPIUM-ALBUTEROL 3 ML NEB INHALATION SCH ×4 (08:49→19:22)
[2023-05-28] MEDS: oxyBUTYnin chloride 5 MG TAB PO SCH ×3 (09:12→17:07)
[2023-05-28] MEDS: HYDROcodone/APAP 7.5-325MG 1 EACH TAB PO PRN ×2 (11:47→18:24)
[2023-05-28] MEDS: METOPROLOL TARTRATE 50 MG TAB PO SCH ×3 (12:08→22:12)
--- NOTE | 2023-05-28 14:44 | P.PN ---
Subjective Progress Note Date: 05/28/23 No acute overnight events, patient is afebrile overnight. Still awaiting placement Objective - Vital Signs Vital signs: Vital Signs Temp 98.9 F 05/28/23 07:36 Pulse 74 05/28/23 07:36 Resp 16 05/28/23 08:00 BP 96/63 05/28/23 07:36 Pulse Ox 92 L 05/28/23 07:36 FiO2 Intake & Output 05/27/23 05/28/23 05/28/23 18:59 06:59 18:59 Output Total 900 300 Balance -900 -300 Weight 77 kg Output: Urine 900 300 Other: Voiding Method Indwelling Catheter Indwelling Catheter Indwelling Catheter - Constitutional General appearance: Present: no acute distress - Gastrointestinal General gastrointestinal: Present: soft. Absent: distended, tenderness - Labs CBC & Chem 7: 05/27/23 05:26 05/27/23 05:26 Assessment and Plan Assessment: statys post right PCNL, on May 17, has had a prolonged hospital course due to fever, pleural effusion, clinically she is improving. -From urology standpoint she is okay for discharge, plan to discharge to subacute rehab, awaiting placement at [facility] -will plan on removing the Dimas catheter prior to discharge
[2023-05-28] MEDS: PSYLLIUM HUSK 100% 6 GM PACKET PO SCH (17:10)
--- NOTE | 2023-05-28 17:44 | CT ---
EXAMINATION TYPE: CT chest wo con DATE OF EXAM: 05/28/2023 COMPARISON: 05/22/2023 HISTORY: right side chest pain CT DLP: 451.[address] of the chest was performed with lung and mediastinal window settings submitted. The la ck of contrast limits evaluation of the vascular, mediastinal and parenchymal structures including th e upper abdomen. LUNGS: Moderate to large right-sided pleural effusion with underlying compressive atelectasis. Overal l appearance is stable relative to prior examination. There is persistent but improving left-sided ef fusion and basilar atelectasis. The remainder of the lungs are clear. MEDIASTINUM/DALIA: Thoracic aorta is of normal caliber with limited evaluation given lack of contrast . The heart is not enlarged. No evidence for mediastinal mass. No lymph nodes greater than 1cm. UPPER ABDOMEN: Right sided retroperitoneal collection persists and appears slightly smaller in size a nd currently measures 7.8 x 4.6 cm versus 8.3 x 4.2 cm. Cholelithiasis. OTHER: No significant other abnormality. IMPRESSION: 1. Right-sided pleural effusion with underlying atelectasis and/or infiltrate appears essentially un changed. Improved effusion left lung base. 2. Right-sided retroperitoneal collection is again noted and is slightly smaller in size.
[2023-05-28] MEDS: ACETAMINOPHEN TAB 325 MG TAB PO PRN (22:10)
[2023-05-28] MEDS: ATORVASTATIN 10 MG TAB PO SCH (22:11)
[2023-05-28 22:18] LABS: Bacteria,Urine Occasional /hpf; Mucus,Urine Rare /hpf; RBC,Urine >182 /hpf (0-5); WBC,Urine 1 /hpf (0-5)
[2023-05-28 22:19] LABS: Appearance,Urine Slightly Cloudy (Clear); Bilirubin,Urine Negative (Negative); Blood,Urine Large (Negative); Color,Urine Yellow; Glucose,Urine (UA) Negative (Negative); Ketones,Urine Negative (Negative); Leukocyte Esterase,Urine Negative (Negative); Nitrite,Urine Negative (Negative); Protein,Urine Trace (Negative); Specific Gravity,Urine 1.015 (1.001-1.035); Urobilinogen,Urine <2.0 mg/dL (<2.0)
--- NOTE | 2023-05-28 23:32 | P.PN ---
Subjective Progress Note Date: 05/28/23 Patient evaluated today sitting up in chair. Indwelling catheter to be removed today, urology has signed off. Patient is status post percutaneous nephrostolithotomy and J nephrostomy tube placement on the right. The nephrostomy tube was subsequently discontinued on 05/21. She has remained in the hospital had interval development of pleural effusion, and fever with imaging revealing cholelisthiasis, moderate right and small left pleural effusion, and mild right hydroureteronephrosis. Patient also developed atrial fibrillation postoperatively currently anticoagulated. Patient was evaluated by pulmonary and considered for thoracentesis which she had declined. She does continue at this point to report right sided pleuritic chest pain worse with deep inspiration and she has developed fever. She has had persistent proteus UTI and completed course of antibiotics for this with most recent urine culture from 05/24 this admission showing negative urine culture and negative blood cultures. Review of Systems Constitutional: Denied any fatigue denied any fever. Cardio vascular: denied any chest pain, palpitations Gastrointestinal: denied any nausea, vomiting, diarrhea Pulmonary: Reports shortness of breath and right sided pleuritic chest pain Neurologic denied any new focal deficits All inpatient medications were reviewed and appropriate changes in these medications as dictated in the interval history and assessment and plan. PHYSICAL EXAMINATION: GENERAL: The patient is alert and oriented x3, not in any acute distress. Well developed, well nourished. HEENT: Pupils are round and equally reacting to light. EOMI. No scleral icterus. No conjunctival pallor. Normocephalic, atraumatic. No pharyngeal erythema. No thyromegaly. CARDIOVASCULAR: S1 and S2 present. No murmurs, rubs, or gallops. PULMONARY: Chest is diminished. ABDOMEN: Soft, nontender, nondistended, normoactive bowel sounds. No palpable organomegaly. IDC present. MUSCULOSKELETAL: No joint swelling or deformity. EXTREMITIES: No cyanosis, clubbing, or pedal edema. NEUROLOGICAL: Gross neurological examination did not reveal any focal deficits. SKIN: No rashes. Pt has abdominal panus. Assessment and Plan -Nephrolisthiasis and obstructive uropathy status post precutaneous nephrostolithotomy and nephrostomy tube placement with removal. Remaining stones will be followed up with urology outpatient for further evaluation. IDC to be removed today. Urology has signed off. -Fever; ID will be consulted Blood cultures are pending, procalcitonin has been ordered and pending. -Chronic proteus urinary tract infection from infected stone and obstructive uropathy treated with course of antibiotics and most recent urine culture showing normal enzo. -Right sided pleural effusion patient has declined thoracentesis and pulmonary has signed off we will follow up with chest CT C/O contrast du eto patient having contrast allergy and declining contrast patient does have persistent right sided pleuritic chest pain -Acute hypoxemic respiratory failure requiring 2 L oxygen via nasal cannula. Chest x-ray showed pulmonary vascular congestion, cardiomegaly and bilateral pleural effusion right greater than left. -New onset paroxysmal atrial fibrillation with RVR currently in sinus mechanism anticoagulated with eliquis on metoprolol TID. Patient continues on oral lasix daily. Follow up proBNP. -Hypertension -Dyslipidemia -Chronic medical debility follows with [facility] -Morbid obesity -History of seizure disorder continue on keppra TID. -History of cerebral palsy, left-sided weakness and gait abnormality -History of stroke GI prophylaxis DVT prophylaxis On eliquis Full Code The impression and plan of care has been dictated by Joseline Potter, Nurse Practitioner as directed. Dr. Wolf MD I have performed a history and physical examination and medical decision making of this patient, discussed the same with the dictator, and agree with the dictators assessment and plan as written, documented as a scribe. Based on total visit time, I have performed more than 50% of this visit. Objective - Vital Signs Vital signs: Vital Signs Temp 98.6 F 05/28/23 14:00 Pulse 89 05/28/23 14:00 Resp 18 05/28/23 14:00 BP 103/67 05/28/23 14:00 Pulse Ox 96 05/28/23 14:00 FiO2 Intake & Output 05/27/23 05/28/23 05/28/23 18:59 06:59 18:59 Output Total 900 300 Balance -900 -300 Weight 77 kg Output: Urine 900 300 Other: Voiding Method Indwelling Catheter Indwelling Catheter Indwelling Catheter - Labs CBC & Chem 7: 05/27/23 05:26 05/27/23 05:26 Assessment and Plan Time with Patient: Less than 30
[2023-05-29] MEDS: HYDROcodone/APAP 7.5-325MG 1 EACH TAB PO PRN ×3 (01:48→17:46)
[2023-05-29] MEDS: IPRATROPIUM-ALBUTEROL 3 ML NEB INHALATION SCH ×4 (08:04→20:19)
[2023-05-29] MEDS: APIXABAN 5 MG TAB PO SCH (09:18)
[2023-05-29] MEDS: POTASSIUM CHLORIDE ER 20 MEQ TAB.ER PO SCH (09:18)
[2023-05-29] MEDS: FUROSEMIDE 40 MG TAB PO SCH (09:18)
[2023-05-29] MEDS: oxyBUTYnin chloride 5 MG TAB PO SCH ×3 (09:18→18:24)
[2023-05-29] MEDS: MULTIVITAMINS, THERA 1 EACH TAB PO SCH (09:18)
[2023-05-29] MEDS: methocarbamoL 750 MG TAB PO SCH ×3 (09:18→20:35)
[2023-05-29] MEDS: ESCITALOPRAM 20 MG TAB PO SCH (09:18)
[2023-05-29] MEDS: levETIRAcetam 500 MG TAB PO SCH ×3 (09:19→20:35)
[2023-05-29] MEDS: PSYLLIUM HUSK 100% 6 GM PACKET PO SCH (09:20)
[2023-05-29] MEDS: METOPROLOL TARTRATE 50 MG TAB PO SCH ×4 (09:20→20:39)
[2023-05-29] MEDS: HYDROCORTISONE 1% CREAM 30 GM TUBE TOPICAL SCH ×2 (09:20→20:36)
[2023-05-29] MEDS: FLUTICASONE 50MCG/SPRAY NASAL 16GM NASAL SCH ×2 (09:21→20:36)
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
[2023-05-29] MEDS ORDERED: VANCOMYCIN IV PER PHARMACY 1 EACH MISC MISCELLANE PRN (09:31)
[2023-05-29] MEDS ORDERED: SODIUM CHLORIDE 0.9% 1,000 ML IV SCH (09:45)
[2023-05-29] MEDS ORDERED: VANCOMYCIN 1,500 MG in SODIUM CHLORIDE 0.9% 500 ML 500 ML IVPB ONE (10:00)
[2023-05-29] MEDS ORDERED: CEFEPIME 2 GM in SODIUM CHLORIDE 0.9% 100 ML IVPB SCH (10:00)
[2023-05-29 11:14] LABS: Basophils # (A) 0.03 X 10*3/uL (0.00-0.10); Basophils % (A) 0.3 %; Eosinophils # (A) 0.16 X 10*3/uL (0.04-0.35); Eosinophils % (A) 1.4 %; HCT 25.7 % (37.2-46.3); HGB 8.3 g/dL (12.0-15.0); Lymphocytes # (A) 1.15 X 10*3/uL (0.90-5.00); Lymphocytes % (A) 10.3 %; MCH 31.4 pg (27.0-32.0); MCHC 32.3 g/dL (32.0-37.0); MCV 97.3 FL (80.0-97.0); Mean Platelet Volume 10.9 FL (9.5-12.2); Monocytes # (A) 0.88 X 10*3/uL (0.20-1.00); Monocytes % (A) 7.9 %; NRBC Per 100 WBC 0 X 10*3/uL (0.00-0.01); Neutrophils # (A) 8.71 X 10*3/uL (1.80-7.70); Platelet Count 291 X 10*3/uL (140-440); RBC 2.64 X 10*6/uL (4.10-5.20); WBC 11.17 X 10*3/uL (4.50-10.00)
[2023-05-29 11:24] LABS: ALT 49 U/L (8-44); AST 51 U/L (13-35); Albumin 2.4 g/dL (3.8-4.9); Albumin/Globulin Ratio 0.83 Ratio (1.60-3.17); Alkaline Phosphatase 82 U/L (41-126); BUN/Creat Ratio 22.83 Ratio (12.00-20.00); Blood Urea Nitrogen 13.7 mg/dL (9.0-27.0); Carbon Dioxide 23.4 mmol/L (21.6-31.8); Chloride 101 mmol/L (96-109); Globulin 2.9 g/dL (1.6-3.3); Glucose 92 mg/dL (70-110); Potassium 4.3 mmol/L (3.5-5.5); Sodium 134 mmol/L (135-145); Total Bilirubin 0.5 mg/dL (0.3-1.2); Total Protein 5.3 g/dL (6.2-8.2)
[2023-05-29] MEDS: hydrOXYzine HCL 25 MG TAB PO PRN (12:59)
--- NOTE | 2023-05-29 15:30 | P.PN ---
Subjective Progress Note Date: 05/29/23 Patient evaluated today sitting up in chair. Indwelling catheter to be removed today, urology has signed off. Patient is status post percutaneous nephrostolithotomy and J nephrostomy tube placement on the right. The nephrostomy tube was subsequently discontinued on 05/21. She has remained in the hospital had interval development of pleural effusion, and fever with imaging revealing cholelisthiasis, moderate right and small left pleural effusion, and mild right hydroureteronephrosis. Patient also developed atrial fibrillation postoperatively currently anticoagulated. Patient was evaluated by pulmonary and considered for thoracentesis which she had declined. She does continue at this point to report right sided pleuritic chest pain worse with deep inspiration and she has developed fever. She has had persistent proteus UTI and completed course of antibiotics for this with most recent urine culture from 05/24 this admission showing negative urine culture and negative blood cultures. 05/29/2023 Patient evaluated today resting in bed. Continues to report right sided chest pain. Had chest CT done showing right-sided pleural effusion with underlying atelectasis and or infiltrate appears essentially unchanged. Improved effusion left lung base. Right sided retroperitoneal collection is again noted and smaller in size. AST/ALT remain elevated. Sodium 134, BUN 13.7, creatinine 0.6. ID following patient on IV cefepime and IV vancomycin. Blood cultures showing gram postive cocci/coag negative staph x 2 which is likely contaminent species however blood culture will be repeated. T-Max 101.1 overnight. Review of Systems Constitutional: Denied any fatigue denied any fever. Cardio vascular: denied any chest pain, palpitations Gastrointestinal: denied any nausea, vomiting, diarrhea Pulmonary: Reports shortness of breath and right sided pleuritic chest pain Neurologic denied any new focal deficits All inpatient medications were reviewed and appropriate changes in these medications as dictated in the interval history and assessment and plan. PHYSICAL EXAMINATION: GENERAL: The patient is alert and oriented x3, not in any acute distress. Well developed, well nourished. HEENT: Pupils are round and equally reacting to light. EOMI. No scleral icterus. No conjunctival pallor. Normocephalic, atraumatic. No pharyngeal erythema. No thyromegaly. CARDIOVASCULAR: S1 and S2 present. No murmurs, rubs, or gallops. PULMONARY: Chest is diminished. ABDOMEN: Soft, nontender, nondistended, normoactive bowel sounds. No palpable organomegaly. IDC present. MUSCULOSKELETAL: No joint swelling or deformity. EXTREMITIES: No cyanosis, clubbing, or pedal edema. NEUROLOGICAL: Gross neurological examination did not reveal any focal deficits. SKIN: No rashes. Pt has abdominal panus. Assessment and Plan -Nephrolisthiasis and obstructive uropathy status post precutaneous nephrostolithotomy and nephrostomy tube placement with removal. Remaining stones will be followed up with urology outpatient for further evaluation. IDC has been removed. Urology has signed off. -Fever; ID will be consulted Blood cultures are pending, procalcitonin has been ordered and pending. -Chronic proteus urinary tract infection from infected stone and obstructive uropathy treated with course of antibiotics and most recent urine culture showing normal enzo. -Right sided pleural effusion patient has declined thoracentesis and pulmonary has signed off. Follow up chest CT redemonstrates pleural effusion and discussed with pulmonary patient is now agreeable to thoracentesis and eliquis will be held. Chest ultrasound ordered. -Acute hypoxemic respiratory failure requiring 2 L oxygen via nasal cannula. Chest x-ray showed pulmonary vascular congestion, cardiomegaly and bilateral pleural effusion right greater than left. -New onset paroxysmal atrial fibrillation with RVR currently in sinus mechanism anticoagulated with eliquis on metoprolol TID. Patient continues on oral lasix daily. Follow up proBNP normal limits for age at 89 continues on oral lasix. -Hypertension -Dyslipidemia -Chronic medical debility follows with [facility] -Morbid obesity -History of seizure disorder continue on keppra TID. -History of cerebral palsy, left-sided weakness and gait abnormality -History of stroke GI prophylaxis DVT prophylaxis On eliquis Full Code Pulmonary has been reconsulted and discussed pleural effusion patient will be re-evaluated for thoracentesis patient is now agreeable and chest ultrasound has been ordered. Hold eliquis PM dose/AM dose for possible thoracentesis this was discussed with nursing. ID following on IV antibiotics and repeat blood culture is pending at this time. Follow up labs in AM. The impression and plan of care has been dictated by Joseline Potter Nurse Practitioner as directed. Dr. Wolf MD I have performed a history and physical examination and medical decision making of this patient, discussed the same with the dictator, and agree with the d ictators assessment and plan as written, documented as a scribe. Based on total visit time, I have performed more than 50% of this visit. Objective - Vital Signs Vital signs: Vital Signs Temp 98.5 F 05/29/23 01:23 Pulse 68 05/29/23 01:23 Resp 18 05/29/23 01:23 BP 102/67 05/29/23 01:23 Pulse Ox 94 L 05/29/23 01:23 FiO2 Intake & Output 05/28/23 05/29/23 05/29/23 18:59 06:59 18:59 Output Total 300 Balance -300 Weight 77 kg Output: Urine 300 Other: Voiding Method Indwelling Catheter External Catheter # Voids 2 1 # Bowel Movements 1 - Labs CBC & Chem 7: 05/29/23 06:27 05/29/23 06:27 Labs: Abnormal Lab Results - Last 24 Hours (Table) 05/28/23 05/28/23 Range/Units 15:52 21:40 Procalcitonin 0.47 H (0.02-0.09) ng/mL Urine Appearance Slightly Cloudy H (Clear) Urine Protein Trace H (Negative) Urine Blood Large H (Negative) Urine RBC >182 H (0-5) /hpf Urine Bacteria Occasional H (None) /hpf Urine Mucus Rare H (None) /hpf Microbiology - Last 24 Hours (Table) 05/27/23 19:50 Blood Culture Gram Stain - Preliminary Blood 05/27/23 20:01 Blood Culture Gram Stain - Preliminary Blood Assessment and Plan Time with Patient: Less than 30
--- NOTE | 2023-05-29 15:55 | US ---
EXAMINATION TYPE: US chest DATE OF EXAM: 05/29/2023 Exam done portable COMPARISON: NONE CLINICAL INDICATION: Female, 67 years old with history of Right pleural effusion; TECHNIQUE: Targeted ultrasound of the posterior lower right hemithorax EXAM MEASUREMENTS: Right Pleural Effusion pocket size: 11.6 cm Right skin surface to fluid distance: 2.7 cm Complex fluid pocket with septations Right side marked for possible thoracentesis outside the dept. Pulmonologists are able to review the images in the patient?s EMR. IMPRESSIONS: Complex right pleural effusion with septations
--- NOTE | 2023-05-29 17:54 | P.PN ---
Subjective Progress Note Date: 05/29/23 Principal diagnosis: Reason for follow-up is fever and bacteremia Patient is a 67-year-old female with a past medical history significant for hypertension hyperlipidemia PE CVA TIA COPD heart failure patient presenting to the hospital on 05/16/2023 for elective treatment of partial right staghorn calculus in the right upper lobe, the patient is status post percutaneous nephrostomy and percutaneous nephrolithotomy patient did have a postop fever started on 05/18/2023 for which his infectious disease was consulted 05/28/2023 On today's evaluation that is 05/29/2023, the patient did spike a fever of 101.1F last time the patient is afebrile this morning patient is breathing more comfortably currently on 2 L nasal cannula oxygen patient mentioned right flank pain has decreased in intensity still have some cough not bringing up any sputum no nausea no vomiting has been complaining of significant itching Patient white count is down to 11.17, creatinine 0.6, urine is mostly hematuria blood culture with gram-positive cocci Objective - Vital Signs Vital signs: Vital Signs Temp 98.5 F 05/29/23 01:23 Pulse 68 05/29/23 08:00 Resp 18 05/29/23 08:00 BP 102/67 05/29/23 01:23 Pulse Ox 94 L 05/29/23 01:23 FiO2 Intake & Output 05/28/23 05/29/23 05/29/23 18:59 06:59 18:59 Output Total 300 Balance -300 Weight 77 kg Output: Urine 300 Other: Voiding Method Indwelling Catheter External Catheter External Catheter # Voids 2 1 # Bowel Movements 1 - Exam GENERAL DESCRIPTION: An elderly female up in the chair in no distress RESPIRATORY SYSTEM: Unlabored breathing , decreased breath sounds at the bases HEART: S1 S2 regular rate and rhythm , ABDOMEN: Soft , no tenderness EXTREMITIES: No edema feet - Labs CBC & Chem 7: 05/29/23 06:27 05/29/23 06:27 Labs: Abnormal Lab Results - Last 24 Hours (Table) 05/28/23 05/28/23 05/29/23 Range/Units 15:52 21:40 06:27 WBC 11.17 H (4.50-10.00) X 10*3/uL RBC 2.64 L (4.10-5.20) X 10*6/uL Hgb 8.3 L (12.0-15.0) g/dL Hct 25.7 L (37.2-46.3) % MCV 97.3 H (80.0-97.0) FL Immature Gran # 0.24 H (0.00-0.04) X 10*3/uL Neutrophils # 8.71 H (1.80-7.70) X 10*3/uL Sodium (135-145) mmol/L BUN/Creatinine Ratio (12.00-20.00) Ratio Calcium (8.7-10.3) mg/dL AST (13-35) U/L ALT (8-44) U/L C-Reactive Protein (0.00-0.80) mg/dL Total Protein (6.2-8.2) g/dL Albumin (3.8-4.9) g/dL Albumin/Globulin Ratio (1.60-3.17) Ratio Procalcitonin 0.47 H (0.02-0.09) ng/mL Urine Appearance Slightly Cloudy H (Clear) Urine Protein Trace H (Negative) Urine Blood Large H (Negative) Urine RBC >182 H (0-5) /hpf Urine Bacteria Occasional H (None) /hpf Urine Mucus Rare H (None) /hpf 05/29/23 Range/Units 06:27 WBC (4.50-10.00) X 10*3/uL RBC (4.10-5.20) X 10*6/uL Hgb (12.0-15.0) g/dL Hct (37.2-46.3) % MCV (80.0-97.0) FL Immature Gran # (0.00-0.04) X 10*3/uL Neutrophils # (1.80-7.70) X 10*3/uL Sodium 134 L (135-145) mmol/L BUN/Creatinine Ratio 22.83 H (12.00-20.00) Ratio Calcium 8.0 L (8.7-10.3) mg/dL AST 51 H (13-35) U/L ALT 49 H (8-44) U/L C-Reactive Protein 16.90 H (0.00-0.80) mg/dL Total Protein 5.3 L (6.2-8.2) g/dL Albumin 2.4 L (3.8-4.9) g/dL Albumin/Globulin Ratio 0.83 L (1.60-3.17) Ratio Procalcitonin (0.02-0.09) ng/mL Urine Appearance (Clear) Urine Protein (Negative) Urine Blood (Negative) Urine RBC (0-5) /hpf Urine Bacteria (None) /hpf Urine Mucus (None) /hpf Microbiology - Last 24 Hours (Table) 05/27/23 19:50 Blood Culture Gram Stain - Preliminary Blood 05/27/23 20:01 Blood Culture Gram Stain - Preliminary Blood Assessment and Plan (1) Postoperative hematoma Current Visit: No Status: Acute Code(s): [id number] - SNOMED Code(s): 726791721 (2) Pruritus due to inflammation Current Visit: No Status: Acute Code(s): L29.9 - PRURITUS, UNSPECIFIED SNOMED Code(s): 527212666 (3) Leukocytosis Current Visit: Yes Status: Acute Code(s): D72.829 - ELEVATED WHITE BLOOD CELL COUNT, UNSPECIFIED SNOMED Code(s): 835719350 (4) Pneumonia Current Visit: No Status: Acute Code(s): J18.9 - PNEUMONIA, UNSPECIFIED ORGANISM SNOMED Code(s): 934799061 Plan: 1patient with fever that has been going on for almost 10 days in this patient who is status post right percutaneous nephrostomy and percutaneous nephrolithotomy for staghorn calculus that was completed on 05/17/2023 and the patient started spiking fever on 05/18/[address] abdominal pelvis did mention abnormality to the right kidney and concern for possible hematoma to the likely etiology underlying abscess less likely but not entirely excluded likely from enteric gram-negative pathogen versus a component of possible pneumonia 2-patient did have a positive blood culture with gram-positive cocci with a question of possible skin contamination versus true pathogen 3Blood culture has been repeated to document clearance Patient has been started on vancomycin and cefepime was restarted we will add Atarax for itching and to slow down the vancomycin infusion discussed with the nursing staff Dictation was produced using [employer] dictation software. please excuse any grammatical, word or spelling errors. Time with Patient: Less than 30
[2023-05-29] MEDS: CEFEPIME 2 GM in SODIUM CHLORIDE 0.9% 100 ML IVPB SCH ×2 (18:23→23:08)
[2023-05-29] MEDS: ATORVASTATIN 10 MG TAB PO SCH (20:35)
[2023-05-30] MEDS ORDERED: VANCOMYCIN 1,500 MG in SODIUM CHLORIDE 0.9% 500 ML 500 ML IVPB SCH (03:00)
[2023-05-30] MEDS: VANCOMYCIN 1,500 MG in SODIUM CHLORIDE 0.9% 500 ML 500 ML IVPB SCH ×2 (03:55→18:01)
[2023-05-30 06:42] LABS: African American GFR (CKD) >90 (>60 ml/min/1.73 sqM); Anion Gap 6 mmol/L; Blood Urea Nitrogen 13 mg/dL (7-17); Carbon Dioxide 26 mmol/L (22-30); Chloride 100 mmol/L (98-107); Glucose 98 mg/dL (74-99); Non-African American GFR(CKD) >90 (>60 ml/min/1.73 sqM); Potassium 3.8 mmol/L (3.5-5.1); Sodium 132 mmol/L (137-145)
[2023-05-30] MEDS: MULTIVITAMINS, THERA 1 EACH TAB PO SCH (08:34)
[2023-05-30] MEDS: POTASSIUM CHLORIDE ER 20 MEQ TAB.ER PO SCH (08:34)
[2023-05-30] MEDS: METOPROLOL TARTRATE 50 MG TAB PO SCH ×3 (08:34→20:22)
[2023-05-30] MEDS: levETIRAcetam 500 MG TAB PO SCH ×3 (08:34→20:22)
[2023-05-30] MEDS: FLUTICASONE 50MCG/SPRAY NASAL 16GM NASAL SCH ×2 (08:35→20:22)
[2023-05-30] MEDS: HYDROCORTISONE 1% CREAM 30 GM TUBE TOPICAL SCH ×2 (08:36→20:23)
[2023-05-30 08:39] LABS: Basophils # (A) 0.03 X 10*3/uL (0.00-0.10); Basophils % (A) 0.3 %; Eosinophils # (A) 0.16 X 10*3/uL (0.04-0.35); Eosinophils % (A) 1.8 %; HCT 25.6 % (37.2-46.3); HGB 8.3 g/dL (12.0-15.0); Lymphocytes # (A) 1.08 X 10*3/uL (0.90-5.00); Lymphocytes % (A) 12.1 %; MCHC 32.4 g/dL (32.0-37.0); MCV 95.5 FL (80.0-97.0); Mean Platelet Volume 10.5 FL (9.5-12.2); Monocytes # (A) 0.73 X 10*3/uL (0.20-1.00); Monocytes % (A) 8.2 %; NRBC Per 100 WBC 0 X 10*3/uL (0.00-0.01); Neutrophils % (A) 75.1 %; Platelet Count 314 X 10*3/uL (140-440); RBC 2.68 X 10*6/uL (4.10-5.20); RDW 12.8 % (11.5-14.5); WBC 8.92 X 10*3/uL (4.50-10.00)
[2023-05-30] MEDS: methocarbamoL 750 MG TAB PO SCH ×3 (08:45→20:22)
[2023-05-30] MEDS: ESCITALOPRAM 20 MG TAB PO SCH (08:45)
[2023-05-30] MEDS: CEFEPIME 2 GM in SODIUM CHLORIDE 0.9% 100 ML IVPB SCH ×2 (08:48→15:57)
[2023-05-30] MEDS: IPRATROPIUM-ALBUTEROL 3 ML NEB INHALATION SCH ×4 (09:10→20:43)
[2023-05-30] MEDS: oxyBUTYnin chloride 5 MG TAB PO SCH ×3 (09:58→17:57)
[2023-05-30] MEDS: LOPERAMIDE 2 MG CAP PO PRN (09:58)
[2023-05-30] MEDS: CALCIUM CARBONATE 500 MG CHEWABLE PO PRN ×2 (11:37→21:16)
[2023-05-30] MEDS: FUROSEMIDE 40 MG TAB PO SCH (11:47)
[2023-05-30 12:11] LABS: INR 1.1 (<1.2); Prothrombin Time 11.9 sec (10.0-12.5)
--- NOTE | 2023-05-30 12:36 | P.PN ---
Subjective Progress Note Date: 05/30/23 I am seeing this patient in consultation today 05/23/2023 for a moderate size right pleural effusion. Patient is a 67-year-old white female with extensive past medical history significant for cerebral palsy, seizure disorder, CVA, hyperlipidemia, hypertension, pulmonary embolus, among other things. She has recurrent urinary tract infections with Proteus mirabilis and infected right- sided renal calculus. She was brought in for elective right-sided percutaneous nephrostolithotomy and placement of a J nephrostomy tube on May 17. No immediate perioperative complications reported. 2 days ago, she went atrial fibrillation with ventricular rate. She was transferred to the cardiac stepdown unit. Temporarily on cardizem infusion, which is discontinued. Patient self denies any history of atrial fibrillation. Chest x-ray showed cardiomegaly, pulmonary vascular Congestion, and bilateral pleural effusions. She does receive Lasix 40 mg by mouth every morning and Aldactone. Repeat chest x-ray yesterday morning continues to show a moderate size right pleural effusion. Patient is currently resting in bed, on 2 L/m nasal cannula, in no acute distress. Patient is a poor historian. She reportedly lives independently in an apartment with PACE assistance. She is oriented to self and time. She is crying. She is febrile and diaphoretic. She remains in atrial fibrillation with RVR. Heart rate averaging 100-120 bpm. BP is normotensive. She is anticoagulated on Eliquis. She is empirically covered on cefepime for her previous Proteus urinary infection. She has a indwelling urinary catheter draining an adequate amount of shanique colored urine. Follow-up abdominal CT done yesterday june bruce posttreatment changes to the right kidney with perinephric probable hematoma and focus of gas measuring 8.4 x 4.3 x 7.7 cm. There is mild right hydroureteronephrosis which could be reactive inflammation and blood products on the right kidney. There is persistent right nephric calcification measuring 9 mm. There is moderate right and small left pleural effusions. And cholelithiasis without cholecystitis. The moderate right and small left pleural effusions were again noted. There is associated atelectasis. No focal consolidations. Most recent CBC from yesterday shows a WBC count 11.7, hemoglobin 10.5, hematocrit 30.5, platelets 139. Sodium 133, potassium 2.8, chloride 97, serum bicarb 25, UN 18, creatinine 0.65, glucose 99. Potassium is being replaced. Patient is being monitored on the cardiac stepdown unit. On today's evaluation of 05/24/2023, no interval worsening the patient was started status. The patient is currently stable. The patient is on 2 L of oxygen by nasal cannula. Producing adequate urine output. BUN is at 80 with a creatinine of 0.4 and sodium levels of 131. The white cell count of 8.4 with a hemoglobin of 9.9. The patient remains on IV cefepime. Respiratory medications are unchanged and the patient continues to be on anticoagulation with Eliquis. on 05/25/2023, I'm seeing the patient for a follow-up.Repeat chest x-ray was done and the patient continues to have a persistent right lower lobe atelectasis of the right-sided pleural effusion. The patient remains off anticoagulation. I'm considering a thoracentesis if the patient becomes more symptomatic. Otherwise, condition is stable for now. She remains on oxygen 2 L/m nasal can nula. No significant respiratory distress or the time being. The white cell count of 8.3 with a hemoglobin of 10.3 and the platelet count of 265. BUN is at 60 with a creatinine of 0.39 and a sodium level is at 133. Remains on antibiotics and the patient is still on IV cefepime. She is also on Lasix 40 mg by mouth daily. The rest of the medications unchanged. Remains on Aldactone 25 mg by mouth daily. On 05/26/2023, no new complaints and the patient's condition is stable. No respiratory difficulties. The patient remains on oxygen at 2 L with a pulse ox of 96%. The rest of the labs show sodium level of 132, potassium level of 3.8, BUN is at 40 with a creatinine of 0.4. The basic concept and 0.5 with a hemoglobin of 10.3. The patient is seen today 05/30/2023 in follow-up. We had signed off on this patient and she had initially declined any thoracentesis regarding the right p leural effusion. Primary states that now she is willing to have the procedure done. 2-D scan of the chest from 05/28/2023 revealed a right-sided pleural effusion with underlying atelectasis and/or infiltrate. Improved effusion on the left lung base. There is a right-sided retroperitoneal collection again noted. Ultrasound of the right chest was ordered and did reveal an 11.6 cm pocket however this was a complex fluid pocket with multiple septations. Currently resting fairly comfortably in bed. Awake and alert in no acute distress. Maintaining O2 saturations in the 90s on room air. She did have a T- max of 100.3 last evening. Currently afebrile. Blood cultures had revealed coag-negative staph. Urine culture revealed no growth. White count 8.9. Hemoglobin 8.3. Platelets 314. Sodium 132. Potassium 3.8. Bicarb 26. BUN 13. Creatinine 0.52. Glucose 98. Pro-calcitonin from 05/28/2023 was 0.47. She is continued on DuoNeb inhalations. Antibiotics in the form of vancomycin and cefepime. Eliquis currently on hold. Objective - Vital Signs Vital signs: Vital Signs Temp 98.7 F 05/30/23 07:57 Pulse 82 05/30/23 08:00 Resp 18 05/30/23 08:00 BP 96/61 05/30/23 07:57 Pulse Ox 94 L 05/30/23 07:57 FiO2 Intake & Output 05/29/23 05/30/23 05/30/23 18:59 06:59 18:59 Intake Total 591 Output Total 400 650 Balance 191 -650 Intake: Oral 591 Output: Urine 400 650 Other: Voiding Method External Catheter External Catheter External Catheter - Exam GENERAL EXAM: Alert, pleasant 67-year-old female, resting in bed, on room air, comfortable in no acute distress. HEAD: Normocephalic and atraumatic EYES: Normal reaction of pupils, equal size. NOSE: Clear with pink turbinates. THROAT: No erythema or exudates. NECK: No masses, no JVD. Left IJ triple-lumen central line catheter. CHEST: No chest wall deformity. LUNGS: Equal air entry with crackles, few scattered rhonchi, diminished in the right lung base. No conversational dyspnea. CVS: S1 and S2 normal with no audible murmur, irregular rhythm. No extra heart sounds. ABDOMEN: No hepatosplenomegaly, active bowel sounds, no guarding or rigidity. SPINE: No scoliosis or deformity. Percutaneous site right inferior back, dressed with gauze. No shadowing. SKIN: Bilateral lower extremity chronic venous changes. CENTRAL NERVOUS SYSTEM: There appears to be left-sided hemiparesis. She is oriented to self and place. EXTREMITIES: There is no peripheral edema, clubbing, or cyanosis. Peripheral pulses are intact. - Labs CBC & Chem 7: 05/30/23 06:04 05/30/23 06:04 Labs: Abnormal Lab Results - Last 24 Hours (Table) 05/30/23 05/30/23 Range/Units 06:04 06:04 RBC 2.68 L (4.10-5.20) X 10*6/uL Hgb 8.3 L (12.0-15.0) g/dL Hct 25.6 L (37.2-46.3) % Immature Gran # 0.22 H (0.00-0.04) X 10*3/uL Sodium 132 L (137-145) mmol/L Calcium 8.0 L (8.4-10.2) mg/dL Microbiology - Last 24 Hours (Table) 05/27/23 19:50 Blood Culture Gram Stain - Preliminary Blood Blood Culture - Preliminary Coagulase Negative Staph 05/27/23 20:01 Blood Culture Gram Stain - Preliminary Blood Blood Culture - Preliminary Coagulase Negative Staph Assessment and Plan Assessment: Acute hypoxemic respiratory failure, on 2 L/m nasal cannula, likely related to exacerbation of congestive heart failure, unknown systolic or diastolic type. Chest x-ray shows cardiomegaly with pulmonary vascular congestion and bilateral pleural effusions, right greater than left.patient had a follow-up chest x-ray that shows a persistent right-sided pleural effusion. Ultrasound of the right chest reveals an 11.6 cm pocket however this is a complex effusion with multiple septations Urosepsis, currently inactive and stable, maintained on antibiotics Bacteremia with coagulase-negative staph, currently on vancomycin and cefepime Recurrent urinary tract infections and infected right renal calculi status post cystoscopy, percutaneous nephrostolithotomy and placement of a right J nephrostomy tube on 05/17/23. Follow-up CAT scan of the chest and abdomen was noted. The patient has posttreatment changes in the right kidney along with perinephric probable hematoma and the focus of a gas. This is probably inflammatory in nature. At the same time, the patient has not mild right hydroureteronephrosis and a small right-sided pleural effusion is small left- sided pleural effusion along with cholelithiasis. Patient is status post cystoscopy and percutaneous nephrostolithotomy and place ment of right IJ nephrostomy tube on 05/17/2023. Patient is currently covered on cefepime for history of recurrent urinary tract infections, with her most recent previous isolated organism Proteus mirabilis, susceptible to cefepime. History of recurrent urinary tract infections, previous isolated organism Proteus mirabilis Possible new onset atrial fibrillation with rapid ventricular rate, anti coagulated on Eliquis History of cerebral palsy History of seizure disorder Hyperlipidemia Hypertension History of CVA History of left-sided weakness and gait abnormality Morbid obesity Plan: The patient was seen and evaluated Computed tomography scan of the chest, ultrasound of the chest, labs and medications reviewed Right pleural effusion is complex with septations Consulted interventional radiology for thoracentesis and possible pigtail placement Eliquis currently on hold Continued on vancomycin and cefepime Stable and on room air We will continue to follow This patient was seen independently by the nurse practitioner who performed the medical decision making I have personally seen and examined the patient, performed the documentation and the assessment and plan as written. Number of minutes spent on the visit: 25.
[2023-05-30] MEDS: HYDROmorphone 0.5 MG/0.5 ML SYRINGE IVP PRN ×2 (13:45→17:57)
--- NOTE | 2023-05-30 15:47 | P.PN ---
Subjective Progress Note Date: 05/30/23 Patient evaluated today sitting up in chair. Indwelling catheter to be removed today, urology has signed off. Patient is status post percutaneous nephrostolithotomy and J nephrostomy tube placement on the right. The nephrostomy tube was subsequently discontinued on 05/21. She has remained in the hospital had interval development of pleural effusion, and fever with imaging revealing cholelisthiasis, moderate right and small left pleural effusion, and mild right hydroureteronephrosis. Patient also developed atrial fibrillation postoperatively currently anticoagulated. Patient was evaluated by pulmonary and considered for thoracentesis which she had declined. She does continue at this point to report right sided pleuritic chest pain worse with deep inspiration and she has developed fever. She has had persistent proteus UTI and completed course of antibiotics for this with most recent urine culture from 05/24 this admission showing negative urine culture and negative blood cultures. 05/29/2023 Patient evaluated today resting in bed. Continues to report right sided chest pain. Had chest CT done showing right-sided pleural effusion with underlying atelectasis and or infiltrate appears essentially unchanged. Improved effusion left lung base. Right sided retroperitoneal collection is again noted and smaller in size. AST/ALT remain elevated. Sodium 134, BUN 13.7, creatinine 0.6. ID following patient on IV cefepime and IV vancomycin. Blood cultures showing gram postive cocci/coag negative staph x 2 which is likely contaminent species however blood culture will be repeated. T-Max 101.1 overnight. 05/30/2023 Patient is evaluated today sitting up in bed. Has had episode of diarrhea relat ed to IBS requesting imodium which has been ordered since the she has also been placed on questran. ID following for continued fevers. Blood culture showing coagulase negative staph which has been repeated and pending. Likely a contaminant. Remains on IV cefepime and IV vancomycin. AST/ALT remain elevated with abdominal CT revealing gallstones patient states she has had these for many years. Procalcitonin level is elevated at 0.47. IR consulted with plans for thoracentesis today with cytology for the large right sided pleural effusion. Sodium today 132. White count has improved to 8.92. T-max overnight 100.3. Review of Systems Constitutional: Denied any fatigue denied any fever. Cardio vascular: denied any chest pain, palpitations Gastrointestinal: denied any nausea, vomiting, diarrhea Pulmonary: Reports shortness of breath and right sided pleuritic chest pain Neurologic denied any new focal deficits All inpatient medications were reviewed and appropriate changes in these med ications as dictated in the interval history and assessment and plan. PHYSICAL EXAMINATION: GENERAL: The patient is alert and oriented x3, not in any acute distress. Well developed, well nourished. HEENT: Pupils are round and equally reacting to light. EOMI. No scleral icterus. No conjunctival pallor. Normocephalic, atraumatic. No pharyngeal erythema. No thyromegaly. CARDIOVASCULAR: S1 and S2 present. No murmurs, rubs, or gallops. PULMONARY: Chest is diminished. Right midlung with diminished aeration. ABDOMEN: Soft, nontender, nondistended, normoactive bowel sounds. No palpable organomegaly. MUSCULOSKELETAL: No joint swelling or deformity. EXTREMITIES: No cyanosis, clubbing, or pedal edema. NEUROLOGICAL: Gross neurological examination did not reveal any focal deficits. SKIN: No rashes. Pt has abdominal panus. Assessment and Plan -Nephrolisthiasis and obstructive uropathy status post cystoscopy, percutaneous nephrostolithotomy and J nephrostomy tube placement with removal. Remaining stones will be followed up with urology outpatient for further evaluation. IDC has been removed. Urology has signed off. -Fever; ID will be consulted Blood cultures are pending, procalcitonin is elevated. Continues on IV cefepime and IV vancomycin. -Chronic proteus urinary tract infection from infected stone and obstructive uropathy treated with course of antibiotics and most recent urine culture showing normal enzo. -Right sided pleural effusion patient has declined thoracentesis and pulmonary has signed off. Follow up chest CT redemonstrates pleural effusion and discussed with pulmonary patient is now agreeable to thoracentesis and eliquis will be held. Chest ultrasound reveals 11.6 cm rigth pleural effusion pocket size which is noted to be complex with septations. IR was consulted for drainage and possible CT placement. Eliquis held for procedure. -Acute hypoxemic respiratory failure requiring 2 L oxygen via nasal cannula. Chest x-ray showed pulmonary vascular congestion, cardiomegaly and bilateral pleural effusion right greater than left. -New onset paroxysmal atrial fibrillation with RVR currently in sinus mechanism anticoagulated with eliquis on metoprolol TID. Patient continues on oral lasix daily. Follow up proBNP normal limits for age at 89 continues on oral lasix. -Hypertension -Dyslipidemia -Chronic medical debility follows with PACE -Morbid obesity -History of seizure disorder continue on keppra TID. -History of cerebral palsy, left-sided weakness and gait abnormality -History of stroke GI prophylaxis DVT prophylaxis On eliquis Full Code Pulmonary has been reconsulted and discussed pleural effusion patient will be re-evaluated for thoracentesis patient is now agreeable and chest ultrasound was reviewed. IR consulted for thoracentesis/CT placement due to the complexicty of the pleural effusion. Eliquis held for procedure and can be resumed for PM dose this evening. ID following on IV antibiotics and repeat blood culture is pending at this time. Follow up labs in AM. Will order gallbladder ultrasounds for further evaluation of noted gallstones. Recommend to also monitor bladder scan Q6h as IDC has been removed. Continue on imodium and questran for loose stools. Continue to encourage incentive spirometer. The impression and plan of care has been dictated by Josleine Potter, Nurse Practitioner as directed. Dr. Wolf MD I have performed a history and physical examination and medical decision making of this patient, discussed the same with the dictator, and agree with the dictators assessment and plan as written, documented as a scribe. Based on total visit time, I have performed more than 50% of this visit. Objective - Vital Signs Vital signs: Vital Signs Temp 98.7 F 05/30/23 07:57 Pulse 82 05/30/23 07:57 Resp 18 05/30/23 07:57 BP 96/61 05/30/23 07:57 Pulse Ox 94 L 05/30/23 07:57 FiO2 Intake & Output 05/29/23 05/30/23 05/30/23 18:59 06:59 18:59 Intake Total 591 Output Total 400 650 Balance 191 -650 Intake: Oral 591 Output: Urine 400 650 Other: Voiding Method External Catheter External Catheter - Labs CBC & Chem 7: 05/30/23 06:04 05/30/23 06:04 Labs: Abnormal Lab Results - Last 24 Hours (Table) 05/29/23 05/29/23 05/30/23 Range/Units 06:27 06:27 06:04 WBC 11.17 H (4.50-10.00) X 10*3/uL RBC 2.64 L (4.10-5.20) X 10*6/uL Hgb 8.3 L (12.0-15.0) g/dL Hct 25.7 L (37.2-46.3) % MCV 97.3 H (80.0-97.0) FL Immature Gran # 0.24 H (0.00-0.04) X 10*3/uL Neutrophils # 8.71 H (1.80-7.70) X 10*3/uL Sodium 134 L 132 L (135-145) mmol/L BUN/Creatinine Ratio 22.83 H (12.00-20.00) Ratio Calcium 8.0 L 8.0 L (8.7-10.3) mg/dL AST 51 H (13-35) U/L ALT 49 H (8-44) U/L C-Reactive Protein 16.90 H (0.00-0.80) mg/dL Total Protein 5.3 L (6.2-8.2) g/dL Albumin 2.4 L (3.8-4.9) g/dL Albumin/Globulin Ratio 0.83 L (1.60-3.17) Ratio 05/30/23 Range/Units 06:04 WBC (4.50-10.00) X 10*3/uL RBC 2.68 L (4.10-5.20) X 10*6/uL Hgb 8.3 L (12.0-15.0) g/dL Hct 25.6 L (37.2-46.3) % MCV (80.0-97.0) FL Immature Gran # 0.22 H (0.00-0.04) X 10*3/uL Neutrophils # (1.80-7.70) X 10*3/uL Sodium (135-145) mmol/L BUN/Creatinine Ratio (12.00-20.00) Ratio Calcium (8.7-10.3) mg/dL AST (13-35) U/L ALT (8-44) U/L C-Reactive Protein (0.00-0.80) mg/dL Total Protein (6.2-8.2) g/dL Albumin (3.8-4.9) g/dL Albumin/Globulin Ratio (1.60-3.17) Ratio - 24 Hours (Table) 05/27/23 19:50 Blood Culture Gram Stain - Preliminary Blood 05/27/23 20:01 Blood Culture Gram Stain - Preliminary Blood Assessment and Plan Time with Patient: Greater than 30
[2023-05-30] MEDS: HYDROcodone/APAP 7.5-325MG 1 EACH TAB PO PRN (15:57)
[2023-05-30] MEDS: APIXABAN 5 MG TAB PO SCH (16:30)
[2023-05-30] MEDS: ATORVASTATIN 10 MG TAB PO SCH (20:22)
[2023-05-30] MEDS: ACETAMINOPHEN TAB 325 MG TAB PO PRN (21:15)
[2023-05-30] MEDS: hydrOXYzine HCL 25 MG TAB PO PRN (23:15)
[2023-05-31] MEDS: CEFEPIME 2 GM in SODIUM CHLORIDE 0.9% 100 ML IVPB SCH ×3 (00:53→15:31)
[2023-05-31 04:26] LABS: Glucose, BF Source Pleural fluid; Glucose, Body Fluid 76 mg/dL; T. Protein, Body Fluid Source Pleural fluid; Total Protein, Body Fluid >3600 mg/dL
[2023-05-31 04:38] LABS: LDH, Body Fluid Source Pleural fluid
[2023-05-31 06:02] LABS: Appearance,BF Grossly Bloody (Clear)
--- NOTE | 2023-05-31 07:43 | XR ---
EXAMINATION TYPE: XR chest 1V portable DATE OF EXAM: 05/31/2023 HISTORY: Shortness of breath. COMPARISON: 05/25/2023 TECHNIQUE: Single view of the chest is submitted. FINDINGS: Right basilar pleural catheter is redemonstrated. Pleural-parenchymal opacity persists and appears to be slightly improved. The heart is stable. Hilar and mediastinal structures are within normal limits. Degenerative changes are seen of the dorsal spine. IMPRESSION: 1. Right basilar pleural catheter is redemonstrated. Pleural-parenchymal opacity persists and appear s to be slightly improved.
--- NOTE | 2023-05-31 07:48 | US ---
EXAMINATION TYPE: US gallbladder DATE OF EXAM: 05/31/2023 Exam done portable COMPARISON: CT 2022 CLINICAL INDICATION: Female, 67 years old with history of gallstones; TECHNIQUE: Multiple sonographic images of the right upper quadrant are obtained. FINDINGS: EXAM MEASUREMENTS: Liver Length: 20.5 cm Gallbladder Wall: 0.3 cm CBD: 0.3 cm Right Kidney: 13.4 x 6.7 x 6.9 cm Pancreas: visualized portions wnl, tail limited by overlying midline bowel gas Liver: enlarged, mildly heterogeneous Gallbladder: 1.4cm stone seen (patient unable to roll to see if stone is mobile) Evidence for sonographic Prado's sign: yes CBD: wnl Right Kidney: enlarged, hydronephrosis with debris seen in renal pelvis extending into caylces - ? p us IMPRESSION: 1. Hepatomegaly with underlying hepatic steatosis. 2. Cholelithiasis. 3. Hydronephrosis right kidney. Underlying debris, could reflect infected collection.
--- NOTE | 2023-05-31 08:33 | US ---
Ultrasound-guided right chest tube pigtail catheter insertion possible endplate DATE OF EXAM: 05/30/2023 CLINICAL HISTORY: Possible empyema requested for right-sided chest tube insertion The procedure was discussed with the patient. The risks, complications, benefits, and alternatives we re discussed and any questions were answered. Informed consent was obtained. The patient was placed sitting upright position on the ultrasound table and prepped and draped in the usual sterile fashion. All elements of maximal barrier and sterile technique were utilized. Under ultrasound guidance, access into the pleural space was obtained, via the thoracentesis catheter system and direct ultrasound guidance. Th ere was placement of a 8 Spanish pigtail drainage catheter. Sample sent to pathology for analysis. The patient was stable throughout the procedure and remained stable upon discharge from Department of Radiology. IMPRESSION: 1. Successful ultrasound-guided right chest insertion.
[2023-05-31] MEDS: IPRATROPIUM-ALBUTEROL 3 ML NEB INHALATION SCH ×4 (08:42→18:17)
[2023-05-31] MEDS ORDERED: VANCOMYCIN TROUGH DUE 1 EACH MISC MISCELLANE ONE (10:00)
[2023-05-31] MEDS: methocarbamoL 750 MG TAB PO SCH ×3 (10:35→21:13)
[2023-05-31] MEDS: POTASSIUM CHLORIDE ER 20 MEQ TAB.ER PO SCH ×3 (10:35→15:31)
[2023-05-31] MEDS: APIXABAN 5 MG TAB PO SCH ×2 (10:36→21:13)
[2023-05-31] MEDS: METOPROLOL TARTRATE 50 MG TAB PO SCH ×3 (10:36→21:01)
[2023-05-31] MEDS: MULTIVITAMINS, THERA 1 EACH TAB PO SCH (10:36)
[2023-05-31] MEDS: ESCITALOPRAM 20 MG TAB PO SCH (10:36)
[2023-05-31] MEDS: levETIRAcetam 500 MG TAB PO SCH ×3 (10:36→21:13)
[2023-05-31] MEDS: oxyBUTYnin chloride 5 MG TAB PO SCH ×3 (10:36→18:01)
[2023-05-31] MEDS: FLUTICASONE 50MCG/SPRAY NASAL 16GM NASAL SCH ×2 (10:41→21:14)
[2023-05-31] MEDS: HYDROCORTISONE 1% CREAM 30 GM TUBE TOPICAL SCH ×2 (10:42→21:14)
--- NOTE | 2023-05-31 12:34 | P.PN ---
Subjective Progress Note Date: 05/31/23 I am seeing this patient in consultation today 05/23/2023 for a moderate size right pleural effusion. Patient is a 67-year-old white female with extensive past medical history significant for cerebral palsy, seizure disorder, CVA, hyperlipidemia, hypertension, pulmonary embolus, among other things. She has recurrent urinary tract infections with Proteus mirabilis and infected right- sided renal calculus. She was brought in for elective right-sided percutaneous nephrostolithotomy and placement of a J nephrostomy tube on May 17. No immediate perioperative complications reported. 2 days ago, she went atrial fibrillation with ventricular rate. She was transferred to the cardiac stepdown unit. Temporarily on cardizem infusion, which is discontinued. Patient self denies any history of atrial fibrillation. Chest x-ray showed cardiomegaly, pulmonary vascular Congestion, and bilateral pleural effusions. She does receive Lasix 40 mg by mouth every morning and Aldactone. Repeat chest x-ray yesterday morning continues to show a moderate size right pleural effusion. Patient is currently resting in bed, on 2 L/m nasal cannula, in no acute distress. Patient is a poor historian. She reportedly lives independently in an apartment with PACE assistance. She is oriented to self and time. She is crying. She is febrile and diaphoretic. She remains in atrial fibrillation with RVR. Heart rate averaging 100-120 bpm. BP is normotensive. She is anticoagulated on Eliquis. She is empirically covered on cefepime for her previous Proteus urinary infection. She has a indwelling urinary catheter draining an adequate amount of shanique colored urine. Follow-up abdominal CT done yesterday june bruce posttreatment changes to the right kidney with perinephric probable hematoma and focus of gas measuring 8.4 x 4.3 x 7.7 cm. There is mild right hydroureteronephrosis which could be reactive inflammation and blood products on the right kidney. There is persistent right nephric calcification measuring 9 mm. There is moderate right and small left pleural effusions. And cholelithiasis without cholecystitis. The moderate right and small left pleural effusions were again noted. There is associated atelectasis. No focal consolidations. Most recent CBC from yesterday shows a WBC count 11.7, hemoglobin 10.5, hematocrit 30.5, platelets 139. Sodium 133, potassium 2.8, chloride 97, serum bicarb 25, UN 18, creatinine 0.65, glucose 99. Potassium is being replaced. Patient is being monitored on the cardiac stepdown unit. On today's evaluation of 05/24/2023, no interval worsening the patient was started status. The patient is currently stable. The patient is on 2 L of oxygen by nasal cannula. Producing adequate urine output. BUN is at 80 with a creatinine of 0.4 and sodium levels of 131. The white cell count of 8.4 with a hemoglobin of 9.9. The patient remains on IV cefepime. Respiratory medications are unchanged and the patient continues to be on anticoagulation with Eliquis. on 05/25/2023, I'm seeing the patient for a follow-up.Repeat chest x-ray was done and the patient continues to have a persistent right lower lobe atelectasis of the right-sided pleural effusion. The patient remains off anticoagulation. I'm considering a thoracentesis if the patient becomes more symptomatic. Otherwise, condition is stable for now. She remains on oxygen 2 L/m nasal can nula. No significant respiratory distress or the time being. The white cell count of 8.3 with a hemoglobin of 10.3 and the platelet count of 265. BUN is at 60 with a creatinine of 0.39 and a sodium level is at 133. Remains on antibiotics and the patient is still on IV cefepime. She is also on Lasix 40 mg by mouth daily. The rest of the medications unchanged. Remains on Aldactone 25 mg by mouth daily. On 05/26/2023, no new complaints and the patient's condition is stable. No respiratory difficulties. The patient remains on oxygen at 2 L with a pulse ox of 96%. The rest of the labs show sodium level of 132, potassium level of 3.8, BUN is at 40 with a creatinine of 0.4. The basic concept and 0.5 with a hemoglobin of 10.3. The patient is seen today 05/30/2023 in follow-up. We had signed off on this patient and she had initially declined any thoracentesis regarding the right p leural effusion. Primary states that now she is willing to have the procedure done. 2-D scan of the chest from 05/28/2023 revealed a right-sided pleural effusion with underlying atelectasis and/or infiltrate. Improved effusion on the left lung base. There is a right-sided retroperitoneal collection again noted. Ultrasound of the right chest was ordered and did reveal an 11.6 cm pocket however this was a complex fluid pocket with multiple septations. Currently resting fairly comfortably in bed. Awake and alert in no acute distress. Maintaining O2 saturations in the 90s on room air. She did have a T- max of 100.3 last evening. Currently afebrile. Blood cultures had revealed coag-negative staph. Urine culture revealed no growth. White count 8.9. Hemoglobin 8.3. Platelets 314. Sodium 132. Potassium 3.8. Bicarb 26. BUN 13. Creatinine 0.52. Glucose 98. Pro-calcitonin from 05/28/2023 was 0.47. She is continued on DuoNeb inhalations. Antibiotics in the form of vancomycin and cefepime. Eliquis currently on hold. The patient is seen today 05/31/2023 in follow-up on the regular medical floor. She is currently resting comfortably in bed. Awake and alert in no acute d istress. Maintaining O2 saturations in the 90s on room air. She did receive a right-sided pigtail catheter placement yesterday per interventional radiology with approximately 600 ML's of bloody return. There is a positive leak. Currently to Pleur-evac and wall suction. Cultures and cytology pending. She remains on vancomycin and cefepime. This has been resumed. She remains on bronchodilators. She'll be educated regarding the use of the incentive spirometer. Objective - Vital Signs Vital signs: Vital Signs Temp 97.8 F 05/31/23 07:48 Pulse 68 05/31/23 12:02 Resp 16 05/31/23 07:48 BP 131/81 05/31/23 07:48 Pulse Ox 94 L 05/31/23 08:42 FiO2 21 05/31/23 08:42 Intake & Output 05/30/23 05/31/23 05/31/23 18:59 06:59 18:59 Intake Total 118 Output Total 340 0 Balance -222 0 Intake: Oral 118 Output: Chest Tube Drainage 0 Pleural Catheter Right 0 Drainage 340 Right Back 340 Other: Voiding Method External Catheter Diaper Diaper Incontinent Incontinent # Voids 2 2 - Exam GENERAL EXAM: Alert, pleasant 67-year-old female, on room air, comfortable in no acute distress. HEAD: Normocephalic and atraumatic EYES: Normal reaction of pupils, equal size. NOSE: Clear with pink turbinates. THROAT: No erythema or exudates. NECK: No masses, no JVD. CHEST: No chest wall deformity. Right sided pigtail catheter and placed to Pleur-evac and wall suction. Positive leak. LUNGS: Equal air entry with crackles, few scattered rhonchi, diminished in the right lung base. No conversational dyspnea. CVS: S1 and S2 normal with no audible murmur, irregular rhythm. No extra heart sounds. ABDOMEN: No hepatosplenomegaly, active bowel sounds, no guarding or rigidity. SPINE: No scoliosis or deformity. Percutaneous site right inferior back, dressed with gauze. No shadowing. SKIN: Bilateral lower extremity chronic venous changes. CENTRAL NERVOUS SYSTEM: There appears to be left-sided hemiparesis. She is oriented to self and place. EXTREMITIES: There is no peripheral edema, clubbing, or cyanosis. Peripheral pulses are intact. - Labs CBC & Chem 7: 05/30/23 06:04 05/30/23 06:04 Labs: Abnormal Lab Results - Last 24 Hours (Table) 05/30/23 Range/Units 14:50 Fluid Appearance Grossly Bloody A (Clear) Microbiology - Last 24 Hours (Table) 05/30/23 14:50 Gram Stain - Preliminary Pleural Fluid 05/29/23 11:22 Blood Culture - Preliminary Blood 05/27/23 19:50 Blood Culture Gram Stain - Preliminary Blood Blood Culture - Preliminary Coagulase Negative Staph 05/27/23 20:01 Blood Culture Gram Stain - Preliminary Blood Blood Culture - Preliminary Coagulase Negative Staph Assessment and Plan Assessment: Acute hypoxemic respiratory failure, on 2 L/m nasal cannula, likely related to exacerbation of congestive heart failure, unknown systolic or diastolic type. Chest x-ray shows cardiomegaly with pulmonary vascular congestion and bilateral pleural effusions, right greater than left.patient had a follow-up chest x-ray that shows a persistent right-sided pleural effusion. Ultrasound of the right chest reveals an 11.6 cm pocket however this is a complex effusion with multiple septations. Right-sided pigtail catheter placed 05/30/2023 with 600 ML's of bloody return. Fluid exudative with protein greater than 3.6 and LDH of 1211. Cytology pending. Urosepsis, currently inactive and stable, maintained on antibiotics Bacteremia with coagulase-negative staph, currently on vancomycin and cefepime Recurrent urinary tract infections and infected right renal calculi status post cystoscopy, percutaneous nephrostolithotomy and placement of a right J nephrostomy tube on 05/17/23. Follow-up CAT scan of the chest and abdomen was noted. The patient has posttreatment changes in the right kidney along with perinephric probable hematoma and the focus of a gas. This is probably inflammatory in nature. At the same time, the patient has not mild right hydroureteronephrosis and a small right-sided pleural effusion is small left- sided pleural effusion along with cholelithiasis. Patient is status post cystoscopy and percutaneous nephrostolithotomy and placement of right IJ nephrostomy tube on 05/17/2023. Patient is currently covered on cefepime for history of recurrent urinary tract infections, with her most recent previous isolated organism Proteus mirabilis, susceptible to cefepime. History of recurrent urinary tract infections, previous isolated organism Proteus mirabilis Possible new onset atrial fibrillation with rapid ventricular rate, anticoagulated on Eliquis History of cerebral palsy History of seizure disorder Hyperlipidemia Hypertension History of CVA History of left-sided weakness and gait abnormality Morbid obesity Plan: The patient was seen and evaluated Chest x-ray and medications reviewed Right-sided pigtail catheter placed yesterday Fluid exudative, cytology pending Eliquis resumed Continued on vancomycin and cefepime Add incentive spirometer We will continue to follow I have personally seen and examined the patient, performed the documentation and the assessment and plan as written. Number of minutes spent on the visit: 10.
[2023-05-31] MEDS: VANCOMYCIN 1,500 MG in SODIUM CHLORIDE 0.9% 500 ML 500 ML IVPB SCH (12:52)
[2023-05-31] MEDS: LOPERAMIDE 2 MG CAP PO PRN (13:00)
[2023-05-31] MEDS: hydrOXYzine HCL 25 MG TAB PO PRN (13:08)
[2023-05-31 13:14] LABS: African American GFR (CKD) >90 (>60 ml/min/1.73 sqM); Anion Gap 9 mmol/L; Blood Urea Nitrogen 10 mg/dL (7-17); Carbon Dioxide 16 mmol/L (22-30); Chloride 115 mmol/L (98-107); Glucose 58 mg/dL (74-99); Non-African American GFR(CKD) >90 (>60 ml/min/1.73 sqM); Potassium 2.9 mmol/L (3.5-5.1); Sodium 140 mmol/L (137-145)
[2023-05-31 13:16] LABS: Calcium 5.8 mg/dL (8.4-10.2)
[2023-05-31] MEDS ORDERED: CALCIUM GLUCONATE IN NACL 1 GM in SALINE 1 100ML.BAG IVPB ONE (14:02)
[2023-05-31] MEDS: CALCIUM CARBONATE 500 MG CHEWABLE PO PRN ×2 (15:31→21:17)
[2023-05-31] MEDS: ATORVASTATIN 10 MG TAB PO SCH (21:13)
[2023-05-31] MEDS: HYDROcodone/APAP 7.5-325MG 1 EACH TAB PO PRN (21:13)
--- NOTE | 2023-05-31 22:33 | P.PN ---
Subjective Progress Note Date: 05/31/23 Patient evaluated today sitting up in chair. Indwelling catheter to be removed today, urology has signed off. Patient is status post percutaneous nephrostolithotomy and J nephrostomy tube placement on the right. The nephrostomy tube was subsequently discontinued on 05/21. She has remained in the hospital had interval development of pleural effusion, and fever with imaging revealing cholelisthiasis, moderate right and small left pleural effusion, and mild right hydroureteronephrosis. Patient also developed atrial fibrillation postoperatively currently anticoagulated. Patient was evaluated by pulmonary and considered for thoracentesis which she had declined. She does continue at this point to report right sided pleuritic chest pain worse with deep inspiration and she has developed fever. She has had persistent proteus UTI and completed course of antibiotics for this with most recent urine culture from 05/24 this admission showing negative urine culture and negative blood cultures. 05/29/2023 Patient evaluated today resting in bed. Continues to report right sided chest pain. Had chest CT done showing right-sided pleural effusion with underlying atelectasis and or infiltrate appears essentially unchanged. Improved effusion left lung base. Right sided retroperitoneal collection is again noted and smaller in size. AST/ALT remain elevated. Sodium 134, BUN 13.7, creatinine 0.6. ID following patient on IV cefepime and IV vancomycin. Blood cultures showing gram postive cocci/coag negative staph x 2 which is likely contaminent species however blood culture will be repeated. T-Max 101.1 overnight. 05/30/2023 Patient is evaluated today sitting up in bed. Has had episode of diarrhea relat ed to IBS requesting imodium which has been ordered since the she has also been placed on questran. ID following for continued fevers. Blood culture showing coagulase negative staph which has been repeated and pending. Likely a contaminant. Remains on IV cefepime and IV vancomycin. AST/ALT remain elevated with abdominal CT revealing gallstones patient states she has had these for many years. Procalcitonin level is elevated at 0.47. IR consulted with plans for thoracentesis today with cytology for the large right sided pleural effusion. Sodium today 132. White count has improved to 8.92. T-max overnight 100.3. 05/31/2023 Patient is evaluated today sitting up in bed. Underwent pigtail catheter placement yesterday with IR. Had over 600 mls output bloody/serosanguineous Cytology is currently pending at this time. Patient had follow up chest xray showing improvement in the pleural-parenchymal opacity. Evidence of air leak. No pneumothorax noted. Remains on IV vancomycin and IV cefepime. Blood culture showing staph hominus likely a contaminent species and repeat blood cultures are pending. ID following. Labs today showing sodium 140, potassium 2.9, BUN 10, creatinine 0.37, calcium 5.8. Continue with bladder scan Q6h to monitor for urinary retention. Review of Systems Constitutional: Denied any fatigue denied any fever. Cardio vascular: denied any chest pain, palpitations Gastrointestinal: denied any nausea, vomiting, diarrhea Pulmonary: Reports improvement in shortness of breath. Neurologic denied any new focal deficits All inpatient medications were reviewed and appropriate changes in these medications as dictated in the interval history and assessment and plan. PHYSICAL EXAMINATION: GENERAL: The patient is alert and oriented x3, not in any acute distress. Well developed, well nourished. HEENT: Pupils are round and equally reacting to light. EOMI. No scleral icterus. No conjunctival pallor. Normocephalic, atraumatic. No pharyngeal erythema. No thyromegaly. CARDIOVASCULAR: S1 and S2 present. No murmurs, rubs, or gallops. PULMONARY: Chest is diminished. Right midlung with diminished aeration. Chest tube in place. ABDOMEN: Soft, nontender, nondistended, normoactive bowel sounds. No palpable organomegaly. MUSCULOSKELETAL: No joint swelling or deformity. EXTREMITIES: No cyanosis, clubbing, or pedal edema. NEUROLOGICAL: Gross neurological examination did not reveal any focal deficits. Diffuse weakness. SKIN: No rashes. Pt has abdominal panus. Assessment and Plan -Nephrolisthiasis and obstructive uropathy status post cystoscopy, percutaneous nephrostolithotomy and J nephrostomy tube placement with removal. Remaining stones will be followed up with urology outpatient for further evaluation. IDC has been removed. Urology has signed off. Recommend to continue with bladder scan at this time to monitor for urinary retention. -Fever; ID will be consulted Blood cultures are pending, procalcitonin is elevated. Continues on IV cefepime and IV vancomycin. -Bacteremia gram positive on IV vancomycin and IV cefepime likely a contaminent species however repeat Blood cultures are pending. -Chronic proteus urinary tract infection from infected stone and obstructive uropathy treated with course of antibiotics and most recent urine culture showi ng normal enzo. -Right sided pleural effusion Follow up chest CT redemonstrates pleural effusion. Chest ultrasound reveals 11.6 cm rigth pleural effusion pocket size which is noted to be complex with septations. IR has placed pigtail catheter. Fluid is bloody and exudative. Pending cytology. -Acute hypoxemic respiratory failure requiring 2 L oxygen via nasal cannula. Chest x-ray showed pulmonary vascular congestion, cardiomegaly and bilateral pleural effusion right greater than left. -New onset paroxysmal atrial fibrillation with RVR currently in sinus mechanism anticoagulated with eliquis on metoprolol TID. Patient continues on oral lasix daily. Follow up proBNP normal limits for age at 89 continues on oral lasix. -Hypertension -Dyslipidemia -Chronic medical debility follows with PACE -Morbid obesity -History of seizure disorder continue on keppra TID. -History of cerebral palsy, left-sided weakness and gait abnormality -History of stroke GI prophylaxis DVT prophylaxis On eliquis Full Code Patient has undergone pigtail catheter placement and continues to low intermittent suction with evidence of air leak. Follow up chest xray in the AM. Cytology pending. ID following on IV antibiotics and repeat blood culture is pending at this time. Follow up labs in AM. Recommend to monitor bladder scan Q6h as IDC has been removed. Continue on imodium and questran for loose stools. Continue to encourage incentive spirometer. Pulmonary following. The impression and plan of care has been dictated by Joseline Potter, Nurse Practitioner as directed. Dr. Wolf MD I have performed a history and physical examination and medical decision making of this patient, discussed the same with the dictator, and agree with the dictators assessment and plan as written, documented as a scribe. Based on total visit time, I have performed more than 50% of this visit. Objective - Vital Signs Vital signs: Vital Signs Temp 98.7 F 05/31/23 18:58 Pulse 74 05/31/23 18:58 Resp 16 05/31/23 18:58 BP 99/65 05/31/23 18:58 Pulse Ox 97 05/31/23 18:58 FiO2 21 05/31/23 08:42 Intake & Output 05/31/23 05/31/23 06/01/23 06:59 18:59 06:59 Intake Total 222 Output Total 0 60 Balance 0 162 Weight 77 kg Intake: Oral 222 Output: Chest Tube Drainage 0 30 Pleural Catheter Right 0 30 Drainage 30 Right Back 30 Other: Voiding Method Diaper Diaper Incontinent Incontinent # Voids 2 2 # Bowel Movements 3 - Labs CBC & Chem 7: 05/30/23 06:04 05/31/23 10:21 Labs: Abnormal Lab Results - Last 24 Hours (Table) 05/30/23 05/31/23 Range/Units 14:50 10:21 Potassium 2.9 L (3.5-5.1) mmol/L Chloride 115 H (98-107) mmol/L Carbon Dioxide 16 L (22-30) mmol/L Creatinine 0.37 L (0.52-1.04) mg/dL Glucose 58 L (74-99) mg/dL Calcium 5.8 L* (8.4-10.2) mg/dL Fluid Appearance Grossly Bloody A (Clear) Microbiology - Last 24 Hours (Table) 05/29/23 11:22 Blood Culture - Preliminary Blood 05/27/23 20:01 Blood Culture Gram Stain - Final Blood Blood Culture - Final Staph hominis sub sp. hominis 05/27/23 19:50 Blood Culture Gram Stain - Final Blood Blood Culture - Final Staphylococcus epidermidis 05/30/23 14:50 Gram Stain - Preliminary Pleural Fluid Assessment and Plan Time with Patient: Less than 30
[2023-06-01] MEDS: CEFEPIME 2 GM in SODIUM CHLORIDE 0.9% 100 ML IVPB SCH ×3 (00:17→17:45)
[2023-06-01] MEDS: VANCOMYCIN 1,500 MG in SODIUM CHLORIDE 0.9% 500 ML 500 ML IVPB SCH ×2 (03:43→20:18)
--- NOTE | 2023-06-01 08:18 | XR ---
EXAMINATION TYPE: XR chest 1V portable DATE OF EXAM: 06/01/2023 8:04 AM CLINICAL INDICATION:Female, 67 years old with history of hydropneumothorax; COMPARISON: Chest radiographs from 05/31/2023. TECHNIQUE: XR chest 1V portable Frontal view of the chest. FINDINGS: Lungs/Pleura: There is no evidence of pleural effusion, focal consolidation, or pneumothorax left. Pulmonary vascularity: Unremarkable. Heart/mediastinum: Cardiomediastinal silhouette is unremarkable. Musculoskeletal: No acute osseous pathology. Other findings: None Lines/Tubes: Right thoracotomy tube is present with small pneumothorax. IMPRESSION: Right thoracotomy tube with small pneumothorax.
[2023-06-01] MEDS: IPRATROPIUM-ALBUTEROL 3 ML NEB INHALATION SCH ×4 (08:28→20:04)
[2023-06-01] MEDS: POTASSIUM CHLORIDE ER 20 MEQ TAB.ER PO SCH (10:29)
[2023-06-01] MEDS: ESCITALOPRAM 20 MG TAB PO SCH (10:29)
[2023-06-01] MEDS: methocarbamoL 750 MG TAB PO SCH ×3 (10:29→20:20)
[2023-06-01] MEDS: levETIRAcetam 500 MG TAB PO SCH ×3 (10:30→20:20)
[2023-06-01] MEDS: HYDROcodone/APAP 7.5-325MG 1 EACH TAB PO PRN (10:30)
[2023-06-01] MEDS: APIXABAN 5 MG TAB PO SCH ×2 (10:30→20:19)
[2023-06-01] MEDS: MULTIVITAMINS, THERA 1 EACH TAB PO SCH (10:30)
[2023-06-01] MEDS: METOPROLOL TARTRATE 50 MG TAB PO SCH ×3 (10:30→20:20)
[2023-06-01] MEDS: FLUTICASONE 50MCG/SPRAY NASAL 16GM NASAL SCH ×2 (10:32→20:19)
[2023-06-01] MEDS: oxyBUTYnin chloride 5 MG TAB PO SCH ×3 (10:33→17:46)
[2023-06-01] MEDS: HYDROCORTISONE 1% CREAM 30 GM TUBE TOPICAL SCH ×2 (10:33→20:19)
--- NOTE | 2023-06-01 12:50 | P.PN ---
Subjective Progress Note Date: 06/01/23 I am seeing this patient in consultation today 05/23/2023 for a moderate size right pleural effusion. Patient is a 67-year-old white female with extensive past medical history significant for cerebral palsy, seizure disorder, CVA, hyperlipidemia, hypertension, pulmonary embolus, among other things. She has recurrent urinary tract infections with Proteus mirabilis and infected right- sided renal calculus. She was brought in for elective right-sided percutaneous nephrostolithotomy and placement of a J nephrostomy tube on May 17. No immediate perioperative complications reported. 2 days ago, she went atrial fibrillation with ventricular rate. She was transferred to the cardiac stepdown unit. Temporarily on cardizem infusion, which is discontinued. Patient self denies any history of atrial fibrillation. Chest x-ray showed cardiomegaly, pulmonary vascular Congestion, and bilateral pleural effusions. She does receive Lasix 40 mg by mouth every morning and Aldactone. Repeat chest x-ray yesterday morning continues to show a moderate size right pleural effusion. Patient is currently resting in bed, on 2 L/m nasal cannula, in no acute distress. Patient is a poor historian. She reportedly lives independently in an apartment with PACE assistance. She is oriented to self and time. She is crying. She is febrile and diaphoretic. She remains in atrial fibrillation with RVR. Heart rate averaging 100-120 bpm. BP is normotensive. She is anticoagulated on Eliquis. She is empirically covered on cefepime for her previous Proteus urinary infection. She has a indwelling urinary catheter draining an adequate amount of shanique colored urine. Follow-up abdominal CT done yesterday june bruce posttreatment changes to the right kidney with perinephric probable hematoma and focus of gas measuring 8.4 x 4.3 x 7.7 cm. There is mild right hydroureteronephrosis which could be reactive inflammation and blood products on the right kidney. There is persistent right nephric calcification measuring 9 mm. There is moderate right and small left pleural effusions. And cholelithiasis without cholecystitis. The moderate right and small left pleural effusions were again noted. There is associated atelectasis. No focal consolidations. Most recent CBC from yesterday shows a WBC count 11.7, hemoglobin 10.5, hematocrit 30.5, platelets 139. Sodium 133, potassium 2.8, chloride 97, serum bicarb 25, UN 18, creatinine 0.65, glucose 99. Potassium is being replaced. Patient is being monitored on the cardiac stepdown unit. On today's evaluation of 05/24/2023, no interval worsening the patient was started status. The patient is currently stable. The patient is on 2 L of oxygen by nasal cannula. Producing adequate urine output. BUN is at 80 with a creatinine of 0.4 and sodium levels of 131. The white cell count of 8.4 with a hemoglobin of 9.9. The patient remains on IV cefepime. Respiratory medications are unchanged and the patient continues to be on anticoagulation with Eliquis. on 05/25/2023, I'm seeing the patient for a follow-up.Repeat chest x-ray was done and the patient continues to have a persistent right lower lobe atelectasis of the right-sided pleural effusion. The patient remains off anticoagulation. I'm considering a thoracentesis if the patient becomes more symptomatic. Otherwise, condition is stable for now. She remains on oxygen 2 L/m nasal can nula. No significant respiratory distress or the time being. The white cell count of 8.3 with a hemoglobin of 10.3 and the platelet count of 265. BUN is at 60 with a creatinine of 0.39 and a sodium level is at 133. Remains on antibiotics and the patient is still on IV cefepime. She is also on Lasix 40 mg by mouth daily. The rest of the medications unchanged. Remains on Aldactone 25 mg by mouth daily. On 05/26/2023, no new complaints and the patient's condition is stable. No respiratory difficulties. The patient remains on oxygen at 2 L with a pulse ox of 96%. The rest of the labs show sodium level of 132, potassium level of 3.8, BUN is at 40 with a creatinine of 0.4. The basic concept and 0.5 with a hemoglobin of 10.3. The patient is seen today 05/30/2023 in follow-up. We had signed off on this patient and she had initially declined any thoracentesis regarding the right p leural effusion. Primary states that now she is willing to have the procedure done. 2-D scan of the chest from 05/28/2023 revealed a right-sided pleural effusion with underlying atelectasis and/or infiltrate. Improved effusion on the left lung base. There is a right-sided retroperitoneal collection again noted. Ultrasound of the right chest was ordered and did reveal an 11.6 cm pocket however this was a complex fluid pocket with multiple septations. Currently resting fairly comfortably in bed. Awake and alert in no acute distress. Maintaining O2 saturations in the 90s on room air. She did have a T- max of 100.3 last evening. Currently afebrile. Blood cultures had revealed coag-negative staph. Urine culture revealed no growth. White count 8.9. Hemoglobin 8.3. Platelets 314. Sodium 132. Potassium 3.8. Bicarb 26. BUN 13. Creatinine 0.52. Glucose 98. Pro-calcitonin from 05/28/2023 was 0.47. She is continued on DuoNeb inhalations. Antibiotics in the form of vancomycin and cefepime. Eliquis currently on hold. The patient is seen today 05/31/2023 in follow-up on the regular medical floor. She is currently resting comfortably in bed. Awake and alert in no acute d istress. Maintaining O2 saturations in the 90s on room air. She did receive a right-sided pigtail catheter placement yesterday per interventional radiology with approximately 600 ML's of bloody return. There is a positive leak. Currently to Pleur-evac and wall suction. Cultures and cytology pending. She remains on vancomycin and cefepime. This has been resumed. She remains on bronchodilators. She'll be educated regarding the use of the incentive spirometer. The patient is seen today 06/01/2023 in follow-up on the regular medical floor. She is resting comfortably in bed. Awake and alert in no acute distress. She is maintaining O2 saturations in the 90s on room air. Right-sided pigtail catheter in place. Remains to Pleur-evac and wall suction. No leak noted. Blood cultures positive for staph hominis. Pleural fluid cultures revealing no growth. She remains on vancomycin and cefepime. She remains on bronchodilators. Working with the incentive spirometer. Objective - Vital Signs Vital signs: Vital Signs Temp 98.4 F 06/01/23 08:00 Pulse 64 06/01/23 12:15 Resp 16 06/01/23 08:00 BP 101/60 06/01/23 08:00 Pulse Ox 96 12/15/23 12:04 FiO2 21 06/01/23 12:04 Intake & Output 05/31/23 06/01/23 06/01/23 18:59 06:59 18:59 Intake Total 222 240 Output Total 60 0 350 Balance 162 0 -110 Weight 77 kg Intake: Oral 222 240 Output: Chest Tube Drainage 30 0 Pleural Catheter Right 30 0 Drainage 30 Right Back 30 Post Void Residual 350 Other: Voiding Method Diaper Diaper Diaper Incontinent Incontinent Incontinent # Voids 2 2 # Bowel Movements 3 1 - Exam GENERAL EXAM: Alert, 67-year-old female, resting in bed, on room air, in no acute distress. HEAD: Normocephalic and atraumatic EYES: Normal reaction of pupils, equal size. NOSE: Clear with pink turbinates. THROAT: No erythema or exudates. NECK: No masses, no JVD. CHEST: No chest wall deformity. Right sided pigtail catheter and placed to Pleur-evac and wall suction. LUNGS: Equal air entry with crackles, few scattered rhonchi, diminished in the right lung base. No conversational dyspnea. CVS: S1 and S2 normal with no audible murmur, irregular rhythm. No extra heart sounds. ABDOMEN: No hepatosplenomegaly, active bowel sounds, no guarding or rigidity. SPINE: No scoliosis or deformity. Percutaneous site right inferior back, dressed with gauze. No shadowing. SKIN: Bilateral lower extremity chronic venous changes. CENTRAL NERVOUS SYSTEM: There appears to be left-sided hemiparesis. She is oriented to self and place. EXTREMITIES: There is no peripheral edema, clubbing, or cyanosis. Peripheral pu lses are intact. - Labs CBC & Chem 7: 05/30/23 06:04 05/31/23 10:21 Labs: Abnormal Lab Results - Last 24 Hours (Table) 05/31/23 Range/Units 10:21 Potassium 2.9 L (3.5-5.1) mmol/L Chloride 115 H (98-107) mmol/L Carbon Dioxide 16 L (22-30) mmol/L Creatinine 0.37 L (0.52-1.04) mg/dL Glucose 58 L (74-99) mg/dL Calcium 5.8 L* (8.4-10.2) mg/dL Microbiology - Last 24 Hours (Table) 05/30/23 14:50 Gram Stain - Preliminary Pleural Fluid Body Fluid Culture - Preliminary 05/29/23 11:22 Blood Culture - Preliminary Blood 05/27/23 20:01 Blood Culture Gram Stain - Final Blood Blood Culture - Final Staph hominis sub sp. hominis 05/27/23 19:50 Blood Culture Gram Stain - Final Blood Blood Culture - Final Staphylococcus epidermidis Assessment and Plan Assessment: Acute hypoxemic respiratory failure, on 2 L/m nasal cannula, likely related to exacerbation of congestive heart failure, unknown systolic or diastolic type. Chest x-ray shows cardiomegaly with pulmonary vascular congestion and bilateral pleural effusions, right greater than left.patient had a follow-up chest x-ray that shows a persistent right-sided pleural effusion. Ultrasound of the right chest reveals an 11.6 cm pocket however this is a complex effusion with multiple septations. Right-sided pigtail catheter placed 05/30/2023 with 600 ML's of bloody return. Fluid exudative with protein greater than 3.6 and LDH of 1211. Cytology pending. Urosepsis, currently stable, maintained on antibiotics Bacteremia with coagulase-negative staph, currently on vancomycin and cefepime Recurrent urinary tract infections and infected right renal calculi status post cystoscopy, percutaneous nephrostolithotomy and placement of a right J nephrostomy tube on 05/17/23. Follow-up CAT scan of the chest and abdomen was noted. The patient has posttreatment changes in the right kidney along with perinephric probable hematoma and the focus of a gas. This is probably inflammatory in nature. At the same time, the patient has not mild right hydroureteronephrosis and a small right-sided pleural effusion is small left- sided pleural effusion along with cholelithiasis. Patient is status post cystoscopy and percutaneous nephrostolithotomy and placement of right IJ nephrostomy tube on 05/17/2023. Patient is currently covered on cefepime for history of recurrent urinary tract infections, with her most recent previous isolated organism Proteus mirabilis, susceptible to cefepime. History of recurrent urinary tract infections, previous isolated organism Proteus mirabilis Possible new onset atrial fibrillation with rapid ventricular rate, anticoagulated on Eliquis History of cerebral palsy History of seizure disorder Hyperlipidemia Hypertension History of CVA History of left-sided weakness and gait abnormality Morbid obesity Plan: The patient was seen and evaluated Chest x-ray and medications reviewed Right-sided pigtail catheter in place Continued on vancomycin and cefepime Increase the use of the incentive spirometer We will continue to follow I have personally seen and examined the patient, performed the documentation and the assessment and plan as written. Number of minutes spent on the visit: 10.
[2023-06-01 15:24] LABS: ALT 65 U/L (4-34); AST 54 U/L (14-36); African American GFR (CKD) >90 (>60 ml/min/1.73 sqM); Albumin 2.8 g/dL (3.5-5.0); Albumin/Globulin Ratio 0.8; Alkaline Phosphatase 85 U/L (38-126); Anion Gap 8 mmol/L; Blood Urea Nitrogen 13 mg/dL (7-17); Calcium 8.8 mg/dL (8.4-10.2); Carbon Dioxide 24 mmol/L (22-30); Chloride 105 mmol/L (98-107); Globulin 3.5 g/dL; Glucose 110 mg/dL (74-99); Non-African American GFR(CKD) >90 (>60 ml/min/1.73 sqM); Potassium 4.8 mmol/L (3.5-5.1); Sodium 137 mmol/L (137-145); Total Bilirubin 0.6 mg/dL (0.2-1.3); Total Protein 6.3 g/dL (6.3-8.2)
--- NOTE | 2023-06-01 16:09 | P.PN ---
Subjective Progress Note Date: 06/01/23 Patient evaluated today sitting up in chair. Indwelling catheter to be removed today, urology has signed off. Patient is status post percutaneous nephrostolithotomy and J nephrostomy tube placement on the right. The nephrostomy tube was subsequently discontinued on 05/21. She has remained in the hospital had interval development of pleural effusion, and fever with imaging revealing cholelisthiasis, moderate right and small left pleural effusion, and mild right hydroureteronephrosis. Patient also developed atrial fibrillation postoperatively currently anticoagulated. Patient was evaluated by pulmonary and considered for thoracentesis which she had declined. She does continue at this point to report right sided pleuritic chest pain worse with deep inspiration and she has developed fever. She has had persistent proteus UTI and completed course of antibiotics for this with most recent urine culture from 05/24 this admission showing negative urine culture and negative blood cultures. 05/29/2023 Patient evaluated today resting in bed. Continues to report right sided chest pain. Had chest CT done showing right-sided pleural effusion with underlying atelectasis and or infiltrate appears essentially unchanged. Improved effusion left lung base. Right sided retroperitoneal collection is again noted and smaller in size. AST/ALT remain elevated. Sodium 134, BUN 13.7, creatinine 0.6. ID following patient on IV cefepime and IV vancomycin. Blood cultures showing gram postive cocci/coag negative staph x 2 which is likely contaminent species however blood culture will be repeated. T-Max 101.1 overnight. 05/30/2023 Patient is evaluated today sitting up in bed. Has had episode of diarrhea relat ed to IBS requesting imodium which has been ordered since the she has also been placed on questran. ID following for continued fevers. Blood culture showing coagulase negative staph which has been repeated and pending. Likely a contaminant. Remains on IV cefepime and IV vancomycin. AST/ALT remain elevated with abdominal CT revealing gallstones patient states she has had these for many years. Procalcitonin level is elevated at 0.47. IR consulted with plans for thoracentesis today with cytology for the large right sided pleural effusion. Sodium today 132. White count has improved to 8.92. T-max overnight 100.3. 05/31/2023 Patient is evaluated today sitting up in bed. Underwent pigtail catheter placement yesterday with IR. Had over 600 mls output bloody/serosanguineous Cytology is currently pending at this time. Patient had follow up chest xray showing improvement in the pleural-parenchymal opacity. Evidence of air leak. No pneumothorax noted. Remains on IV vancomycin and IV cefepime. Blood culture showing staph hominus likely a contaminent species and repeat blood cultures are pending. ID following. Labs today showing sodium 140, potassium 2.9, BUN 10, creatinine 0.37, calcium 5.8. Continue with bladder scan Q6h to monitor for urinary retention. 06/01/2023 Patient sitting up in chair. Chest tube remains in place. Chest xray today with evidence of pneumothorax and there was an air leak noted from the chest tube site. Patient has no shortness of breath. Sodium 137, potassium 4.8, calcium 8.8. LFTs remain elevated. Continues on IV cefepime and IV vancomycin. Review of Systems Constitutional: Denied any fatigue denied any fever. Cardio vascular: denied any chest pain, palpitations Gastrointestinal: denied any nausea, vomiting, diarrhea Pulmonary: Reports improvement in shortness of breath. Neurologic denied any new focal deficits All inpatient medications were reviewed and appropriate changes in these medications as dictated in the interval history and assessment and plan. PHYSICAL EXAMINATION: GENERAL: The patient is alert and oriented x3, not in any acute distress. Well developed, well nourished. HEENT: Pupils are round and equally reacting to light. EOMI. No scleral icterus. No conjunctival pallor. Normocephalic, atraumatic. No pharyngeal erythema. No thyromegaly. CARDIOVASCULAR: S1 and S2 present. No murmurs, rubs, or gallops. PULMONARY: Chest is diminished. Right midlung with diminished aeration. Chest tube in place. ABDOMEN: Soft, nontender, nondistended, normoactive bowel sounds. No palpable organomegaly. MUSCULOSKELETAL: No joint swelling or deformity. EXTREMITIES: No cyanosis, clubbing, or pedal edema. NEUROLOGICAL: Gross neurological examination did not reveal any focal deficits. Diffuse weakness. SKIN: No rashes. Pt has abdominal panus. Assessment and Plan -Nephrolisthiasis and obstructive uropathy status post cystoscopy, percutaneous nephrostolithotomy and J nephrostomy tube placement with removal. Remaining stones will be followed up with urology outpatient for further evaluation. IDC has been removed. Urology has signed off. Recommend to continue with bladder scan at this time to monitor for urinary retention. -Fever; ID will be consulted Blood cultures are pending, procalcitonin is elevated. Continues on IV cefepime and IV vancomycin. -Bacteremia gram positive on IV vancomycin and IV cefepime likely a contaminent species however repeat Blood cultures are pending. -Chronic proteus urinary tract infection from infected stone and obstructive uropathy treated with course of antibiotics and most recent urine culture showing normal enzo. -Right sided pleural effusion Follow up chest CT redemonstrates pleural effusion. Chest ultrasound reveals 11.6 cm rigth pleural effusion pocket size which is noted to be complex with septations. IR has placed pigtail catheter. Fluid is bloody and exudative. Pending cytology. -Acute hypoxemic respiratory failure requiring 2 L oxygen via nasal cannula. Chest x-ray showed pulmonary vascular congestion, cardiomegaly and bilateral pleural effusion right greater than left. -New onset paroxysmal atrial fibrillation with RVR currently in sinus mechanism anticoagulated with eliquis on metoprolol TID. Patient continues on oral lasix daily. Follow up proBNP normal limits for age at 89 continues on oral lasix. -Hypertension -Dyslipidemia -Chronic medical debility follows with PACE -Morbid obesity -History of seizure disorder continue on keppra TID. -History of cerebral palsy, left-sided weakness and gait abnormality -History of stroke GI prophylaxis DVT prophylaxis On eliquis Full Code Patient has undergone pigtail catheter placement and continues to low intermittent suction with evidence of air leak. Follow up chest xray shows pneumothorax. Cytology pending. ID following on IV antibiotics and repeat blood culture is pending at this time. Follow up labs in AM. Recommend to monitor bladder scan Q6h as IDC has been removed. Continue on imodium and questran for loose stools. Continue to encourage incentive spirometer. Pulmonary following. The impression and plan of care has been dictated by Joseline Potter, Nurse Practitioner as directed. Dr. Wolf MD I have performed a history and physical examination and medical decision making of this patient, discussed the same with the dictator, and agree with the dictators assessment and plan as written, documented as a scribe. Based on total visit time, I have performed more than 50% of this visit. Objective - Vital Signs Vital signs: Vital Signs Temp 98.4 F 06/01/23 08:00 Pulse 64 12/15/23 12:15 Resp 16 06/01/23 08:00 BP 101/60 06/01/23 08:00 Pulse Ox 96 06/01/23 12:04 FiO2 21 06/01/23 12:04 Intake & Output 05/31/23 06/01/23 06/01/23 18:59 06:59 18:59 Intake Total 222 600 Output Total 60 0 350 Balance 162 0 250 Weight 77 kg Intake: Oral 222 600 Output: Chest Tube Drainage 30 0 Pleural Catheter Right 30 0 Drainage 30 Right Back 30 Post Void Residual 350 Other: Voiding Method Diaper Diaper Diaper Incontinent Incontinent Incontinent # Voids 2 2 # Bowel Movements 3 1 - Labs CBC & Chem 7: 05/30/23 06:04 06/01/23 14:46 Labs: Microbiology - Last 24 Hours (Table) 05/30/23 14:50 Gram Stain - Preliminary Pleural Fluid Body Fluid Culture - Preliminary 05/29/23 11:22 Blood Culture - Preliminary Blood 05/27/23 20:01 Blood Culture Gram Stain - Final Blood Blood Culture - Final Staph hominis sub sp. hominis 05/27/23 19:50 Blood Culture Gram Stain - Final Blood Blood Culture - Final Staphylococcus epidermidis Assessment and Plan Time with Patient: Less than 30
[2023-06-01] MEDS: CALCIUM CARBONATE 500 MG CHEWABLE PO PRN (17:55)
[2023-06-01] MEDS: LOPERAMIDE 2 MG CAP PO PRN (17:55)
[2023-06-01 18:42] LABS: HCT 28.2 % (37.2-46.3); HGB 8.5 g/dL (12.0-15.0); MCH 30.5 pg (27.0-32.0); MCHC 30.1 g/dL (32.0-37.0); MCV 101.1 FL (80.0-97.0); Mean Platelet Volume 10.8 FL (9.5-12.2); NRBC Per 100 WBC 0 X 10*3/uL (0.00-0.01); Platelet Count 470 X 10*3/uL (140-440); RBC 2.79 X 10*6/uL (4.10-5.20); RDW 12.9 % (11.5-14.5); WBC 9.58 X 10*3/uL (4.50-10.00)
[2023-06-01] MEDS: ATORVASTATIN 10 MG TAB PO SCH (20:19)
[2023-06-02] MEDS: CEFEPIME 2 GM in SODIUM CHLORIDE 0.9% 100 ML IVPB SCH ×3 (00:06→17:41)
[2023-06-02 05:08] LABS: African American GFR (CKD) >90 (>60 ml/min/1.73 sqM); Anion Gap 8 mmol/L; Blood Urea Nitrogen 12 mg/dL (7-17); Calcium 8.4 mg/dL (8.4-10.2); Carbon Dioxide 21 mmol/L (22-30); Chloride 108 mmol/L (98-107); Glucose 90 mg/dL (74-99); Non-African American GFR(CKD) >90 (>60 ml/min/1.73 sqM); Potassium 4.4 mmol/L (3.5-5.1); Sodium 137 mmol/L (137-145)
[2023-06-02] MEDS: IPRATROPIUM-ALBUTEROL 3 ML NEB INHALATION SCH ×4 (08:19→18:15)
--- NOTE | 2023-06-02 08:22 | XR ---
EXAMINATION TYPE: XR chest 1V portable DATE OF EXAM: 06/02/2023 7:55 AM CLINICAL INDICATION:Female, 67 years old with history of Pleural effusion; [facility] COMPARISON: Chest radiograph from one day prior. TECHNIQUE: XR chest 1V portable Frontal view of the chest. FINDINGS: Lungs/Pleura: Small right pleural effusion and pneumothorax. There is no evidence of left pleural eff usion, focal consolidation, or left pneumothorax. Pulmonary vascularity: Unremarkable. Heart/mediastinum: Cardiomediastinal silhouette is unremarkable. Musculoskeletal: No acute osseous pathology. Other findings: None Lines/Tubes: Right thoracotomy tube is present without evidence of pneumothorax. IMPRESSION: Right thoracotomy tube with small right pleural effusion and small/trace right pneumothorax. Findings similar to prior.
[2023-06-02] MEDS: APIXABAN 5 MG TAB PO SCH ×2 (08:51→20:28)
[2023-06-02] MEDS: MULTIVITAMINS, THERA 1 EACH TAB PO SCH (08:51)
[2023-06-02] MEDS: METOPROLOL TARTRATE 50 MG TAB PO SCH ×3 (08:51→20:29)
[2023-06-02] MEDS: POTASSIUM CHLORIDE ER 20 MEQ TAB.ER PO SCH (08:51)
[2023-06-02] MEDS: methocarbamoL 750 MG TAB PO SCH ×3 (08:52→20:29)
[2023-06-02] MEDS: oxyBUTYnin chloride 5 MG TAB PO SCH ×3 (08:52→17:42)
[2023-06-02] MEDS: FLUTICASONE 50MCG/SPRAY NASAL 16GM NASAL SCH ×2 (08:52→20:29)
[2023-06-02] MEDS: ESCITALOPRAM 20 MG TAB PO SCH (08:52)
[2023-06-02] MEDS: HYDROCORTISONE 1% CREAM 30 GM TUBE TOPICAL SCH ×2 (08:53→20:30)
[2023-06-02] MEDS: levETIRAcetam 500 MG TAB PO SCH ×3 (08:53→20:29)
[2023-06-02] MEDS: CALCIUM CARBONATE 500 MG CHEWABLE PO PRN ×2 (10:23→13:20)
[2023-06-02] MEDS ORDERED: ALTEPLASE 10 MG in SODIUM CHLORIDE 0.9% 50 ML IRRIGATION ONE (10:30)
[2023-06-02] MEDS ORDERED: DORNASE ALFA 5 MG in SODIUM CHLORIDE 0.9% 50 ML IRRIGATION ONE (10:30)
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
--- NOTE | 2023-06-02 11:29 | P.PN ---
Subjective Progress Note Date: 06/02/23 I am seeing this patient in consultation today 05/23/2023 for a moderate size right pleural effusion. Patient is a 67-year-old white female with extensive past medical history significant for cerebral palsy, seizure disorder, CVA, hyperlipidemia, hypertension, pulmonary embolus, among other things. She has recurrent urinary tract infections with Proteus mirabilis and infected right- sided renal calculus. She was brought in for elective right-sided percutaneous nephrostolithotomy and placement of a J nephrostomy tube on May 17. No immediate perioperative complications reported. 2 days ago, she went atrial fibrillation with ventricular rate. She was transferred to the cardiac stepdown unit. Temporarily on cardizem infusion, which is discontinued. Patient self denies any history of atrial fibrillation. Chest x-ray showed cardiomegaly, pulmonary vascular Congestion, and bilateral pleural effusions. She does receive Lasix 40 mg by mouth every morning and Aldactone. Repeat chest x-ray yesterday morning continues to show a moderate size right pleural effusion. Patient is currently resting in bed, on 2 L/m nasal cannula, in no acute distress. Patient is a poor historian. She reportedly lives independently in an apartment with PACE assistance. She is oriented to self and time. She is crying. She is febrile and diaphoretic. She remains in atrial fibrillation with RVR. Heart rate averaging 100-120 bpm. BP is normotensive. She is anticoagulated on Eliquis. She is empirically covered on cefepime for her previous Proteus urinary infection. She has a indwelling urinary catheter draining an adequate amount of shanique colored urine. Follow-up abdominal CT done yesterday june bruce posttreatment changes to the right kidney with perinephric probable hematoma and focus of gas measuring 8.4 x 4.3 x 7.7 cm. There is mild right hydroureteronephrosis which could be reactive inflammation and blood products on the right kidney. There is persistent right nephric calcification measuring 9 mm. There is moderate right and small left pleural effusions. And cholelithiasis without cholecystitis. The moderate right and small left pleural effusions were again noted. There is associated atelectasis. No focal consolidations. Most recent CBC from yesterday shows a WBC count 11.7, hemoglobin 10.5, hematocrit 30.5, platelets 139. Sodium 133, potassium 2.8, chloride 97, serum bicarb 25, UN 18, creatinine 0.65, glucose 99. Potassium is being replaced. Patient is being monitored on the cardiac stepdown unit. On today's evaluation of 05/24/2023, no interval worsening the patient was started status. The patient is currently stable. The patient is on 2 L of oxygen by nasal cannula. Producing adequate urine output. BUN is at 80 with a creatinine of 0.4 and sodium levels of 131. The white cell count of 8.4 with a hemoglobin of 9.9. The patient remains on IV cefepime. Respiratory medications are unchanged and the patient continues to be on anticoagulation with Eliquis. on 05/25/2023, I'm seeing the patient for a follow-up.Repeat chest x-ray was done and the patient continues to have a persistent right lower lobe atelectasis of the right-sided pleural effusion. The patient remains off anticoagulation. I'm considering a thoracentesis if the patient becomes more symptomatic. Otherwise, condition is stable for now. She remains on oxygen 2 L/m nasal can nula. No significant respiratory distress or the time being. The white cell count of 8.3 with a hemoglobin of 10.3 and the platelet count of 265. BUN is at 60 with a creatinine of 0.39 and a sodium level is at 133. Remains on antibiotics and the patient is still on IV cefepime. She is also on Lasix 40 mg by mouth daily. The rest of the medications unchanged. Remains on Aldactone 25 mg by mouth daily. On 05/26/2023, no new complaints and the patient's condition is stable. No respiratory difficulties. The patient remains on oxygen at 2 L with a pulse ox of 96%. The rest of the labs show sodium level of 132, potassium level of 3.8, BUN is at 40 with a creatinine of 0.4. The basic concept and 0.5 with a hemoglobin of 10.3. The patient is seen today 05/30/2023 in follow-up. We had signed off on this patient and she had initially declined any thoracentesis regarding the right p leural effusion. Primary states that now she is willing to have the procedure done. 2-D scan of the chest from 05/28/2023 revealed a right-sided pleural effusion with underlying atelectasis and/or infiltrate. Improved effusion on the left lung base. There is a right-sided retroperitoneal collection again noted. Ultrasound of the right chest was ordered and did reveal an 11.6 cm pocket however this was a complex fluid pocket with multiple septations. Currently resting fairly comfortably in bed. Awake and alert in no acute distress. Maintaining O2 saturations in the 90s on room air. She did have a T- max of 100.3 last evening. Currently afebrile. Blood cultures had revealed coag-negative staph. Urine culture revealed no growth. White count 8.9. Hemoglobin 8.3. Platelets 314. Sodium 132. Potassium 3.8. Bicarb 26. BUN 13. Creatinine 0.52. Glucose 98. Pro-calcitonin from 05/28/2023 was 0.47. She is continued on DuoNeb inhalations. Antibiotics in the form of vancomycin and cefepime. Eliquis currently on hold. The patient is seen today 05/31/2023 in follow-up on the regular medical floor. She is currently resting comfortably in bed. Awake and alert in no acute d istress. Maintaining O2 saturations in the 90s on room air. She did receive a right-sided pigtail catheter placement yesterday per interventional radiology with approximately 600 ML's of bloody return. There is a positive leak. Currently to Pleur-evac and wall suction. Cultures and cytology pending. She remains on vancomycin and cefepime. This has been resumed. She remains on bronchodilators. She'll be educated regarding the use of the incentive spirometer. The patient is seen today 06/01/2023 in follow-up on the regular medical floor. She is resting comfortably in bed. Awake and alert in no acute distress. She is maintaining O2 saturations in the 90s on room air. Right-sided pigtail catheter in place. Remains to Pleur-evac and wall suction. No leak noted. Blood cultures positive for staph hominis. Pleural fluid cultures revealing no growth. She remains on vancomycin and cefepime. She remains on bronchodilators. Working with the incentive spirometer. The patient is seen today 06/02/2023 in follow-up on the regular medical floor. She is awake and alert in no acute distress. Resting in bed. Maintaining O2 saturations in the 90s on room air. Pigtail chest tube remains in place on the right. No significant output overnight. Chest x-ray reveals a small right pleural effusion with small trace right pneumothorax. No change compared to previous. Blood cultures were positive for staph hominis. Pleural fluid cultures revealing no growth. Follow-up blood culture revealing no growth. Sodium 137. Potassium 4.4. Bicarb 21. BUN 12. Creatinine 0.44. She remains on cefepime. Anticoagulated with Eliquis. Objective - Vital Signs Vital signs: Vital Signs Temp 99.3 F 06/02/23 08:00 Pulse 73 06/02/23 08:00 Resp 16 06/02/23 08:00 BP 103/67 06/02/23 08:00 Pulse Ox 95 06/02/23 08:16 FiO2 21 06/01/23 12:04 Intake & Output 06/01/23 06/02/23 06/02/23 18:59 06:59 18:59 Intake Total 840 118 Output Total 531 1 Balance 309 117 Intake: Oral 840 118 Output: Post Void Residual 531 1 Other: Voiding Method Diaper Diaper Incontinent Incontinent # Voids 2 3 # Bowel Movements 1 - Exam GENERAL EXAM: Alert, oriented, pleasant 67-year-old female, on room air, in no acute distress. HEAD: Normocephalic and atraumatic EYES: Normal reaction of pupils, equal size. NOSE: Clear with pink turbinates. THROAT: No erythema or exudates. NECK: No masses, no JVD. CHEST: No chest wall deformity. Right sided pigtail catheter and placed to Pleur-evac and wall suction. LUNGS: Equal air entry with crackles, few scattered rhonchi, diminished in the right lung base. CVS: S1 and S2 normal with no audible murmur, irregular rhythm. No extra heart sounds. ABDOMEN: No hepatosplenomegaly, active bowel sounds, no guarding or rigidity. SPINE: No scoliosis or deformity. Percutaneous site right inferior back, dressed with gauze. No shadowing. SKIN: Bilateral lower extremity chronic venous changes. CENTRAL NERVOUS SYSTEM: There appears to be left-sided hemiparesis. She is oriented to self and place. EXTREMITIES: There is no peripheral edema, clubbing, or cyanosis. Peripheral pu lses are intact. - Labs CBC & Chem 7: 06/01/23 14:46 06/02/23 03:34 Labs: Abnormal Lab Results - Last 24 Hours (Table) 06/01/23 06/01/23 06/02/23 Range/Units 14:46 14:46 03:34 RBC 2.79 L (4.10-5.20) X 10*6/uL Hgb 8.5 L (12.0-15.0) g/dL Hct 28.2 L (37.2-46.3) % MCV 101.1 H (80.0-97.0) FL MCHC 30.1 L (32.0-37.0) g/dL Plt Count 470 H (140-440) X 10*3/uL Chloride 108 H (98-107) mmol/L Carbon Dioxide 21 L (22-30) mmol/L Creatinine 0.44 L (0.52-1.04) mg/dL Glucose 110 H (74-99) mg/dL AST 54 H (14-36) U/L ALT 65 H (4-34) U/L Albumin 2.8 L (3.5-5.0) g/dL Microbiology - Last 24 Hours (Table) 05/30/23 14:50 Gram Stain - Preliminary Pleural Fluid Body Fluid Culture - Preliminary 05/29/23 11:22 Blood Culture - Preliminary Blood Assessment and Plan Assessment: Acute hypoxemic respiratory failure, on 2 L/m nasal cannula, likely related to exacerbation of congestive heart failure, unknown systolic or diastolic type. Chest x-ray shows cardiomegaly with pulmonary vascular congestion and bilateral pleural effusions, right greater than left.patient had a follow-up chest x-ray that shows a persistent right-sided pleural effusion. Ultrasound of the right chest reveals an 11.6 cm pocket however this is a complex effusion with multiple septations. Right-sided pigtail catheter placed 05/30/2023 with 600 ML's of bloody return. Fluid exudative with protein greater than 3.6 and LDH of 1211. Cytology pending. Bacteremia with coagulase-negative staph, treated with vancomycin and cefepime Recurrent urinary tract infections and infected right renal calculi status post cystoscopy, percutaneous nephrostolithotomy and placement of a right J nep hrostomy tube on 05/17/23. Follow-up CAT scan of the chest and abdomen was noted. The patient has posttreatment changes in the right kidney along with perinephric probable hematoma and the focus of a gas. This is probably inflammatory in nature. At the same time, the patient has not mild right hydroureteronephrosis and a small right-sided pleural effusion is small left- sided pleural effusion along with cholelithiasis. Patient is status post cystoscopy and percutaneous nephrostolithotomy and placement of right IJ nephrostomy tube on 05/17/2023. Patient is currently covered on cefepime for history of recurrent urinary tract infections, with her most recent previous isolated organism Proteus mirabilis, susceptible to cefepime. History of recurrent urinary tract infections, previous isolated organism Proteus mirabilis Possible new onset atrial fibrillation with rapid ventricular rate, anticoagulated on Eliquis History of cerebral palsy History of seizure disorder Hyperlipidemia Hypertension History of CVA History of left-sided weakness and gait abnormality Morbid obesity Plan: The patient was seen and evaluated Chest x-ray, labs and medications reviewed Right-sided pigtail catheter in place with minimal output Will consult cardiothoracic services for possible lytic injection Continued on cefepime Increase the use of the incentive spirometer We will continue to follow I have personally seen and examined the patient, performed the documentation and the assessment and plan as written. Number of minutes spent on the visit: 10.
[2023-06-02] MEDS: VANCOMYCIN 1,500 MG in SODIUM CHLORIDE 0.9% 500 ML 500 ML IVPB SCH (12:45)
[2023-06-02] MEDS: LOPERAMIDE 2 MG CAP PO PRN (13:20)
--- NOTE | 2023-06-02 14:27 | P.PN ---
Subjective Progress Note Date: 05/30/23 Principal diagnosis: Reason for follow-up is fever and bacteremia Patient is a 67-year-old female with a past medical history significant for hypertension hyperlipidemia PE CVA TIA COPD heart failure patient presenting to the hospital on 05/16/2023 for elective treatment of partial right staghorn calculus in the right upper lobe, the patient is status post percutaneous nephrostomy and percutaneous nephrolithotomy patient did have a postop fever started on 05/18/2023 for which his infectious disease was consulted 05/28/2023 On today's evaluation that is 05/30/2023 the patient did have a low-grade fever 100.3 last time the patient is afebrile since then, the patient is breathing comfortably on 3 L nasal cannula oxygen, the patient denies right-sided chest pain has decreased intensity did have occasional cough but no sputum production, patient denies nausea vomiting or any diarrhea, and no abdominal pain Patient white count normalized to 8.92, creatinine 0.52 patient did have thoracocentesis mostly bloody fluid. Objective - Vital Signs Vital signs: Vital Signs Temp 98.7 F 05/30/23 07:57 Pulse 82 05/30/23 08:00 Resp 18 05/30/23 08:00 BP 96/61 05/30/23 07:57 Pulse Ox 94 L 05/30/23 07:57 FiO2 Intake & Output 05/29/23 05/30/23 05/30/23 18:59 06:59 18:59 Intake Total 591 Output Total 400 650 Balance 191 -650 Intake: Oral 591 Output: Urine 400 650 Other: Voiding Method External Catheter External Catheter External Catheter - Exam GENERAL DESCRIPTION: An elderly female up in the chair in no distress RESPIRATORY SYSTEM: Unlabored breathing , decreased breath sounds at the bases HEART: S1 S2 regular rate and rhythm , ABDOMEN: Soft , no tenderness EXTREMITIES: No edema feet - Labs CBC & Chem 7: 06/01/23 14:46 06/02/23 03:34 Labs: Abnormal Lab Results - Last 24 Hours (Table) 05/30/23 05/30/23 Range/Units 06:04 06:04 RBC 2.68 L (4.10-5.20) X 10*6/uL Hgb 8.3 L (12.0-15.0) g/dL Hct 25.6 L (37.2-46.3) % Immature Gran # 0.22 H (0.00-0.04) X 10*3/uL Sodium 132 L (137-145) mmol/L Calcium 8.0 L (8.4-10.2) mg/dL Microbiology - Last 24 Hours (Table) 05/27/23 19:50 Blood Culture Gram Stain - Preliminary Blood Blood Culture - Preliminary Coagulase Negative Staph 05/27/23 20:01 Blood Culture Gram Stain - Preliminary Blood Blood Culture - Preliminary Coagulase Negative Staph Assessment and Plan (1) Postoperative hematoma Current Visit: No Status: Acute Code(s): HUA0285 - SNOMED Code(s): 337866567 (2) Pruritus due to inflammation Current Visit: No Status: Acute Code(s): L29.9 - PRURITUS, UNSPECIFIED SNOMED Code(s): 835015580 (3) Leukocytosis Current Visit: Yes Status: Acute Code(s): D72.829 - ELEVATED WHITE BLOOD CELL COUNT, UNSPECIFIED SNOMED Code(s): 207382465 (4) Pneumonia Current Visit: No Status: Acute Code(s): J18.9 - PNEUMONIA, UNSPECIFIED ORGANISM SNOMED Code(s): 835213551 Plan: 1patient with fever that has been going on for almost 10 days in this patient who is status post right percutaneous nephrostomy and percutaneous nephrolithotomy for staghorn calculus that was completed on 05/17/2023 and the patient started spiking fever on 05/18/[address] abdominal pelvis did mention abnormality to the right kidney and concern for possible hematoma to the likely etiology underlying abscess less likely but not entirely excluded likely from enteric gram-negative pathogen versus a component of possible pneumonia 2-patient did have a positive blood culture with gram-positive cocci with a question of possible skin contamination versus true pathogen 3Blood culture has been repeated to document clearance 4-Patient is status post right-sided chest tube placement fluid is mostly bloody cultures are pending patient to continue vancomycin and cefepime while waiting for the culture to finalize Dictation was produced using [employer] dictation software. please excuse any grammatical, word or spelling errors. Time with Patient: Less than 30
--- NOTE | 2023-06-02 14:29 | P.PN ---
Subjective Progress Note Date: 05/31/23 Principal diagnosis: Reason for follow-up is fever and bacteremia Patient is a 67-year-old female with a past medical history significant for hypertension hyperlipidemia PE CVA TIA COPD heart failure patient presenting to the hospital on 05/16/2023 for elective treatment of partial right staghorn calculus in the right upper lobe, the patient is status post percutaneous nephrostomy and percutaneous nephrolithotomy patient did have a postop fever started on 05/18/2023 for which his infectious disease was consulted 05/28/2023 On today's evaluation that is 05/31/2023, the patient denies any fever or any chills, the patient is breathing comfortably on 2 L nasal cannula oxygen, patient denies chest pain shortness of breath, and cough has decreased in intensity, patient denies Abdominal pain and denies any nausea/vomiting or diarrhea Patient did have white count of 8.92 as of yesterday, creatinine 0.37 pleural fluid cultures currently pending repeat blood cultures are negative Objective - Vital Signs Vital signs: Vital Signs Temp 97.8 F 05/31/23 07:48 Pulse 72 05/31/23 12:16 Resp 16 05/31/23 07:48 BP 131/81 05/31/23 07:48 Pulse Ox 94 L 05/31/23 08:42 FiO2 21 05/31/23 08:42 Intake & Output 05/30/23 05/31/23 05/31/23 18:59 06:59 18:59 Intake Total 118 Output Total 340 0 Balance -222 0 Intake: Oral 118 Output: Chest Tube Drainage 0 Pleural Catheter Right 0 Drainage 340 Right Back 340 Other: Voiding Method External Catheter Diaper Diaper Incontinent Incontinent # Voids 2 2 - Exam GENERAL DESCRIPTION: An elderly female up in the chair in no distress RESPIRATORY SYSTEM: Unlabored breathing , decreased breath sounds at the bases HEART: S1 S2 regular rate and rhythm , ABDOMEN: Soft , no tenderness EXTREMITIES: No edema feet - Labs CBC & Chem 7: 06/01/23 14:46 06/02/23 03:34 Labs: Abnormal Lab Results - Last 24 Hours (Table) 05/30/23 Range/Units 14:50 Fluid Appearance Grossly Bloody A (Clear) Microbiology - Last 24 Hours (Table) 05/30/23 14:50 Gram Stain - Preliminary Pleural Fluid 05/29/23 11:22 Blood Culture - Preliminary Blood 05/27/23 19:50 Blood Culture Gram Stain - Preliminary Blood Blood Culture - Preliminary Coagulase Negative Staph 05/27/23 20:01 Blood Culture Gram Stain - Preliminary Blood Blood Culture - Preliminary Coagulase Negative Staph Assessment and Plan (1) Postoperative hematoma Current Visit: No Status: Acute Code(s): LYB1828 - SNOMED Code(s): 503320541 (2) Pruritus due to inflammation Current Visit: No Status: Acute Code(s): L29.9 - PRURITUS, UNSPECIFIED SNOMED Code(s): 133632586 (3) Leukocytosis Current Visit: Yes Status: Acute Code(s): D72.829 - ELEVATED WHITE BLOOD CELL COUNT, UNSPECIFIED SNOMED Code(s): 590664885 (4) Pneumonia Current Visit: No Status: Acute Code(s): J18.9 - PNEUMONIA, UNSPECIFIED ORGANISM SNOMED Code(s): 337734536 Plan: 1patient with fever that has been going on for almost 10 days in this patient who is status post right percutaneous nephrostomy and percutaneous nephrolithotomy for staghorn calculus that was completed on 05/17/2023 and the patient started spiking fever on 05/18/[address] abdominal pelvis did mention abnormality to the right kidney and concern for possible hematoma to the likely etiology underlying abscess less likely but not entirely excluded likely from enteric gram-negative pathogen versus a component of possible pneumonia 2-patient did have a positive blood culture with gram-positive cocci with a question of possible skin contamination versus true pathogen 3blood culture repeated on 05/29/2022 so far negative. 4patient status post chest tube placement on the right side with the fluid cultures currently pending we will keep the patient on vancomycin and cefepime while waiting for the culture to finalize and monitor clinical course closely Dictation was produced using [employer] dictation software. please excuse any grammatical, word or spelling errors. Time with Patient: Less than 30
--- NOTE | 2023-06-02 14:32 | P.PN ---
Subjective Progress Note Date: 06/01/23 Principal diagnosis: Reason for follow-up is fever and bacteremia Patient is a 67-year-old female with a past medical history significant for hypertension hyperlipidemia PE CVA TIA COPD heart failure patient presenting to the hospital on 05/16/2023 for elective treatment of partial right staghorn calculus in the right upper lobe, the patient is status post percutaneous nephrostomy and percutaneous nephrolithotomy patient did have a postop fever started on 05/18/2023 for which his infectious disease was consulted 05/28/2023 On today's evaluation that is 06/01/2023 patient remains to be afebrile, the patient is currently breathing comfortably on room air patient right-sided chest pain has decreased in intensity denies any worsening cough or sputum production no nausea vomiting no abdominal pain no diarrhea. Patient white count of 9.58, creatinine 0.5 3 repeat blood culture negative pleural fluid cultures currently pending Objective - Vital Signs Vital signs: Vital Signs Temp 98.4 F 06/01/23 08:00 Pulse 64 06/01/23 12:15 Resp 16 06/01/23 08:00 BP 101/60 06/01/23 08:00 Pulse Ox 96 06/01/23 12:04 FiO2 21 06/01/23 12:04 Intake & Output 05/31/23 06/01/23 06/01/23 18:59 06:59 18:59 Intake Total 222 240 Output Total 60 0 350 Balance 162 0 -110 Weight 77 kg Intake: Oral 222 240 Output: Chest Tube Drainage 30 0 Pleural Catheter Right 30 0 Drainage 30 Right Back 30 Post Void Residual 350 Other: Voiding Method Diaper Diaper Diaper Incontinent Incontinent Incontinent # Voids 2 2 # Bowel Movements 3 1 - Exam GENERAL DESCRIPTION: An elderly female up in the chair in no distress RESPIRATORY SYSTEM: Unlabored breathing , decreased breath sounds at the bases HEART: S1 S2 regular rate and rhythm , ABDOMEN: Soft , no tenderness EXTREMITIES: No edema feet - Labs CBC & Chem 7: 06/01/23 14:46 06/02/23 03:34 Labs: Abnormal Lab Results - Last 24 Hours (Table) 05/31/23 Range/Units 10:21 Potassium 2.9 L (3.5-5.1) mmol/L Chloride 115 H (98-107) mmol/L Carbon Dioxide 16 L (22-30) mmol/L Creatinine 0.37 L (0.52-1.04) mg/dL Glucose 58 L (74-99) mg/dL Calcium 5.8 L* (8.4-10.2) mg/dL Microbiology - Last 24 Hours (Table) 05/30/23 14:50 Gram Stain - Preliminary Pleural Fluid Body Fluid Culture - Preliminary 05/29/23 11:22 Blood Culture - Preliminary Blood 05/27/23 20:01 Blood Culture Gram Stain - Final Blood Blood Culture - Final Staph hominis sub sp. hominis 05/27/23 19:50 Blood Culture Gram Stain - Final Blood Blood Culture - Final Staphylococcus epidermidis Assessment and Plan (1) Postoperative hematoma Current Visit: No Status: Acute Code(s): [id number] - SNOMED Code(s): 984001317 (2) Pruritus due to inflammation Current Visit: No Status: Acute Code(s): L29.9 - PRURITUS, UNSPECIFIED SNOMED Code(s): 716670504 (3) Leukocytosis Current Visit: Yes Status: Acute Code(s): D72.829 - ELEVATED WHITE BLOOD CELL COUNT, UNSPECIFIED SNOMED Code(s): 608992635 (4) Pneumonia Current Visit: No Status: Acute Code(s): J18.9 - PNEUMONIA, UNSPECIFIED ORGANISM SNOMED Code(s): 399851930 Plan: 1patient with fever that has been going on for almost 10 days in this patient who is status post right percutaneous nephrostomy and percutaneous nep hrolithotomy for staghorn calculus that was completed on 05/17/2023 and the patient started spiking fever on 05/18/[address] abdominal pelvis did mention abnormality to the right kidney and concern for possible hematoma to the likely etiology underlying abscess less likely but not entirely excluded likely from enteric gram-negative pathogen versus a component of possible pneumonia 2-patient did have a positive blood culture with gram-positive cocci with a question of possible skin contamination versus true pathogen 3blood culture repeated on 05/29/2022 so far negative. 4patient status post chest tube placement on the right side with the fluid cultures currently pending , Patient did have resolution of the fever and the patient white count has normalized 5-we will keep the patient on vancomycin and cefepime while waiting for the culture to finalize and monitor clinical course closely Dictation was produced using [employer] dictation software. please excuse any grammatical, word or spelling errors.
--- NOTE | 2023-06-02 14:34 | P.PN ---
Subjective Progress Note Date: 06/02/23 Principal diagnosis: Reason for follow-up is fever and bacteremia Patient is a 67-year-old female with a past medical history significant for hypertension hyperlipidemia PE CVA TIA COPD heart failure patient presenting to the hospital on 05/16/2023 for elective treatment of partial right staghorn calculus in the right upper lobe, the patient is status post percutaneous nephrostomy and percutaneous nephrolithotomy patient did have a postop fever started on 05/18/2023 for which his infectious disease was consulted 05/28/2023,Patient is status post IR right-sided pigtail catheter placement on 05/30/2023, subsequentlyCT surgery has been consulted for installation of lytics as output from the chest Tube has decreased as of 06/02/2023 On today's evaluation that is 06/02/2023 the patient continues to be afebrile, patient is breathing comfortably on room air without need for supplemental oxygen patient denies having any chest pain no worsening cough or sputum prod uction. Denies any nausea vomiting abdominal pain or diarrhea has been reported. Patient did have white count of 9.58 as of yesterday no CBC was done today, creatinine 0.44 Objective - Vital Signs Vital signs: Vital Signs Temp 99.3 F 06/02/23 08:00 Pulse 68 06/02/23 11:59 Resp 16 06/02/23 08:00 BP 103/67 06/02/23 08:00 Pulse Ox 95 06/02/23 08:16 FiO2 21 06/01/23 12:04 Intake & Output 06/01/23 06/02/23 06/02/23 18:59 06:59 18:59 Intake Total 840 118 Output Total 531 1 Balance 309 117 Intake: Oral 840 118 Output: Post Void Residual 531 1 Other: Voiding Method Diaper Diaper Diaper Incontinent Incontinent Incontinent # Voids 2 3 1 # Bowel Movements 1 2 - Exam GENERAL DESCRIPTION: An elderly female up in the chair in no distress RESPIRATORY SYSTEM: Unlabored breathing , decreased breath sounds at the bases HEART: S1 S2 regular rate and rhythm , ABDOMEN: Soft , no tenderness EXTREMITIES: No edema feet - Labs CBC & Chem 7: 06/01/23 14:46 06/02/23 03:34 Labs: Abnormal Lab Results - Last 24 Hours (Table) 06/01/23 06/01/2306/02/23 Range/Units 14:46 14:46 03:34 RBC 2.79 L (4.10-5.20) X 10*6/uL Hgb 8.5 L (12.0-15.0) g/dL Hct 28.2 L (37.2-46.3) % MCV 101.1 H (80.0-97.0) FL MCHC 30.1 L (32.0-37.0) g/dL Plt Count 470 H (140-440) X 10*3/uL Chloride 108 H (98-107) mmol/L Carbon Dioxide 21 L (22-30) mmol/L Creatinine 0.44 L (0.52-1.04) mg/dL Glucose 110 H (74-99) mg/dL AST 54 H (14-36) U/L ALT 65 H (4-34) U/L Albumin 2.8 L (3.5-5.0) g/dL Microbiology - Last 24 Hours (Table) 05/30/23 14:50 Gram Stain - Preliminary Pleural Fluid Body Fluid Culture - Preliminary 05/29/23 11:22 Blood Culture - Preliminary Blood Assessment and Plan (1) Postoperative hematoma Current Visit: No Status: Acute Code(s): MUR0284 - SNOMED Code(s): 398082895 (2) Pruritus due to inflammation Current Visit: No Status: Acute Code(s): L29.9 - PRURITUS, UNSPECIFIED SN OMED Code(s): 234353778 (3) Leukocytosis Current Visit: Yes Status: Acute Code(s): D72.829 - ELEVATED WHITE BLOOD CELL COUNT, UNSPECIFIED SNOMED Code(s): 329114379 (4) Pneumonia Current Visit: No Status: Acute Code(s): J18.9 - PNEUMONIA, UNSPECIFIED ORGANISM SNOMED Code(s): 492430028 Plan: 1patient with fever that has been going on for almost 10 days in this patient who is status post right percutaneous nephrostomy and percutaneous nephrolithotomy for staghorn calculus that was completed on 05/17/2023 and the patient started spiking fever on 05/18/[address] abdominal pelvis did mention abnormality to the right kidney and concern for possible hematoma to the likely etiology underlying abscess less likely but not entirely excluded likely from enteric gram-negative pathogen versus a component of possible pneumonia 2-patient did have a positive blood culture with gram-positive cocci with a question of possible skin contamination versus true pathogen 3blood culture repeated on 05/29/2022 so far negative. 4patient status post chest tube placement on the right side with the fluid cu ltures currently pending , Patient did have resolution of the fever and the patient white count has normalized, to continue vancomycin and cefepime while waiting for the culture to finalize and monitor clinical course closely Dictation was produced using [employer] dictation software. please excuse any grammatical, word or spelling errors. Time with Patient: Less than 30
[2023-06-02] MEDS: HYDROcodone/APAP 7.5-325MG 1 EACH TAB PO PRN (14:38)
--- NOTE | 2023-06-02 15:20 | P.PN ---
Subjective Progress Note Date: 06/02/23 Patient evaluated today sitting up in chair. Indwelling catheter to be removed today, urology has signed off. Patient is status post percutaneous nephrostolithotomy and J nephrostomy tube placement on the right. The nephrostomy tube was subsequently discontinued on 05/21. She has remained in the hospital had interval development of pleural effusion, and fever with imaging revealing cholelisthiasis, moderate right and small left pleural effusion, and mild right hydroureteronephrosis. Patient also developed atrial fibrillation postoperatively currently anticoagulated. Patient was evaluated by pulmonary and considered for thoracentesis which she had declined. She does continue at this point to report right sided pleuritic chest pain worse with deep inspiration and she has developed fever. She has had persistent proteus UTI and completed course of antibiotics for this with most recent urine culture from 05/24 this admission showing negative urine culture and negative blood cultures. 05/29/2023 Patient evaluated today resting in bed. Continues to report right sided chest pain. Had chest CT done showing right-sided pleural effusion with underlying atelectasis and or infiltrate appears essentially unchanged. Improved effusion left lung base. Right sided retroperitoneal collection is again noted and smaller in size. AST/ALT remain elevated. Sodium 134, BUN 13.7, creatinine 0.6. ID following patient on IV cefepime and IV vancomycin. Blood cultures showing gram postive cocci/coag negative staph x 2 which is likely contaminent species however blood culture will be repeated. T-Max 101.1 overnight. 05/30/2023 Patient is evaluated today sitting up in bed. Has had episode of diarrhea relat ed to IBS requesting imodium which has been ordered since the she has also been placed on questran. ID following for continued fevers. Blood culture showing coagulase negative staph which has been repeated and pending. Likely a contaminant. Remains on IV cefepime and IV vancomycin. AST/ALT remain elevated with abdominal CT revealing gallstones patient states she has had these for many years. Procalcitonin level is elevated at 0.47. IR consulted with plans for thoracentesis today with cytology for the large right sided pleural effusion. Sodium today 132. White count has improved to 8.92. T-max overnight 100.3. 05/31/2023 Patient is evaluated today sitting up in bed. Underwent pigtail catheter placement yesterday with IR. Had over 600 mls output bloody/serosanguineous Cytology is currently pending at this time. Patient had follow up chest xray showing improvement in the pleural-parenchymal opacity. Evidence of air leak. No pneumothorax noted. Remains on IV vancomycin and IV cefepime. Blood culture showing staph hominus likely a contaminent species and repeat blood cultures are pending. ID following. Labs today showing sodium 140, potassium 2.9, BUN 10, creatinine 0.37, calcium 5.8. Continue with bladder scan Q6h to monitor for urinary retention. 06/01/2023 Patient sitting up in chair. Chest tube remains in place. Chest xray today with evidence of pneumothorax and there was an air leak noted from the chest tube site. Patient has no shortness of breath. Sodium 137, potassium 4.8, calcium 8.8. LFTs remain elevated. Continues on IV cefepime and IV vancomycin. 06/02/2023 Patient remains on medical floor with chest tube in place. Follow-up chest x- ray today reveals right thoracotomy tube with small right pleural effusion and small trace right pneumothorax. Cardiothoracic has evaluated this patient recommending to instill a dose of alteplase and dornase today. Having low-grade fevers of 99.3. She continues on room air at this time. Is on combination of IV cefepime and IV vancomycin with cytology from the chest tube placement pending. Labs today show improved potassium of 4.4. Review of Systems Constitutional: Denied any fatigue denied any fever. Cardio vascular: denied any chest pain, palpitations Gastrointestinal: denied any nausea, vomiting, diarrhea Pulmonary: Reports improvement in shortness of breath. Neurologic denied any new focal deficits All inpatient medications were reviewed and appropriate changes in these medications as dictated in the interval history and assessment and plan. PHYSICAL EXAMINATION: GENERAL: The patient is alert and oriented x3, not in any acute distress. Well developed, well nourished. HEENT: Pupils are round and equally reacting to light. EOMI. No scleral icterus. No conjunctival pallor. Normocephalic, atraumatic. No pharyngeal erythema. No thyromegaly. CARDIOVASCULAR: S1 and S2 present. No murmurs, rubs, or gallops. PULMONARY: Chest is diminished. Right midlung with diminished aeration. Chest tube in place. ABDOMEN: Soft, nontender, nondistended, normoactive bowel sounds. No palpable organomegaly. MUSCULOSKELETAL: No joint swelling or deformity. EXTREMITIES: No cyanosis, clubbing, or pedal edema. NEUROLOGICAL: Gross neurological examination did not reveal any focal deficits. Diffuse weakness. SKIN: No rashes. Pt has abdominal panus. Assessment and Plan -Nephrolisthiasis and obstructive uropathy status post cystoscopy, percutaneous nephrostolithotomy and J nephrostomy tube placement with removal. Remaining stones will be followed up with urology outpatient for further evaluation. IDC has been removed. Urology has signed off. Recommend to continue with bladder scan at this time to monitor for urinary retention. -Fever; ID will be consulted Blood cultures are pending, procalcitonin is elevated. Continues on IV cefepime and IV vancomycin. -Bacteremia gram positive on IV vancomycin and IV cefepime likely a contaminent species and repeat blood culture remains negative. -Chronic proteus urinary tract infection from infected stone and obstructive uropathy treated with course of antibiotics and most recent urine culture showing normal enzo. -Right sided pleural effusion Follow up chest CT redemonstrates pleural effusion. Chest ultrasound reveals 11.6 cm rigth pleural effusion pocket size which is noted to be complex with septations. IR has placed pigtail catheter. Fluid is bloody and exudative. Pending cytology. -Acute hypoxemic respiratory failure requiring 2 L oxygen via nasal cannula. Chest x-ray showed pulmonary vascular congestion, cardiomegaly and bilateral pleural effusion right greater than left. -New onset paroxysmal atrial fibrillation with RVR currently in sinus mechanism anticoagulated with eliquis on metoprolol TID. Patient continues on oral lasix daily. Follow up proBNP normal limits for age at 89 continues on oral lasix. -Hypertension -Dyslipidemia -Chronic medical debility follows with [facility] -Morbid obesity -History of seizure disorder continue on keppra TID. -History of cerebral palsy, left-sided weakness and gait abnormality -History of stroke GI prophylaxis DVT prophylaxis On eliquis Full Code Patient has undergone pigtail catheter placement and continues to low intermittent suction with evidence of air leak. Follow up chest xray shows pneumothorax. Cardiothoracic was consulted patient will undergo dornase/alteplase into the chest tube today. Continue to monitor output.. Cytology pending. ID following on IV antibiotics and repeat blood culture is pending at this time. Follow up labs in AM. Recommend to monitor bladder scan Q6h as IDC has been removed. Continue on imodium and questran for loose stools. Continue to encourage incentive spirometer. Pulmonary following. The impression and plan of care has been dictated by Joseline Potter, Nurse Practitioner as directed. Dr. Wolf MD I have performed a history and physical examination and medical decision making of this patient, discussed the same with the dictator, and agree with the dictators assessment and plan as written, documented as a scribe. Based on total visit time, I have performed more than 50% of this visit. Objective - Vital Signs Vital signs: Vital Signs Temp 99.3 F 06/02/23 08:00 Pulse 73 06/02/23 08:00 Resp 16 06/02/23 08:00 BP 103/67 06/02/23 08:00 Pulse Ox 95 06/02/23 08:16 FiO2 21 06/01/23 12:04 Intake & Output 06/01/23 06/02/23 06/02/23 18:59 06:59 18:59 Intake Total 840 Output Total 531 Balance 309 Intake: Oral 840 Output: Post Void Residual 531 Other: Voiding Method Diaper Diaper Incontinent Incontinent # Voids 2 3 # Bowel Movements 1 - Labs CBC & Chem 7: 06/01/23 14:46 06/02/23 03:34 Labs: Abnormal Lab Results - Last 24 Hours (Table) 06/01/23 06/01/23 06/02/23 Range/Units 14:46 14:46 03:34 RBC 2.79 L (4.10-5.20) X 10*6/uL Hgb 8.5 L (12.0-15.0) g/dL Hct 28.2 L (37.2-46.3) % MCV 101.1 H (80.0-97.0) FL MCHC 30.1 L (32.0-37.0) g/dL Plt Count 470 H (140-440) X 10*3/uL Chloride 108 H (98-107) mmol/L Carbon Dioxide 21 L (22-30) mmol/L Creatinine 0.44 L (0.52-1.04) mg/dL Glucose 110 H (74-99) mg/dL AST 54 H (14-36) U/L ALT 65 H (4-34) U/L Albumin 2.8 L (3.5-5.0) g/dL Microbiology - Last 24 Hours (Table) 05/30/23 14:50 Gram Stain - Preliminary Pleural Fluid Body Fluid Culture - Preliminary 05/29/23 11:22 Blood Culture - Preliminary Blood Assessment and Plan Time with Patient: Less than 30
[2023-06-02] MEDS: ALPRAZolam 0.25 MG TAB PO PRN (18:38)
[2023-06-02] MEDS: ATORVASTATIN 10 MG TAB PO SCH (20:28)
[2023-06-03] MEDS: CEFEPIME 2 GM in SODIUM CHLORIDE 0.9% 100 ML IVPB SCH ×4 (01:09→23:24)
[2023-06-03] MEDS: VANCOMYCIN 1,500 MG in SODIUM CHLORIDE 0.9% 500 ML 500 ML IVPB SCH ×2 (05:05→23:24)
[2023-06-03 06:36] LABS: ALT 53 U/L (4-34); African American GFR (CKD) >90 (>60 ml/min/1.73 sqM); Albumin 2.5 g/dL (3.5-5.0); Albumin/Globulin Ratio 0.8; Anion Gap 6 mmol/L; Blood Urea Nitrogen 14 mg/dL (7-17); Calcium 8.7 mg/dL (8.4-10.2); Carbon Dioxide 21 mmol/L (22-30); Chloride 111 mmol/L (98-107); Globulin 3.2 g/dL; Glucose 93 mg/dL (74-99); Non-African American GFR(CKD) >90 (>60 ml/min/1.73 sqM); Sodium 138 mmol/L (137-145); Total Bilirubin 0.6 mg/dL (0.2-1.3); Total Protein 5.7 g/dL (6.3-8.2)
[2023-06-03 06:43] LABS: AST 46 U/L (14-36); Alkaline Phosphatase 64 U/L (38-126); Potassium 4.8 mmol/L (3.5-5.1)
--- NOTE | 2023-06-03 08:15 | XR ---
EXAMINATION TYPE: XR chest 1V portable DATE OF EXAM: 06/03/2023 7:16 AM CLINICAL INDICATION:Female, 67 years old with history of effusion; COMPARISON: Chest radiograph from one day prior. TECHNIQUE: XR chest 1V portable Frontal view of the chest. FINDINGS: Lungs/Pleura: Small right pleural effusion and pneumothorax. There is no evidence of left pleural eff usion, focal consolidation, or left pneumothorax. Pulmonary vascularity: Unremarkable. Heart/mediastinum: Cardiomediastinal silhouette is unremarkable. Musculoskeletal: No acute osseous pathology. Other findings: None Lines/Tubes: Right thoracotomy tube is present without evidence of pneumothorax. IMPRESSION: Right thoracotomy tube with small right pleural effusion and small/trace right pneumothorax. Findings similar to prior.
[2023-06-03] MEDS: IPRATROPIUM-ALBUTEROL 3 ML NEB INHALATION SCH ×4 (08:32→19:43)
[2023-06-03] MEDS: CALCIUM CARBONATE 500 MG CHEWABLE PO PRN (08:53)
[2023-06-03] MEDS: methocarbamoL 750 MG TAB PO SCH ×3 (08:53→21:42)
[2023-06-03] MEDS: POTASSIUM CHLORIDE ER 20 MEQ TAB.ER PO SCH (08:53)
[2023-06-03] MEDS: APIXABAN 5 MG TAB PO SCH ×2 (08:53→21:42)
[2023-06-03] MEDS: oxyBUTYnin chloride 5 MG TAB PO SCH ×3 (08:53→16:57)
[2023-06-03] MEDS: ESCITALOPRAM 20 MG TAB PO SCH (08:53)
[2023-06-03] MEDS: MULTIVITAMINS, THERA 1 EACH TAB PO SCH (08:53)
[2023-06-03] MEDS: levETIRAcetam 500 MG TAB PO SCH ×3 (08:53→21:42)
--- NOTE | 2023-06-03 09:47 | P.PN ---
Subjective Progress Note Date: 06/03/23 Principal diagnosis: Loculated right-sided pleural effusion status post pigtail catheter placement, fever, leukocytosis, bacteremia with staph, recurrent urinary tract infections s tatus post elective cystoscopy with percutaneous nephrostomy and percutaneous nephrostolithotomy ultrasound on the right, new onset A. fib RVR. History of chronic heart failure, hypertension, hyperlipidemia, multiple strokes, COPD, seizure disorder, cerebral palsy, pulmonary embolism as well as DVT not on anticoagulation outpatient, medical debility The patient was seen and examined laying in bed in the medical oncology unit in no acute distress. Remains on room air. Right sided pigtail catheter in place, lytics instilled yesterday, however drainage line was not opened back up so a shunt had no drainage from her effusion. Chest x-ray reviewed. Pleural fluid Gram stain preliminarily negative. Remains on cefepime and vancomycin with blood cultures positive for staph. We will instill lytics again today and make sure they only did well for 1-2 hours. No other new concerns. Objective - Vital Signs Vital signs: Vital Signs Temp 98.8 F 06/03/23 02:58 Pulse 72 06/03/23 08:46 Resp 18 06/03/23 02:58 BP 104/67 06/03/23 02:58 Pulse Ox 94 L 06/03/23 02:58 FiO2 21 06/01/23 12:04 Intake & Output 06/02/23 06/03/23 06/03/23 18:59 06:59 18:59 Intake Total 236 Output Total 159 Balance 77 Intake: Oral 236 Output: Post Void Residual 159 Other: Voiding Method Diaper Diaper Incontinent Incontinent # Voids 1 2 # Bowel Movements 1 1 - Exam CONSTITUTIONAL: Appears comfortable, cooperative, no acute distress RESPIRATORY: Lungs sounds diminished in the right. Respirations even, nonlabored. Currently on room air with oxygen saturation 95%. Able to achieve 500 mL on incentive spirometry. Strong cough. CARDIOVASCULAR: S1, S2 present. Regular rate and rhythm, sinus rhythm on telemetry. Palpable peripheral pulses bilaterally. Lateral lower extremity edema present. No calf pain or tenderness noted GASTROINTESTINAL: Abdomen soft, nontender, nondistended, obese. Active bowel s ounds present 4 quadrants. Tolerating diet GENITOURINARY: Continues to void, incontinent, wears briefs INTEGUMENTARY: Skin is warm, lower extremity venous insufficiency discoloration present NEUROLOGIC: Cranial nerves II through XII intact MUSKULOSKELETAL: Able to move all extremities, strength equal bilaterally, generalized weakness present PSYCHIATRIC: Alert and oriented to person place and time INVASIVE LINES AND TUBES: Right-sided pigtail present to continuous wall suction, no drainage currently present - Allied health notes Allied health notes reviewed: nursing - Labs CBC & Chem 7: 06/01/23 14:46 06/03/23 05:49 Labs: Abnormal Lab Results - Last 24 Hours (Table) 06/03/23 Range/Units 05:49 Chloride 111 H (98-107) mmol/L Carbon Dioxide 21 L (22-30) mmol/L AST 46 H (14-36) U/L ALT 53 H (4-34) U/L Total Protein 5.7 L (6.3-8.2) g/dL Albumin 2.5 L (3.5-5.0) g/dL Microbiology - Last 24 Hours (Table) 05/30/23 14:50 Gram Stain - Preliminary Pleural Fluid Body Fluid Culture - Preliminary - Imaging and Cardiology Chest x-ray: report reviewed, image reviewed Assessment and Plan Assessment: Loculated right-sided pleural effusion status post pigtail catheter placement Fever, leukocytosis, bacteremia with staph Recurrent urinary tract infections status post elective cystoscopy with percutaneous nephrostomy and percutaneous nephrostolithotomy ultrasound on the right New onset A. fib RVR, currently on Eliquis for anticoagulation History of chronic heart failure History of hypertension Hyperlipidemia History of multiple strokes COPD, currently on room air Seizure disorder Cerebral palsy Pulmonary embolism as well as DVT not on anticoagulation outpatient Medical debility Plan: Will attempt to instill lytics again today and make sure drainage tube is unclamped Encourage incentive spirometry use Increase activity as tolerated Antibiotics per infectious disease We'll monitor daily x-rays Medical management of other comorbidities per internal medicine, pulmonology, infectious disease, cardiology More recommendations to follow
[2023-06-03] MEDS ORDERED: DORNASE ALFA 5 MG in SODIUM CHLORIDE 0.9% 50 ML IRRIGATION ONE (10:00)
[2023-06-03] MEDS ORDERED: ALTEPLASE 10 MG in SODIUM CHLORIDE 0.9% 50 ML IRRIGATION ONE (10:00)
[2023-06-03] MEDS: HYDROCORTISONE 1% CREAM 30 GM TUBE TOPICAL SCH ×2 (10:13→21:42)
[2023-06-03] MEDS: FLUTICASONE 50MCG/SPRAY NASAL 16GM NASAL SCH ×2 (10:13→21:42)
[2023-06-03] MEDS: METOPROLOL TARTRATE 50 MG TAB PO SCH ×3 (10:14→21:43)
--- NOTE | 2023-06-03 10:58 | P.PN ---
Subjective Progress Note Date: 06/03/23 I am seeing this patient in consultation today 05/23/2023 for a moderate size right pleural effusion. Patient is a 67-year-old white female with extensive past medical history significant for cerebral palsy, seizure disorder, CVA, hyperlipidemia, hypertension, pulmonary embolus, among other things. She has recurrent urinary tract infections with Proteus mirabilis and infected right- sided renal calculus. She was brought in for elective right-sided percutaneous nephrostolithotomy and placement of a J nephrostomy tube on May 17. No immediate perioperative complications reported. 2 days ago, she went atrial fibrillation with ventricular rate. She was transferred to the cardiac stepdown unit. Temporarily on cardizem infusion, which is discontinued. Patient self denies any history of atrial fibrillation. Chest x-ray showed cardiomegaly, pulmonary vascular Congestion, and bilateral pleural effusions. She does receive Lasix 40 mg by mouth every morning and Aldactone. Repeat chest x-ray yesterday morning continues to show a moderate size right pleural effusion. Patient is currently resting in bed, on 2 L/m nasal cannula, in no acute distress. Patient is a poor historian. She reportedly lives independently in an apartment with PACE assistance. She is oriented to self and time. She is crying. She is febrile and diaphoretic. She remains in atrial fibrillation with RVR. Heart rate averaging 100-120 bpm. BP is normotensive. She is anticoagulated on Eliquis. She is empirically covered on cefepime for her previous Proteus urinary infection. She has a indwelling urinary catheter draining an adequate amount of shanique colored urine. Follow-up abdominal CT done yesterday june bruce posttreatment changes to the right kidney with perinephric probable hematoma and focus of gas measuring 8.4 x 4.3 x 7.7 cm. There is mild right hydroureteronephrosis which could be reactive inflammation and blood products on the right kidney. There is persistent right nephric calcification measuring 9 mm. There is moderate right and small left pleural effusions. And cholelithiasis without cholecystitis. The moderate right and small left pleural effusions were again noted. There is associated atelectasis. No focal consolidations. Most recent CBC from yesterday shows a WBC count 11.7, hemoglobin 10.5, hematocrit 30.5, platelets 139. Sodium 133, potassium 2.8, chloride 97, serum bicarb 25, UN 18, creatinine 0.65, glucose 99. Potassium is being replaced. Patient is being monitored on the cardiac stepdown unit. On today's evaluation of 05/24/2023, no interval worsening the patient was started status. The patient is currently stable. The patient is on 2 L of oxygen by nasal cannula. Producing adequate urine output. BUN is at 80 with a creatinine of 0.4 and sodium levels of 131. The white cell count of 8.4 with a hemoglobin of 9.9. The patient remains on IV cefepime. Respiratory medications are unchanged and the patient continues to be on anticoagulation with Eliquis. on 05/25/2023, I'm seeing the patient for a follow-up.Repeat chest x-ray was done and the patient continues to have a persistent right lower lobe atelectasis of the right-sided pleural effusion. The patient remains off anticoagulation. I'm considering a thoracentesis if the patient becomes more symptomatic. Otherwise, condition is stable for now. She remains on oxygen 2 L/m nasal can nula. No significant respiratory distress or the time being. The white cell count of 8.3 with a hemoglobin of 10.3 and the platelet count of 265. BUN is at 60 with a creatinine of 0.39 and a sodium level is at 133. Remains on antibiotics and the patient is still on IV cefepime. She is also on Lasix 40 mg by mouth daily. The rest of the medications unchanged. Remains on Aldactone 25 mg by mouth daily. On 05/26/2023, no new complaints and the patient's condition is stable. No respiratory difficulties. The patient remains on oxygen at 2 L with a pulse ox of 96%. The rest of the labs show sodium level of 132, potassium level of 3.8, BUN is at 40 with a creatinine of 0.4. The basic concept and 0.5 with a hemoglobin of 10.3. The patient is seen today 05/30/2023 in follow-up. We had signed off on this patient and she had initially declined any thoracentesis regarding the right p leural effusion. Primary states that now she is willing to have the procedure done. 2-D scan of the chest from 05/28/2023 revealed a right-sided pleural effusion with underlying atelectasis and/or infiltrate. Improved effusion on the left lung base. There is a right-sided retroperitoneal collection again noted. Ultrasound of the right chest was ordered and did reveal an 11.6 cm pocket however this was a complex fluid pocket with multiple septations. Currently resting fairly comfortably in bed. Awake and alert in no acute distress. Maintaining O2 saturations in the 90s on room air. She did have a T- max of 100.3 last evening. Currently afebrile. Blood cultures had revealed coag-negative staph. Urine culture revealed no growth. White count 8.9. Hemoglobin 8.3. Platelets 314. Sodium 132. Potassium 3.8. Bicarb 26. BUN 13. Creatinine 0.52. Glucose 98. Pro-calcitonin from 05/28/2023 was 0.47. She is continued on DuoNeb inhalations. Antibiotics in the form of vancomycin and cefepime. Eliquis currently on hold. The patient is seen today 05/31/2023 in follow-up on the regular medical floor. She is currently resting comfortably in bed. Awake and alert in no acute d istress. Maintaining O2 saturations in the 90s on room air. She did receive a right-sided pigtail catheter placement yesterday per interventional radiology with approximately 600 ML's of bloody return. There is a positive leak. Currently to Pleur-evac and wall suction. Cultures and cytology pending. She remains on vancomycin and cefepime. This has been resumed. She remains on bronchodilators. She'll be educated regarding the use of the incentive spirometer. The patient is seen today 06/01/2023 in follow-up on the regular medical floor. She is resting comfortably in bed. Awake and alert in no acute distress. She is maintaining O2 saturations in the 90s on room air. Right-sided pigtail catheter in place. Remains to Pleur-evac and wall suction. No leak noted. Blood cultures positive for staph hominis. Pleural fluid cultures revealing no growth. She remains on vancomycin and cefepime. She remains on bronchodilators. Working with the incentive spirometer. The patient is seen today 06/02/2023 in follow-up on the regular medical floor. She is awake and alert in no acute distress. Resting in bed. Maintaining O2 saturations in the 90s on room air. Pigtail chest tube remains in place on the right. No significant output overnight. Chest x-ray reveals a small right pleural effusion with small trace right pneumothorax. No change compared to previous. Blood cultures were positive for staph hominis. Pleural fluid cultures revealing no growth. Follow-up blood culture revealing no growth. Sodium 137. Potassium 4.4. Bicarb 21. BUN 12. Creatinine 0.44. She remains on cefepime. Anticoagulated with Eliquis. The patient is seen today 06/03/2023 in follow-up on the regular medical floor. She is resting comfortably in bed. Awake and alert in no acute distress. She is maintaining good O2 saturations in the 90s on room air. Right-sided chest tube remains in place. Chest x-ray continues to show small right pleural effusion and small to trace right pneumothorax. Similar findings. Lytics were installed yesterday however the clamp was not released so there is no significant drainage from her effusion. The plan is for repeat instillations of lytics today and to be unclamped 1-2 hours afterwards. Initial blood cultures positive for staph hominis. Follow-up blood cultures revealing no growth. Pleural fluid culture pending. Sodium 130. Potassium 4.8. Bicarb 21. BUN 14. Creatinine 0.55. Calcium 8.7. She is continued on cefepime and vancomycin. Remains on DuoNeb inhalations. Eliquis for anticoagulation. Objective - Vital Signs Vital signs: Vital Signs Temp 98.0 F 06/03/23 07:30 Pulse 72 06/03/23 08:46 Resp 18 06/03/23 08:00 BP 99/65 06/03/23 07:30 Pulse Ox 94 L 06/03/23 07:30 FiO2 21 06/01/23 12:04 Intake & Output 06/02/23 06/03/23 06/03/23 18:59 06:59 18:59 Intake Total 236 Output Total 159 650 Balance 77 -650 Intake: Oral 236 Output: Urine 650 Post Void Residual 159 Other: Voiding Method Diaper Diaper Diaper Incontinent Incontinent Incontinent # Voids 1 2 2 # Bowel Movements 1 1 1 - Exam GENERAL EXAM: Alert, oriented, pleasant 67-year-old female, and comfortably in bed, on room air, in no acute distress. HEAD: Normocephalic and atraumatic EYES: Normal reaction of pupils, equal size. NOSE: Clear with pink turbinates. THROAT: No erythema or exudates. NECK: No masses, no JVD. CHEST: No chest wall deformity. Right sided pigtail catheter and placed to Pleur-evac and wall suction. LUNGS: Equal air entry with crackles, few scattered rhonchi, diminished in the right lung base. CVS: S1 and S2 normal with no audible murmur, irregular rhythm. No extra heart sounds. ABDOMEN: No hepatosplenomegaly, active bowel sounds, no guarding or rigidity. SPINE: No scoliosis or deformity. Percutaneous site right inferior back, dressed with gauze. No shadowing. SKIN: Bilateral lower extremity chronic venous changes. CENTRAL NERVOUS SYSTEM: There appears to be left-sided hemiparesis. She is oriented to self and place. EXTREMITIES: There is no peripheral edema, clubbing, or cyanosis. Peripheral pulses are intact. - Labs CBC & Chem 7: 06/01/23 14:46 06/03/23 05:49 Labs: Abnormal Lab Results - Last 24 Hours (Table) 06/03/23 Range/Units 05:49 Chloride 111 H (98-107) mmol/L Carbon Dioxide 21 L (22-30) mmol/L AST 46 H (14-36) U/L ALT 53 H (4-34) U/L Total Protein 5.7 L (6.3-8.2) g/dL Albumin 2.5 L (3.5-5.0) g/dL Microbiology - Last 24 Hours (Table) 05/30/23 14:50 Gram Stain - Preliminary Pleural Fluid Body Fluid Culture - Preliminary Assessment and Plan Assessment: Acute hypoxemic respiratory failure, on 2 L/m nasal cannula, likely related to exacerbation of congestive heart failure, unknown systolic or diastolic type. Chest x-ray shows cardiomegaly with pulmonary vascular congestion and bilateral pleural effusions, right greater than left.patient had a follow-up chest x-ray that shows a persistent right-sided pleural effusion. Ultrasound of the right chest reveals an 11.6 cm pocket however this is a complex effusion with multiple septations. Right-sided pigtail catheter placed 05/30/2023 with 600 ML's of bloody return. Fluid exudative with protein greater than 3.6 and LDH of 1211. Cytology pending. Bacteremia with staph hominis, treated with vancomycin and cefepime Recurrent urinary tract infections and infected right renal calculi status post cystoscopy, percutaneous nephrostolithotomy and placement of a right J nephrostomy tube on 05/17/23. Follow-up CAT scan of the chest and abdomen was noted. The patient has posttreatment changes in the right kidney along with perinephric probable hematoma and the focus of a gas. This is probably inflammatory in nature. At the same time, the patient has not mild right hydroureteronephrosis and a small right-sided pleural effusion is small left- sided pleural effusion along with cholelithiasis. Patient is status post cystoscopy and percutaneous nephrostolithotomy and placement of right IJ nephrostomy tube on 05/17/2023. Patient is currently covered on cefepime for history of recurrent urinary tract infections, with her most recent previous isolated organism Proteus mirabilis, susceptible to cefepime. History of recurrent urinary tract infections, previous isolated organism Proteus mirabilis Possible new onset atrial fibrillation with rapid ventricular rate, anticoagulated on Eliquis History of cerebral palsy History of seizure disorder Hyperlipidemia Hypertension History of CVA History of left-sided weakness and gait abnormality Morbid obesity Plan: The patient was seen and evaluated Chest x-ray, labs and medications reviewed Right-sided pigtail catheter with minimal output Plan is for dornase/alteplase infusion again today Continued on cefepime and vancomycin Increase the use of the incentive spirometer Currently stable and on room air We will continue to follow I have personally seen and examined the patient, performed the documentation and the assessment and plan as written. Number of minutes spent on the visit: 10.
[2023-06-03] MEDS: HYDROcodone/APAP 7.5-325MG 1 EACH TAB PO PRN ×3 (11:12→23:24)
[2023-06-03] MEDS: ACETAMINOPHEN TAB 325 MG TAB PO PRN (14:58)
--- NOTE | 2023-06-03 19:27 | P.PN ---
Subjective Progress Note Date: 06/03/23 Patient evaluated today sitting up in chair. Indwelling catheter to be removed today, urology has signed off. Patient is status post percutaneous nephrostolithotomy and J nephrostomy tube placement on the right. The nephrostomy tube was subsequently discontinued on 05/21. She has remained in the hospital had interval development of pleural effusion, and fever with imaging revealing cholelisthiasis, moderate right and small left pleural effusion, and mild right hydroureteronephrosis. Patient also developed atrial fibrillation postoperatively currently anticoagulated. Patient was evaluated by pulmonary and considered for thoracentesis which she had declined. She does continue at this point to report right sided pleuritic chest pain worse with deep inspiration and she has developed fever. She has had persistent proteus UTI and completed course of antibiotics for this with most recent urine culture from 05/24 this admission showing negative urine culture and negative blood cultures. 05/29/2023 Patient evaluated today resting in bed. Continues to report right sided chest pain. Had chest CT done showing right-sided pleural effusion with underlying atelectasis and or infiltrate appears essentially unchanged. Improved effusion left lung base. Right sided retroperitoneal collection is again noted and smaller in size. AST/ALT remain elevated. Sodium 134, BUN 13.7, creatinine 0.6. ID following patient on IV cefepime and IV vancomycin. Blood cultures showing gram postive cocci/coag negative staph x 2 which is likely contaminent species however blood culture will be repeated. T-Max 101.1 overnight. 05/30/2023 Patient is evaluated today sitting up in bed. Has had episode of diarrhea relat ed to IBS requesting imodium which has been ordered since the she has also been placed on questran. ID following for continued fevers. Blood culture showing coagulase negative staph which has been repeated and pending. Likely a contaminant. Remains on IV cefepime and IV vancomycin. AST/ALT remain elevated with abdominal CT revealing gallstones patient states she has had these for many years. Procalcitonin level is elevated at 0.47. IR consulted with plans for thoracentesis today with cytology for the large right sided pleural effusion. Sodium today 132. White count has improved to 8.92. T-max overnight 100.3. 05/31/2023 Patient is evaluated today sitting up in bed. Underwent pigtail catheter placement yesterday with IR. Had over 600 mls output bloody/serosanguineous Cytology is currently pending at this time. Patient had follow up chest xray showing improvement in the pleural-parenchymal opacity. Evidence of air leak. No pneumothorax noted. Remains on IV vancomycin and IV cefepime. Blood culture showing staph hominus likely a contaminent species and repeat blood cultures are pending. ID following. Labs today showing sodium 140, potassium 2.9, BUN 10, creatinine 0.37, calcium 5.8. Continue with bladder scan Q6h to monitor for urinary retention. 06/01/2023 Patient sitting up in chair. Chest tube remains in place. Chest xray today with evidence of pneumothorax and there was an air leak noted from the chest tube site. Patient has no shortness of breath. Sodium 137, potassium 4.8, calcium 8.8. LFTs remain elevated. Continues on IV cefepime and IV vancomycin. 06/02/2023 Patient remains on medical floor with chest tube in place. Follow-up chest x- ray today reveals right thoracotomy tube with small right pleural effusion and small trace right pneumothorax. Cardiothoracic has evaluated this patient recommending to instill a dose of alteplase and dornase today. Having low-grade fevers of 99.3. She continues on room air at this time. Is on combination of IV cefepime and IV vancomycin with cytology from the chest tube placement pending. Labs today show improved potassium of 4.4. 06/03/2023 Patient is evaluated today continues with right sided chest tube. Will get dornase and alteplase infusion again today. Repeat blood culture remains negative. Pleural fluid culture pending. Sodium 138, potassium 4.8, BUN 14, creatinine 0.55. LFTs remain elevated. Pathology pending. Recommend to continue monitoring for urinary retention with bladder scans. Remains on IV cefepime and IV vancomycin at this time. Review of Systems Constitutional: Denied any fatigue denied any fever. Cardio vascular: denied any chest pain, palpitations Gastrointestinal: denied any nausea, vomiting, diarrhea Pulmonary: Reports improvement in shortness of breath. Neurologic denied any new focal deficits All inpatient medications were reviewed and appropriate changes in these m edications as dictated in the interval history and assessment and plan. PHYSICAL EXAMINATION: GENERAL: The patient is alert and oriented x3, not in any acute distress. Well developed, well nourished. HEENT: Pupils are round and equally reacting to light. EOMI. No scleral icterus. No conjunctival pallor. Normocephalic, atraumatic. No pharyngeal erythema. No thyromegaly. CARDIOVASCULAR: S1 and S2 present. No murmurs, rubs, or gallops. PULMONARY: Chest is diminished. Right midlung with diminished aeration. Chest tube in place. ABDOMEN: Soft, nontender, nondistended, normoactive bowel sounds. No palpable organomegaly. MUSCULOSKELETAL: No joint swelling or deformity. EXTREMITIES: No cyanosis, clubbing, or pedal edema. NEUROLOGICAL: Gross neurological examination did not reveal any focal deficits. Diffuse weakness. SKIN: No rashes. Pt has abdominal panus. Assessment and Plan -Nephrolisthiasis and obstructive uropathy status post cystoscopy, percutaneous nephrostolithotomy and J nephrostomy tube placement with removal. Remaining stones will be followed up with urology outpatient for further evaluation. IDC has been removed. Urology has signed off. Recommend to continue with bladder scan at this time to monitor for urinary retention. -Fever; ID will be consulted Blood cultures are pending, procalcitonin is elevated. Continues on IV cefepime and IV vancomycin. -Bacteremia gram positive on IV vancomycin and IV cefepime likely a contaminent species and repeat blood culture remains negative. -Chronic proteus urinary tract infection from infected stone and obstructive uropathy treated with course of antibiotics and most recent urine culture showing normal enzo. -Right sided pleural effusion Follow up chest CT redemonstrates pleural effusion. Chest ultrasound reveals 11.6 cm rigth pleural effusion pocket size which is noted to be complex with septations. IR has placed pigtail catheter. Fluid is bloody and exudative. Pending cytology. -Acute hypoxemic respiratory failure requiring 2 L oxygen via nasal cannula. Chest x-ray showed pulmonary vascular congestion, cardiomegaly and bilateral pleural effusion right greater than left. -New onset paroxysmal atrial fibrillation with RVR currently in sinus mechanism anticoagulated with eliquis on metoprolol TID. Patient continues on oral lasix daily. Follow up proBNP normal limits for age at 89 continues on oral lasix. -Hypertension -Dyslipidemia -Chronic medical debility follows with PACE -Morbid obesity -History of seizure disorder continue on keppra TID. -History of cerebral palsy, left-sided weakness and gait abnormality -History of stroke GI prophylaxis DVT prophylaxis On eliquis Full Code Patient has undergone pigtail catheter placement and continues to low intermittent suction with evidence of air leak. Follow up chest xray shows pneumothorax. Cardiothoracic was consulted patient will undergo dornase/alteplase into the chest tube today. Continue to monitor output.. Cytology pending. ID following on IV antibiotics and repeat blood culture is pending at this time. Follow up labs in AM. Recommend to monitor bladder scan Q6h as IDC has been removed. Continue on imodium and questran for loose stools. Continue to encourage incentive spirometer. Pulmonary following. The impression and plan of care has been dictated by Joseline Potter Nurse Practitioner as directed. Dr. Wolf MD I have performed a history and physical examination and medical decision making of this patient, discussed the same with the dictator, and agree with the dictators assessment and plan as written, documented as a scribe. Based on total visit time, I have performed more than 50% of this visit. Objective - Vital Signs Vital signs: Vital Signs Temp 98.0 F 06/03/23 07:30 Pulse 72 06/03/23 08:46 Resp 18 06/03/23 08:00 BP 99/65 06/03/23 07:30 Pulse Ox 94 L 06/03/23 07:30 FiO2 21 06/01/23 12:04 Intake & Output 06/02/23 06/03/23 06/03/23 18:59 06:59 18:59 Intake Total 236 Output Total 159 650 Balance 77 -650 Intake: Oral 236 Output: Urine 650 Post Void Residual 159 Other: Voiding Method Diaper Diaper Diaper Incontinent Incontinent Incontinent # Voids 1 2 2 # Bowel Movements 1 1 1 - Labs CBC & Chem 7: 06/01/23 14:46 06/03/23 05:49 Labs: Abnormal Lab Results - Last 24 Hours (Table) 06/03/23 Range/Units 05:49 Chloride 111 H (98-107) mmol/L Carbon Dioxide 21 L (22-30) mmol/L AST 46 H (14-36) U/L ALT 53 H (4-34) U/L Total Protein 5.7 L (6.3-8.2) g/dL Albumin 2.5 L (3.5-5.0) g/dL Microbiology - Last 24 Hours (Table) 05/30/23 14:50 Gram Stain - Preliminary Pleural Fluid Body Fluid Culture - Preliminary Assessment and Plan Time with Patient: Less than 30
[2023-06-03] MEDS: ATORVASTATIN 10 MG TAB PO SCH (21:42)
--- NOTE | 2023-06-04 08:42 | XR ---
EXAMINATION TYPE: XR chest 1V portable DATE OF EXAM: 06/04/2023 COMPARISON: 06/03/2023 INDICATION: Loculated effusion TECHNIQUE: Single frontal view of the chest is obtained. FINDINGS: The heart size is normal. The pulmonary vasculature is normal. The lungs are clear. The drainage catheter remains in the right costophrenic angle. Loculated pneumothorax may be present. The fluid appears diminished. IMPRESSION: 1. Persistent loculation right costophrenic angle. Small pneumothorax residual effusion may be presen t with drainage catheter present.
[2023-06-04] MEDS: IPRATROPIUM-ALBUTEROL 3 ML NEB INHALATION SCH ×4 (09:02→20:44)
[2023-06-04 09:04] LABS: Basophils # (A) 0.03 X 10*3/uL (0.00-0.10); Basophils % (A) 0.4 %; Eosinophils # (A) 0.18 X 10*3/uL (0.04-0.35); Eosinophils % (A) 2.6 %; HCT 25.1 % (37.2-46.3); HGB 7.6 g/dL (12.0-15.0); Lymphocytes # (A) 0.95 X 10*3/uL (0.90-5.00); Lymphocytes % (A) 13.8 %; MCH 30.4 pg (27.0-32.0); MCHC 30.3 g/dL (32.0-37.0); MCV 100.4 FL (80.0-97.0); Mean Platelet Volume 9.9 FL (9.5-12.2); Monocytes # (A) 0.59 X 10*3/uL (0.20-1.00); Monocytes % (A) 8.6 %; NRBC Per 100 WBC 0 X 10*3/uL (0.00-0.01); Neutrophils % (A) 72.9 %; Platelet Count 434 X 10*3/uL (140-440); WBC 6.87 X 10*3/uL (4.50-10.00)
[2023-06-04 09:33] LABS: Calcium 8.3 mg/dL (8.7-10.3); Carbon Dioxide 22.7 mmol/L (21.6-31.8); Chloride 110 mmol/L (96-109); Glucose 88 mg/dL (70-110); Sodium 141 mmol/L (135-145)
[2023-06-04] MEDS: oxyBUTYnin chloride 5 MG TAB PO SCH ×3 (09:50→17:38)
[2023-06-04] MEDS: APIXABAN 5 MG TAB PO SCH ×2 (09:50→19:53)
[2023-06-04] MEDS: METOPROLOL TARTRATE 50 MG TAB PO SCH ×3 (09:50→19:53)
[2023-06-04] MEDS: MULTIVITAMINS, THERA 1 EACH TAB PO SCH (09:50)
[2023-06-04] MEDS: POTASSIUM CHLORIDE ER 20 MEQ TAB.ER PO SCH (09:50)
[2023-06-04] MEDS: levETIRAcetam 500 MG TAB PO SCH ×3 (09:50→19:53)
[2023-06-04] MEDS: HYDROCORTISONE 1% CREAM 30 GM TUBE TOPICAL SCH ×2 (09:51→19:54)
[2023-06-04] MEDS: ESCITALOPRAM 20 MG TAB PO SCH (09:51)
[2023-06-04] MEDS: methocarbamoL 750 MG TAB PO SCH ×3 (09:51→19:53)
[2023-06-04] MEDS: CEFEPIME 2 GM in SODIUM CHLORIDE 0.9% 100 ML IVPB SCH ×3 (09:52→23:32)
[2023-06-04] MEDS: FLUTICASONE 50MCG/SPRAY NASAL 16GM NASAL SCH ×2 (09:53→19:54)
[2023-06-04] MEDS: CALCIUM CARBONATE 500 MG CHEWABLE PO PRN ×3 (10:11→19:52)
--- NOTE | 2023-06-04 12:47 | P.PN ---
Subjective Progress Note Date: 06/04/23 I am seeing this patient in consultation today 05/23/2023 for a moderate size right pleural effusion. Patient is a 67-year-old white female with extensive past medical history significant for cerebral palsy, seizure disorder, CVA, hyperlipidemia, hypertension, pulmonary embolus, among other things. She has recurrent urinary tract infections with Proteus mirabilis and infected right- sided renal calculus. She was brought in for elective right-sided percutaneous nephrostolithotomy and placement of a J nephrostomy tube on May 17. No immediate perioperative complications reported. 2 days ago, she went atrial fibrillation with ventricular rate. She was transferred to the cardiac stepdown unit. Temporarily on cardizem infusion, which is discontinued. Patient self denies any history of atrial fibrillation. Chest x-ray showed cardiomegaly, pulmonary vascular Congestion, and bilateral pleural effusions. She does receive Lasix 40 mg by mouth every morning and Aldactone. Repeat chest x-ray yesterday morning continues to show a moderate size right pleural effusion. Patient is currently resting in bed, on 2 L/m nasal cannula, in no acute distress. Patient is a poor historian. She reportedly lives independently in an apartment with PACE assistance. She is oriented to self and time. She is crying. She is febrile and diaphoretic. She remains in atrial fibrillation with RVR. Heart rate averaging 100-120 bpm. BP is normotensive. She is anticoagulated on Eliquis. She is empirically covered on cefepime for her previous Proteus urinary infection. She has a indwelling urinary catheter draining an adequate amount of shanique colored urine. Follow-up abdominal CT done yesterday june bruce posttreatment changes to the right kidney with perinephric probable hematoma and focus of gas measuring 8.4 x 4.3 x 7.7 cm. There is mild right hydroureteronephrosis which could be reactive inflammation and blood products on the right kidney. There is persistent right nephric calcification measuring 9 mm. There is moderate right and small left pleural effusions. And cholelithiasis without cholecystitis. The moderate right and small left pleural effusions were again noted. There is associated atelectasis. No focal consolidations. Most recent CBC from yesterday shows a WBC count 11.7, hemoglobin 10.5, hematocrit 30.5, platelets 139. Sodium 133, potassium 2.8, chloride 97, serum bicarb 25, UN 18, creatinine 0.65, glucose 99. Potassium is being replaced. Patient is being monitored on the cardiac stepdown unit. On today's evaluation of 05/24/2023, no interval worsening the patient was started status. The patient is currently stable. The patient is on 2 L of oxygen by nasal cannula. Producing adequate urine output. BUN is at 80 with a creatinine of 0.4 and sodium levels of 131. The white cell count of 8.4 with a hemoglobin of 9.9. The patient remains on IV cefepime. Respiratory medications are unchanged and the patient continues to be on anticoagulation with Eliquis. on 05/25/2023, I'm seeing the patient for a follow-up.Repeat chest x-ray was done and the patient continues to have a persistent right lower lobe atelectasis of the right-sided pleural effusion. The patient remains off anticoagulation. I'm considering a thoracentesis if the patient becomes more symptomatic. Otherwise, condition is stable for now. She remains on oxygen 2 L/m nasal can nula. No significant respiratory distress or the time being. The white cell count of 8.3 with a hemoglobin of 10.3 and the platelet count of 265. BUN is at 60 with a creatinine of 0.39 and a sodium level is at 133. Remains on antibiotics and the patient is still on IV cefepime. She is also on Lasix 40 mg by mouth daily. The rest of the medications unchanged. Remains on Aldactone 25 mg by mouth daily. On 05/26/2023, no new complaints and the patient's condition is stable. No respiratory difficulties. The patient remains on oxygen at 2 L with a pulse ox of 96%. The rest of the labs show sodium level of 132, potassium level of 3.8, BUN is at 40 with a creatinine of 0.4. The basic concept and 0.5 with a hemoglobin of 10.3. The patient is seen today 05/30/2023 in follow-up. We had signed off on this patient and she had initially declined any thoracentesis regarding the right p leural effusion. Primary states that now she is willing to have the procedure done. 2-D scan of the chest from 05/28/2023 revealed a right-sided pleural effusion with underlying atelectasis and/or infiltrate. Improved effusion on the left lung base. There is a right-sided retroperitoneal collection again noted. Ultrasound of the right chest was ordered and did reveal an 11.6 cm pocket however this was a complex fluid pocket with multiple septations. Currently resting fairly comfortably in bed. Awake and alert in no acute distress. Maintaining O2 saturations in the 90s on room air. She did have a T- max of 100.3 last evening. Currently afebrile. Blood cultures had revealed coag-negative staph. Urine culture revealed no growth. White count 8.9. Hemoglobin 8.3. Platelets 314. Sodium 132. Potassium 3.8. Bicarb 26. BUN 13. Creatinine 0.52. Glucose 98. Pro-calcitonin from 05/28/2023 was 0.47. She is continued on DuoNeb inhalations. Antibiotics in the form of vancomycin and cefepime. Eliquis currently on hold. The patient is seen today 05/31/2023 in follow-up on the regular medical floor. She is currently resting comfortably in bed. Awake and alert in no acute d istress. Maintaining O2 saturations in the 90s on room air. She did receive a right-sided pigtail catheter placement yesterday per interventional radiology with approximately 600 ML's of bloody return. There is a positive leak. Currently to Pleur-evac and wall suction. Cultures and cytology pending. She remains on vancomycin and cefepime. This has been resumed. She remains on bronchodilators. She'll be educated regarding the use of the incentive spirometer. The patient is seen today 06/01/2023 in follow-up on the regular medical floor. She is resting comfortably in bed. Awake and alert in no acute distress. She is maintaining O2 saturations in the 90s on room air. Right-sided pigtail catheter in place. Remains to Pleur-evac and wall suction. No leak noted. Blood cultures positive for staph hominis. Pleural fluid cultures revealing no growth. She remains on vancomycin and cefepime. She remains on bronchodilators. Working with the incentive spirometer. The patient is seen today 06/02/2023 in follow-up on the regular medical floor. She is awake and alert in no acute distress. Resting in bed. Maintaining O2 saturations in the 90s on room air. Pigtail chest tube remains in place on the right. No significant output overnight. Chest x-ray reveals a small right pleural effusion with small trace right pneumothorax. No change compared to previous. Blood cultures were positive for staph hominis. Pleural fluid cultures revealing no growth. Follow-up blood culture revealing no growth. Sodium 137. Potassium 4.4. Bicarb 21. BUN 12. Creatinine 0.44. She remains on cefepime. Anticoagulated with Eliquis. The patient is seen today 06/03/2023 in follow-up on the regular medical floor. She is resting comfortably in bed. Awake and alert in no acute distress. She is maintaining good O2 saturations in the 90s on room air. Right-sided chest tube remains in place. Chest x-ray continues to show small right pleural effusion and small to trace right pneumothorax. Similar findings. Lytics were installed yesterday however the clamp was not released so there is no significant drainage from her effusion. The plan is for repeat instillations of lytics today and to be unclamped 1-2 hours afterwards. Initial blood cultures positive for staph hominis. Follow-up blood cultures revealing no growth. Pleural fluid culture pending. Sodium 130. Potassium 4.8. Bicarb 21. BUN 14. Creatinine 0.55. Calcium 8.7. She is continued on cefepime and vancomycin. Remains on DuoNeb inhalations. Eliquis for anticoagulation. The patient is seen today 06/04/2023 in follow-up on the regular medical floor. She is currently resting comfortably in bed. Awake and alert in no acute distress. She is currently resting comfortably in bed. Awake and alert in no acute distress. Maintaining O2 saturations in the 90s on room air. Afebrile. Hemodynamically stable. X-ray continues to show persistent loculation in the right costophrenic angle. Small minimal thorax residual effusion may be present with drainage catheter present. White count 6.8. Hemoglobin 7.6. Platelets 434. Sodium 141. Potassium 4.0. Bicarb 23. BUN 12. Creatinine 0.6. Right- sided pigtail catheter remains in place to wall suction. No significant output. Initial blood cultures were positive for staph hominis. Follow-up blood cultures revealed no growth. Pleural fluid culture revealed no growth. She is continued on vancomycin and cefepime. Objective - Vital Signs Vital signs: Vital Signs Temp 98.6 F 06/04/23 08:00 Pulse 76 06/04/23 09:16 Resp 16 06/04/23 08:00 BP 107/68 06/04/23 08:00 Pulse Ox 94 L 06/04/23 08:00 FiO2 21 06/01/23 12:04 Intake & Output 06/03/23 06/04/23 06/04/23 18:59 06:59 18:59 Intake Total 240 240 Output Total 650 Balance -410 240 Intake: Oral 240 240 Output: Urine 650 Other: Voiding Method Diaper Diaper Diaper Incontinent Incontinent Incontinent # Voids 7 2 2 # Bowel Movements 1 - Exam GENERAL EXAM: Alert, 67-year-old female, resting comfortably in bed, on room air, in no acute distress. HEAD: Normocephalic and atraumatic EYES: Normal reaction of pupils, equal size. NOSE: Clear with pink turbinates. THROAT: No erythema or exudates. NECK: No masses, no JVD. CHEST: No chest wall deformity. Right sided pigtail catheter and placed to Pleur-evac and wall suction. LUNGS: Equal air entry with crackles, few scattered rhonchi, diminished in the right lung base. CVS: S1 and S2 normal with no audible murmur, irregular rhythm. No extra heart sounds. ABDOMEN: No hepatosplenomegaly, active bowel sounds, no guarding or rigidity. SPINE: No scoliosis or deformity. Percutaneous site right inferior back, dressed with gauze. No shadowing. SKIN: Bilateral lower extremity chronic venous changes. CENTRAL NERVOUS SYSTEM: There appears to be left-sided hemiparesis. She is oriented to self and place. EXTREMITIES: There is no peripheral edema, clubbing, or cyanosis. Peripheral pulses are intact. - Labs CBC & Chem 7: 06/04/23 05:38 06/04/23 05:38 Labs: Abnormal Lab Results - Last 24 Hours (Table) 06/04/23 06/04/23 Range/Units 05:38 05:38 RBC 2.50 L (4.10-5.20) X 10*6/uL Hgb 7.6 L (12.0-15.0) g/dL Hct 25.1 L (37.2-46.3) % MCV 100.4 H (80.0-97.0) FL MCHC 30.3 L (32.0-37.0) g/dL Immature Gran # 0.12 H (0.00-0.04) X 10*3/uL Chloride 110 H (96-109) mmol/L Calcium 8.3 L (8.7-10.3) mg/dL Microbiology - Last 24 Hours (Table) 05/30/23 14:50 Gram Stain - Final Pleural Fluid Body Fluid Culture - Final 05/29/23 11:22 Blood Culture - Final Blood Assessment and Plan Assessment: Acute hypoxemic respiratory failure, on 2 L/m nasal cannula, likely related to exacerbation of congestive heart failure, unknown systolic or diastolic type. Chest x-ray shows cardiomegaly with pulmonary vascular congestion and bilateral pleural effusions, right greater than left.patient had a follow-up chest x-ray that shows a persistent right-sided pleural effusion. Ultrasound of the right chest reveals an 11.6 cm pocket however this is a complex effusion with multiple septations. Right-sided pigtail catheter placed 05/30/2023 with 600 ML's of b loody returned initially. Fluid exudative with protein greater than 3.6 and LDH of 1211. Cytology pending. Bacteremia with staph hominis, treated with vancomycin and cefepime Recurrent urinary tract infections and infected right renal calculi status post cystoscopy, percutaneous nephrostolithotomy and placement of a right J nephrostomy tube on 05/17/23. Follow-up CAT scan of the chest and abdomen was noted. The patient has posttreatment changes in the right kidney along with perinephric probable hematoma and the focus of a gas. This is probably inflammatory in nature. At the same time, the patient has not mild right hydroureteronephrosis and a small right-sided pleural effusion is small left- sided pleural effusion along with cholelithiasis. Patient is status post cystoscopy and percutaneous nephrostolithotomy and placement of right IJ nephrostomy tube on 05/17/2023. Patient is currently covered on cefepime for history of recurrent urinary tract infections, with her most recent previous isolated organism Proteus mirabilis, susceptible to cefepime. History of recurrent urinary tract infections, previous isolated organism Proteus mirabilis Possible new onset atrial fibrillation with rapid ventricular rate, anticoagulated on Eliquis History of cerebral palsy History of seizure disorder Hyperlipidemia Hypertension History of CVA History of left-sided weakness and gait abnormality Morbid obesity Plan: The patient was seen and evaluated Chest x-ray, labs and medications reviewed Right-sided pigtail catheter remains in place Received lytics 2 with minimal output returned Plan is to have interventional radiology remove the pigtail catheter Increase the use of the incentive spirometer We will continue to follow This patient was seen independently by the pulmonary nurse practitioner and provided the medical decision making listed under plan I have personally seen and examined the patient, performed the documentation and the assessment and plan as written. Number of minutes spent on the visit: 24.
--- NOTE | 2023-06-04 14:21 | P.PN ---
Subjective Progress Note Date: 06/04/23 Principal diagnosis: Loculated right-sided pleural effusion status post pigtail catheter placement, fever, leukocytosis, bacteremia with staph, recurrent urinary tract infections s tatus post elective cystoscopy with percutaneous nephrostomy and percutaneous nephrostolithotomy ultrasound on the right, new onset A. fib RVR. History of chronic heart failure, hypertension, hyperlipidemia, multiple strokes, COPD, seizure disorder, cerebral palsy, pulmonary embolism as well as DVT not on anticoagulation outpatient, medical debility The patient was seen and examined sitting up in a recliner on the medical oncology unit in no acute distress. Remains on room air. Right sided pigtail catheter in place, lytics instilled again yesterday, very minmal drainage return. Chest x-ray reviewed. Pleural fluid Gram stain negative. Remains on cefepime and vancomycin with blood cultures positive for staph. No other new concerns. Objective - Vital Signs Vital signs: Vital Signs Temp 98.6 F 06/04/23 08:00 Pulse 76 06/04/23 09:16 Resp 16 06/04/23 08:00 BP 107/68 06/04/23 08:00 Pulse Ox 94 L 06/04/23 08:00 FiO2 21 06/01/23 12:04 Intake & Output 06/03/23 06/04/23 06/04/23 18:59 06:59 18:59 Intake Total 240 240 Output Total 650 Balance -410 240 Intake: Oral 240 240 Output: Urine 650 Other: Voiding Method Diaper Diaper Diaper Incontinent Incontinent Incontinent # Voids 7 2 4 # Bowel Movements 1 - Exam CONSTITUTIONAL: Appears comfortable, cooperative, no acute distress RESPIRATORY: Lungs sounds diminished in the right. Respirations even, nonlabored. Currently on room air with oxygen saturation 94%. Able to achieve 500 mL on incentive spirometry. Strong cough. CARDIOVASCULAR: S1, S2 present. Regular rate and rhythm, sinus rhythm on telemetry. Palpable peripheral pulses bilaterally. Lateral lower extremity edema present. No calf pain or tenderness noted GASTROINTESTINAL: Abdomen soft, nontender, nondistended, obese. Active bowel sounds present 4 quadrants. Tolerating diet GENITOURINARY: Continues to void, incontinent, wears briefs INTEGUMENTARY: Skin is warm, lower extremity venous insufficiency discoloration present NEUROLOGIC: Cranial nerves II through XII intact MUSKULOSKELETAL: Able to move all extremities, strength equal bilaterally, generalized weakness present PSYCHIATRIC: Alert and oriented to person place and time INVASIVE LINES AND TUBES: Right-sided pigtail present to continuous wall suction, minimal drainage currently present - Allied health notes Allied health notes reviewed: nursing - Labs CBC & Chem 7: 06/04/23 05:38 06/04/23 05:38 Labs: Abnormal Lab Results - Last 24 Hours (Table) 06/04/23 06/04/23 Range/Units 05:38 05:38 RBC 2.50 L (4.10-5.20) X 10*6/uL Hgb 7.6 L (12.0-15.0) g/dL Hct 25.1 L (37.2-46.3) % MCV 100.4 H (80.0-97.0) FL MCHC 30.3 L (32.0-37.0) g/dL Immature Gran # 0.12 H (0.00-0.04) X 10*3/uL Chloride 110 H (96-109) mmol/L Calcium 8.3 L (8.7-10.3) mg/dL Microbiology - Last 24 Hours (Table) 05/30/23 14:50 Gram Stain - Final Pleural Fluid Body Fluid Culture - Final 05/29/23 11:22 Blood Culture - Final Blood - Imaging and Cardiology Chest x-ray: report reviewed, image reviewed Assessment and Plan Assessment: Loculated right-sided pleural effusion status post pigtail catheter placement Fever, leukocytosis, bacteremia with staph Recurrent urinary tract infections status post elective cystoscopy with percutaneous nephrostomy and percutaneous nephrostolithotomy ultrasound on the right New onset A. fib RVR, currently on Eliquis for anticoagulation History of chronic heart failure History of hypertension Hyperlipidemia History of multiple strokes COPD, currently on room air Seizure disorder Cerebral palsy Pulmonary embolism as well as DVT not on anticoagulation outpatient Medical debility Plan: Recommend discontinuing pigtail catheter as it is not draining anything significant Encourage incentive spirometry use Increase activity as tolerated Antibiotics per infectious disease We'll monitor daily x-rays No surgical intervention planned Medical management of other comorbidities per internal medicine, pulmonology, infectious disease, cardiology More recommendations to follow
[2023-06-04] MEDS ORDERED: VANCOMYCIN 1,500 MG in SODIUM CHLORIDE 0.9% 500 ML 500 ML IVPB SCH (15:00)
[2023-06-04] MEDS: ACETAMINOPHEN TAB 325 MG TAB PO PRN (19:29)
[2023-06-04] MEDS: ATORVASTATIN 10 MG TAB PO SCH (19:54)
[2023-06-04] MEDS: HYDROcodone/APAP 7.5-325MG 1 EACH TAB PO PRN (21:33)
--- NOTE | 2023-06-04 22:47 | P.PN ---
Subjective Progress Note Date: 06/04/23 Patient evaluated today sitting up in chair. Indwelling catheter to be removed today, urology has signed off. Patient is status post percutaneous nephrostolithotomy and J nephrostomy tube placement on the right. The nephrostomy tube was subsequently discontinued on 05/21. She has remained in the hospital had interval development of pleural effusion, and fever with imaging revealing cholelisthiasis, moderate right and small left pleural effusion, and mild right hydroureteronephrosis. Patient also developed atrial fibrillation postoperatively currently anticoagulated. Patient was evaluated by pulmonary and considered for thoracentesis which she had declined. She does continue at this point to report right sided pleuritic chest pain worse with deep inspiration and she has developed fever. She has had persistent proteus UTI and completed course of antibiotics for this with most recent urine culture from 05/24 this admission showing negative urine culture and negative blood cultures. 05/29/2023 Patient evaluated today resting in bed. Continues to report right sided chest pain. Had chest CT done showing right-sided pleural effusion with underlying atelectasis and or infiltrate appears essentially unchanged. Improved effusion left lung base. Right sided retroperitoneal collection is again noted and smaller in size. AST/ALT remain elevated. Sodium 134, BUN 13.7, creatinine 0.6. ID following patient on IV cefepime and IV vancomycin. Blood cultures showing gram postive cocci/coag negative staph x 2 which is likely contaminent species however blood culture will be repeated. T-Max 101.1 overnight. 05/30/2023 Patient is evaluated today sitting up in bed. Has had episode of diarrhea relat ed to IBS requesting imodium which has been ordered since the she has also been placed on questran. ID following for continued fevers. Blood culture showing coagulase negative staph which has been repeated and pending. Likely a contaminant. Remains on IV cefepime and IV vancomycin. AST/ALT remain elevated with abdominal CT revealing gallstones patient states she has had these for many years. Procalcitonin level is elevated at 0.47. IR consulted with plans for thoracentesis today with cytology for the large right sided pleural effusion. Sodium today 132. White count has improved to 8.92. T-max overnight 100.3. 05/31/2023 Patient is evaluated today sitting up in bed. Underwent pigtail catheter placement yesterday with IR. Had over 600 mls output bloody/serosanguineous Cytology is currently pending at this time. Patient had follow up chest xray showing improvement in the pleural-parenchymal opacity. Evidence of air leak. No pneumothorax noted. Remains on IV vancomycin and IV cefepime. Blood culture showing staph hominus likely a contaminent species and repeat blood cultures are pending. ID following. Labs today showing sodium 140, potassium 2.9, BUN 10, creatinine 0.37, calcium 5.8. Continue with bladder scan Q6h to monitor for urinary retention. 06/01/2023 Patient sitting up in chair. Chest tube remains in place. Chest xray today with evidence of pneumothorax and there was an air leak noted from the chest tube site. Patient has no shortness of breath. Sodium 137, potassium 4.8, calcium 8.8. LFTs remain elevated. Continues on IV cefepime and IV vancomycin. 06/02/2023 Patient remains on medical floor with chest tube in place. Follow-up chest x- ray today reveals right thoracotomy tube with small right pleural effusion and small trace right pneumothorax. Cardiothoracic has evaluated this patient recommending to instill a dose of alteplase and dornase today. Having low-grade fevers of 99.3. She continues on room air at this time. Is on combination of IV cefepime and IV vancomycin with cytology from the chest tube placement pending. Labs today show improved potassium of 4.4. 06/03/2023 Patient is evaluated today continues with right sided chest tube. Will get dornase and alteplase infusion again today. Repeat blood culture remains negative. Pleural fluid culture pending. Sodium 138, potassium 4.8, BUN 14, creatinine 0.55. LFTs remain elevated. Pathology pending. Recommend to continue monitoring for urinary retention with bladder scans. Remains on IV cefepime and IV vancomycin at this time. 06/04/2023 Patient evaluated today on the medical floor sitting up in the chair. Having some intermittent episodes shortness of breath the right sided pigtail catheter remains with minimal output there is 30 mL in the atrium. Chest xray today shows persistent loculation right costophrenic angle. Small pneumothorax residual effusion may be present. Review of Systems Constitutional: Denied any fatigue denied any fever. Cardio vascular: denied any chest pain, palpitations Gastrointestinal: denied any nausea, vomiting, diarrhea Pulmonary: Reports improvement in shortness of breath. Neurologic denied any new focal deficits All inpatient medications were reviewed and appropriate changes in these medications as dictated in the interval history and assessment and plan. PHYSICAL EXAMINATION: GENERAL: The patient is alert and oriented x3, not in any acute distress. Well developed, well nourished. HEENT: Pupils are round and equally reacting to light. EOMI. No scleral icterus. No conjunctival pallor. Normocephalic, atraumatic. No pharyngeal erythema. No thyromegaly. CARDIOVASCULAR: S1 and S2 present. No murmurs, rubs, or gallops. PULMONARY: Chest is diminished. Right midlung with diminished aeration. Chest tube in place. ABDOMEN: Soft, nontender, nondistended, normoactive bowel sounds. No palpable organomegaly. MUSCULOSKELETAL: No joint swelling or deformity. EXTREMITIES: No cyanosis, clubbing, or pedal edema. NEUROLOGICAL: Gross neurological examination did not reveal any focal deficits. Diffuse weakness. SKIN: No rashes. Pt has abdominal panus. Assessment and Plan -Nephrolisthiasis and obstructive uropathy status post cystoscopy, percutaneous nephrostolithotomy and J nephrostomy tube placement with removal. Remaining stones will be followed up with urology outpatient for further evaluation. IDC has been removed. Urology has signed off. Recommend to continue with bladder scan at this time to monitor for urinary retention. -Bacteremia with staphylococcus epidermidis and hominis on IV vancomycin and IV cefepime likely a contaminent species and repeat blood culture remains negative. ID is following. -Chronic proteus urinary tract infection from infected stone and obstructive uropathy treated with course of antibiotics and most recent urine culture showing normal enzo. -Right sided pleural effusion, loculated with Chest tube in place with minimal drainage -Acute hypoxemic respiratory failure requiring 2 L oxygen via nasal cannula. Chest x-ray showed pulmonary vascular congestion, cardiomegaly and bilateral pleural effusion right greater than left. -New onset paroxysmal atrial fibrillation with RVR currently in sinus mechanism anticoagulated with eliquis on metoprolol TID. Patient continues on oral lasix daily. Follow up proBNP normal limits for age at 89 continues on oral lasix. -Hypertension -Dyslipidemia -Chronic medical debility follows with [facility] -Morbid obesity -History of seizure disorder continue on keppra TID. -History of cerebral palsy, left-sided weakness and gait abnormality -History of stroke GI prophylaxis DVT prophylaxis On eliquis Full Code Patient has undergone pigtail catheter placement and continues to low intermittent suction with evidence of air leak. Follow up chest xray shows pneumothorax. Cardiothoracic was consulted patient and patient had instillation of alteplase and dornase with minimal drainage, pigtail cathter recommending to be removed and monitor chest xray. Continue to monitor output.. Cytology pending. ID following on IV antibiotics and repeat blood culture is pending at this time. Follow up labs in AM. Recommend to monitor bladder scan Q6h as IDC has been removed. Continue on imodium and questran for loose stools. Continue to encourage incentive spirometer. Pulmonary following. The impression and plan of care has been dictated by Joseline Potter, Nurse Practitioner as directed. Dr. Wolf MD I have performed a history and physical examination and medical decision making of this patient, discussed the same with the dictator, and agree with the dictators assessment and plan as written, documented as a scribe. Based on total visit time, I have performed more than 50% of this visit. Objective - Vital Signs Vital signs: Vital Signs Temp 99.5 F 06/04/23 20:00 Pulse 70 06/04/23 20:00 Resp 16 06/04/23 20:00 BP 99/65 06/04/23 20:00 Pulse Ox 97 06/04/23 20:00 FiO2 21 06/01/23 12:04 Intake & Output 06/04/23 06/04/23 06/05/23 06:59 18:59 06:59 Intake Total 900 Balance 900 Intake: Oral 900 Other: Voiding Method Diaper Toilet Incontinent Diaper # Voids 2 4 - Labs CBC & Chem 7: 06/04/23 05:38 06/04/23 05:38 Labs: Abnormal Lab Results - Last 24 Hours (Table) 06/04/23 06/04/23 Range/Units 05:38 05:38 RBC 2.50 L (4.10-5.20) X 10*6/uL Hgb 7.6 L (12.0-15.0) g/dL Hct 25.1 L (37.2-46.3) % MCV 100.4 H (80.0-97.0) FL MCHC 30.3 L (32.0-37.0) g/dL Immature Gran # 0.12 H (0.00-0.04) X 10*3/uL Chloride 110 H (96-109) mmol/L Calcium 8.3 L (8.7-10.3) mg/dL Microbiology - Last 24 Hours (Table) 05/30/23 14:50 Gram Stain - Final Pleural Fluid Body Fluid Culture - Final Assessment and Plan Time with Patient: Less than 30
--- NOTE | 2023-06-04 23:37 | P.PN ---
Subjective Progress Note Date: 06/03/23 Principal diagnosis: Reason for follow-up is fever and bacteremia Patient is a 67-year-old female with a past medical history significant for hypertension hyperlipidemia PE CVA TIA COPD heart failure patient presenting to the hospital on 05/16/2023 for elective treatment of partial right staghorn calculus in the right upper lobe, the patient is status post percutaneous nephrostomy and percutaneous nephrolithotomy patient did have a postop fever started on 05/18/2023 for which his infectious disease was consulted 05/28/2023,Patient is status post IR right-sided pigtail catheter placement on 05/30/2023, subsequentlyCT surgery has been consulted for installation of lytics as output from the chest Tube has decreased as of 06/02/2023 On today's evaluation that is 06/03/2023 the patient denies having any fever or any chills patient is breathing comfortably on room air patient denies any chest pain has decreased intensity. Denies significant cough or sputum production no nausea vomiting no abdominal pain no diarrhea. Patient did not have CBC done today her creatinine 0.55 pleural fluid cultures currently pending repeat blood culture negative Objective - Vital Signs Vital signs: Vital Signs Temp 98.0 F 06/03/23 07:30 Pulse 72 06/03/23 08:46 Resp 18 06/03/23 08:00 BP 99/65 06/03/23 07:30 Pulse Ox 94 L 06/03/23 07:30 FiO2 21 06/01/23 12:04 Intake & Output 06/02/23 06/03/23 06/03/23 18:59 06:59 18:59 Intake Total 236 Output Total 159 650 Balance 77 -650 Intake: Oral 236 Output: Urine 650 Post Void Residual 159 Other: Voiding Method Diaper Diaper Diaper Incontinent Incontinent Incontinent # Voids 1 2 2 # Bowel Movements 1 1 1 - Exam GENERAL DESCRIPTION: An elderly female up in the chair in no distress RESPIRATORY SYSTEM: Unlabored breathing , decreased breath sounds at the bases HEART: S1 S2 regular rate and rhythm , ABDOMEN: Soft , no tenderness EXTREMITIES: No edema feet - Labs CBC & Chem 7: 06/04/23 05:38 06/04/23 05:38 Labs: Abnormal Lab Results - Last 24 Hours (Table) 06/03/23 Range/Units 05:49 Chloride 111 H (98-107) mmol/L Carbon Dioxide 21 L (22-30) mmol/L AST 46 H (14-36) U/L ALT 53 H (4-34) U/L Total Protein 5.7 L (6.3-8.2) g/dL Albumin 2.5 L (3.5-5.0) g/dL Microbiology - Last 24 Hours (Table) 05/30/23 14:50 Gram Stain - Preliminary Pleural Fluid Body Fluid Culture - Preliminary Assessment and Plan (1) Postoperative hematoma Current Visit: No Status: Acute Code(s): WDA3920 - SNOMED Code(s): 594288554 (2) Pruritus due to inflammation Current Visit: No Status: Acute Code(s): L29.9 - PRURITUS, UNSPECIFIED SNOMED Code(s): 736454503 (3) Leukocytosis Current Visit: Yes Status: Acute Code(s): D72.829 - ELEVATED WHITE BLOOD CELL COUNT, UNSPECIFIED SNOMED Code(s): 710731113 (4) Pneumonia Current Visit: No Status: Acute Code(s): J18.9 - PNEUMONIA, UNSPECIFIED ORGANISM SNOMED Code(s): 448123233 Plan: 1patient with fever that has been going on for almost 10 days in this patient who is status post right percutaneous nephrostomy and percutaneous ne phrolithotomy for staghorn calculus that was completed on 05/17/2023 and the patient started spiking fever on 05/18/[address] abdominal pelvis did mention abnormality to the right kidney and concern for possible hematoma to the likely etiology underlying abscess less likely but not entirely excluded likely from enteric gram-negative pathogen versus a component of possible pneumonia 2-patient did have a positive blood culture with gram-positive cocci with a question of possible skin contamination versus true pathogen 3blood culture repeated on 05/29/2023 so far negative. 4patient status post chest tube placement on the right side with the fluid cultures currently pending , Patient did have resolution of the fever and the patient white count has normalized 5- Pt to continue vancomycin and cefepime while waiting for the culture to finalize and continue with supportive care Dictation was produced using [employer] dictation software. please excuse any grammatical, word or spelling errors.
--- NOTE | 2023-06-04 23:41 | P.PN ---
Subjective Progress Note Date: 06/04/23 Principal diagnosis: Reason for follow-up is fever and bacteremia Patient is a 67-year-old female with a past medical history significant for hypertension hyperlipidemia PE CVA TIA COPD heart failure patient presenting to the hospital on 05/16/2023 for elective treatment of partial right staghorn calculus in the right upper lobe, the patient is status post percutaneous nephrostomy and percutaneous nephrolithotomy patient did have a postop fever started on 05/18/2023 for which his infectious disease was consulted 05/28/2023,Patient is status post IR right-sided pigtail catheter placement on 05/30/2023, subsequentlyCT surgery has been consulted for installation of lytics as output from the chest Tube has decreased as of 06/02/2023 On today's evaluation that is 06/04/2023 the patient remains to be afebrile patient is breathing comfortably on room air and does not need any supplemental oxygen patient denies any chest pain has decreased intensity. Denies signi ficant cough or sputum production no nausea vomiting no abdominal pain no diarrhea. Patient mention output in the chest tube Patient did have a white count of 6.87, creatinine 0.6 cultures has been n egative so far chest x-ray however did shows persistent loculation right costophrenic angle small pneumothorax Objective - Vital Signs Vital signs: Vital Signs Temp 99.2 F 06/04/23 14:00 Pulse 65 06/04/23 14:00 Resp 16 06/04/23 14:00 BP 118/70 06/04/23 14:00 Pulse Ox 99 06/04/23 14:00 FiO2 21 06/01/23 12:04 Intake & Output 06/03/23 06/04/23 06/04/23 18:59 06:59 18:59 Intake Total 240 420 Output Total 650 Balance -410 420 Intake: Oral 240 420 Output: Urine 650 Other: Voiding Method Diaper Diaper Diaper Incontinent Incontinent Incontinent # Voids 7 2 4 # Bowel Movements 1 - Exam GENERAL DESCRIPTION: An elderly female up in the chair in no distress RESPIRATORY SYSTEM: Unlabored breathing , decreased breath sounds at the bases HEART: S1 S2 regular rate and rhythm , ABDOMEN: Soft , no tenderness EXTREMITIES: No edema feet - Labs CBC & Chem 7: 06/04/23 05:38 06/04/23 05:38 Labs: Abnormal Lab Results - Last 24 Hours (Table) 06/04/23 06/04/23 Range/Units 05:38 05:38 RBC 2.50 L (4.10-5.20) X 10*6/uL Hgb 7.6 L (12.0-15.0) g/dL Hct 25.1 L (37.2-46.3) % MCV 100.4 H (80.0-97.0) FL MCHC 30.3 L (32.0-37.0) g/dL Immature Gran # 0.12 H (0.00-0.04) X 10*3/uL Chloride 110 H (96-109) mmol/L Calcium 8.3 L (8.7-10.3) mg/dL Microbiology - Last 24 Hours (Table) 05/30/23 14:50 Gram Stain - Final Pleural Fluid Body Fluid Culture - Final 05/29/23 11:22 Blood Culture - Final Blood Assessment and Plan (1) Postoperative hematoma Current Visit: No Status: Acute Code(s): IUZ2604 - SNOMED Code(s): 402410923 (2) Pruritus due to inflammation Current Visit: No Status: Acute Code(s): L29.9 - PRURITUS, UNSPECIFIED SNOMED Code(s): 936129379 (3) Leukocytosis Current Visit: Yes Status: Acute Code(s): D72.829 - ELEVATED WHITE BLOOD CELL COUNT, UNSPECIFIED SNOMED Code(s): 051770493 (4) Pneumonia Current Visit: No Status: Acute Code(s): J18.9 - PNEUMONIA, UNSPECIFIED ORGANISM SNOMED Code(s): 576720944 Plan: 1patient with fever that has been going on for almost 10 days in this patient who is status post right percutaneous nephrostomy and percutaneous nephrolithotomy for staghorn calculus that was completed on 05/17/2023 and the patient started spiking fever on 05/18/[address] abdominal pelvis did mention abnormality to the right kidney and concern for possible hematoma to the likely etiology underlying abscess less likely but not entirely excluded likely from enteric gram-negative pathogen versus a component of possible pneumonia 2-patient did have a positive blood culture with Staph epi Which is likely skin contamination as the repeat blood culture has been negative and the pleural fluid culture has been negative. 3we will continue with the cefepime however discontinue vancomycin as no MRSA or coagulase-negative staph seen in the pleural fluid and monitor clinical course closely Dictation was produced using [employer] dictation software. please excuse any grammatical, word or spelling errors. Time with Patient: Less than 30
[2023-06-05] MEDS ORDERED: VANCOMYCIN TROUGH DUE 1 EACH MISC MISCELLANE ONE (06:00)
[2023-06-05] MEDS: IPRATROPIUM-ALBUTEROL 3 ML NEB INHALATION SCH ×4 (08:49→20:24)
[2023-06-05 09:04] LABS: African American GFR (CKD) >90 (>60 ml/min/1.73 sqM); Anion Gap 10 mmol/L; Blood Urea Nitrogen 11 mg/dL (7-17); Calcium 8.3 mg/dL (8.4-10.2); Carbon Dioxide 21 mmol/L (22-30); Chloride 109 mmol/L (98-107); Glucose 97 mg/dL (74-99); Non-African American GFR(CKD) >90 (>60 ml/min/1.73 sqM); Potassium 3.6 mmol/L (3.5-5.1); Sodium 140 mmol/L (137-145)
[2023-06-05] MEDS: methocarbamoL 750 MG TAB PO SCH ×3 (09:15→21:11)
[2023-06-05] MEDS: MULTIVITAMINS, THERA 1 EACH TAB PO SCH (09:16)
[2023-06-05] MEDS: APIXABAN 5 MG TAB PO SCH ×2 (09:16→21:10)
[2023-06-05] MEDS: FLUTICASONE 50MCG/SPRAY NASAL 16GM NASAL SCH ×2 (09:16→21:12)
[2023-06-05] MEDS: ESCITALOPRAM 20 MG TAB PO SCH (09:16)
[2023-06-05] MEDS: POTASSIUM CHLORIDE ER 20 MEQ TAB.ER PO SCH (09:16)
[2023-06-05] MEDS: METOPROLOL TARTRATE 50 MG TAB PO SCH ×4 (09:16→21:14)
[2023-06-05] MEDS: levETIRAcetam 500 MG TAB PO SCH ×3 (09:16→21:11)
[2023-06-05] MEDS: oxyBUTYnin chloride 5 MG TAB PO SCH ×3 (09:16→21:11)
[2023-06-05] MEDS: CEFEPIME 2 GM in SODIUM CHLORIDE 0.9% 100 ML IVPB SCH ×3 (09:17→23:45)
[2023-06-05] MEDS: HYDROCORTISONE 1% CREAM 30 GM TUBE TOPICAL SCH ×2 (09:24→21:12)
[2023-06-05 10:59] LABS: Basophils # (A) 0.04 X 10*3/uL (0.00-0.10); Basophils % (A) 0.5 %; Eosinophils # (A) 0.16 X 10*3/uL (0.04-0.35); Eosinophils % (A) 2.1 %; HGB 7.5 g/dL (12.0-15.0); Lymphocytes % (A) 13.4 %; MCH 30.5 pg (27.0-32.0); MCHC 31.3 g/dL (32.0-37.0); MCV 97.6 FL (80.0-97.0); Mean Platelet Volume 9.4 FL (9.5-12.2); Monocytes % (A) 6.7 %; NRBC Per 100 WBC 0 X 10*3/uL (0.00-0.01); Neutrophils # (A) 5.68 X 10*3/uL (1.80-7.70); Neutrophils % (A) 76.1 %; Platelet Count 402 X 10*3/uL (140-440); RBC 2.46 X 10*6/uL (4.10-5.20); RDW 13.1 % (11.5-14.5); WBC 7.47 X 10*3/uL (4.50-10.00)
--- NOTE | 2023-06-05 11:12 | P.PN ---
Subjective Progress Note Date: 06/05/23 I am seeing this patient in consultation today 05/23/2023 for a moderate size right pleural effusion. Patient is a 67-year-old white female with extensive past medical history significant for cerebral palsy, seizure disorder, CVA, hyperlipidemia, hypertension, pulmonary embolus, among other things. She has recurrent urinary tract infections with Proteus mirabilis and infected right- sided renal calculus. She was brought in for elective right-sided percutaneous nephrostolithotomy and placement of a J nephrostomy tube on May 17. No immediate perioperative complications reported. 2 days ago, she went atrial fibrillation with ventricular rate. She was transferred to the cardiac stepdown unit. Temporarily on cardizem infusion, which is discontinued. Patient self denies any history of atrial fibrillation. Chest x-ray showed cardiomegaly, pulmonary vascular Congestion, and bilateral pleural effusions. She does receive Lasix 40 mg by mouth every morning and Aldactone. Repeat chest x-ray yesterday morning continues to show a moderate size right pleural effusion. Patient is currently resting in bed, on 2 L/m nasal cannula, in no acute distress. Patient is a poor historian. She reportedly lives independently in an apartment with PACE assistance. She is oriented to self and time. She is crying. She is febrile and diaphoretic. She remains in atrial fibrillation with RVR. Heart rate averaging 100-120 bpm. BP is normotensive. She is anticoagulated on Eliquis. She is empirically covered on cefepime for her previous Proteus urinary infection. She has a indwelling urinary catheter draining an adequate amount of shanique colored urine. Follow-up abdominal CT done yesterday june bruce posttreatment changes to the right kidney with perinephric probable hematoma and focus of gas measuring 8.4 x 4.3 x 7.7 cm. There is mild right hydroureteronephrosis which could be reactive inflammation and blood products on the right kidney. There is persistent right nephric calcification measuring 9 mm. There is moderate right and small left pleural effusions. And cholelithiasis without cholecystitis. The moderate right and small left pleural effusions were again noted. There is associated atelectasis. No focal consolidations. Most recent CBC from yesterday shows a WBC count 11.7, hemoglobin 10.5, hematocrit 30.5, platelets 139. Sodium 133, potassium 2.8, chloride 97, serum bicarb 25, UN 18, creatinine 0.65, glucose 99. Potassium is being replaced. Patient is being monitored on the cardiac stepdown unit. On today's evaluation of 05/24/2023, no interval worsening the patient was started status. The patient is currently stable. The patient is on 2 L of oxygen by nasal cannula. Producing adequate urine output. BUN is at 80 with a creatinine of 0.4 and sodium levels of 131. The white cell count of 8.4 with a hemoglobin of 9.9. The patient remains on IV cefepime. Respiratory medications are unchanged and the patient continues to be on anticoagulation with Eliquis. on 05/25/2023, I'm seeing the patient for a follow-up.Repeat chest x-ray was done and the patient continues to have a persistent right lower lobe atelectasis of the right-sided pleural effusion. The patient remains off anticoagulation. I'm considering a thoracentesis if the patient becomes more symptomatic. Otherwise, condition is stable for now. She remains on oxygen 2 L/m nasal can nula. No significant respiratory distress or the time being. The white cell count of 8.3 with a hemoglobin of 10.3 and the platelet count of 265. BUN is at 60 with a creatinine of 0.39 and a sodium level is at 133. Remains on antibiotics and the patient is still on IV cefepime. She is also on Lasix 40 mg by mouth daily. The rest of the medications unchanged. Remains on Aldactone 25 mg by mouth daily. On 05/26/2023, no new complaints and the patient's condition is stable. No respiratory difficulties. The patient remains on oxygen at 2 L with a pulse ox of 96%. The rest of the labs show sodium level of 132, potassium level of 3.8, BUN is at 40 with a creatinine of 0.4. The basic concept and 0.5 with a hemoglobin of 10.3. The patient is seen today 05/30/2023 in follow-up. We had signed off on this patient and she had initially declined any thoracentesis regarding the right p leural effusion. Primary states that now she is willing to have the procedure done. 2-D scan of the chest from 05/28/2023 revealed a right-sided pleural effusion with underlying atelectasis and/or infiltrate. Improved effusion on the left lung base. There is a right-sided retroperitoneal collection again noted. Ultrasound of the right chest was ordered and did reveal an 11.6 cm pocket however this was a complex fluid pocket with multiple septations. Currently resting fairly comfortably in bed. Awake and alert in no acute distress. Maintaining O2 saturations in the 90s on room air. She did have a T- max of 100.3 last evening. Currently afebrile. Blood cultures had revealed coag-negative staph. Urine culture revealed no growth. White count 8.9. Hemoglobin 8.3. Platelets 314. Sodium 132. Potassium 3.8. Bicarb 26. BUN 13. Creatinine 0.52. Glucose 98. Pro-calcitonin from 05/28/2023 was 0.47. She is continued on DuoNeb inhalations. Antibiotics in the form of vancomycin and cefepime. Eliquis currently on hold. The patient is seen today 05/31/2023 in follow-up on the regular medical floor. She is currently resting comfortably in bed. Awake and alert in no acute d istress. Maintaining O2 saturations in the 90s on room air. She did receive a right-sided pigtail catheter placement yesterday per interventional radiology with approximately 600 ML's of bloody return. There is a positive leak. Currently to Pleur-evac and wall suction. Cultures and cytology pending. She remains on vancomycin and cefepime. This has been resumed. She remains on bronchodilators. She'll be educated regarding the use of the incentive spirometer. The patient is seen today 06/01/2023 in follow-up on the regular medical floor. She is resting comfortably in bed. Awake and alert in no acute distress. She is maintaining O2 saturations in the 90s on room air. Right-sided pigtail catheter in place. Remains to Pleur-evac and wall suction. No leak noted. Blood cultures positive for staph hominis. Pleural fluid cultures revealing no growth. She remains on vancomycin and cefepime. She remains on bronchodilators. Working with the incentive spirometer. The patient is seen today 06/02/2023 in follow-up on the regular medical floor. She is awake and alert in no acute distress. Resting in bed. Maintaining O2 saturations in the 90s on room air. Pigtail chest tube remains in place on the right. No significant output overnight. Chest x-ray reveals a small right pleural effusion with small trace right pneumothorax. No change compared to previous. Blood cultures were positive for staph hominis. Pleural fluid cultures revealing no growth. Follow-up blood culture revealing no growth. Sodium 137. Potassium 4.4. Bicarb 21. BUN 12. Creatinine 0.44. She remains on cefepime. Anticoagulated with Eliquis. The patient is seen today 06/03/2023 in follow-up on the regular medical floor. She is resting comfortably in bed. Awake and alert in no acute distress. She is maintaining good O2 saturations in the 90s on room air. Right-sided chest tube remains in place. Chest x-ray continues to show small right pleural effusion and small to trace right pneumothorax. Similar findings. Lytics were installed yesterday however the clamp was not released so there is no significant drainage from her effusion. The plan is for repeat instillations of lytics today and to be unclamped 1-2 hours afterwards. Initial blood cultures positive for staph hominis. Follow-up blood cultures revealing no growth. Pleural fluid culture pending. Sodium 130. Potassium 4.8. Bicarb 21. BUN 14. Creatinine 0.55. Calcium 8.7. She is continued on cefepime and vancomycin. Remains on DuoNeb inhalations. Eliquis for anticoagulation. The patient is seen today 06/04/2023 in follow-up on the regular medical floor. She is currently resting comfortably in bed. Awake and alert in no acute distress. She is currently resting comfortably in bed. Awake and alert in no acute distress. Maintaining O2 saturations in the 90s on room air. Afebrile. Hemodynamically stable. X-ray continues to show persistent loculation in the right costophrenic angle. Small minimal thorax residual effusion may be present with drainage catheter present. White count 6.8. Hemoglobin 7.6. Platelets 434. Sodium 141. Potassium 4.0. Bicarb 23. BUN 12. Creatinine 0.6. Right- sided pigtail catheter remains in place to wall suction. No significant output. Initial blood cultures were positive for staph hominis. Follow-up blood cultures revealed no growth. Pleural fluid culture revealed no growth. She is continued on vancomycin and cefepime. The patient is seen today 06/05/2023 in follow-up on the regular medical floor. She is awake and alert in no acute distress. Resting comfortably in bed. Her right-sided pigtail catheter was removed yesterday. She denies any worsening shortness of breath, cough or congestion. Maintaining O2 saturations in the 90s on room air. Blood cultures initially were positive for staph hominis. Follow- up blood culture revealed no growth. Pleural fluid culture revealed no growth. Urine culture revealed no growth. White count 7.4. Hemoglobin 7.5. Platelets 402. Sodium 140. Potassium 3.6. Bicarb 21. BUN 11. Creatinine 0.46. He remains on DuoNeb inhalations. Antibiotics in the form of cefepime. She is anticoagulated with Eliquis. Objective - Vital Signs Vital signs: Vital Signs Temp 98.3 F 06/05/23 07:56 Pulse 73 06/05/23 07:56 Resp 16 06/05/23 07:56 BP 107/71 06/05/23 07:56 Pulse Ox 96 06/05/23 07:56 FiO2 21 06/01/23 12:04 Intake & Output 06/04/23 06/05/23 06/05/23 18:59 06:59 18:59 Intake Total 900 Balance 900 Intake: Oral 900 Other: Voiding Method Toilet Bedside Commode Diaper Diaper External Catheter # Voids 4 2 - Exam GENERAL EXAM: Alert, oriented, pleasant 67-year-old female, on room air, in no acute distress. HEAD: Normocephalic and atraumatic EYES: Normal reaction of pupils, equal size. NOSE: Clear with pink turbinates. THROAT: No erythema or exudates. NECK: No masses, no JVD. CHEST: No chest wall deformity. Right sided pigtail catheter and placed to Pleur-evac and wall suction. LUNGS: Equal air entry with crackles, few scattered rhonchi, diminished in the right lung base. CVS: S1 and S2 normal with no audible murmur, irregular rhythm. No extra heart sounds. ABDOMEN: No hepatosplenomegaly, active bowel sounds, no guarding or rigidity. SPINE: No scoliosis or deformity. Percutaneous site right inferior back, dressed with gauze. No shadowing. SKIN: Bilateral lower extremity chronic venous changes. CENTRAL NERVOUS SYSTEM: There appears to be left-sided hemiparesis. She is oriented to self and place. EXTREMITIES: There is no peripheral edema, clubbing, or cyanosis. Peripheral pulses are intact. - Labs CBC & Chem 7: 06/05/23 08:17 06/05/23 08:17 Labs: Abnormal Lab Results - Last 24 Hours (Table) 06/05/23 06/05/23 Range/Units 08:17 08:17 RBC 2.46 L (4.10-5.20) X 10*6/uL Hgb 7.5 L (12.0-15.0) g/dL Hct 24.0 L (37.2-46.3) % MCV 97.6 H (80.0-97.0) FL MCHC 31.3 L (32.0-37.0) g/dL MPV 9.4 L (9.5-12.2) FL Immature Gran # 0.09 H (0.00-0.04) X 10*3/uL Chloride 109 H (98-107) mmol/L Carbon Dioxide 21 L (22-30) mmol/L Creatinine 0.46 L (0.52-1.04) mg/dL Calcium 8.3 L (8.4-10.2) mg/dL Microbiology - Last 24 Hours (Table) 05/30/23 14:50 Gram Stain - Final Pleural Fluid Body Fluid Culture - Final Assessment and Plan Assessment: Acute hypoxemic respiratory failure, on 2 L/m nasal cannula, likely related to exacerbation of congestive heart failure, unknown systolic or diastolic type. Chest x-ray shows cardiomegaly with pulmonary vascular congestion and bilateral pleural effusions, right greater than left.patient had a follow-up chest x-ray that shows a persistent right-sided pleural effusion. Ultrasound of the right chest reveals an 11.6 cm pocket however this is a complex effusion with multiple septations. Right-sided pigtail catheter placed 05/30/2023 with 600 ML's of bloody returned initially. Fluid exudative with protein greater than 3.6 and LDH of 1211. Cytology pending. Pigtail catheter removed on 06/04/2023. Bacteremia with staph hominis, treated with vancomycin and cefepime Recurrent urinary tract infections and infected right renal calculi status post cystoscopy, percutaneous nephrostolithotomy and placement of a right J nephrostomy tube on 05/17/23. Follow-up CAT scan of the chest and abdomen was noted. The patient has posttreatment changes in the right kidney along with perinephric probable hematoma and the focus of a gas. This is probably inflammatory in nature. At the same time, the patient has not mild right hydroureteronephrosis and a small right-sided pleural effusion is small left- sided pleural effusion along with cholelithiasis. Patient is status post cystoscopy and percutaneous nephrostolithotomy and placement of right IJ nephrostomy tube on 05/17/2023. Patient is currently covered on cefepime for history of recurrent urinary tract infections, with her most recent previous isolated organism Proteus mirabilis, susceptible to cefepime. History of recurrent urinary tract infections, previous isolated organism Proteus mirabilis Possible new onset atrial fibrillation with rapid ventricular rate, anticoagu lated on Eliquis History of cerebral palsy History of seizure disorder Hyperlipidemia Hypertension History of CVA History of left-sided weakness and gait abnormality Morbid obesity Plan: The patient was seen and evaluated Labs and medications reviewed Right-sided pigtail catheter removed Increase the use of the incentive spirometer Currently stable and on room air Plan is to return home with assistance from PACE Antibiotics per ID services This patient was seen independently by the pulmonary nurse practitioner I have personally seen and examined the patient, performed the documentation and the assessment and plan as written. Number of minutes spent on the visit: 22.
[2023-06-05] MEDS: CALCIUM CARBONATE 500 MG CHEWABLE PO PRN (13:04)
--- NOTE | 2023-06-05 15:17 | P.PN ---
Subjective Progress Note Date: 06/05/23 Principal diagnosis: Reason for follow-up is fever and bacteremia Patient is a 67-year-old female with a past medical history significant for hypertension hyperlipidemia PE CVA TIA COPD heart failure patient presenting to the hospital on 05/16/2023 for elective treatment of partial right staghorn calculus in the right upper lobe, the patient is status post percutaneous nephrostomy and percutaneous nephrolithotomy patient did have a postop fever started on 05/18/2023 for which his infectious disease was consulted 05/28/2023,Patient is status post IR right-sided pigtail catheter placement on 05/30/2023, subsequentlyCT surgery has been consulted for installation of lytics as output from the chest Tube has decreased as of 06/02/2023 On today's evaluation that is 06/05/2023 patient remains to be afebrile, the patient is breathing comfortably on room air patient denies having any chest pain occasional cough he denies any nausea no vomiting no abdominal pain no d iarrhea. The patient white count 7.47, creatinine 0.46 blood repeat as well as pleural fluid culture has been negative Objective - Vital Signs Vital signs: Vital Signs Temp 98.2 F 06/05/23 14:00 Pulse 74 06/05/23 14:00 Resp 16 06/05/23 14:00 BP 103/71 06/05/23 14:00 Pulse Ox 100 06/05/23 14:00 FiO2 21 06/01/23 12:04 Intake & Output 06/04/23 06/05/23 06/05/23 18:59 06:59 18:59 Intake Total 900 Output Total 400 Balance 900 -400 Intake: Oral 900 Output: Urine 400 Other: Voiding Method Toilet Bedside Commode Bedside Commode Diaper Diaper Diaper External Catheter External Catheter # Voids 4 2 2 - Exam GENERAL DESCRIPTION: An elderly female up in the chair in no distress RESPIRATORY SYSTEM: Unlabored breathing , decreased breath sounds at the bases HEART: S1 S2 regular rate and rhythm , ABDOMEN: Soft , no tenderness EXTREMITIES: No edema feet - Labs CBC & Chem 7: 06/05/23 08:17 06/05/23 08:17 Labs: Abnormal Lab Results - Last 24 Hours (Table) 06/05/23 06/05/23 Range/Units 08:17 08:17 RBC 2.46 L (4.10-5.20) X 10*6/uL Hgb 7.5 L (12.0-15.0) g/dL Hct 24.0 L (37.2-46.3) % MCV 97.6 H (80.0-97.0) FL MCHC 31.3 L (32.0-37.0) g/dL MPV 9.4 L (9.5-12.2) FL Immature Gran # 0.09 H (0.00-0.04) X 10*3/uL Chloride 109 H (98-107) mmol/L Carbon Dioxide 21 L (22-30) mmol/L Creatinine 0.46 L (0.52-1.04) mg/dL Calcium 8.3 L (8.4-10.2) mg/dL Assessment and Plan (1) Postoperative hematoma Current Visit: No Status: Acute Code(s): ADI3605 - SNOMED Code(s): 146674463 (2) Pruritus due to inflammation Current Visit: No Status: Acute Code(s): L29.9 - PRURITUS, UNSPECIFIED SNOMED Code(s): 679709702 (3) Leukocytosis Current Visit: Yes Status: Acute Code(s): D72.829 - ELEVATED WHITE BLOOD CELL COUNT, UNSPECIFIED SNOMED Code(s): 923251964 (4) Pneumonia Current Visit: No Status: Acute Code(s): J18.9 - PNEUMONIA, UNSPECIFIED ORGANISM SNOMED Code(s): 898237335 Plan: 1patient with fever that has been going on for almost 10 days in this patient who is status post right percutaneous nephrostomy and percutaneous nephrolithotomy for staghorn calculus that was completed on 05/17/2023 and the patient started spiking fever on 05/18/[address] abdominal pelvis did mention abnormality to the right kidney and concern for possible hematoma to the likely etiology underlying abscess less likely but not entirely excluded sal herron from enteric gram-negative pathogen versus a component of possible pneumonia 2-patient did have a positive blood culture with Staph epi Which is likely skin contamination as the repeat blood culture has been negative and the pleural fluid culture has been negative. 3patient remains to be afebrile the patient white count is normal with a culture negative for any resistant pathogen we will consider a short course of oral Ceftin on discharge this was discussed with the ONLINE TRADER for admitting team working on discharge Dictation was produced using [employer] dictation software. please excuse any gramm atical, word or spelling errors. Time with Patient: Less than 30
--- NOTE | 2023-06-05 15:51 | XR ---
EXAMINATION TYPE: XR chest 1V DATE OF EXAM: 06/05/2023 COMPARISON: 06/04/2023 HISTORY: 67-year-old female pneumothorax. TECHNIQUE: Single frontal view of the chest is obtained. FINDINGS: Heart upper limits of normal in size. Ongoing small right pleural effusion with prominent patchy right basilar opacity. No appreciable pneumothorax. Left lung and pleural space appear relativ celia clear. IMPRESSION: Ongoing small right pleural effusion with prominent adjacent atelectasis and/or consolid ation. The previous right-sided pleural catheter appears to have been removed. No appreciable pneumot horax. Small amount of pleural air may be present at the right base at the site of previous pleural c atheter.
--- NOTE | 2023-06-05 16:08 | P.PN ---
Subjective Progress Note Date: 06/05/23 Patient evaluated today sitting up in chair. Indwelling catheter to be removed today, urology has signed off. Patient is status post percutaneous nephrostolithotomy and J nephrostomy tube placement on the right. The nephrostomy tube was subsequently discontinued on 05/21. She has remained in the hospital had interval development of pleural effusion, and fever with imaging revealing cholelisthiasis, moderate right and small left pleural effusion, and mild right hydroureteronephrosis. Patient also developed atrial fibrillation postoperatively currently anticoagulated. Patient was evaluated by pulmonary and considered for thoracentesis which she had declined. She does continue at this point to report right sided pleuritic chest pain worse with deep inspiration and she has developed fever. She has had persistent proteus UTI and completed course of antibiotics for this with most recent urine culture from 05/24 this admission showing negative urine culture and negative blood cultures. 05/29/2023 Patient evaluated today resting in bed. Continues to report right sided chest pain. Had chest CT done showing right-sided pleural effusion with underlying atelectasis and or infiltrate appears essentially unchanged. Improved effusion left lung base. Right sided retroperitoneal collection is again noted and smaller in size. AST/ALT remain elevated. Sodium 134, BUN 13.7, creatinine 0.6. ID following patient on IV cefepime and IV vancomycin. Blood cultures showing gram postive cocci/coag negative staph x 2 which is likely contaminent species however blood culture will be repeated. T-Max 101.1 overnight. 05/30/2023 Patient is evaluated today sitting up in bed. Has had episode of diarrhea relat ed to IBS requesting imodium which has been ordered since the she has also been placed on questran. ID following for continued fevers. Blood culture showing coagulase negative staph which has been repeated and pending. Likely a contaminant. Remains on IV cefepime and IV vancomycin. AST/ALT remain elevated with abdominal CT revealing gallstones patient states she has had these for many years. Procalcitonin level is elevated at 0.47. IR consulted with plans for thoracentesis today with cytology for the large right sided pleural effusion. Sodium today 132. White count has improved to 8.92. T-max overnight 100.3. 05/31/2023 Patient is evaluated today sitting up in bed. Underwent pigtail catheter placement yesterday with IR. Had over 600 mls output bloody/serosanguineous Cytology is currently pending at this time. Patient had follow up chest xray showing improvement in the pleural-parenchymal opacity. Evidence of air leak. No pneumothorax noted. Remains on IV vancomycin and IV cefepime. Blood culture showing staph hominus likely a contaminent species and repeat blood cultures are pending. ID following. Labs today showing sodium 140, potassium 2.9, BUN 10, creatinine 0.37, calcium 5.8. Continue with bladder scan Q6h to monitor for urinary retention. 06/01/2023 Patient sitting up in chair. Chest tube remains in place. Chest xray today with evidence of pneumothorax and there was an air leak noted from the chest tube site. Patient has no shortness of breath. Sodium 137, potassium 4.8, calcium 8.8. LFTs remain elevated. Continues on IV cefepime and IV vancomycin. 06/02/2023 Patient remains on medical floor with chest tube in place. Follow-up chest x- ray today reveals right thoracotomy tube with small right pleural effusion and small trace right pneumothorax. Cardiothoracic has evaluated this patient recommending to instill a dose of alteplase and dornase today. Having low-grade fevers of 99.3. She continues on room air at this time. Is on combination of IV cefepime and IV vancomycin with cytology from the chest tube placement pending. Labs today show improved potassium of 4.4. 06/03/2023 Patient is evaluated today continues with right sided chest tube. Will get dornase and alteplase infusion again today. Repeat blood culture remains negative. Pleural fluid culture pending. Sodium 138, potassium 4.8, BUN 14, creatinine 0.55. LFTs remain elevated. Pathology pending. Recommend to continue monitoring for urinary retention with bladder scans. Remains on IV cefepime and IV vancomycin at this time. 06/04/2023 Patient evaluated today on the medical floor sitting up in the chair. Having some intermittent episodes shortness of breath the right sided pigtail catheter remains with minimal output there is 30 mL in the atrium. Chest xray today shows persistent loculation right costophrenic angle. Small pneumothorax residual effusion may be present. 06/05/2023 Patient is evaluated today sitting up in the chair. She did work with physical therapy was able to get up and ambulate in the hallway. Patient had removal of the right sided pigtail catheter. Pathology showing no malignancy. Follow up chest xray today reveals ongoing right sided pleural effusion with adjacent atelectasis and or consolidation. The previous right sided plueral catheter fatmata ears to have been removed. No appreciable pneumothorax. Small amount of pleural air may be present at the right base at the site of previous pleural catheter. Review of Systems Constitutional: Denied any fatigue denied any fever. Cardio vascular: denied any chest pain, palpitations Gastrointestinal: denied any nausea, vomiting, diarrhea Pulmonary: Reports improvement in shortness of breath. Neurologic denied any new focal deficits All inpatient medications were reviewed and appropriate changes in these medications as dictated in the interval history and assessment and plan. PHYSICAL EXAMINATION: GENERAL: The patient is alert and oriented x3, not in any acute distress. Well developed, well nourished. HEENT: Pupils are round and equally reacting to light. EOMI. No scleral icterus. No conjunctival pallor. Normocephalic, atraumatic. No pharyngeal erythema. No thyromegaly. CARDIOVASCULAR: S1 and S2 present. No murmurs, rubs, or gallops. PULMONARY: Chest is diminished. Right midlung with diminished aeration. Chest tube in place. ABDOMEN: Soft, nontender, nondistended, normoactive bowel sounds. No palpable organomegaly. MUSCULOSKELETAL: No joint swelling or deformity. EXTREMITIES: No cyanosis, clubbing, or pedal edema. NEUROLOGICAL: Gross neurological examination did not reveal any focal deficits. Diffuse weakness. SKIN: No rashes. Pt has abdominal panus. Assessment and Plan -Nephrolisthiasis and obstructive uropathy status post cystoscopy, percutaneous nephrostolithotomy and J nephrostomy tube placement with removal. Remaining stones will be followed up with urology outpatient for further evaluation. IDC has been removed. Urology has signed off. Recommend to continue with bladder scan at this time to monitor for urinary retention. -Bacteremia with staphylococcus epidermidis and hominis on IV vancomycin and IV cefepime likely a contaminent species and repeat blood culture remains negative. ID is following and recommending 10 days of oral ceftin on discharge. -Chronic proteus urinary tract infection from infected stone and obstructive uropathy treated with course of antibiotics and most recent urine culture showing normal enzo. -Right sided pleural effusion, loculated requiring chest tube which has since been discontinued. No appreciable pneumothorax on follow up chest xray. -Acute hypoxemic respiratory failure requiring 2 L oxygen via nasal cannula resolved patient is now on room air. -New onset paroxysmal atrial fibrillation with RVR currently in sinus mechanism anticoagulated with eliquis on metoprolol TID. Patient continues on oral lasix daily. Follow up proBNP normal limits for age at 89 continues on oral lasix. -Hypertension -Dyslipidemia -Chronic medical debility follows with [facility] -Morbid obesity -History of seizure disorder continue on keppra TID. -History of cerebral palsy, left-sided weakness and gait abnormality -History of stroke GI prophylaxis DVT prophylaxis On eliquis Full Code Patient remains on medical floor. Pigtail catheter has been removed. Cardiothoracic following. ID recommending course of oral ceftin 10 days on discharge. Not having any urinary retention and is continued with bladder scans every 6 hours. Was able to get up and ambulate in the hallway. Does not want to go to subacute rehab any longer would like to return home and follow up with [facility] for outpatient PT. Pending CT clearance for discharge. The impression and plan of care has been dictated by Joseline Potter, Nurse Practitioner as directed. Dr. Wolf MD I have performed a history and physical examination and medical decision making of this patient, discussed the same with the dictator, and agree with the dictators assessment and plan as written, documented as a scribe. Based on total visit time, I have performed more than 50% of this visit. Objective - Vital Signs Vital signs: Vital Signs Temp 98.2 F 06/05/23 14:00 Pulse 74 06/05/23 14:00 Resp 16 06/05/23 14:00 BP 103/71 06/05/23 14:00 Pulse Ox 100 06/05/23 14:00 FiO2 21 06/01/23 12:04 Intake & Output 06/04/23 06/05/23 06/05/23 18:59 06:59 18:59 Intake Total 900 Output Total 400 Balance 900 -400 Intake: Oral 900 Output: Urine 400 Other: Voiding Method Toilet Bedside Commode Bedside Commode Diaper Diaper Diaper External Catheter External Catheter # Voids 4 2 2 - Labs CBC & Chem 7: 06/05/23 08:17 06/05/23 08:17 Labs: Abnormal Lab Results - Last 24 Hours (Table) 06/05/23 06/05/23 Range/Units 08:17 08:17 RBC 2.46 L (4.10-5.20) X 10*6/uL Hgb 7.5 L (12.0-15.0) g/dL Hct 24.0 L (37.2-46.3) % MCV 97.6 H (80.0-97.0) FL MCHC 31.3 L (32.0-37.0) g/dL MPV 9.4 L (9.5-12.2) FL Immature Gran # 0.09 H (0.00-0.04) X 10*3/uL Chloride 109 H (98-107) mmol/L Carbon Dioxide 21 L (22-30) mmol/L Creatinine 0.46 L (0.52-1.04) mg/dL Calcium 8.3 L (8.4-10.2) mg/dL Assessment and Plan Time with Patient: Less than 30
[2023-06-05] MEDS: ATORVASTATIN 10 MG TAB PO SCH (21:10)
[2023-06-06] MEDS: IPRATROPIUM-ALBUTEROL 3 ML NEB INHALATION SCH ×4 (08:41→21:56)
[2023-06-06] MEDS: CEFEPIME 2 GM in SODIUM CHLORIDE 0.9% 100 ML IVPB SCH ×3 (08:58→23:23)
[2023-06-06] MEDS: levETIRAcetam 500 MG TAB PO SCH ×3 (08:59→20:23)
[2023-06-06] MEDS: APIXABAN 5 MG TAB PO SCH (08:59)
[2023-06-06] MEDS: oxyBUTYnin chloride 5 MG TAB PO SCH ×3 (09:00→17:57)
[2023-06-06] MEDS: MULTIVITAMINS, THERA 1 EACH TAB PO SCH (09:00)
[2023-06-06] MEDS: POTASSIUM CHLORIDE ER 20 MEQ TAB.ER PO SCH (09:00)
[2023-06-06] MEDS: ESCITALOPRAM 20 MG TAB PO SCH (09:00)
[2023-06-06] MEDS: methocarbamoL 750 MG TAB PO SCH ×3 (09:00→20:23)
[2023-06-06] MEDS: METOPROLOL TARTRATE 50 MG TAB PO SCH ×3 (09:00→20:29)
[2023-06-06] MEDS: FLUTICASONE 50MCG/SPRAY NASAL 16GM NASAL SCH ×2 (09:02→20:24)
[2023-06-06] MEDS: HYDROCORTISONE 1% CREAM 30 GM TUBE TOPICAL SCH ×2 (09:09→20:23)
--- NOTE | 2023-06-06 09:30 | P.PN ---
Subjective Progress Note Date: 06/06/23 Principal diagnosis: Loculated right-sided pleural effusion status post pigtail catheter placement, fever, leukocytosis, bacteremia with staph, recurrent urinary tract infections s tatus post elective cystoscopy with percutaneous nephrostomy and percutaneous nephrostolithotomy ultrasound on the right, new onset A. fib RVR. History of chronic heart failure, hypertension, hyperlipidemia, multiple strokes, COPD, seizure disorder, cerebral palsy, pulmonary embolism as well as DVT not on anticoagulation outpatient, medical debility The patient was seen and examined sitting up in a recliner on the medical oncology unit in no acute distress. Remains on room air. Right sided pigtail catheter has been removed. No other new concerns. Objective - Vital Signs Vital signs: Vital Signs Temp 99 F 06/06/23 07:36 Pulse 74 06/06/23 07:36 Resp 18 06/06/23 07:36 BP 108/69 06/06/23 07:36 Pulse Ox 94 L 06/06/23 07:36 FiO2 21 06/01/23 12:04 Intake & Output 06/05/23 06/06/23 06/06/23 18:59 06:59 18:59 Intake Total 240 Output Total 900 Balance -900 240 Weight 77 kg Intake: Oral 240 Output: Urine 900 Other: Voiding Method Bedside Commode Bedside Commode Diaper Diaper External Catheter Incontinent # Voids 2 3 # Bowel Movements 1 - Exam CONSTITUTIONAL: Appears comfortable, cooperative, no acute distress RESPIRATORY: Lungs sounds diminished in the right. Respirations even, nonlabored. Currently on room air with oxygen saturation 94%. Able to achieve 500 mL on incentive spirometry. Strong cough. CARDIOVASCULAR: S1, S2 present. Regular rate and rhythm, sinus rhythm on telemetry. Palpable peripheral pulses bilaterally. Lateral lower extremity edema present. No calf pain or tenderness noted GASTROINTESTINAL: Abdomen soft, nontender, nondistended, obese. Active bowel sounds present 4 quadrants. Tolerating diet GENITOURINARY: Continues to void, incontinent, wears briefs INTEGUMENTARY: Skin is warm, lower extremity venous insufficiency discoloration present NEUROLOGIC: Cranial nerves II through XII intact MUSKULOSKELETAL: Able to move all extremities, strength equal bilaterally, generalized weakness present PSYCHIATRIC: Alert and oriented to person place and time - Allied health notes Allied health notes reviewed: nursing - Labs CBC & Chem 7: 06/05/23 08:17 06/05/23 08:17 Labs: Abnormal Lab Results - Last 24 Hours (Table) 06/05/23 Range/Units 08:17 RBC 2.46 L (4.10-5.20) X 10*6/uL Hgb 7.5 L (12.0-15.0) g/dL Hct 24.0 L (37.2-46.3) % MCV 97.6 H (80.0-97.0) FL MCHC 31.3 L (32.0-37.0) g/dL MPV 9.4 L (9.5-12.2) FL Immature Gran # 0.09 H (0.00-0.04) X 10*3/uL Assessment and Plan Assessment: Loculated right-sided pleural effusion status post pigtail catheter placement Fever, leukocytosis, bacteremia with staph Recurrent urinary tract infections status post elective cystoscopy with percutaneous nephrostomy and percutaneous nephrostolithotomy ultrasound on the right New onset A. fib RVR, currently on Eliquis for anticoagulation History of chronic heart failure History of hypertension Hyperlipidemia History of multiple strokes COPD, currently on room air Seizure disorder Cerebral palsy Pulmonary embolism as well as DVT not on anticoagulation outpatient Medical debility Plan: Patient stable for discharge from [facility] standpoint Encourage incentive spirometry use Increase activity as tolerated Antibiotics per infectious disease No surgical intervention planned Medical management of other comorbidities per internal medicine, pulmonology, infectious disease, cardiology Will see again as needed
[2023-06-06] MEDS: ACETAMINOPHEN TAB 325 MG TAB PO PRN (10:18)
[2023-06-06] MEDS: CALCIUM CARBONATE 500 MG CHEWABLE PO PRN (10:19)
--- NOTE | 2023-06-06 10:51 | P.PN ---
Subjective Progress Note Date: 06/06/23 I am seeing this patient in consultation today 05/23/2023 for a moderate size right pleural effusion. Patient is a 67-year-old white female with extensive past medical history significant for cerebral palsy, seizure disorder, CVA, hyperlipidemia, hypertension, pulmonary embolus, among other things. She has recurrent urinary tract infections with Proteus mirabilis and infected right- sided renal calculus. She was brought in for elective right-sided percutaneous nephrostolithotomy and placement of a J nephrostomy tube on May 17. No immediate perioperative complications reported. 2 days ago, she went atrial fibrillation with ventricular rate. She was transferred to the cardiac stepdown unit. Temporarily on cardizem infusion, which is discontinued. Patient self denies any history of atrial fibrillation. Chest x-ray showed cardiomegaly, pulmonary vascular Congestion, and bilateral pleural effusions. She does receive Lasix 40 mg by mouth every morning and Aldactone. Repeat chest x-ray yesterday morning continues to show a moderate size right pleural effusion. Patient is currently resting in bed, on 2 L/m nasal cannula, in no acute distress. Patient is a poor historian. She reportedly lives independently in an apartment with PACE assistance. She is oriented to self and time. She is crying. She is febrile and diaphoretic. She remains in atrial fibrillation with RVR. Heart rate averaging 100-120 bpm. BP is normotensive. She is anticoagulated on Eliquis. She is empirically covered on cefepime for her previous Proteus urinary infection. She has a indwelling urinary catheter draining an adequate amount of shanique colored urine. Follow-up abdominal CT done yesterday june bruce posttreatment changes to the right kidney with perinephric probable hematoma and focus of gas measuring 8.4 x 4.3 x 7.7 cm. There is mild right hydroureteronephrosis which could be reactive inflammation and blood products on the right kidney. There is persistent right nephric calcification measuring 9 mm. There is moderate right and small left pleural effusions. And cholelithiasis without cholecystitis. The moderate right and small left pleural effusions were again noted. There is associated atelectasis. No focal consolidations. Most recent CBC from yesterday shows a WBC count 11.7, hemoglobin 10.5, hematocrit 30.5, platelets 139. Sodium 133, potassium 2.8, chloride 97, serum bicarb 25, UN 18, creatinine 0.65, glucose 99. Potassium is being replaced. Patient is being monitored on the cardiac stepdown unit. On today's evaluation of 05/24/2023, no interval worsening the patient was started status. The patient is currently stable. The patient is on 2 L of oxygen by nasal cannula. Producing adequate urine output. BUN is at 80 with a creatinine of 0.4 and sodium levels of 131. The white cell count of 8.4 with a hemoglobin of 9.9. The patient remains on IV cefepime. Respiratory medications are unchanged and the patient continues to be on anticoagulation with Eliquis. on 05/25/2023, I'm seeing the patient for a follow-up.Repeat chest x-ray was done and the patient continues to have a persistent right lower lobe atelectasis of the right-sided pleural effusion. The patient remains off anticoagulation. I'm considering a thoracentesis if the patient becomes more symptomatic. Otherwise, condition is stable for now. She remains on oxygen 2 L/m nasal can nula. No significant respiratory distress or the time being. The white cell count of 8.3 with a hemoglobin of 10.3 and the platelet count of 265. BUN is at 60 with a creatinine of 0.39 and a sodium level is at 133. Remains on antibiotics and the patient is still on IV cefepime. She is also on Lasix 40 mg by mouth daily. The rest of the medications unchanged. Remains on Aldactone 25 mg by mouth daily. On 05/26/2023, no new complaints and the patient's condition is stable. No respiratory difficulties. The patient remains on oxygen at 2 L with a pulse ox of 96%. The rest of the labs show sodium level of 132, potassium level of 3.8, BUN is at 40 with a creatinine of 0.4. The basic concept and 0.5 with a hemoglobin of 10.3. The patient is seen today 05/30/2023 in follow-up. We had signed off on this patient and she had initially declined any thoracentesis regarding the right p leural effusion. Primary states that now she is willing to have the procedure done. 2-D scan of the chest from 05/28/2023 revealed a right-sided pleural effusion with underlying atelectasis and/or infiltrate. Improved effusion on the left lung base. There is a right-sided retroperitoneal collection again noted. Ultrasound of the right chest was ordered and did reveal an 11.6 cm pocket however this was a complex fluid pocket with multiple septations. Currently resting fairly comfortably in bed. Awake and alert in no acute distress. Maintaining O2 saturations in the 90s on room air. She did have a T- max of 100.3 last evening. Currently afebrile. Blood cultures had revealed coag-negative staph. Urine culture revealed no growth. White count 8.9. Hemoglobin 8.3. Platelets 314. Sodium 132. Potassium 3.8. Bicarb 26. BUN 13. Creatinine 0.52. Glucose 98. Pro-calcitonin from 05/28/2023 was 0.47. She is continued on DuoNeb inhalations. Antibiotics in the form of vancomycin and cefepime. Eliquis currently on hold. The patient is seen today 05/31/2023 in follow-up on the regular medical floor. She is currently resting comfortably in bed. Awake and alert in no acute d istress. Maintaining O2 saturations in the 90s on room air. She did receive a right-sided pigtail catheter placement yesterday per interventional radiology with approximately 600 ML's of bloody return. There is a positive leak. Currently to Pleur-evac and wall suction. Cultures and cytology pending. She remains on vancomycin and cefepime. This has been resumed. She remains on bronchodilators. She'll be educated regarding the use of the incentive spirometer. The patient is seen today 06/01/2023 in follow-up on the regular medical floor. She is resting comfortably in bed. Awake and alert in no acute distress. She is maintaining O2 saturations in the 90s on room air. Right-sided pigtail catheter in place. Remains to Pleur-evac and wall suction. No leak noted. Blood cultures positive for staph hominis. Pleural fluid cultures revealing no growth. She remains on vancomycin and cefepime. She remains on bronchodilators. Working with the incentive spirometer. The patient is seen today 06/02/2023 in follow-up on the regular medical floor. She is awake and alert in no acute distress. Resting in bed. Maintaining O2 saturations in the 90s on room air. Pigtail chest tube remains in place on the right. No significant output overnight. Chest x-ray reveals a small right pleural effusion with small trace right pneumothorax. No change compared to previous. Blood cultures were positive for staph hominis. Pleural fluid cultures revealing no growth. Follow-up blood culture revealing no growth. Sodium 137. Potassium 4.4. Bicarb 21. BUN 12. Creatinine 0.44. She remains on cefepime. Anticoagulated with Eliquis. The patient is seen today 06/03/2023 in follow-up on the regular medical floor. She is resting comfortably in bed. Awake and alert in no acute distress. She is maintaining good O2 saturations in the 90s on room air. Right-sided chest tube remains in place. Chest x-ray continues to show small right pleural effusion and small to trace right pneumothorax. Similar findings. Lytics were installed yesterday however the clamp was not released so there is no significant drainage from her effusion. The plan is for repeat instillations of lytics today and to be unclamped 1-2 hours afterwards. Initial blood cultures positive for staph hominis. Follow-up blood cultures revealing no growth. Pleural fluid culture pending. Sodium 130. Potassium 4.8. Bicarb 21. BUN 14. Creatinine 0.55. Calcium 8.7. She is continued on cefepime and vancomycin. Remains on DuoNeb inhalations. Eliquis for anticoagulation. The patient is seen today 06/04/2023 in follow-up on the regular medical floor. She is currently resting comfortably in bed. Awake and alert in no acute distress. She is currently resting comfortably in bed. Awake and alert in no acute distress. Maintaining O2 saturations in the 90s on room air. Afebrile. Hemodynamically stable. X-ray continues to show persistent loculation in the right costophrenic angle. Small minimal thorax residual effusion may be present with drainage catheter present. White count 6.8. Hemoglobin 7.6. Platelets 434. Sodium 141. Potassium 4.0. Bicarb 23. BUN 12. Creatinine 0.6. Right- sided pigtail catheter remains in place to wall suction. No significant output. Initial blood cultures were positive for staph hominis. Follow-up blood cultures revealed no growth. Pleural fluid culture revealed no growth. She is continued on vancomycin and cefepime. The patient is seen today 06/05/2023 in follow-up on the regular medical floor. She is awake and alert in no acute distress. Resting comfortably in bed. Her right-sided pigtail catheter was removed yesterday. She denies any worsening shortness of breath, cough or congestion. Maintaining O2 saturations in the 90s on room air. Blood cultures initially were positive for staph hominis. Follow- up blood culture revealed no growth. Pleural fluid culture revealed no growth. Urine culture revealed no growth. White count 7.4. Hemoglobin 7.5. Platelets 402. Sodium 140. Potassium 3.6. Bicarb 21. BUN 11. Creatinine 0.46. He remains on DuoNeb inhalations. Antibiotics in the form of cefepime. She is anticoagulated with Eliquis. The patient is seen today 06/06/2023 in follow-up on the regular medical floor. She is awake and alert in no acute distress. Currently sitting up in a chair at the bedside. Denies any worsening shortness of breath, cough or congestion. Denies any right-sided chest discomfort. Maintaining good O2 saturations in the 90s on room air. Follow-up chest x-ray revealed a small right pleural effusion with adjacent atelectasis. Pigtail catheter removed. No evidence of pneumoth orax. Blood cultures are positive for staph hominis. Follow-up blood culture reveals no growth. Sputum culture revealed no growth. Urine culture revealed no growth. She is continued on cefepime. Remains on bronchodilators. Anticoagulated with Eliquis. Objective - Vital Signs Vital signs: Vital Signs Temp 99 F 06/06/23 07:36 Pulse 74 06/06/23 07:36 Resp 18 06/06/23 07:36 BP 108/69 06/06/23 07:36 Pulse Ox 94 L 06/06/23 07:36 FiO2 21 06/01/23 12:04 Intake & Output 06/05/23 06/06/23 06/06/23 18:59 06:59 18:59 Intake Total 240 Output Total 900 Balance -900 240 Weight 77 kg Intake: Oral 240 Output: Urine 900 Other: Voiding Method Bedside Commode Bedside Commode Diaper Diaper External Catheter Incontinent # Voids 2 3 # Bowel Movements 1 - Exam GENERAL EXAM: Alert, pleasant 67-year-old female, up in a chair, on room air, in no acute distress. HEAD: Normocephalic and atraumatic EYES: Normal reaction of pupils, equal size. NOSE: Clear with pink turbinates. THROAT: No erythema or exudates. NECK: No masses, no JVD. CHEST: No chest wall deformity. Right sided pigtail catheter removed. LUNGS: Equal air entry with few scattered rales, diminished in the right lung base. CVS: S1 and S2 normal with no audible murmur, irregular rhythm. No extra heart sounds. ABDOMEN: No hepatosplenomegaly, active bowel sounds, no guarding or rigidity. SPINE: No scoliosis or deformity. Percutaneous site right inferior back, dressed with gauze. No shadowing. SKIN: Bilateral lower extremity chronic venous changes. CENTRAL NERVOUS SYSTEM: There appears to be left-sided hemiparesis. She is oriented to self and place. EXTREMITIES: There is no peripheral edema, clubbing, or cyanosis. Peripheral p ulses are intact. - Labs CBC & Chem 7: 06/05/23 08:17 06/05/23 08:17 Labs: Abnormal Lab Results - Last 24 Hours (Table) 06/05/23 Range/Units 08:17 RBC 2.46 L (4.10-5.20) X 10*6/uL Hgb 7.5 L (12.0-15.0) g/dL Hct 24.0 L (37.2-46.3) % MCV 97.6 H (80.0-97.0) FL MCHC 31.3 L (32.0-37.0) g/dL MPV 9.4 L (9.5-12.2) FL Immature Gran # 0.09 H (0.00-0.04) X 10*3/uL Assessment and Plan Assessment: Acute hypoxemic respiratory failure, on 2 L/m nasal cannula, likely related to exacerbation of congestive heart failure, unknown systolic or diastolic type. Chest x-ray shows cardiomegaly with pulmonary vascular congestion and bilateral pleural effusions, right greater than left.patient had a follow-up chest x-ray that shows a persistent right-sided pleural effusion. Ultrasound of the right chest reveals an 11.6 cm pocket however this is a complex effusion with multiple septations. Right-sided pigtail catheter placed 05/30/2023 with 600 ML's of bloody returned initially. Fluid exudative with protein greater than 3.6 and LDH of 1211. Cytology pending. Pigtail catheter removed on 06/04/2023. Bacteremia with staph hominis, treated with vancomycin and cefepime Recurrent urinary tract infections and infected right renal calculi status post cystoscopy, percutaneous nephrostolithotomy and placement of a right J nephrostomy tube on 05/17/23. Follow-up CAT scan of the chest and abdomen was noted. The patient has posttreatment changes in the right kidney along with perinephric probable hematoma and the focus of a gas. This is probably inflammatory in nature. At the same time, the patient has not mild right hydroureteronephrosis and a small right-sided pleural effusion is small left- sided pleural effusion along with cholelithiasis. Patient is status post cystoscopy and percutaneous nephrostolithotomy and placement of right IJ nephrostomy tube on 05/17/2023. Patient is currently covered on cefepime for history of recurrent urinary tract infections, with her most recent previous isolated organism Proteus mirabilis, susceptible to cefepime. History of recurrent urinary tract infections, previous isolated organism Proteus mirabilis Possible new onset atrial fibrillation with rapid ventricular rate, anticoagulated on Eliquis History of cerebral palsy History of seizure disorder Hyperlipidemia Hypertension History of CVA History of left-sided weakness and gait abnormality Morbid obesity Plan: The patient was seen and evaluated Medications reviewed Continue the current treatment plan Currently stable and on room air Plan is to return home with assistance from PACE Cleared for discharge from the pulmonary standpoint Antibiotics per ID services This patient was seen independently by the pulmonary nurse practitioner I have personally seen and examined the patient, performed the documentation and the assessment and plan as written. Number of minutes spent on the visit: 24.
[2023-06-06] MEDS ORDERED: NYSTATIN 100,000 UNIT/GM POWD 15 GM TOPICAL PRN (11:31)
[2023-06-06 12:24] LABS: Basophils # (A) 0.1 k/uL (0-0.2); Basophils % (A) 1 %; Eosinophils # (A) 0.2 k/uL (0-0.7); Eosinophils % (A) 2 %; HCT 26.6 % (34.0-46.0); Hypochromasia Marked; Lymphocytes % (A) 12 %; MCH 31.1 pg (25.0-35.0); MCHC 31.1 g/dL (31.0-37.0); MCV 99.8 fL (80.0-100.0); Mean Platelet Volume 7.3; Monocytes # (A) 0.4 k/uL (0-1.0); Monocytes % (A) 4 %; Neutrophils # (A) 6.6 k/uL (1.3-7.7); Neutrophils % (A) 80 %; Platelet Count 421 k/uL (150-450); RBC 2.67 m/uL (3.80-5.40); RDW 13.4 % (11.5-15.5); WBC 8.3 k/uL (3.8-10.6)
[2023-06-06 12:37] LABS: HGB 8.3 gm/dL (11.4-16.0)
[2023-06-06 12:47] LABS: ALT 31 U/L (4-34); AST 24 U/L (14-36); African American GFR (CKD) >90 (>60 ml/min/1.73 sqM); Albumin 2.9 g/dL (3.5-5.0); Albumin/Globulin Ratio 0.9; Alkaline Phosphatase 76 U/L (38-126); Anion Gap 7 mmol/L; Blood Urea Nitrogen 13 mg/dL (7-17); Calcium 8.7 mg/dL (8.4-10.2); Carbon Dioxide 25 mmol/L (22-30); Chloride 109 mmol/L (98-107); Globulin 3.3 g/dL; Glucose 95 mg/dL (74-99); Non-African American GFR(CKD) >90 (>60 ml/min/1.73 sqM); Potassium 3.9 mmol/L (3.5-5.1); Sodium 141 mmol/L (137-145); Total Bilirubin 0.5 mg/dL (0.2-1.3); Total Protein 6.2 g/dL (6.3-8.2)
[2023-06-06] MEDS: LOPERAMIDE 2 MG CAP PO PRN (14:20)
[2023-06-06] MEDS: CALAMINE/ZINC OXIDE LOTION 177 ML BTL TOPICAL SCH ×2 (14:21→20:23)
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
[2023-06-06] MEDS: hydrOXYzine HCL 25 MG TAB PO PRN ×2 (15:42→21:50)
[2023-06-06] MEDS: HYDROcodone/APAP 7.5-325MG 1 EACH TAB PO PRN (18:28)
--- NOTE | 2023-06-06 19:25 | CT ---
EXAMINATION TYPE: CT abdomen pelvis wo con DATE OF EXAM: 06/06/2023 COMPARISON: 05/22/2023 and 04/18/2022 HISTORY: 67-year-old female right flank pain, previous hematoma CT DLP: 841 mGycm. Automated exposure control for dose reduction was used. TECHNIQUE: Contiguous axial scanning of the abdomen and pelvis without IV contrast. Coronal and sagit julianne reconstructions performed. FINDINGS: Some generalized anasarca changes present. Heart mildly enlarged without pericardial effusion. Extens heather LAD and RCA coronary calcifications are present. Small right pleural effusion remains. Some air within the pleural space and a small adjacent pneumoth orax just adjacent may reflect recent thoracentesis and fluid evacuation. Trace left pleural effusion . Liver borderline enlarged at 17.3 cm. There is a 1.4 cm gallstone. No abnormal gallbladder distention . Mild thickening of the left adrenal gland is unchanged. Right adrenal gland, spleen, and pancreas show no gross abnormality. 1.2 cm right renal calculus. There is mild right-sided hydronephrosis and heterogeneous increased den sity within the right renal collecting system. Asymmetric right-sided perinephric fat stranding. Retroperitoneal hematoma in the superior right pararenal space slightly smaller now measuring 7.0 x 3 .4 cm versus 8.4 x 4.3 cm, previously on 05/22/2023. Partially exophytic cyst lateral right kidney 3.4 cm now versus 4.0 cm, previously. 1.2 cm hyperdense area in the posterior right renal cortex could represent a small intraparenchymal h ematoma or hemorrhagic cyst. Some strandy retroperitoneal hemorrhage tracking inferiorly shows some improvement from 05/22/2023. No dilated small bowel, free fluid, or free air. No mesenteric or retroperitoneal adenopathy. Scattered mild stool. No pericolonic inflammatory change. Bladder is nondistended. Uterus is anteverted. Ovaries are visualized. There is a 3.1 cm cystic lesio n of the left ovary. Compared to 04/18/2022, the finding is stable. Annual ultrasound surveillance can be performed. Prominent adjacent left external iliac chain lymph nodes measuring up to 1 cm in short axis and larger in the bilateral inguinal regions measuring up to 2.3 cm remains relatively similar compared to 04/18/2022. Correlate for any known diagnosis. 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 Degenerative grade 1 retrolisthesis L1-L2 and L2-L3. [facility] throughout the visualized lower thoracic and upper lumba r spine. IMPRESSION: 1. Residual small right pleural effusion with adjacent atelectasis. Decreased from prior. There is a partially visualized small adjacent PNEUMOTHORAX that may reflect recent thoracentesis and fluid jaycee cuation. Appropriate follow-up recommended. 2. Superior retroperitoneal hematoma smaller at 7.0 x 3.4 cm versus 8.4 x 4.3 cm on 05/22/2023. Some hemorrhagic material remains within the right renal collecting system with residual mild hydronephros is also improving compared to 05/22/2023. 3. A partially exophytic renal parenchymal hematoma is smaller at 3.4 cm versus 4.0 cm previously. A small intraparenchymal hematoma measures 1.2 cm. Also, stable residual 1.2 cm nonobstructive right r enal stone. 4. Mild strandy retroperitoneal hemorrhage tracking inferiorly shows some interval improvement as we ll. 5. Annual ultrasound surveillance for the 3.1 cm cystic lesion of the left ovary. 6. Correlate for any known diagnosis for the patient's external iliac chain and bilateral inguinal a denopathy. Findings were present back on 04/18/2022 as well.
[2023-06-06] MEDS: ATORVASTATIN 10 MG TAB PO SCH (20:22)
--- NOTE | 2023-06-06 22:10 | P.PN ---
Subjective Patient evaluated today sitting up in chair. Indwelling catheter to be removed today, urology has signed off. Patient is status post percutaneous ne phrostolithotomy and J nephrostomy tube placement on the right. The nephrostomy tube was subsequently discontinued on 05/21. She has remained in the hospital had interval development of pleural effusion, and fever with imaging revealing cholelisthiasis, moderate right and small left pleural effusion, and mild right hydroureteronephrosis. Patient also developed atrial fibrillation postoperatively currently anticoagulated. Patient was evaluated by pulmonary and considered for thoracentesis which she had declined. She does continue at this point to report right sided pleuritic chest pain worse with deep inspiration and she has developed fever. She has had persistent proteus UTI and completed course of antibiotics for this with most recent urine culture from 05/24 this admission showing negative urine culture and negative blood cultures. 05/29/2023 Patient evaluated today resting in bed. Continues to report right sided chest pain. Had chest CT done showing right-sided pleural effusion with underlying atelectasis and or infiltrate appears essentially unchanged. Improved effusion left lung base. Right sided retroperitoneal collection is again noted and smaller in size. AST/ALT remain elevated. Sodium 134, BUN 13.7, creatinine 0.6. ID following patient on IV cefepime and IV vancomycin. Blood cultures showing gram postive cocci/coag negative staph x 2 which is likely contaminent species however blood culture will be repeated. T-Max 101.1 overnight. 05/30/2023 Patient is evaluated today sitting up in bed. Has had episode of diarrhea related to IBS requesting imodium which has been ordered since the she has also been placed on questran. ID following for continued fevers. Blood culture showing coagulase negative staph which has been repeated and pending. Likely a contaminant. Remains on IV cefepime and IV vancomycin. AST/ALT remain elevated with abdominal CT revealing gallstones patient states she has had these for many years. Procalcitonin level is elevated at 0.47. IR consulted with plans for thoracentesis today with cytology for the large right sided pleural effusion. Sodium today 132. White count has improved to 8.92. T-max overnight 100.3. 05/31/2023 Patient is evaluated today sitting up in bed. Underwent pigtail catheter placement yesterday with IR. Had over 600 mls output bloody/serosanguineous Cytology is currently pending at this time. Patient had follow up chest xray showing improvement in the pleural-parenchymal opacity. Evidence of air leak. No pneumothorax noted. Remains on IV vancomycin and IV cefepime. Blood culture showing staph hominus likely a contaminent species and repeat blood cultures are pending. ID following. Labs today showing sodium 140, potassium 2.9, BUN 10, creatinine 0.37, calcium 5.8. Continue with bladder scan Q6h to monitor for urinary retention. 06/01/2023 Patient sitting up in chair. Chest tube remains in place. Chest xray today with evidence of pneumothorax and there was an air leak noted from the chest tube site. Patient has no shortness of breath. Sodium 137, potassium 4.8, calcium 8.8. LFTs remain elevated. Continues on IV cefepime and IV vancomycin. 06/02/2023 Patient remains on medical floor with chest tube in place. Follow-up chest x- ray today reveals right thoracotomy tube with small right pleural effusion and small trace right pneumothorax. Cardiothoracic has evaluated this patient recommending to instill a dose of alteplase and dornase today. Having low-grade fevers of 99.3. She continues on room air at this time. Is on combination of IV cefepime and IV vancomycin with cytology from the chest tube placement pending. Labs today show improved potassium of 4.4. 06/03/2023 Patient is evaluated today continues with right sided chest tube. Will get dornase and alteplase infusion again today. Repeat blood culture remains negative. Pleural fluid culture pending. Sodium 138, potassium 4.8, BUN 14, creatinine 0.55. LFTs remain elevated. Pathology pending. Recommend to continue monitoring for urinary retention with bladder scans. Remains on IV cefepime and IV vancomycin at this time. 06/04/2023 Patient evaluated today on the medical floor sitting up in the chair. Having some intermittent episodes shortness of breath the right sided pigtail catheter remains with minimal output there is 30 mL in the atrium. Chest xray today shows persistent loculation right costophrenic angle. Small pneumothorax residual effusion may be present. 06/05/2023 Patient is evaluated today sitting up in the chair. She did work with physical therapy was able to get up and ambulate in the hallway. Patient had removal of the right sided pigtail catheter. Pathology showing no malignancy. Follow up chest xray today reveals ongoing right sided pleural effusion with adjacent atelectasis and or consolidation. The previous right sided plueral catheter appears to have been removed. No appreciable pneumothorax. Small amount of pleural air may be present at the right base at the site of previous pleural catheter. 06/06/2023 Dyspnea and no chest pain today, cough is minimal. She has skin rash on the back for last few days which looks faint maculopapular rash but stable, slightly EEG. Also patient complaining of from mild right upper quarter of abdominal pain. Hemoglobin has been trending down since 05/22 at 10.7 came down to 7.5 yesterday, repeat hemoglobin today is 8.3. There is no source for bleeding and repeat CAT scan of the abdomen and pelvis without IV or oral contrast showing multiple hematomas that are getting smaller. CAT scan showing residual pneumothorax which is expected status post right chest tube removal but recommended to follow-up. 2. Retroperitoneal hematoma came down from 8.4 x 4.3 down to 7.0 x 3.4 cm which is smaller. Another right kidney hematoma coming down from 40 cm down to 3.4 cm. Patient with evidence of left ovarian cyst 3.1 cm recommended annual surveillance Also patient with bilateral equina and the right external lymphadenopathy. Also patient with multiple problems, she has new onset A. fib and RVR and she was started on liquids. GI team consult is appreciated, to hold on liquids for possible scope on Sunday. Also patient evaluated by several consultants including infectious disease team and currently she is on IV cefepime which can be switched to Ceftin 10 days upon discharge, pulmonary cardiothoracic surgery following for right pleural effusion, chest tube, pigtail tube catheter was removed on 06/04. Patient also with evidence of nephrolithiasis on admission with obstructive uropathy status post percutaneous nephrolithotomy and double-J nephrostomy, for rest of the stones patient will need to follow up as an outpatient. I have elected discussion with the patient, she declines to go to rehab, she was eager to be discharged but she agrees to wait to further workup especially regarding her dropping hemoglobin. B12 is pending, folate is normal at 22.8, iron studies are pending as well. This was discussed with the bedside nurse Case was discussed with the GI team. Review of systems CONSTITUTIONAL: No fever, no malaise, no fatigue. HEENT: No recent visual problems or hearing problems. Denied any sore throat. CARDIOVASCULAR: No orthopnea, PND, no palpitations, no syncope. PULMONARY: No shortness of breath, no cough, no hemoptysis. GASTROINTESTINAL: No diarrhea, no nausea, no vomiting, . Normoactive bowel sounds. NEUROLOGICAL: No headaches, no weakness, no numbness. Active Medications Generic Name Dose Route Start Last Admin Trade Name Freq PRN Reason Stop Dose Admin Acetaminophen 650 mg 05/17/23 12:18 06/06/23 10:18 Acetaminophen Tab 325 Mg Tab PO 06/16/23 12:19 650 mg Q4HR PRN Administration Fever and/ or Pain Hydrocodone Bitart/Acetaminophen 1 each 06/02/23 14:00 06/06/23 18:28 Hydrocodone/Apap 7.5-325mg 1 Each Tab PO 1 each Q6HR PRN Administration Pain Al Hydroxide/Mg Hydroxide 30 ml 05/17/23 12:18 05/26/23 12:43 Mag Hydrox/Al Hydrox/Simeth 30 Ml Cup PO 06/16/23 12:19 30 ml QID PRN Administration Indigestion Albuterol/Ipratropium 3 ml 05/21/23 17:30 06/06/23 21:56 Ipratropium-Albuterol 3 Ml Neb INHALATION Not Given RT-QID SHELIA Albuterol/Ipratropium 3 ml 05/21/23 17:08 Ipratropium-Albuterol 3 Ml Neb INHALATION RT-QID PRN Shortness Of Breath Or Wheezing Alprazolam 0.25 mg 05/17/23 12:14 06/02/23 18:38 Alprazolam 0.25 Mg Tab PO 06/16/23 12:15 0.25 mg TID PRN Administration Anxiety Atorvastatin Calcium 10 mg 05/17/23 21:00 06/06/23 20:22 Atorvastatin 10 Mg Tab PO 06/16/23 21:01 10 mg HS SHELIA Administration Calamine 1 applic 06/06/23 11:30 06/06/23 20:23 Calamine/Zinc Oxide Lotion 177 Ml Btl TOPICAL 1 applic BID SHELIA Administration Protocol Calcium Carbonate/Glycine 500 mg 05/28/23 13:05 06/06/23 10:19 Calcium Carbonate 500 Mg Chewable PO 500 mg QID PRN Administration Heartburn Escitalopram Oxalate 20 mg 05/18/23 09:00 06/06/23 09:00 Escitalopram 20 Mg Tab PO 06/17/23 09:01 20 mg QAM SHELIA Administration Fluticasone Propionate 2 spray 05/17/23 21:00 06/06/23 20:24 Fluticasone 50mcg/[place] Nasal 16gm NASAL 06/16/23 21:01 Not Given BID SHELIA Hydrocortisone 1 applic 05/21/23 21:00 06/06/23 20:23 Hydrocortisone 1% Cream 30 Gm Tube TOPICAL 1 applic BID SHELIA Administration Hydroxyzine HCl 25 mg 05/29/23 11:35 06/06/23 21:50 Hydroxyzine Hcl 25 Mg Tab PO 25 mg QID PRN Administration Itching Cefepime HCl 2 gm/ Sodium 100 mls @ 25 mls/hr 05/29/23 16:00 06/06/23 15:57 Chloride IVPB 25 mls/hr Q8HR SHELIA Administration Protocol Ibuprofen 400 mg 05/27/23 18:43 05/27/23 18:57 Ibuprofen 400 Mg Tab PO 400 mg Q8HR PRN Administration Pain or Fever > 100.5 Levetiracetam 500 mg 05/17/23 17:00 06/06/23 17:57 Levetiracetam 500 Mg Tab PO 06/16/23 17:01 500 mg 0800,1700 SHELIA Administration Levetiracetam 1,000 mg 05/17/23 21:00 06/06/23 20:23 Levetiracetam 500 Mg Tab PO 06/16/23 21:01 1,000 mg HS SHELIA Administration Loperamide HCl 2 mg 05/17/23 12:14 06/06/23 14:20 Loperamide 2 Mg Cap PO 06/16/23 12:15 2 mg TID PRN Administration Diarrhea Loratadine 10 mg 05/17/23 12:14 Loratadine 10 Mg Tab PO 06/16/23 12:15 DAILY PRN WITH AMOXICILLIN Meclizine HCl 25 mg 05/17/23 12:14 Meclizine 25 Mg Tab PO 06/16/23 12:15 BID PRN Vertigo Methocarbamol 750 mg 05/18/23 22:00 06/06/23 20:23 Methocarbamol 750 Mg Tab PO 750 mg TID SHELIA Administration Metoprolol Tartrate 50 mg 05/23/23 16:00 06/06/23 20:29 Metoprolol Tartrate 50 Mg Tab PO Not Given TID SHELIA Miscellaneous Information 1 each 05/24/23 10:44 Potassium Replacement Protocol 1 Each Misc MISCELLANE DAILY PRN Per Protocol Protocol Multivitamins 1 each 05/22/23 09:00 06/06/23 09:00 Multivitamins, Thera 1 Each Tab PO 1 each DAILY SHELIA Administration Nystatin 1 applic 06/06/23 11:31 06/06/23 14:21 Nystatin 100,000 Unit/Gm Powd 15 Gm TOPICAL 1 applic DAILY PRN Administration Rash Oxybutynin Chloride 5 mg 05/17/23 18:00 06/06/23 17:57 Oxybutynin Chloride 5 Mg Tab PO 06/16/23 18:01 5 mg TID@0800,1200,18 SHELIA Administration Petrolatum 1 applic 05/26/23 10:35 05/26/23 12:43 Zinc Oxide Paste (Z-Guard) 1 Applic Applic TOPICAL 1 applic Q2HR PRN Administration Wound Healing Potassium Chloride 20 meq 05/18/23 09:00 06/06/23 09:00 Potassium Chloride Er 20 Meq Tab.Er PO 06/17/23 09:01 20 meq DAILY SHELIA Administration Prochlorperazine Edisylate 5 mg 05/17/23 15:52 05/20/23 03:44 Prochlorperazine Inj 10 Mg/2 Ml Vial IVP 5 mg Q4HR PRN Administration Nausea And Vomiting Objective - Vital Signs Vital signs: Vital Signs Temp 99 F 06/06/23 07:36 Pulse 74 06/06/23 07:36 Resp 18 06/06/23 07:36 BP 108/69 06/06/23 07:36 Pulse Ox 94 L 06/06/23 07:36 FiO2 21 06/01/23 12:04 Intake & Output 06/05/23 06/06/23 06/06/23 18:59 06:59 18:59 Intake Total 240 Output Total 900 Balance -900 240 Weight 77 kg Intake: Oral 240 Output: Urine 900 Other: Voiding Method Bedside Commode Bedside Commode Bedside Commode Diaper Diaper Diaper External Catheter Incontinent Incontinent # Voids 2 3 # Bowel Movements 1 - Exam GENERAL: The patient is alert and oriented x3, not in any acute distress. Well developed, well nourished. HEENT: Pupils are round and equally reacting to light. EOMI. No scleral icterus. No conjunctival pallor. Normocephalic, atraumatic. No pharyngeal erythema. No thyromegaly. CARDIOVASCULAR: S1 and S2 present. No murmurs, rubs, or gallops. PULMONARY: Chest is clear to auscultation, no wheezing , no crackles. -ABDOMEN: Soft, mild RUQ tenderness, no rebound tenderness, nondistended, normoactive bowel sounds. No palpable organomegaly. MUSCULOSKELETAL: No joint swelling or deformity. EXTREMITIES: No cyanosis, clubbing, or pedal edema. NEUROLOGICAL: Gross neurological examination did not reveal any focal deficits. -SKIN: Faint maculopapular rashes on the back. no petechiae. - Labs CBC & Chem 7: 06/06/23 12:09 06/06/23 12:09 Assessment and Plan Assessment: -Progressive anemia, GI team on the case, hold Eliquis, repeat CAT scan showing trending down and smaller hematomas including right kidney and retroperitoneal hematoma -Left ovarian cyst 3.1 cm, recommend annual surveillance, we recommend follow-up with [facility] as an outpatient -Bilateral inguinal and right external lymphadenopathy, follow-up outpatient -Nephrolisthiasis and obstructive uropathy status post cystoscopy, percutaneous nephrostolithotomy and J nephrostomy tube placement with removal. Remaining stones will be followed up with urology outpatient for further evaluation. IDC has been removed. Urology has signed off. Recommend to continue with bladder scan at this time to monitor for urinary retention. -Bacteremia with staphylococcus epidermidis and hominis on IV vancomycin and IV cefepime likely a contaminent species and repeat blood culture remains negative. ID is following and recommending 10 days of oral ceftin on discharge. -Chronic proteus urinary tract infection from infected stone and obstructive uropathy treated with course of antibiotics and most recent urine culture showing normal enzo. -Right sided pleural effusion, loculated requiring chest tube which has since been discontinued. No appreciable pneumothorax on follow up chest xray. -Acute hypoxemic respiratory failure requiring 2 L oxygen via nasal cannula resolved patient is now on room air. -New onset paroxysmal atrial fibrillation with RVR currently in sinus mechanism anticoagulated with eliquis on metoprolol TID. Patient continues on oral lasix daily. Follow up proBNP normal limits for age at 89 continues on oral lasix. -Hypertension -Dyslipidemia -Chronic medical debility follows with [facility] -Morbid obesity -History of seizure disorder continue on keppra TID. -History of cerebral palsy, left-sided weakness and gait abnormality -History of stroke GI prophylaxis DVT prophylaxis On eliquis, on hold currently Full code Plan of care discussed with the patient and she is agreeable to stay in the hospital for now and continue workup and treatment
[2023-06-07] MEDS: PANTOPRAZOLE 40 MG TABLET PO SCH (05:45)
[2023-06-07] MEDS: IPRATROPIUM-ALBUTEROL 3 ML NEB INHALATION SCH ×4 (08:31→18:34)
[2023-06-07 08:39] LABS: Blood Urea Nitrogen 11.4 mg/dL (9.0-27.0); Calcium 8.2 mg/dL (8.7-10.3); Chloride 111 mmol/L (96-109); Glucose 85 mg/dL (70-110); Potassium 3.9 mmol/L (3.5-5.5); Sodium 143 mmol/L (135-145)
[2023-06-07 08:42] LABS: Basophils # (A) 0.02 X 10*3/uL (0.00-0.10); Basophils % (A) 0.3 %; Eosinophils % (A) 2.7 %; HCT 24.6 % (37.2-46.3); HGB 7.5 g/dL (12.0-15.0); Lymphocytes # (A) 0.91 X 10*3/uL (0.90-5.00); Lymphocytes % (A) 12.2 %; MCH 30.2 pg (27.0-32.0); MCHC 30.5 g/dL (32.0-37.0); MCV 99.2 FL (80.0-97.0); Mean Platelet Volume 9.9 FL (9.5-12.2); Monocytes # (A) 0.43 X 10*3/uL (0.20-1.00); Monocytes % (A) 5.8 %; NRBC Per 100 WBC 0 X 10*3/uL (0.00-0.01); Neutrophils # (A) 5.83 X 10*3/uL (1.80-7.70); Neutrophils % (A) 78.1 %; Platelet Count 384 X 10*3/uL (140-440); RBC 2.48 X 10*6/uL (4.10-5.20); RDW 13.4 % (11.5-14.5); WBC 7.46 X 10*3/uL (4.50-10.00)
[2023-06-07] MEDS: CEFEPIME 2 GM in SODIUM CHLORIDE 0.9% 100 ML IVPB SCH ×3 (09:16→23:22)
[2023-06-07] MEDS: ESCITALOPRAM 20 MG TAB PO SCH (09:18)
[2023-06-07] MEDS: hydrOXYzine HCL 25 MG TAB PO PRN ×3 (09:18→21:30)
[2023-06-07] MEDS: MULTIVITAMINS, THERA 1 EACH TAB PO SCH (09:18)
[2023-06-07] MEDS: POTASSIUM CHLORIDE ER 20 MEQ TAB.ER PO SCH (09:18)
[2023-06-07] MEDS: methocarbamoL 750 MG TAB PO SCH ×3 (09:18→20:04)
[2023-06-07] MEDS: METOPROLOL TARTRATE 50 MG TAB PO SCH ×3 (09:18→22:18)
[2023-06-07] MEDS: FLUTICASONE 50MCG/SPRAY NASAL 16GM NASAL SCH ×2 (09:19→20:04)
[2023-06-07] MEDS: levETIRAcetam 500 MG TAB PO SCH ×3 (09:19→20:04)
[2023-06-07] MEDS: CALAMINE/ZINC OXIDE LOTION 177 ML BTL TOPICAL SCH ×2 (09:19→20:04)
[2023-06-07] MEDS: HYDROCORTISONE 1% CREAM 30 GM TUBE TOPICAL SCH ×2 (09:20→20:05)
[2023-06-07] MEDS: oxyBUTYnin chloride 5 MG TAB PO SCH ×3 (09:25→17:58)
--- NOTE | 2023-06-07 13:41 | P.PN ---
Subjective Progress Note Date: 06/07/23 I am seeing this patient in consultation today 05/23/2023 for a moderate size right pleural effusion. Patient is a 67-year-old white female with extensive past medical history significant for cerebral palsy, seizure disorder, CVA, hyperlipidemia, hypertension, pulmonary embolus, among other things. She has recurrent urinary tract infections with Proteus mirabilis and infected right- sided renal calculus. She was brought in for elective right-sided percutaneous nephrostolithotomy and placement of a J nephrostomy tube on May 17. No immediate perioperative complications reported. 2 days ago, she went atrial fibrillation with ventricular rate. She was transferred to the cardiac stepdown unit. Temporarily on cardizem infusion, which is discontinued. Patient self denies any history of atrial fibrillation. Chest x-ray showed cardiomegaly, pulmonary vascular Congestion, and bilateral pleural effusions. She does receive Lasix 40 mg by mouth every morning and Aldactone. Repeat chest x-ray yesterday morning continues to show a moderate size right pleural effusion. Patient is currently resting in bed, on 2 L/m nasal cannula, in no acute distress. Patient is a poor historian. She reportedly lives independently in an apartment with PACE assistance. She is oriented to self and time. She is crying. She is febrile and diaphoretic. She remains in atrial fibrillation with RVR. Heart rate averaging 100-120 bpm. BP is normotensive. She is anticoagulated on Eliquis. She is empirically covered on cefepime for her previous Proteus urinary infection. She has a indwelling urinary catheter draining an adequate amount of shanique colored urine. Follow-up abdominal CT done yesterday june bruce posttreatment changes to the right kidney with perinephric probable hematoma and focus of gas measuring 8.4 x 4.3 x 7.7 cm. There is mild right hydroureteronephrosis which could be reactive inflammation and blood products on the right kidney. There is persistent right nephric calcification measuring 9 mm. There is moderate right and small left pleural effusions. And cholelithiasis without cholecystitis. The moderate right and small left pleural effusions were again noted. There is associated atelectasis. No focal consolidations. Most recent CBC from yesterday shows a WBC count 11.7, hemoglobin 10.5, hematocrit 30.5, platelets 139. Sodium 133, potassium 2.8, chloride 97, serum bicarb 25, UN 18, creatinine 0.65, glucose 99. Potassium is being replaced. Patient is being monitored on the cardiac stepdown unit. On today's evaluation of 05/24/2023, no interval worsening the patient was started status. The patient is currently stable. The patient is on 2 L of oxygen by nasal cannula. Producing adequate urine output. BUN is at 80 with a creatinine of 0.4 and sodium levels of 131. The white cell count of 8.4 with a hemoglobin of 9.9. The patient remains on IV cefepime. Respiratory medications are unchanged and the patient continues to be on anticoagulation with Eliquis. on 05/25/2023, I'm seeing the patient for a follow-up.Repeat chest x-ray was done and the patient continues to have a persistent right lower lobe atelectasis of the right-sided pleural effusion. The patient remains off anticoagulation. I'm considering a thoracentesis if the patient becomes more symptomatic. Otherwise, condition is stable for now. She remains on oxygen 2 L/m nasal can nula. No significant respiratory distress or the time being. The white cell count of 8.3 with a hemoglobin of 10.3 and the platelet count of 265. BUN is at 60 with a creatinine of 0.39 and a sodium level is at 133. Remains on antibiotics and the patient is still on IV cefepime. She is also on Lasix 40 mg by mouth daily. The rest of the medications unchanged. Remains on Aldactone 25 mg by mouth daily. On 05/26/2023, no new complaints and the patient's condition is stable. No respiratory difficulties. The patient remains on oxygen at 2 L with a pulse ox of 96%. The rest of the labs show sodium level of 132, potassium level of 3.8, BUN is at 40 with a creatinine of 0.4. The basic concept and 0.5 with a hemoglobin of 10.3. The patient is seen today 05/30/2023 in follow-up. We had signed off on this patient and she had initially declined any thoracentesis regarding the right p leural effusion. Primary states that now she is willing to have the procedure done. 2-D scan of the chest from 05/28/2023 revealed a right-sided pleural effusion with underlying atelectasis and/or infiltrate. Improved effusion on the left lung base. There is a right-sided retroperitoneal collection again noted. Ultrasound of the right chest was ordered and did reveal an 11.6 cm pocket however this was a complex fluid pocket with multiple septations. Currently resting fairly comfortably in bed. Awake and alert in no acute distress. Maintaining O2 saturations in the 90s on room air. She did have a T- max of 100.3 last evening. Currently afebrile. Blood cultures had revealed coag-negative staph. Urine culture revealed no growth. White count 8.9. Hemoglobin 8.3. Platelets 314. Sodium 132. Potassium 3.8. Bicarb 26. BUN 13. Creatinine 0.52. Glucose 98. Pro-calcitonin from 05/28/2023 was 0.47. She is continued on DuoNeb inhalations. Antibiotics in the form of vancomycin and cefepime. Eliquis currently on hold. The patient is seen today 05/31/2023 in follow-up on the regular medical floor. She is currently resting comfortably in bed. Awake and alert in no acute d istress. Maintaining O2 saturations in the 90s on room air. She did receive a right-sided pigtail catheter placement yesterday per interventional radiology with approximately 600 ML's of bloody return. There is a positive leak. Currently to Pleur-evac and wall suction. Cultures and cytology pending. She remains on vancomycin and cefepime. This has been resumed. She remains on bronchodilators. She'll be educated regarding the use of the incentive spirometer. The patient is seen today 06/01/2023 in follow-up on the regular medical floor. She is resting comfortably in bed. Awake and alert in no acute distress. She is maintaining O2 saturations in the 90s on room air. Right-sided pigtail catheter in place. Remains to Pleur-evac and wall suction. No leak noted. Blood cultures positive for staph hominis. Pleural fluid cultures revealing no growth. She remains on vancomycin and cefepime. She remains on bronchodilators. Working with the incentive spirometer. The patient is seen today 06/02/2023 in follow-up on the regular medical floor. She is awake and alert in no acute distress. Resting in bed. Maintaining O2 saturations in the 90s on room air. Pigtail chest tube remains in place on the right. No significant output overnight. Chest x-ray reveals a small right pleural effusion with small trace right pneumothorax. No change compared to previous. Blood cultures were positive for staph hominis. Pleural fluid cultures revealing no growth. Follow-up blood culture revealing no growth. Sodium 137. Potassium 4.4. Bicarb 21. BUN 12. Creatinine 0.44. She remains on cefepime. Anticoagulated with Eliquis. The patient is seen today 06/03/2023 in follow-up on the regular medical floor. She is resting comfortably in bed. Awake and alert in no acute distress. She is maintaining good O2 saturations in the 90s on room air. Right-sided chest tube remains in place. Chest x-ray continues to show small right pleural effusion and small to trace right pneumothorax. Similar findings. Lytics were installed yesterday however the clamp was not released so there is no significant drainage from her effusion. The plan is for repeat instillations of lytics today and to be unclamped 1-2 hours afterwards. Initial blood cultures positive for staph hominis. Follow-up blood cultures revealing no growth. Pleural fluid culture pending. Sodium 130. Potassium 4.8. Bicarb 21. BUN 14. Creatinine 0.55. Calcium 8.7. She is continued on cefepime and vancomycin. Remains on DuoNeb inhalations. Eliquis for anticoagulation. The patient is seen today 06/04/2023 in follow-up on the regular medical floor. She is currently resting comfortably in bed. Awake and alert in no acute distress. She is currently resting comfortably in bed. Awake and alert in no acute distress. Maintaining O2 saturations in the 90s on room air. Afebrile. Hemodynamically stable. X-ray continues to show persistent loculation in the right costophrenic angle. Small minimal thorax residual effusion may be present with drainage catheter present. White count 6.8. Hemoglobin 7.6. Platelets 434. Sodium 141. Potassium 4.0. Bicarb 23. BUN 12. Creatinine 0.6. Right- sided pigtail catheter remains in place to wall suction. No significant output. Initial blood cultures were positive for staph hominis. Follow-up blood cultures revealed no growth. Pleural fluid culture revealed no growth. She is continued on vancomycin and cefepime. The patient is seen today 06/05/2023 in follow-up on the regular medical floor. She is awake and alert in no acute distress. Resting comfortably in bed. Her right-sided pigtail catheter was removed yesterday. She denies any worsening shortness of breath, cough or congestion. Maintaining O2 saturations in the 90s on room air. Blood cultures initially were positive for staph hominis. Follow- up blood culture revealed no growth. Pleural fluid culture revealed no growth. Urine culture revealed no growth. White count 7.4. Hemoglobin 7.5. Platelets 402. Sodium 140. Potassium 3.6. Bicarb 21. BUN 11. Creatinine 0.46. He remains on DuoNeb inhalations. Antibiotics in the form of cefepime. She is anticoagulated with Eliquis. The patient is seen today 06/06/2023 in follow-up on the regular medical floor. She is awake and alert in no acute distress. Currently sitting up in a chair at the bedside. Denies any worsening shortness of breath, cough or congestion. Denies any right-sided chest discomfort. Maintaining good O2 saturations in the 90s on room air. Follow-up chest x-ray revealed a small right pleural effusion with adjacent atelectasis. Pigtail catheter removed. No evidence of pneumoth orax. Blood cultures are positive for staph hominis. Follow-up blood culture reveals no growth. Sputum culture revealed no growth. Urine culture revealed no growth. She is continued on cefepime. Remains on bronchodilators. Anticoagulated with Eliquis. The patient is seen today 06/07/2023 in follow-up on the regular medical floor. She is currently resting comfortably in bed. Awake and alert in no acute distress. She is maintaining good O2 saturations in the 90s on room air. Her pigtail catheter had been removed earlier this week. Computed tomography scan of the abdomen and pelvis revealed residual small right pleural effusion with adjacent atelectasis. Decrease compared to previous. Small adjacent pneumothorax that may reflect recent thoracentesis and fluid evacuation. There is a superior retroperitoneal hematoma smaller at 7.0 x 3.4 cm. Some hemorrhagic material remains within the right renal collecting system with residual mild hydronephrosis also improving. A partially except Sunday renal parenchymal hematoma is smaller. A small intraparenchymal hematoma measuring 1.2 cm also stable. Nonobstructive right renal stone. Initial blood cultures were positive for staph hominis. Follow-up blood culture revealed no growth. Pleural fluid culture revealed no growth. White count 7.4. Hemoglobin 7.5. Platelets 384. Sodium 143. Potassium 3.9. Bicarb 23. BUN 11. Creatinine 0.4. Glucose 85. She remains on bronchodilators. Continue his work with the incentive spirometer. Remains on antibiotics in the form of cefepime. Objective - Vital Signs Vital signs: Vital Signs Temp 98.1 F 06/07/23 07:21 Pulse 67 06/07/23 07:21 Resp 16 06/07/23 07:21 BP 100/60 06/07/23 07:21 Pulse Ox 94 L 06/07/23 08:33 FiO2 21 06/01/23 12:04 Intake & Output 06/06/23 06/07/23 06/07/23 18:59 06:59 18:59 Intake Total 480 240 Output Total 100 300 Balance 380 -300 240 Intake: Oral 480 240 Output: Urine 100 300 Other: Voiding Method Bedside Commode External Catheter Diaper Incontinent # Voids 1 - Exam GENERAL EXAM: Alert, 67-year-old female, up in a chair, on room air, in no acute distress. HEAD: Normocephalic and atraumatic EYES: Normal reaction of pupils, equal size. NOSE: Clear with pink turbinates. THROAT: No erythema or exudates. NECK: No masses, no JVD. CHEST: No chest wall deformity. LUNGS: Equal air entry with few scattered rales, diminished in the right lung base. CVS: S1 and S2 normal with no audible murmur, irregular rhythm. No extra heart sounds. ABDOMEN: No hepatosplenomegaly, active bowel sounds, no guarding or rigidity. SPINE: No scoliosis or deformity. Percutaneous site right inferior back, dressed with gauze. No shadowing. SKIN: Bilateral lower extremity chronic venous changes. CENTRAL NERVOUS SYSTEM: There appears to be left-sided hemiparesis. She is oriented to self and place. EXTREMITIES: There is no peripheral edema, clubbing, or cyanosis. Peripheral pulses are intact. - Labs CBC & Chem 7: 06/07/23 05:19 06/07/23 05:19 Labs: Abnormal Lab Results - Last 24 Hours (Table) 06/07/23 06/07/23 Range/Units 05:19 05:19 RBC 2.48 L (4.10-5.20) X 10*6/uL Hgb 7.5 L (12.0-15.0) g/dL Hct 24.6 L (37.2-46.3) % MCV 99.2 H (80.0-97.0) FL MCHC 30.5 L (32.0-37.0) g/dL Immature Gran # 0.07 H (0.00-0.04) X 10*3/uL Chloride 111 H (96-109) mmol/L Creatinine 0.5 L (0.6-1.5) mg/dL BUN/Creatinine Ratio 22.80 H (12.00-20.00) Ratio Calcium 8.2 L (8.7-10.3) mg/dL Assessment and Plan Assessment: Acute hypoxemic respiratory failure, on 2 L/m nasal cannula, likely related to e xacerbation of congestive heart failure, unknown systolic or diastolic type. Chest x-ray shows cardiomegaly with pulmonary vascular congestion and bilateral pleural effusions, right greater than left.patient had a follow-up chest x-ray that shows a persistent right-sided pleural effusion. Ultrasound of the right chest reveals an 11.6 cm pocket however this is a complex effusion with multiple septations. Right-sided pigtail catheter placed 05/30/2023 with 600 ML's of bloody returned initially. Fluid exudative with protein greater than 3.6 and LDH of 1211. Cytology pending. Pigtail catheter removed on 06/04/2023. Computed tomography scan of the abdomen and pelvis revealed residual small right pleural effusion with adjacent atelectasis. Decrease compared to previous. Small adjacent pneumothorax that may reflect recent thoracentesis and fluid evacuation. Bacteremia with staph hominis, treated with vancomycin and cefepime Anemia of unclear etiology. Ct abdomen revealed a superior retroperitoneal hematoma smaller at 7.0 x 3.4 cm. Some hemorrhagic material remains within the right renal collecting system with residual mild hydronephrosis also improving. A partially except Sunday renal parenchymal hematoma is smaller. A small intraparenchymal hematoma measuring 1.2 cm also stable. Nonobstructive right renal stone. Recurrent urinary tract infections and infected right renal calculi status post cystoscopy, percutaneous nephrostolithotomy and placement of a right J neph rostomy tube on 05/17/23. Follow-up CAT scan of the chest and abdomen was noted. The patient has posttreatment changes in the right kidney along with perinephric probable hematoma and the focus of a gas. This is probably inflammatory in nature. At the same time, the patient has not mild right h ydroureteronephrosis and a small right-sided pleural effusion is small left- sided pleural effusion along with cholelithiasis. Patient is status post cystoscopy and percutaneous nephrostolithotomy and placement of right IJ nephrostomy tube on 05/17/2023. Patient is currently covered on cefepime for history of recurrent urinary tract infections, with her most recent previous isolated organism Proteus mirabilis, susceptible to cefepime. History of recurrent urinary tract infections, previous isolated organism Proteus mirabilis Possible new onset atrial fibrillation with rapid ventricular rate, anticoagulated on Eliquis History of cerebral palsy History of seizure disorder Hyperlipidemia Hypertension History of CVA History of left-sided weakness and gait abnormality Morbid obesity Plan: The patient was seen and evaluated Computed tomography scan of the abdomen and pelvis, medications and reviewed Currently stable and on room air Plan is to return home with assistance from PACE Antibiotics per ID service Anemia being addressed by GI service This patient was seen independently by the pulmonary nurse practitioner I have personally seen and examined the patient, performed the documentation and the assessment and plan as written. Number of minutes spent on the visit: 22.
--- NOTE | 2023-06-07 16:33 | P.PN ---
Subjective Progress Note Date: 06/07/23 Principal diagnosis: Anemia This is a 67-year-old female with multiple comorbidities including COPD, CHF, CVA, pulmonary embolism, recurrent urinary tract infections, and obesity who came in on 05/16/2023 for large kidney stone and scheduled outpatient cystoscopy. On 05/17/2023 she had multiple procedures for right large partial staghorn calculus with urology. Patient was requiring rehab, medical team was consulted for medical management. On 05/22/[address] chest and abdomen without contrast at that showed a right kidney. Nephrotic hematoma, persistent right nephric calcification measuring 9 mm, small right and small left pleural effusion, and cholelithiasis. Eventually, pulmonology was consulted for acute hypoxic respiratory failure with suspected urosepsis with recurrent urinary tract infection with new onset atrial fibrillation started on Eliquis. Since her admission and starting Eliquis patient has had a steady decline in her hemoglobin. On 03/19/2023 hemoglobin was 10.7 and yesterday it was 7.5. Gastroenterology was consulted for possible GI bleed. Patient denies any signs or symptoms of GI bleed. Denies any odd in her stool or black stool, no abdominal pain, nausea vomiting. There is been no repeat CT of the abdomen to check for stabilization of hematoma. Patient is currently on Eliquis 5 mg twice a day. 06/07/2023 Patient seen and examined today as a follow-up. She is sitting up in her bedside chair. She states she is hungry and she wants to eat. Denies any blood or black stool. She had a CT of the abdomen and pelvis that showed improvement and hematomas. Hemoglobin 7.5 and iron studies are still currently pending. Objective - Vital Signs Vital signs: Vital Signs Temp 98.1 F 06/07/23 07:21 Pulse 67 06/07/23 07:21 Resp 16 06/07/23 07:21 BP 100/60 06/07/23 07:21 Pulse Ox 94 L 06/07/23 08:33 FiO2 21 06/01/23 12:04 Intake & Output 06/06/23 06/07/23 06/07/23 18:59 06:59 18:59 Intake Total 480 240 Output Total 100 300 Balance 380 -300 240 Intake: Oral 480 240 Output: Urine 100 300 Other: Voiding Method Bedside Commode External Catheter Diaper Incontinent - Exam General appearance: The patient is alert, oriented, appears in no acute distress. HET: Head is normocephalic and atraumatic. Conjunctiva pink. Sclera anicteric. Neck: Supple without lymphadenopathy. Abdomen: Soft, nontender, nondistended with bowel sounds. No guarding or rigidity. Extremities: Normal skin color and turgor. No pedal edema Skin: No rashes, no jaundice Neurological: No focal deficits. Alert and oriented. - Labs CBC & Chem 7: 06/07/23 05:19 06/07/23 05:19 Labs: Abnormal Lab Results - Last 24 Hours (Table) 06/06/23 06/06/23 06/07/23 Range/Units 12: 12:09 05:19 RBC 2.67 L 2.48 L (3.80-5.40) m/uL Hgb 8.3 L D 7.5 L (11.4-16.0) gm/dL Hct 26.6 L 24.6 L (34.0-46.0) % MCV 99.2 H (80.0-97.0) FL MCHC 30.5 L (32.0-37.0) g/dL Immature Gran # 0.07 H (0.00-0.04) X 10*3/uL Chloride 109 H (98-107) mmol/L Creatinine 0.47 L (0.52-1.04) mg/dL BUN/Creatinine Ratio (12.00-20.00) Ratio Calcium (8.7-10.3) mg/dL Total Protein 6.2 L (6.3-8.2) g/dL Albumin 2.9 L (3.5-5.0) g/dL 06/07/23 Range/Units 05:19 RBC (3.80-5.40) m/uL Hgb (11.4-16.0) gm/dL Hct (34.0-46.0) % MCV (80.0-97.0) FL MCHC (32.0-37.0) g/dL Immature Gran # (0.00-0.04) X 10*3/uL Chloride 111 H (98-107) mmol/L Creatinine 0.5 L (0.52-1.04) mg/dL BUN/Creatinine Ratio 22.80 H (12.00-20.00) Ratio Calcium 8.2 L (8.7-10.3) mg/dL Total Protein (6.3-8.2) g/dL Albumin (3.5-5.0) g/dL Assessment and Plan (1) Anemia Narrative/Plan: 67-year-old female multiple more comorbidities admitted for kidney stone u nderwent surgery on 05/17/2023 with urology. Patient was then admitted with bilateral pleural effusion,, new onset atrial fibrillation started on [place]. Patient was anemic on admission at 10.7 but has been gradually dropping her hemoglobin throughout her stay. She was noted to have a postop hematoma and there has been no imaging following the initial computed tomography scan and started on Ahlquist. Gastroenterology consulted by medical team for anemia consider possible GI bleed. Certainly cannot rule out GI bleed although patient has no signs or symptoms. Recommend holding Eliquis and repeating computed tomography scan and looking at hematoma as possible source of blood loss. Brandie ent's hemoglobin stable at 7.5. unclear etiology of anemia, patient has multiple comorbidities going on at this time including recent cystoscopy and hematoma. No signs of GI bleed. Will defer endoscopic evaluation at this time. Patient may resume Eliquis and recommend outpatient follow-up in 2 weeks if the anemia not improved. Current Visit: Yes Status: Acute Code(s): D64.9 - ANEMIA, UNSPECIFIED SNOM ED Code(s): 474273978 (2) Calculus of kidney Current Visit: No Status: Acute Code(s): N20.0 - CALCULUS OF KIDNEY SNOMED Code(s): 07264920 (3) Hyperlipidemia Current Visit: No Status: Acute Code(s): E78.5 - HYPERLIPIDEMIA, UNSPECIFIED SNOMED Code(s): 06574701 (4) Hypertension Current Visit: No Status: Acute Code(s): I10 - ESSENTIAL (PRIMARY) HYPERTENSION SNOMED Code(s): 35449854 (5) Morbid obesity Current Visit: No Status: Acute Code(s): E66.01 - MORBID (SEVERE) OBESITY DUE TO EXCESS CALORIES SNOMED Code(s): 044094122 (6) Postoperative hematoma Current Visit: No Status: Acute Code(s): HVB0419 - SNOMED Code(s): 487104484 Plan: 1. Continue symptomatic and supportive care 2. Daily CBC, transfuse for hemoglobin less than 7 3. May resume Eliquis 4. Anemia workup ordered, still pending results 5. Patient may have regular diet 6. Patient hemoglobin stable, no signs or symptoms of GI bleed. Will defer endoscopic evaluation at this time. Patient may follow-up with gastroenterology if anemia persists. Thank you for this consultation, we will sign off at this time. Dr. Liane Deutsch I agree with the dictator's note, documented as a scribe by Anny Perera.
[2023-06-07] MEDS: HYDROcodone/APAP 7.5-325MG 1 EACH TAB PO PRN (18:06)
[2023-06-07 19:11] LABS: % Iron Saturation 13.37 (12.00-45.00); Iron 27 UG/DL (50-170); Total Iron Binding Capacity 202 UG/DL (228-460)
[2023-06-07] MEDS: ATORVASTATIN 10 MG TAB PO SCH (20:04)
[2023-06-07] MEDS: APIXABAN 5 MG TAB PO SCH (20:04)
--- NOTE | 2023-06-07 20:06 | P.PN ---
Subjective Patient evaluated today sitting up in chair. Indwelling catheter to be removed today, urology has signed off. Patient is status post percutaneous ne phrostolithotomy and J nephrostomy tube placement on the right. The nephrostomy tube was subsequently discontinued on 05/21. She has remained in the hospital had interval development of pleural effusion, and fever with imaging revealing cholelisthiasis, moderate right and small left pleural effusion, and mild right hydroureteronephrosis. Patient also developed atrial fibrillation postoperatively currently anticoagulated. Patient was evaluated by pulmonary and considered for thoracentesis which she had declined. She does continue at this point to report right sided pleuritic chest pain worse with deep inspiration and she has developed fever. She has had persistent proteus UTI and completed course of antibiotics for this with most recent urine culture from 05/24 this admission showing negative urine culture and negative blood cultures. 05/29/2023 Patient evaluated today resting in bed. Continues to report right sided chest pain. Had chest CT done showing right-sided pleural effusion with underlying atelectasis and or infiltrate appears essentially unchanged. Improved effusion left lung base. Right sided retroperitoneal collection is again noted and smaller in size. AST/ALT remain elevated. Sodium 134, BUN 13.7, creatinine 0.6. ID following patient on IV cefepime and IV vancomycin. Blood cultures showing gram postive cocci/coag negative staph x 2 which is likely contaminent species however blood culture will be repeated. T-Max 101.1 overnight. 05/30/2023 Patient is evaluated today sitting up in bed. Has had episode of diarrhea related to IBS requesting imodium which has been ordered since the she has also been placed on questran. ID following for continued fevers. Blood culture showing coagulase negative staph which has been repeated and pending. Likely a contaminant. Remains on IV cefepime and IV vancomycin. AST/ALT remain elevated with abdominal CT revealing gallstones patient states she has had these for many years. Procalcitonin level is elevated at 0.47. IR consulted with plans for thoracentesis today with cytology for the large right sided pleural effusion. Sodium today 132. White count has improved to 8.92. T-max overnight 100.3. 05/31/2023 Patient is evaluated today sitting up in bed. Underwent pigtail catheter placement yesterday with IR. Had over 600 mls output bloody/serosanguineous Cytology is currently pending at this time. Patient had follow up chest xray showing improvement in the pleural-parenchymal opacity. Evidence of air leak. No pneumothorax noted. Remains on IV vancomycin and IV cefepime. Blood culture showing staph hominus likely a contaminent species and repeat blood cultures are pending. ID following. Labs today showing sodium 140, potassium 2.9, BUN 10, creatinine 0.37, calcium 5.8. Continue with bladder scan Q6h to monitor for urinary retention. 06/01/2023 Patient sitting up in chair. Chest tube remains in place. Chest xray today with evidence of pneumothorax and there was an air leak noted from the chest tube site. Patient has no shortness of breath. Sodium 137, potassium 4.8, calcium 8.8. LFTs remain elevated. Continues on IV cefepime and IV vancomycin. 06/02/2023 Patient remains on medical floor with chest tube in place. Follow-up chest x- ray today reveals right thoracotomy tube with small right pleural effusion and small trace right pneumothorax. Cardiothoracic has evaluated this patient recommending to instill a dose of alteplase and dornase today. Having low-grade fevers of 99.3. She continues on room air at this time. Is on combination of IV cefepime and IV vancomycin with cytology from the chest tube placement pending. Labs today show improved potassium of 4.4. 06/03/2023 Patient is evaluated today continues with right sided chest tube. Will get dornase and alteplase infusion again today. Repeat blood culture remains negative. Pleural fluid culture pending. Sodium 138, potassium 4.8, BUN 14, creatinine 0.55. LFTs remain elevated. Pathology pending. Recommend to continue monitoring for urinary retention with bladder scans. Remains on IV cefepime and IV vancomycin at this time. 06/04/2023 Patient evaluated today on the medical floor sitting up in the chair. Having some intermittent episodes shortness of breath the right sided pigtail catheter remains with minimal output there is 30 mL in the atrium. Chest xray today shows persistent loculation right costophrenic angle. Small pneumothorax residual effusion may be present. 06/05/2023 Patient is evaluated today sitting up in the chair. She did work with physical therapy was able to get up and ambulate in the hallway. Patient had removal of the right sided pigtail catheter. Pathology showing no malignancy. Follow up chest xray today reveals ongoing right sided pleural effusion with adjacent atelectasis and or consolidation. The previous right sided plueral catheter appears to have been removed. No appreciable pneumothorax. Small amount of pleural air may be present at the right base at the site of previous pleural catheter. 06/06/2023 Dyspnea and no chest pain today, cough is minimal. She has skin rash on the back for last few days which looks faint maculopapular rash but stable, slightly EEG. Also patient complaining of from mild right upper quarter of abdominal pain. Hemoglobin has been trending down since 05/22 at 10.7 came down to 7.5 yesterday, repeat hemoglobin today is 8.3. There is no source for bleeding and repeat CAT scan of the abdomen and pelvis without IV or oral contrast showing multiple hematomas that are getting smaller. CAT scan showing residual pneumothorax which is expected status post right chest tube removal but recommended to follow-up. 2. Retroperitoneal hematoma came down from 8.4 x 4.3 down to 7.0 x 3.4 cm which is smaller. Another right kidney hematoma coming down from 40 cm down to 3.4 cm. Patient with evidence of left ovarian cyst 3.1 cm recommended annual surveillance Also patient with bilateral equina and the right external lymphadenopathy. Also patient with multiple problems, she has new onset A. fib and RVR and she was started on liquids. GI team consult is appreciated, to hold on liquids for possible scope on Sunday. Also patient evaluated by several consultants including infectious disease team and currently she is on IV cefepime which can be switched to Ceftin 10 days upon discharge, pulmonary cardiothoracic surgery following for right pleural effusion, chest tube, pigtail tube catheter was removed on 06/04. Patient also with evidence of nephrolithiasis on admission with obstructive uropathy status post percutaneous nephrolithotomy and double-J nephrostomy, for rest of the stones patient will need to follow up as an outpatient. I have elected discussion with the patient, she declines to go to rehab, she was eager to be discharged but she agrees to wait to further workup especially regarding her dropping hemoglobin. B12 is pending, folate is normal at 22.8, iron studies are pending as well. This was discussed with the bedside nurse Case was discussed with the GI team. 06/07/2023 Patient awake alert, her right-sided abdominal pain shows improvement, she still has mild right upper were trending discomfort, and some stomach upset with eating. Blood in the stool. Hemoglobin is still on the low side today 7.5. Anemia workup still pending GI service were followed closely and the plan was for endoscopic as an inpatient however eventually they deferred this at this time. And recommended to resume liquids which is a started and we'll monitor hemoglobin tomorrow. Patient herself eager to go home. She is hemodynamically stable Other labs are reviewed. She had repeat CAT scan of the abdomen and pelvis and I reviewed in details with the patient, she has some residual right-sided pneumothorax which is very mi nimal and edges result of recent chest tube removal.She has superior retro- peritoneal hematoma improving in size from 8.4 x 4.3 cm down to 7.0 x 3.4 cm (smaller). Also she has right kidney hematoma 4 cm diameter 3.4 cm ( smaller), also patient with evidence of bilateral equina and right external iliac lymphadenopathy, patient states that she is aware of these problems and she's been told before she has non-Hodgkin lymphoma, she stated that she follow up with her oncologist Dr. Iraheta, patient agreed to instructions to follow up with him in 1-2 weeks after discharge. Also patient with evidence of 3.1 cm left ovarian cyst with radiologist recommended annual surveillance, patient also aware about this problem and she said that she usually follow up with side boss Dr. Lan Vinson and she agrees to follow up with her 2 weeks after discharge as instructed Currently she remains on cefepime with plan to be discharged 10 days CEFEPIME per ID team. Patient is started on liquids for acute onset atrial fibrillation, risk of bleeding are explained for the patient details and she verbalized understanding and acceptance. She follows up with Jonnathan KEENAN ( ) her PCP. She intends to follow-up with her upon discharge. Objective - Vital Signs Vital signs: Vital Signs Temp 98.7 F 06/07/23 14:44 Pulse 76 06/07/23 14:44 Resp 16 06/07/23 14:44 BP 100/67 06/07/23 14:44 Pulse Ox 96 06/07/23 14:44 FiO2 21 06/01/23 12:04 Intake & Output 06/07/23 06/07/23 06/08/23 06:59 18:59 06:59 Intake Total 648 Output Total 300 Balance -300 648 Intake: Intake, IV Titration 200 Amount Cefepime 2 gm In Sodium 200 Chloride 0.9% 100 ml @ 25 mls/hr IVPB Q8HR [facility], [facility] Rx# :[id number] Oral 448 Output: Urine 300 Other: Voiding Method External Catheter # Voids 1 - Exam GENERAL: The patient is alert and oriented x3, not in any acute distress. Well developed, well nourished. HEENT: Pupils are round and equally reacting to light. EOMI. No scleral icterus. No conjunctival pallor. Normocephalic, atraumatic. No pharyngeal erythema. No thyromegaly. CARDIOVASCULAR: S1 and S2 present. No murmurs, rubs, or gallops. PULMONARY: Chest is clear to auscultation, no wheezing , no crackles. -ABDOMEN: Soft, mild RUQ tenderness, no rebound tenderness, nondistended, normoactive bowel sounds. No palpable organomegaly. MUSCULOSKELETAL: No joint swelling or deformity. EXTREMITIES: No cyanosis, clubbing, or pedal edema. NEUROLOGICAL: Gross neurological examination did not reveal any focal deficits. -SKIN: Faint maculopapular rashes on the back. no petechiae. - Labs CBC & Chem 7: 06/07/23 05:19 06/07/23 05:19 Labs: Abnormal Lab Results - Last 24 Hours (Table) 06/06/23 06/07/23 06/07/23 Range/Units 12:09 05:19 05:19 RBC 2.48 L (4.10-5.20) X 10*6/uL Hgb 7.5 L (12.0-15.0) g/dL Hct 24.6 L (37.2-46.3) % MCV 99.2 H (80.0-97.0) FL MCHC 30.5 L (32.0-37.0) g/dL Immature Gran # 0.07 H (0.00-0.04) X 10*3/uL Chloride 111 H (96-109) mmol/L Creatinine 0.5 L (0.6-1.5) mg/dL BUN/Creatinine Ratio 22.80 H (12.00-20.00) Ratio Calcium 8.2 L (8.7-10.3) mg/dL Iron 27 L (50-170) UG/DL TIBC 202 L (228-460) UG/DL Transferrin 144.0 L (204.0-354.0) mg/dL Ferritin 729.0 H (10.0-291.0) ng/mL Vitamin B12 1020.0 H (200.0-944.0) pg/mL Assessment and Plan Assessment: -Progressive anemia, GI team on the case, hold Eliquis, repeat CAT scan showing trending down and smaller hematomas including right kidney and retroperitoneal hematoma -Left ovarian cyst 3.1 cm, recommend annual surveillance, we recommend follow-up with [facility] as an outpatient -Bilateral inguinal and right external lymphadenopathy, follow-up outpatient -Nephrolisthiasis and obstructive uropathy status post cystoscopy, percutaneous nephrostolithotomy and J nephrostomy tube placement with removal. Remaining stones will be followed up with urology outpatient for further evaluation. IDC has been removed. Urology has signed off. Recommend to continue with bladder scan at this time to monitor for urinary retention. -Bacteremia with staphylococcus epidermidis and hominis on IV vancomycin and IV cefepime likely a contaminent species and repeat blood culture remains negative. ID is following and recommending 10 days of oral ceftin on discharge. -Chronic proteus urinary tract infection from infected stone and obstructive uropathy treated with course of antibiotics and most recent urine culture showing normal enzo. -Right sided pleural effusion, loculated requiring chest tube which has since been discontinued. No appreciable pneumothorax on follow up chest xray. -Acute hypoxemic respiratory failure requiring 2 L oxygen via nasal cannula resolved patient is now on room air. -New onset paroxysmal atrial fibrillation with RVR currently in sinus mechanism anticoagulated with eliquis on metoprolol TID. Patient continues on oral lasix daily. Follow up proBNP normal limits for age at 89 continues on oral lasix. -Hypertension -Dyslipidemia -Chronic medical debility follows with [facility] -Morbid obesity -History of seizure disorder continue on keppra TID. -History of cerebral palsy, left-sided weakness and gait abnormality -History of stroke GI prophylaxis DVT prophylaxis On eliquis, on hold currently Full code Plan of care discussed with the patient and she is agreeable to stay in the hospital for now and continue workup and treatment
[2023-06-08] MEDS: PANTOPRAZOLE 40 MG TABLET PO SCH (05:50)
[2023-06-08 06:26] LABS: Basophils % (A) 0 %; Eosinophils # (A) 0.2 k/uL (0-0.7); Eosinophils % (A) 2 %; Hypochromasia Moderate; Lymphocytes # (A) 0.9 k/uL (1.0-4.8); Lymphocytes % (A) 12 %; MCHC 32.1 g/dL (31.0-37.0); MCV 96.5 fL (80.0-100.0); Mean Platelet Volume 7.5; Monocytes # (A) 0.3 k/uL (0-1.0); Monocytes % (A) 4 %; Neutrophils # (A) 6.3 k/uL (1.3-7.7); Neutrophils % (A) 81 %; Platelet Count 357 k/uL (150-450); RBC 2.59 m/uL (3.80-5.40); RDW 13.9 % (11.5-15.5); WBC 7.8 k/uL (3.8-10.6)
[2023-06-08] MEDS: levETIRAcetam 500 MG TAB PO SCH (08:28)
[2023-06-08] MEDS: METOPROLOL TARTRATE 50 MG TAB PO SCH (08:28)
[2023-06-08] MEDS: POTASSIUM CHLORIDE ER 20 MEQ TAB.ER PO SCH (08:28)
[2023-06-08] MEDS: MULTIVITAMINS, THERA 1 EACH TAB PO SCH (08:28)
[2023-06-08] MEDS: oxyBUTYnin chloride 5 MG TAB PO SCH ×2 (08:28→12:24)
[2023-06-08] MEDS: hydrOXYzine HCL 25 MG TAB PO PRN ×2 (08:29→13:51)
[2023-06-08] MEDS: APIXABAN 5 MG TAB PO SCH (08:29)
[2023-06-08] MEDS: CEFEPIME 2 GM in SODIUM CHLORIDE 0.9% 100 ML IVPB SCH (08:29)
[2023-06-08] MEDS: HYDROCORTISONE 1% CREAM 30 GM TUBE TOPICAL SCH (08:35)
[2023-06-08] MEDS: methocarbamoL 750 MG TAB PO SCH (08:35)
[2023-06-08] MEDS: ESCITALOPRAM 20 MG TAB PO SCH (08:35)
[2023-06-08] MEDS: CALAMINE/ZINC OXIDE LOTION 177 ML BTL TOPICAL SCH (08:35)
[2023-06-08] MEDS: FLUTICASONE 50MCG/SPRAY NASAL 16GM NASAL SCH (08:36)
[2023-06-08] MEDS: IPRATROPIUM-ALBUTEROL 3 ML NEB INHALATION SCH ×3 (08:41→15:41)
--- NOTE | 2023-06-08 12:44 | P.PN ---
Subjective Progress Note Date: 06/06/23 Principal diagnosis: Reason for follow-up is fever and bacteremia Patient is a 67-year-old female with a past medical history significant for hypertension hyperlipidemia PE CVA TIA COPD heart failure patient presenting to the hospital on 05/16/2023 for elective treatment of partial right staghorn calculus in the right upper lobe, the patient is status post percutaneous nephrostomy and percutaneous nephrolithotomy patient did have a postop fever started on 05/18/2023 for which his infectious disease was consulted 05/28/2023,Patient is status post IR right-sided pigtail catheter placement on 05/30/2023, subsequentlyCT surgery has been consulted for installation of lytics as output from the chest Tube has decreased as of 06/02/2023 On today's evaluation that is 06/06/2023 the patient continues to be afebrile, the patient is breathing comfortably on 2 L nasal cannula oxygen the patient denies having any chest pain occasional cough no nausea no vomiting no abdominal pain or diarrhea has been reported. Patient has developed an itching rash to bilateral groin area Patient did have a white count of 8.3, creatinine 0.47 blood fluid and repeat blood culture negative Objective - Vital Signs Vital signs: Vital Signs Temp 99 F 06/06/23 07:36 Pulse 74 06/06/23 07:36 Resp 18 06/06/23 07:36 BP 108/69 06/06/23 07:36 Pulse Ox 94 L 06/06/23 07:36 FiO2 21 06/01/23 12:04 Intake & Output 06/05/23 06/06/23 06/06/23 18:59 06:59 18:59 Intake Total 240 Output Total 900 Balance -900 240 Weight 77 kg Intake: Oral 240 Output: Urine 900 Other: Voiding Method Bedside Commode Bedside Commode Bedside Commode Diaper Diaper Diaper External Catheter Incontinent Incontinent # Voids 2 3 # Bowel Movements 1 - Exam GENERAL DESCRIPTION: An elderly female up in the chair in no distress RESPIRATORY SYSTEM: Unlabored breathing , decreased breath sounds at the bases HEART: S1 S2 regular rate and rhythm , ABDOMEN: Soft , no tenderness EXTREMITIES: No edema feet - Labs CBC & Chem 7: 06/08/23 05:50 06/07/23 05:19 Assessment and Plan (1) Postoperative hematoma Current Visit: No Status: Acute Code(s): XXS4459 - SNOMED Code(s): 662762456 (2) Pruritus due to inflammation Current Visit: No Status: Acute Code(s): L29.9 - PRURITUS, UNSPECIFIED SNOMED Code(s): 664919613 (3) Leukocytosis Current Visit: Yes Status: Acute Code(s): D72.829 - ELEVATED WHITE BLOOD CELL COUNT, UNSPECIFIED SNOMED Code(s): 706462674 (4) Pneumonia Current Visit: No Status: Acute Code(s): J18.9 - PNEUMONIA, UNSPECIFIED ORGANISM SNOMED Code(s): 682991930 Plan: 1patient with fever that has been going on for almost 10 days in this patient who is status post right percutaneous nephrostomy and percutaneous nephrolithotomy for staghorn calculus that was completed on 05/17/2023 and the patient started spiking fever on 05/18/[address] abdominal pelvis did mention abnormality to the right kidney and concern for possible hematoma to the likely etiology underlying abscess less likely but not entirely excluded carl ramsayely from enteric gram-negative pathogen versus a component of possible pneumonia 2-patient did have a positive blood culture with Staph epi Which is likely skin contamination as the repeat blood culture has been negative and the pleural fluid culture has been negative. 3patient remains to be afebrile the patient white count is normal with a culture negative for any resistant pathogen we will consider a short course of oral Ceftin on discharge 4-Patient has developed rash to bilateral groin more likely cutaneous candidiasis we will add nystatin powder to bilateral groin area Dictation was produced using [employer] dictation software. please excuse any grammatical, word or spelling errors. Time with Patient: Less than 30
--- NOTE | 2023-06-08 12:47 | P.PN ---
Subjective Progress Note Date: 06/07/23 Principal diagnosis: Reason for follow-up is fever and bacteremia Patient is a 67-year-old female with a past medical history significant for hypertension hyperlipidemia PE CVA TIA COPD heart failure patient presenting to the hospital on 05/16/2023 for elective treatment of partial right staghorn calculus in the right upper lobe, the patient is status post percutaneous nephrostomy and percutaneous nephrolithotomy patient did have a postop fever started on 05/18/2023 for which his infectious disease was consulted 05/28/2023,Patient is status post IR right-sided pigtail catheter placement on 05/30/2023, subsequentlyCT surgery has been consulted for installation of lytics as output from the chest Tube has decreased as of 06/02/2023 On today's evaluation that is 06/07/2023, the patient remains to be afebrile the patient is breathing comfortably on room air denies any chest pain shortness of breath occasional cough no nausea vomiting no abdominal pain or diarrhea still complaining of rash to the back and bilateral groin area Patient did have a white count of 7.46, creatinine 0.5 Objective - Vital Signs Vital signs: Vital Signs Temp 98.1 F 06/07/23 07:21 Pulse 67 06/07/23 07:21 Resp 16 06/07/23 07:21 BP 100/60 06/07/23 07:21 Pulse Ox 94 L 06/07/23 08:33 FiO2 21 06/01/23 12:04 Intake & Output 06/06/23 06/07/23 06/07/23 18:59 06:59 18:59 Intake Total 480 240 Output Total 100 300 Balance 380 -300 240 Intake: Oral 480 240 Output: Urine 100 300 Other: Voiding Method Bedside Commode External Catheter Diaper Incontinent - Exam GENERAL DESCRIPTION: An elderly female up in the chair in no distress RESPIRATORY SYSTEM: Unlabored breathing , decreased breath sounds at the bases HEART: S1 S2 regular rate and rhythm , ABDOMEN: Soft , no tenderness EXTREMITIES: No edema feet - Labs CBC & Chem 7: 06/08/23 05:50 06/07/23 05:19 Labs: Abnormal Lab Results - Last 24 Hours (Table) 06/06/23 06/06/23 06/07/23 Range/Units 12:09 12:09 05:19 RBC 2.67 L 2.48 L (3.80-5.40) m/uL Hgb 8.3 L D 7.5 L (11.4-16.0) gm/dL Hct 26.6 L 24.6 L (34.0-46.0) % MCV 99.2 H (80.0-97.0) FL MCHC 30.5 L (32.0-37.0) g/dL Immature Gran # 0.07 H (0.00-0.04) X 10*3/uL Chloride 109 H (98-107) mmol/L Creatinine 0.47 L (0.52-1.04) mg/dL BUN/Creatinine Ratio (12.00-20.00) Ratio Calcium (8.7-10.3) mg/dL Total Protein 6.2 L (6.3-8.2) g/dL Albumin 2.9 L (3.5-5.0) g/dL 06/07/23 Range/Units 05:19 RBC (3.80-5.40) m/uL Hgb (11.4-16.0) gm/dL Hct (34.0-46.0) % MCV (80.0-97.0) FL MCHC (32.0-37.0) g/dL Immature Gran # (0.00-0.04) X 10*3/uL Chloride 111 H (98-107) mmol/L Creatinine 0.5 L (0.52-1.04) mg/dL BUN/Creatinine Ratio 22.80 H (12.00-20.00) Ratio Calcium 8.2 L (8.7-10.3) mg/dL Total Protein (6.3-8.2) g/dL Albumin (3.5-5.0) g/dL Assessment and Plan (1) Postoperative hematoma Current Visit: No Status: Acute Code(s): HWK9544 - SNOMED Code(s): 715935673 (2) Pruritus due to inflammation Current Visit: No Status: Acute Code(s): L29.9 - PRURITUS, UNSPECIFIED SNOMED Code(s): 560620771 (3) Leukocytosis Current Visit: Yes Status: Acute Code(s): D72.829 - ELEVATED WHITE BLOOD CELL COUNT, UNSPECIFIED SNOMED Code(s): 655164141 (4) Pneumonia Current Visit: No Status: Acute Code(s): J18.9 - PNEUMONIA, UNSPECIFIED ORGANISM SNOMED Code(s): 570659420 Plan: 1patient with fever that has been going on for almost 10 days in this patient who is status post right percutaneous nephrostomy and percutaneous nephrolithotomy for staghorn calculus that was completed on 05/17/2023 and the patient started spiking fever on 05/18/[address] abdominal pelvis did mention abnormality to the right kidney and concern for possible hematoma to the likely etiology underlying abscess less likely but not entirely excluded likely from enteric gram-negative pathogen versus a component of possible pneumonia 2-patient did have a positive blood culture with Staph epi Which is likely skin contamination as the repeat blood culture has been negative and the pleural fluid culture has been negative. 3-Patient has developed rash to bilateral groin more likely cutaneous candidiasis patient will continue with the nystatin powder bilateral groin area. 4patient remains to be afebrile white count remains to be normal not developingcould be related to cefepime which can be discontinued if any worsening rash as the patient has received adequate antibiotic therapy for underlying infection Dictation was produced using [employer] dictation software. please excuse any grammatical, word or spelling errors. Time with Patient: Less than 30
--- NOTE | 2023-06-08 12:50 | P.PN ---
Subjective Progress Note Date: 06/08/23 Principal diagnosis: Reason for follow-up is fever and bacteremia Patient is a 67-year-old female with a past medical history significant for hypertension hyperlipidemia PE CVA TIA COPD heart failure patient presenting to the hospital on 05/16/2023 for elective treatment of partial right staghorn calculus in the right upper lobe, the patient is status post percutaneous nephrostomy and percutaneous nephrolithotomy patient did have a postop fever started on 05/18/2023 for which his infectious disease was consulted 05/28/2023,Patient is status post IR right-sided pigtail catheter placement on 05/30/2023, subsequentlyCT surgery has been consulted for installation of lytics as output from the chest Tube has decreased as of 06/02/2023 On today's evaluation that is 06/08/2023 the patient denies having any fever or any chills patient is breathing comfortably on room air without need for supplemental oxygen denies any chest pain shortness of breath or cough no nausea noted no abdominal pain no diarrhea has been complaining of mostly rash and itching. Patient white count of 7.8 creatinine 0.5 Objective - Vital Signs Vital signs: Vital Signs Temp 98.6 F 06/08/23 07:34 Pulse 70 06/08/23 07:34 Resp 16 06/08/23 08:00 BP 120/80 06/08/23 07:34 Pulse Ox 95 06/08/23 07:50 FiO2 21 06/01/23 12:04 Intake & Output 06/07/23 06/08/23 06/08/23 18:59 06:59 18:59 Intake Total 648 240 Output Total 550 Balance 648 -550 240 Intake: Intake, IV Titration 200 Amount Cefepime 2 gm In Sodium 200 Chloride 0.9% 100 ml @ 25 mls/hr IVPB Q8HR [facility] Rx# :[id number] Oral 448 240 Output: Urine 550 Other: Voiding Method External Catheter # Voids 1 - Exam GENERAL DESCRIPTION: An elderly female up in the chair in no distress RESPIRATORY SYSTEM: Unlabored breathing , decreased breath sounds at the bases HEART: S1 S2 regular rate and rhythm , ABDOMEN: Soft , no tenderness EXTREMITIES: No edema feet - Labs CBC & Chem 7: 06/08/23 05:50 06/07/23 05:19 Labs: Abnormal Lab Results - Last 24 Hours (Table) 06/06/23 06/08/23 Range/Units 12:09 05:50 RBC 2.59 L (3.80-5.40) m/uL Hgb 8.0 L (11.4-16.0) gm/dL Hct 25.0 L (34.0-46.0) % Lymphocytes # 0.9 L (1.0-4.8) k/uL Iron 27 L (50-170) UG/DL TIBC 202 L (228-460) UG/DL Transferrin 144.0 L (204.0-354.0) mg/dL Ferritin 729.0 H (10.0-291.0) ng/mL Vitamin B12 1020.0 H (200.0-944.0) pg/mL Assessment and Plan (1) Postoperative hematoma Current Visit: No Status: Acute Code(s): IIS8818 - SNOMED Code(s): 205353598 (2) Pruritus due to inflammation Current Visit: No Status: Acute Code(s): L29.9 - PRURITUS, UNSPECIFIED SNOMED Code(s): 946027403 (3) Leukocytosis Current Visit: Yes Status: Acute Code(s): D72.829 - ELEVATED WHITE BLOOD CELL COUNT, UNSPECIFIED SNOMED Code(s): 696173583 (4) Pneumonia Current Visit: No Status: Acute Code(s): J18.9 - PNEUMONIA, UNSPECIFIED ORGANISM SNOMED Code(s): 281829951 (5) Drug rash Current Visit: Yes Status: Acute Code(s): L27.0 - GEN SKIN ERUPTION DUE TO DRUGS AND MEDS TAKEN INTERNALLY SNOMED Code(s): 38546489 (6) Candidiasis Current Visit: Yes Status: Acute Code(s): B37.9 - CANDIDIASIS, UNSPECIFIED SNOMED Code(s): 67214079 Plan: 1patient with fever that has been going on for almost 10 days in this patient who is status post right percutaneous nephrostomy and percutaneous nephrolithotomy for staghorn calculus that was completed on 05/17/2023 and the patient started spiking fever on 05/18/[address] abdominal pelvis did mention abnormality to the right kidney and concern for possible hematoma to the likely etiology underlying abscess less likely but not entirely excluded likely from enteric gram-negative pathogen versus a component of possible pneumonia 2-patient did have a positive blood culture with Staph epi Which is likely skin contamination as the repeat blood culture has been negative and the pleural fluid culture has been negative. 3-Patient has developed rash to bilateral groin more likely cutaneous candidiasis patient will continue with the nystatin powder bilateral groin area. 4patient remains to be afebrile white count remains to be normal , Patient has developed a rash possibly related to cefepime we will discontinue cefepime continue with the Atarax and calamine lotion no need for antibiotic on discharge plan of care was discussed with the nursing staff Dictation was produced using [employer] dictation software. please excuse any grammatical, word or spelling errors. Time with Patient: Less than 30
--- NOTE | 2023-06-08 13:29 | P.DS ---
Providers Date of admission: 05/17/23 08:33 Expected date of discharge: 06/08/23 Attending physician: Hugo Bloom Consults: 05/21/23 16:49 Consult Physician Routine Consulting Provider: Jamie Tobin Consult Reason/Comments: medical management Do you want consulting provider notified?: Yes 05/21/23 18:53 Consult Physician Urgent Consulting Provider: Neel Castellanos Consult Reason/Comments: new onset afib with RVR Do you want consulting provider notified?: Yes 05/22/23 10:57 Consult Physician Urgent Consulting Provider: Leny Thurston Consult Reason/Comments: right pleural effusion Do you want consulting provider notified?: Yes 05/28/23 14:17 Consult Physician Routine Consulting Provider: Mario Brewer Consult Reason/Comments: fever Do you want consulting provider notified?: Yes 05/29/23 12:47 Consult Physician Routine Consulting Provider: Chuckie Cárdenas Consult Reason/Comments: reconsult right pleural effusion Do you want consulting provider notified?: Yes 06/02/23 07:54 Consult Physician Routine Consulting Provider: Alfonso Sheridan Consult Reason/Comments: ? Lytics right chest, has pigtail Do you want consulting provider notified?: Yes Primary care physician: Ramiro Lombardi MD Hospital Course: 05/23/2023 for a moderate size right pleural effusion. Patient is a 67-year-old white female with extensive past medical history significant for cerebral palsy, seizure disorder, CVA, hyperlipidemia, hypertension, pulmonary embolus, among other things. She has recurrent urinary tract infections with Proteus mirabilis and infected right-sided renal calculus. She was brought in for elective right-sided percutaneous nephrostolithotomy and placement of a J nephrostomy tube on May 17. No immediate perioperative complications reported. 2 days ago, she went atrial fibrillation with ventricular rate. She was transferred to the cardiac stepdown unit. Temporarily on cardizem infusion, which is discontinued. Patient self denies any history of atrial fibrillation. Chest x-ray showed cardiomegaly, pulmonary vascular Congestion, and bilateral pleural effusions. She does receive Lasix 40 mg by mouth every morning and Aldactone. Repeat chest x-ray yesterday morning continues to show a moderate size right pleural effusion. Patient is currently resting in bed, on 2 L/m nasal cannula, in no acute distress. Patient is a poor historian. She reportedly lives independently in an apartment with PACE assistance. She is oriented to self and time. She is crying. She is febrile and diaphoretic. She remains in atrial fibrillation with RVR. Heart rate averaging 100-120 bpm. BP is normotensive. She is anticoagulated on Eliquis. She is empirically covered on cefepime for her previous Proteus urinary infection. She has a indwelling urinary catheter draining an adequate amount of shanique colored urine. Follow-up abdominal CT done yesterday demonstrates posttreatment changes to the right kidney with perinephric probable hematoma and focus of gas measuring 8.4 x 4.3 x 7.7 cm. There is mild right hydroureteronephrosis which could be reactive inflammation and blood products on the right kidney. There is persistent right nephric calcification measuring 9 mm. There is moderate right and small left pleural effusions. And cholelithiasis without cholecystitis. The moderate right and small left pleural effusions were again noted. There is associated atelectasis. No focal consolidations. Most recent CBC from yesterday shows a WBC count 11.7, hemoglobin 10.5, hematocrit 30.5, platelets 139. Sodium 133, potassium 2.8, chloride 97, serum bicarb 25, UN 18, creatinine 0.65, glucose 99. Potassium is being replaced. Patient is being monitored on the cardiac stepdown unit. The patient is seen today 06/05/2023 in follow-up on the regular medical floor. She is awake and alert in no acute distress. Resting comfortably in bed. Her right-sided pigtail catheter was removed yesterday. She denies any worsening shortness of breath, cough or congestion. Maintaining O2 saturations in the 90s on room air. Blood cultures initially were positive for staph hominis. Follow- up blood culture revealed no growth. Pleural fluid culture revealed no growth. Urine culture revealed no growth. White count 7.4. Hemoglobin 7.5. Platelets 402. Sodium 140. Potassium 3.6. Bicarb 21. BUN 11. Creatinine 0.46. He remains on DuoNeb inhalations. Antibiotics in the form of cefepime. She is anticoagulated with Eliquis. The patient is seen today 06/06/2023 in follow-up on the regular medical floor. She is awake and alert in no acute distress. Currently sitting up in a chair at the bedside. Denies any worsening shortness of breath, cough or congestion. Denies any right-sided chest discomfort. Maintaining good O2 saturations in the 90s on room air. Follow-up chest x-ray revealed a small right pleural effusion with adjacent atelectasis. Pigtail catheter removed. No evidence of pneumothorax. Blood cultures are positive for staph hominis. Follow-up blood culture reveals no growth. Sputum culture revealed no growth. Urine culture revealed no growth. She is continued on cefepime. Remains on bronchodilators. Anticoagulated with Eliquis. The patient is seen today 06/07/2023 in follow-up on the regular medical floor. She is currently resting comfortably in bed. Awake and alert in no acute distre ss. She is maintaining good O2 saturations in the 90s on room air. Her pigtail catheter had been removed earlier this week. Computed tomography scan of the abdomen and pelvis revealed residual small right pleural effusion with adjacent atelectasis. Decrease compared to previous. Small adjacent pneumothorax that may reflect recent thoracentesis and fluid evacuation. There is a superior retroperitoneal hematoma smaller at 7.0 x 3.4 cm. Some hemorrhagic material remains within the right renal collecting system with residual mild hydronephrosis also improving. A partially except Sunday renal parenchymal hematoma is smaller. A small intraparenchymal hematoma measuring 1.2 cm also stable. Nonobstructive right renal stone. Initial blood cultures were positive for staph hominis. Follow-up blood culture revealed no growth. Pleural fluid culture revealed no growth. White count 7.4. Hemoglobin 7.5. Platelets 384. Sodium 143. Potassium 3.9. Bicarb 23. BUN 11. Creatinine 0.4. Glucose 85. She remains on bronchodilators. Continue his work with the incentive spirometer. Remains on antibiotics in the form of cefepime. -Progressive anemia, GI team on the case, hold Eliquis, repeat CAT scan showing trending down and smaller hematomas including right kidney and retroperitoneal hematoma -Left ovarian cyst 3.1 cm, recommend annual surveillance, we recommend follow-up with [employer] as an outpatient -Bilateral inguinal and right external lymphadenopathy, follow-up outpatient -Nephrolisthiasis and obstructive uropathy status post cystoscopy, percutaneous nephrostolithotomy and J nephrostomy tube placement with removal. Remaining stones will be followed up with urology outpatient for further evaluation. IDC has been removed. Urology has signed off. Recommend to continue with bladder scan at this time to monitor for urinary retention. -Bacteremia with staphylococcus epidermidis and hominis on IV vancomycin and IV cefepime likely a contaminent species and repeat blood culture remains negative. ID is following and recommending 10 days of oral ceftin on discharge. -Chronic proteus urinary tract infection from infected stone and obstructive uropathy treated with course of antibiotics and most recent urine culture showing normal enzo. -Right sided pleural effusion, loculated requiring chest tube which has since been discontinued. No appreciable pneumothorax on follow up chest xray. -Acute hypoxemic respiratory failure requiring 2 L oxygen via nasal cannula resolved patient is now on room air. -New onset paroxysmal atrial fibrillation with RVR currently in sinus mechanism anticoagulated with eliquis on metoprolol TID. Patient continues on oral lasix daily. Follow up proBNP normal limits for age at 89 continues on oral lasix. -Hypertension -Dyslipidemia -Chronic medical debility follows with PACE -Morbid obesity -History of seizure disorder continue on keppra TID. -History of cerebral palsy, left-sided weakness and gait abnormality -History of stroke GI prophylaxis DVT prophylaxis On eliquis, on hold currently Full code She had repeat CAT scan of the abdomen and pelvis and I reviewed in details with the patient, she has some residual right-sided pneumothorax which is very minimal and edges result of recent chest tube removal.She has superior retro- peritoneal hematoma improving in size from 8.4 x 4.3 cm down to 7.0 x 3.4 cm (smaller). Also she has right kidney hematoma 4 cm diameter 3.4 cm ( smaller), also patient with evidence of bilateral equina and right external iliac lymphadenopathy, patient states that she is aware of these problems and she's been told before she has non-Hodgkin lymphoma, she stated that she follow up with her oncologist Dr. Iraheta, patient agreed to instructions to follow up with him in 1-2 weeks after discharge. Also patient with evidence of 3.1 cm left ovarian cyst with radiologist recommended annual surveillance, patient also aware about this problem and she said that she usually follow up with cloth inspector Dr. Lan Vinson and she agrees to follow up with her 2 weeks after discharge as instructed Currently she remains on cefepime with plan to be discharged 10 days CEFEPIME per ID team. Patient is started on liquids for acute onset atrial fibrillation, risk of bleeding are explained for the patient details and she verbalized understanding and acceptance. She follows up with Jonnathan KEENAN ( ) her PCP. She intends to follow-up with her upon discharge. Patient stable for discharge Plan - Discharge Summary Discharge Rx Participant: No New Discharge Prescriptions: New cefUROXime axetiL [Ceftin] 500 mg PO BID 10 Days #20 tab Pantoprazole [Protonix] 40 mg PO AC-BRKFST 30 Days #30 tab Apixaban [Eliquis] 5 mg PO BID 30 Days #60 tab Metoprolol Tartrate [Lopressor] 50 mg PO TID 30 Days #60 tab Continue Cholecalciferol [Vitamin D3 (25 Mcg = 1000 Iu)] 2,000 unit PO DAILY Atorvastatin [Lipitor] 10 mg PO HS Acetaminophen [Tylenol 8 Hour] 650 mg PO TID PRN PRN Reason: Pain Albuterol Sulfate [Proair Hfa] 2 puff INHALATION RT-Q6H PRN PRN Reason: Wheezing oxyBUTYnin chloride [Ditropan] 5 mg PO TID@0800,1200,18 levETIRAcetam [Keppra] 500 mg PO 0800,1700 Spironolactone [Aldactone] 25 mg PO QAM Potassium Chloride ER [K-Dur 20] 20 meq PO DAILY amLODIPine [Norvasc] 10 mg PO QAM Escitalopram [Lexapro] 20 mg PO QAM Furosemide [Lasix] 40 mg PO QAM levETIRAcetam [Keppra] 1,000 mg PO HS Aspirin [[place] Aspirin EC] 81 mg PO DAILY L.acidoph,Paracasei, B.lactis [Probiotic] 1 cap PO DAILY Meclizine [Antivert] 25 mg PO BID PRN PRN Reason: Vertigo HYDROcodone/APAP 7.5-325MG [[place] 7.5-325] 1 tab PO Q6H PRN PRN Reason: Pain Fluticasone Nasal [place] [Flonase Nasal [place]] 2 spray NASAL BID Naproxen 375 mg PO BID Nystatin 100,000 Unit/gm Oint [Mycostatin Oint] 1 applic TOPICAL BID PRN PRN Reason: Rash Nystatin Powder(Unk) 1 applic TOPICAL DAILY PRN PRN Reason: Rash Magnesium Hydroxide [Milk of Magnesia] 30 ml PO Q3D PRN PRN Reason: Constipation L.acidoph,Paracasei, B.lactis [Probiotic] 1 each PO DAILY Multivitamins, Thera [Multivitamin (formulary)] 1 tab PO DAILY Loperamide [Imodium] 2 mg PO TID PRN PRN Reason: Diarrhea Famotidine 40 mg PO QAM Loratadine [Claritin] 10 mg PO DAILY PRN PRN Reason: WITH AMOXICILLIN ALPRAZolam [Xanax] 0.25 mg PO TID PRN PRN Reason: Anxiety Phenazopyridine HCl [Pyridium] 100 mg PO TID PRN PRN Reason: painful urination Anusol Cream(Unk) 1 applic TOPICAL BID Fluconazole [Diflucan] 150 mg PO Q72H Carbamide Peroxide [Debrox Otic] 5 drops BOTH EARS BID PRN PRN Reason: Ear Wax Menthol [Biofreeze] 1 applic TOPICAL Q6H PRN PRN Reason: Pain Betamethasone Valerate [Luxiq 0.1%] 1 applic TOPICAL DAILY Arthritis Pain Relief(Unk) 1 tab PO TID PRN PRN Reason: Pain Discontinued Cephalexin [Keflex] 500 mg PO DAILY Discharge Medication List Cholecalciferol [Vitamin D3 (25 Mcg = 1000 Iu)] 2,000 unit PO DAILY 02/23/16 [History] Atorvastatin [Lipitor] 10 mg PO HS 02/28/16 [History] Acetaminophen [Tylenol 8 Hour] 650 mg PO TID PRN 10/31/16 [History] Albuterol Sulfate [Proair Hfa] 2 puff INHALATION RT-Q6H PRN 11/15/18 [History] Aspirin [[place] Aspirin EC] 81 mg PO DAILY 11/15/18 [History] Escitalopram [Lexapro] 20 mg PO QAM 11/15/18 [History] Furosemide [Lasix] 40 mg PO QAM 11/15/18 [History] Potassium Chloride ER [K-Dur 20] 20 meq PO DAILY 11/15/18 [History] Spironolactone [Aldactone] 25 mg PO QAM 11/15/18 [History] amLODIPine [Norvasc] 10 mg PO QAM 11/15/18 [History] levETIRAcetam [Keppra] 1,000 mg PO HS 11/15/18 [History] levETIRAcetam [Keppra] 500 mg PO 0800,1700 11/15/18 [History] oxyBUTYnin chloride [Ditropan] 5 mg PO TID@0800,1200,18 11/15/18 [History] ALPRAZolam [Xanax] 0.25 mg PO TID PRN 04/23/23 [History] Famotidine 40 mg PO QAM 04/23/23 [History] Fluticasone Nasal [place] [Flonase Nasal [place]] 2 spray NASAL BID 04/23/23 [History] HYDROcodone/APAP 7.5-325MG [[place] 7.5-325] 1 tab PO Q6H PRN 04/23/23 [History] L.acidoph,Paracasei, B.lactis [Probiotic] 1 cap PO DAILY 04/23/23 [History] Loperamide [Imodium] 2 mg PO TID PRN 04/23/23 [History] Loratadine [Claritin] 10 mg PO DAILY PRN 04/23/23 [History] Meclizine [Antivert] 25 mg PO BID PRN 04/23/23 [History] Multivitamins, Thera [Multivitamin (formulary)] 1 tab PO DAILY 04/23/23 [History] Naproxen 375 mg PO BID 04/23/23 [History] Phenazopyridine HCl [Pyridium] 100 mg PO TID PRN 04/23/23 [History] Anusol Cream(Unk) 1 applic TOPICAL BID 05/15/23 [History] Arthritis Pain Relief(Unk) 1 tab PO TID PRN 05/15/23 [History] Betamethasone Valerate [Luxiq 0.1%] 1 applic TOPICAL DAILY 05/15/23 [History] Carbamide Peroxide [Debrox Otic] 5 drops BOTH EARS BID PRN 05/15/23 [History] Fluconazole [Diflucan] 150 mg PO Q72H 05/15/23 [History] L.acidoph,Paracasei, B.lactis [Probiotic] 1 each PO DAILY 05/15/23 [History] Magnesium Hydroxide [Milk of Magnesia] 30 ml PO Q3D PRN 05/15/23 [History] Menthol [Biofreeze] 1 applic TOPICAL Q6H PRN 05/15/23 [History] Nystatin 100,000 Unit/gm Oint [Mycostatin Oint] 1 applic TOPICAL BID PRN 05/15/23 [History] Nystatin Powder(Unk) 1 applic TOPICAL DAILY PRN 05/15/23 [History] cefUROXime axetiL [Ceftin] 500 mg PO BID 10 Days #20 tab 06/05/23 [Rx] Apixaban [Eliquis] 5 mg PO BID 30 Days #60 tab 06/08/23 [Rx] Metoprolol Tartrate [Lopressor] 50 mg PO TID 30 Days #60 tab 06/08/23 [Rx] Pantoprazole [Protonix] 40 mg PO AC-BRKFST 30 Days #30 tab 06/08/23 [Rx] Follow up Appointment(s)/Referral(s): Yang Astudillo [STAFF PHYSICIAN] - 2 Weeks (tip cementer/oncologist for your inguinal and right external lymphoadenopathy ) Alfonso Sheridan MD [STAFF PHYSICIAN] - 2 Weeks Stephanie Lowry MD [STAFF PHYSICIAN] - 2 Weeks (Your cloth inspector for your ovary cyst) Leatha Deutsch MD [STAFF PHYSICIAN] - 1 Week ([employer] prior anemia) Ramiro Lomabrdi MD [Primary Care Provider] - 1 Week Mario Brewer MD [STAFF PHYSICIAN] - 1 Week Doug Cleveland MD [STAFF PHYSICIAN] - 1 Week Leny Thurston MD [STAFF PHYSICIAN] - 2 Weeks Stacey Iraheta MD [STAFF PHYSICIAN] - 2 Weeks (Urine oncologist for enlarged lymph nodes and blood disease) Activity/Diet/Wound Care/Special Instructions: heart healthy diet activity is restricted till you see your doctor
--- NOTE | 2023-06-08 13:42 | P.PN ---
Subjective Progress Note Date: 06/08/23 I am seeing this patient in consultation today 05/23/2023 for a moderate size right pleural effusion. Patient is a 67-year-old white female with extensive past medical history significant for cerebral palsy, seizure disorder, CVA, hyperlipidemia, hypertension, pulmonary embolus, among other things. She has recurrent urinary tract infections with Proteus mirabilis and infected right- sided renal calculus. She was brought in for elective right-sided percutaneous nephrostolithotomy and placement of a J nephrostomy tube on May 17. No immediate perioperative complications reported. 2 days ago, she went atrial fibrillation with ventricular rate. She was transferred to the cardiac stepdown unit. Temporarily on cardizem infusion, which is discontinued. Patient self denies any history of atrial fibrillation. Chest x-ray showed cardiomegaly, pulmonary vascular Congestion, and bilateral pleural effusions. She does receive Lasix 40 mg by mouth every morning and Aldactone. Repeat chest x-ray yesterday morning continues to show a moderate size right pleural effusion. Patient is currently resting in bed, on 2 L/m nasal cannula, in no acute distress. Patient is a poor historian. She reportedly lives independently in an apartment with PACE assistance. She is oriented to self and time. She is crying. She is febrile and diaphoretic. She remains in atrial fibrillation with RVR. Heart rate averaging 100-120 bpm. BP is normotensive. She is anticoagulated on Eliquis. She is empirically covered on cefepime for her previous Proteus urinary infection. She has a indwelling urinary catheter draining an adequate amount of shanique colored urine. Follow-up abdominal CT done yesterday june bruce posttreatment changes to the right kidney with perinephric probable hematoma and focus of gas measuring 8.4 x 4.3 x 7.7 cm. There is mild right hydroureteronephrosis which could be reactive inflammation and blood products on the right kidney. There is persistent right nephric calcification measuring 9 mm. There is moderate right and small left pleural effusions. And cholelithiasis without cholecystitis. The moderate right and small left pleural effusions were again noted. There is associated atelectasis. No focal consolidations. Most recent CBC from yesterday shows a WBC count 11.7, hemoglobin 10.5, hematocrit 30.5, platelets 139. Sodium 133, potassium 2.8, chloride 97, serum bicarb 25, UN 18, creatinine 0.65, glucose 99. Potassium is being replaced. Patient is being monitored on the cardiac stepdown unit. On today's evaluation of 05/24/2023, no interval worsening the patient was started status. The patient is currently stable. The patient is on 2 L of oxygen by nasal cannula. Producing adequate urine output. BUN is at 80 with a creatinine of 0.4 and sodium levels of 131. The white cell count of 8.4 with a hemoglobin of 9.9. The patient remains on IV cefepime. Respiratory medications are unchanged and the patient continues to be on anticoagulation with Eliquis. on 05/25/2023, I'm seeing the patient for a follow-up.Repeat chest x-ray was done and the patient continues to have a persistent right lower lobe atelectasis of the right-sided pleural effusion. The patient remains off anticoagulation. I'm considering a thoracentesis if the patient becomes more symptomatic. Otherwise, condition is stable for now. She remains on oxygen 2 L/m nasal can nula. No significant respiratory distress or the time being. The white cell count of 8.3 with a hemoglobin of 10.3 and the platelet count of 265. BUN is at 60 with a creatinine of 0.39 and a sodium level is at 133. Remains on antibiotics and the patient is still on IV cefepime. She is also on Lasix 40 mg by mouth daily. The rest of the medications unchanged. Remains on Aldactone 25 mg by mouth daily. On 05/26/2023, no new complaints and the patient's condition is stable. No respiratory difficulties. The patient remains on oxygen at 2 L with a pulse ox of 96%. The rest of the labs show sodium level of 132, potassium level of 3.8, BUN is at 40 with a creatinine of 0.4. The basic concept and 0.5 with a hemoglobin of 10.3. The patient is seen today 05/30/2023 in follow-up. We had signed off on this patient and she had initially declined any thoracentesis regarding the right p leural effusion. Primary states that now she is willing to have the procedure done. 2-D scan of the chest from 05/28/2023 revealed a right-sided pleural effusion with underlying atelectasis and/or infiltrate. Improved effusion on the left lung base. There is a right-sided retroperitoneal collection again noted. Ultrasound of the right chest was ordered and did reveal an 11.6 cm pocket however this was a complex fluid pocket with multiple septations. Currently resting fairly comfortably in bed. Awake and alert in no acute distress. Maintaining O2 saturations in the 90s on room air. She did have a T- max of 100.3 last evening. Currently afebrile. Blood cultures had revealed coag-negative staph. Urine culture revealed no growth. White count 8.9. Hemoglobin 8.3. Platelets 314. Sodium 132. Potassium 3.8. Bicarb 26. BUN 13. Creatinine 0.52. Glucose 98. Pro-calcitonin from 05/28/2023 was 0.47. She is continued on DuoNeb inhalations. Antibiotics in the form of vancomycin and cefepime. Eliquis currently on hold. The patient is seen today 05/31/2023 in follow-up on the regular medical floor. She is currently resting comfortably in bed. Awake and alert in no acute d istress. Maintaining O2 saturations in the 90s on room air. She did receive a right-sided pigtail catheter placement yesterday per interventional radiology with approximately 600 ML's of bloody return. There is a positive leak. Currently to Pleur-evac and wall suction. Cultures and cytology pending. She remains on vancomycin and cefepime. This has been resumed. She remains on bronchodilators. She'll be educated regarding the use of the incentive spirometer. The patient is seen today 06/01/2023 in follow-up on the regular medical floor. She is resting comfortably in bed. Awake and alert in no acute distress. She is maintaining O2 saturations in the 90s on room air. Right-sided pigtail catheter in place. Remains to Pleur-evac and wall suction. No leak noted. Blood cultures positive for staph hominis. Pleural fluid cultures revealing no growth. She remains on vancomycin and cefepime. She remains on bronchodilators. Working with the incentive spirometer. The patient is seen today 06/02/2023 in follow-up on the regular medical floor. She is awake and alert in no acute distress. Resting in bed. Maintaining O2 saturations in the 90s on room air. Pigtail chest tube remains in place on the right. No significant output overnight. Chest x-ray reveals a small right pleural effusion with small trace right pneumothorax. No change compared to previous. Blood cultures were positive for staph hominis. Pleural fluid cultures revealing no growth. Follow-up blood culture revealing no growth. Sodium 137. Potassium 4.4. Bicarb 21. BUN 12. Creatinine 0.44. She remains on cefepime. Anticoagulated with Eliquis. The patient is seen today 06/03/2023 in follow-up on the regular medical floor. She is resting comfortably in bed. Awake and alert in no acute distress. She is maintaining good O2 saturations in the 90s on room air. Right-sided chest tube remains in place. Chest x-ray continues to show small right pleural effusion and small to trace right pneumothorax. Similar findings. Lytics were installed yesterday however the clamp was not released so there is no significant drainage from her effusion. The plan is for repeat instillations of lytics today and to be unclamped 1-2 hours afterwards. Initial blood cultures positive for staph hominis. Follow-up blood cultures revealing no growth. Pleural fluid culture pending. Sodium 130. Potassium 4.8. Bicarb 21. BUN 14. Creatinine 0.55. Calcium 8.7. She is continued on cefepime and vancomycin. Remains on DuoNeb inhalations. Eliquis for anticoagulation. The patient is seen today 06/04/2023 in follow-up on the regular medical floor. She is currently resting comfortably in bed. Awake and alert in no acute distress. She is currently resting comfortably in bed. Awake and alert in no acute distress. Maintaining O2 saturations in the 90s on room air. Afebrile. Hemodynamically stable. X-ray continues to show persistent loculation in the right costophrenic angle. Small minimal thorax residual effusion may be present with drainage catheter present. White count 6.8. Hemoglobin 7.6. Platelets 434. Sodium 141. Potassium 4.0. Bicarb 23. BUN 12. Creatinine 0.6. Right- sided pigtail catheter remains in place to wall suction. No significant output. Initial blood cultures were positive for staph hominis. Follow-up blood cultures revealed no growth. Pleural fluid culture revealed no growth. She is continued on vancomycin and cefepime. The patient is seen today 06/05/2023 in follow-up on the regular medical floor. She is awake and alert in no acute distress. Resting comfortably in bed. Her right-sided pigtail catheter was removed yesterday. She denies any worsening shortness of breath, cough or congestion. Maintaining O2 saturations in the 90s on room air. Blood cultures initially were positive for staph hominis. Follow- up blood culture revealed no growth. Pleural fluid culture revealed no growth. Urine culture revealed no growth. White count 7.4. Hemoglobin 7.5. Platelets 402. Sodium 140. Potassium 3.6. Bicarb 21. BUN 11. Creatinine 0.46. He remains on DuoNeb inhalations. Antibiotics in the form of cefepime. She is anticoagulated with Eliquis. The patient is seen today 06/06/2023 in follow-up on the regular medical floor. She is awake and alert in no acute distress. Currently sitting up in a chair at the bedside. Denies any worsening shortness of breath, cough or congestion. Denies any right-sided chest discomfort. Maintaining good O2 saturations in the 90s on room air. Follow-up chest x-ray revealed a small right pleural effusion with adjacent atelectasis. Pigtail catheter removed. No evidence of pneumoth orax. Blood cultures are positive for staph hominis. Follow-up blood culture reveals no growth. Sputum culture revealed no growth. Urine culture revealed no growth. She is continued on cefepime. Remains on bronchodilators. Anticoagulated with Eliquis. The patient is seen today 06/07/2023 in follow-up on the regular medical floor. She is currently resting comfortably in bed. Awake and alert in no acute distress. She is maintaining good O2 saturations in the 90s on room air. Her pigtail catheter had been removed earlier this week. Computed tomography scan of the abdomen and pelvis revealed residual small right pleural effusion with adjacent atelectasis. Decrease compared to previous. Small adjacent pneumothorax that may reflect recent thoracentesis and fluid evacuation. There is a superior retroperitoneal hematoma smaller at 7.0 x 3.4 cm. Some hemorrhagic material remains within the right renal collecting system with residual mild hydronephrosis also improving. A partially except Sunday renal parenchymal hematoma is smaller. A small intraparenchymal hematoma measuring 1.2 cm also stable. Nonobstructive right renal stone. Initial blood cultures were positive for staph hominis. Follow-up blood culture revealed no growth. Pleural fluid culture revealed no growth. White count 7.4. Hemoglobin 7.5. Platelets 384. Sodium 143. Potassium 3.9. Bicarb 23. BUN 11. Creatinine 0.4. Glucose 85. She remains on bronchodilators. Continue his work with the incentive spirometer. Remains on antibiotics in the form of cefepime. The patient is seen today 06/08/2023 in follow-up on the regular medical floor. She is currently sitting up in a chair. Awake and alert in no acute distress. Continues to maintain good O2 saturations in the 90s on room air. She denies any worsening shortness of breath, cough or congestion. Initial blood cultures were positive for staph hominis. Follow-up blood cultures revealed no growth. Pleural fluid culture revealed no growth. White count 7.8. Hemoglobin 8.0. Platelets 357. She remains on DuoNeb inhalations. Completed antibiotics. Anticoagulated with Eliquis. Objective - Vital Signs Vital signs: Vital Signs Temp 98.6 F 06/08/23 07:34 Pulse 70 06/08/23 07:34 Resp 16 06/08/23 08:00 BP 120/80 06/08/23 07:34 Pulse Ox 95 06/08/23 07:50 FiO2 21 06/01/23 12:04 Intake & Output 06/07/23 06/08/23 06/08/23 18:59 06:59 18:59 Intake Total 648 480 Output Total 550 315 Balance 648 -550 165 Intake: Intake, IV Titration 200 Amount Cefepime 2 gm In Sodium 200 Chloride 0.9% 100 ml @ 25 mls/hr IVPB Q8HR [facility] Rx# :[id number] Oral 448 480 Output: Urine 550 300 Post Void Residual 15 Other: Voiding Method External Catheter # Voids 1 - Exam GENERAL EXAM: Alert, pleasant 67-year-old female, on room air, in no acute distress. HEAD: Normocephalic and atraumatic EYES: Normal reaction of pupils, equal size. NOSE: Clear with pink turbinates. THROAT: No erythema or exudates. NECK: No masses, no JVD. CHEST: No chest wall deformity. LUNGS: Equal air entry with few scattered rales, diminished in the right lung base. CVS: S1 and S2 normal with no audible murmur, irregular rhythm. No extra heart sounds. ABDOMEN: No hepatosplenomegaly, active bowel sounds, no guarding or rigidity. SPINE: No scoliosis or deformity. Percutaneous site right inferior back, dressed with gauze. No shadowing. SKIN: Bilateral lower extremity chronic venous changes. CENTRAL NERVOUS SYSTEM: There appears to be left-sided hemiparesis. She is oriented to self and place. EXTREMITIES: There is no peripheral edema, clubbing, or cyanosis. Peripheral pulses are intact. - Labs CBC & Chem 7: 06/08/23 05:50 06/07/23 05:19 Labs: Abnormal Lab Results - Last 24 Hours (Table) 06/06/23 06/08/23 Range/Units 12:09 05:50 RBC 2.59 L (3.80-5.40) m/uL Hgb 8.0 L (11.4-16.0) gm/dL Hct 25.0 L (34.0-46.0) % Lymphocytes # 0.9 L (1.0-4.8) k/uL Iron 27 L (50-170) UG/DL TIBC 202 L (228-460) UG/DL Transferrin 144.0 L (204.0-354.0) mg/dL Ferritin 729.0 H (10.0-291.0) ng/mL Vitamin B12 1020.0 H (200.0-944.0) pg/mL Assessment and Plan Assessment: Acute hypoxemic respiratory failure, on 2 L/m nasal cannula, likely related to exacerbation of congestive heart failure, unknown systolic or diastolic type. Chest x-ray shows cardiomegaly with pulmonary vascular congestion and bilateral pleural effusions, right greater than left.patient had a follow-up chest x-ray that shows a persistent right-sided pleural effusion. Ultrasound of the right chest reveals an 11.6 cm pocket however this is a complex effusion with multiple septations. Right-sided pigtail catheter placed 05/30/2023 with 600 ML's of bloody returned initially. Fluid exudative with protein greater than 3.6 and LDH of 1211. Cytology pending. Pigtail catheter removed on 06/04/2023. Computed tomography scan of the abdomen and pelvis revealed residual small right pleural effusion with adjacent atelectasis. Decrease compared to previous. Small adjacent pneumothorax that may reflect recent thoracentesis and fluid evacuation. Bacteremia with staph hominis, treated with vancomycin and cefepime Anemia of unclear etiology. Ct abdomen revealed a superior retroperitoneal jhonny lyudmila smaller at 7.0 x 3.4 cm. Some hemorrhagic material remains within the right renal collecting system with residual mild hydronephrosis also improving. A partially except Sunday renal parenchymal hematoma is smaller. A small intraparenchymal hematoma measuring 1.2 cm also stable. Nonobstructive right renal stone. Recurrent urinary tract infections and infected right renal calculi status post cystoscopy, percutaneous nephrostolithotomy and placement of a right J nephrostomy tube on 05/17/23. Follow-up CAT scan of the chest and abdomen was noted. The patient has posttreatment changes in the right kidney along with perinephric probable hematoma and the focus of a gas. This is probably inflammatory in nature. At the same time, the patient has not mild right hydroureteronephrosis and a small right-sided pleural effusion is small left- sided pleural effusion along with cholelithiasis. Patient is status post cystoscopy and percutaneous nephrostolithotomy and placement of right IJ nephrostomy tube on 05/17/2023. Patient is currently covered on cefepime for history of recurrent urinary tract infections, with her most recent previous isolated organism Proteus mirabilis, susceptible to cefepime. History of recurrent urinary tract infections, previous isolated organism Proteus mirabilis Possible new onset atrial fibrillation with rapid ventricular rate, anticoagulated on Eliquis History of cerebral palsy History of seizure disorder Hyperlipidemia Hypertension History of CVA History of left-sided weakness and gait abnormality Morbid obesity Plan: The patient was seen and evaluated Medications and reviewed Currently stable and on room air Cleared for discharge from the pulmonary standpoint Plan is to return home with assistance from PACE Antibiotics per ID service Anemia being addressed by GI service This patient was seen independently by the pulmonary nurse practitioner I have personally seen and examined the patient, performed the documentation and the assessment and plan as written. Number of minutes spent on the visit: 23.
[2023-06-08 14:16] VITALS: BP 117/84; PULSE 69; RESP 15; TEMP 97.4
--- NOTE | 2023-06-12 22:02 | CDI ---
Documentation Clarification Form Date: 06/12/2023 09:34:11 PM From: Soledad Galvez Phone: Admit Date: 05/17/2023 08:33:00 AM Patient Name: Kat Gonzalez Visit Number: [id number] Discharge Date: 06/08/2023 04:13:00 PM ATTENTION: The Clinical Documentation Specialists (CDI) and [facility] Coding Staff appreciate your assistance in clarifying documentation. Please respond to the clarification below the line at the bottom and electronically sign. The CDI & [facility] Coding staff will review the response and follow-up if needed. Please note: Queries are made part of the Legal Health Record. If you have any questions, please contact the author of this message via ITS. Dr. Hugo Bloom Your patient has the documented diagnosis of chronic CHF per HPI Notes and exacerbation ofcongestive heart failure per Progress Note 05/23. Additional information regarding the type & acuity of CHF is requested. History/Risk Factors: Pyonephrosis, Non-Hodgkin lymphoma, HTN w CHF, PHTN, PAF, HLD, asthma/COPD, AHRF, CP, seizure disorder, bicytopenia, PRADIP pleural effusions Clinical Indicators: VS/Pulse OX: BNP: 641 Echocardiogram Results: Normal LV systolic function. Normal pulmonary systolicpressure. Aortic sclerosiswas nostenosisorregurgitation. Mitral annular calcification 2017 Echocardiogram:normal LV size and function. Mild concentrichypertrophy. MildMR. MildTR. MildPR. Chest x ray: Chest x-rayshowscardiomegalywith pulmonary vascularcongestionandbilateral pleural effusions, right greater than left. Treatment: She is also receiving diuretics in the form of Lasix 40 mg by mouth daily and Aldactone. In your professional opinion, can you please clarify the type & acuity of CHF if known? [ ] Acute Systolic Heart Failure (reduced EF) [ ] Chronic Systolic Heart Failure (reduced EF) [ ] Acute on Chronic Systolic Heart Failure (reduced EF) [ ] Acute Diastolic Heart Failure (preserved EF) [x ] Chronic Diastolic Heart Failure (preserved EF) [ ] Acute on Chronic Diastolic Heart Failure (preserved EF) [ ] Acute Systolic & Diastolic Heart Failure [ ] Chronic Systolic & Diastolic Heart Failure [ ] Acute on Chronic Heart Failure Systolic & Diastolic Heart Failure [ ] Other, please specify [ ] Unable to determine (Template Last Revised: July 2020) MTDD
--- NOTE | 2023-06-13 14:50 | CDI ---
In responding to this query, please exercise your independent professional judgment. The [facility] Coding Staff and Clinical Documentation Specialists appreciate your assistance in clarifying documentation, maintaining compliance with coding guidelines, accurately documenting patients condition and capturing severity of illness. The fact that a question is asked does not imply that any particular answer is desired or expected. Communication forms are a method of clarifying documentation and are made part of the Legal Health Record. Thank you in advance for your clarification. Last Revision: June 2022 The patient has Rule out Sepsis documented per the 05/21 IM consult. Based on this information and the findings below, is there an additional diagnosis that is clinically appropriate for this patient? History/Risk Factors: 67-year-old white female with extensive past medical history significant for cerebral palsy, seizure disorder, CVA, hyperlipidemia, hypertension, pulmonary embolus, among other things. She has recurrent urinary tract infections with Proteus mirabilis and infected right-sided renal calculus. She was brought in for elective right-sided percutaneous neprhostolithotomy and placement of a J nephrostomy tube Clinical Indicators: 05/21 IM note: Fever, for evaluation, possible right lower lobe pneumonia, rule out sepsis/urinary tract infection. 05/21 Progress note: Postoperative fever: atelectasis or pulmonary congestion on X-ray - Patient is in the hospital with a right percutaneous neprhostolithotomy for an infected stone. She underwent this successfully. She had some postoperative fever as expected she seemed to defervesce. I pulled her nephrostomy tube this morning. She developed a fever later this evening 05/23 IM note: Fever, possible right lower lobe pneumonia, rule out sepsis/urinary tract infection. 05/23 Pulmonary consult: Suspected urosepsis: Recurrent urinary tract infections and infected right renal calculi status post cystoscopy, percutaneous neprhostolithotomy and placement of a right J nephrostomy tube on 05/17/23. Follow-up CAT scan of the chest and abdomen was noted. The patient has posttreatment changes in the right kidney along with perinephric probable hematoma and the focus of a gas. This is probably inflammatory in nature. At the same time, the patient has not mild right hydroureteronephrosis and a moderate-sized right-sided pleural effusion is small left-sided pleural effusion along with cholelithiasis WBC: [id number] (05/19-12/8) Lactic acid: None Blood cultures: None Vitals signs: Date 05/17 05/18 05/18 05/19 05/21 05/23 05/24 05/26 Temp 97.6 100.9 100.3 100.0 101.3 98.0 100.3 100.3 HR 59 108 100 99 135 102 - 73 RR 16 16 30 16 - 18 - 18 Treatment: Rocephin 1gm (05/18-05/21), Cefepime 2gm (05/21-06/08), 500ml NS Bolus (05/24), 250ml NS Bolus (05/27), Vancomycin 1500mg (05/29), ), Vancomycin 1500mg (06/04). Is there an additional diagnosis that is clinically appropriate for this patient? [ x ] Sepsis, present on admission [ ] Sepsis, developed during stay, not present on admission [ ] Sepsis ruled out [ ] SIRS, without underlying infectious process [ ] Other, please specify [ ] Unable to determine SIRS Criteria: 2 or more of the following may indicate SIRS Temperature < 96.8F (36C) or > 101.0F (38.3C) Heart Rate > 90 bpm Respiratory Rate > 20 breaths/min or PaCO2 < 32 mmHg White Blood Cell Count > 12,000 or < 4,000 cells/mm3 or > 10% bands MTDD
== END 2023-06-08 16:13 | DRG 853 ==
LOC: OR 08:32 → 5NMEDONC 08:33 → OR 12:08 → 3SCARD 05-21 19:07 → 5NMEDONC 05-21 19:07 → 3SCARD 05-22 16:24 → 6NMEDSUR 05-26 21:34
PROVIDERS: ADMIT Internal Medicine; ATTEND Internal Medicine
PROC: 0TC33ZZ Extirpation of Matter from Right Kidney Pelvis, Percutaneous Approach (ICD-10-PCS; principal; 2023-05-17 10:00)
PROC: 0T9330Z Drainage of Right Kidney Pelvis with Drainage Device, Percutaneous Approach (ICD-10-PCS; 2023-05-17 10:00)
PROC: 0W9930Z Drainage of Right Pleural Cavity with Drainage Device, Percutaneous Approach (ICD-10-PCS; 2023-05-31)
DX: A41.59 Other Gram-negative sepsis (principal); J96.01 Acute respiratory failure with hypoxia; K68.3 Retroperitoneal hematoma; N13.6 Pyonephrosis; Z68.41 Body mass index [BMI] 40.0-44.9, adult; J91.8 Pleural effusion in other conditions classified elsewhere; S37.011A Minor contusion of right kidney, initial encounter; J93.82 Other air leak; J93.9 Pneumothorax, unspecified; C85.90 Non-Hodgkin lymphoma, unspecified, unspecified site; J98.11 Atelectasis; K92.1 Melena; I50.32 Chronic diastolic (congestive) heart failure; I27.20 Pulmonary hypertension, unspecified; D69.6 Thrombocytopenia, unspecified; I11.0 Hypertensive heart disease with heart failure; E66.01 Morbid (severe) obesity due to excess calories; G80.9 Cerebral palsy, unspecified; G40.909 Epilepsy, unspecified, not intractable, without status epilepticus; I70.0 Atherosclerosis of aorta; I48.0 Paroxysmal atrial fibrillation; I34.81 Nonrheumatic mitral (valve) annulus calcification; E78.5 Hyperlipidemia, unspecified; B96.4 Proteus (mirabilis) (morganii) as the cause of diseases classified elsewhere; K80.20 Calculus of gallbladder without cholecystitis without obstruction; N83.202 Unspecified ovarian cyst, left side; R59.1 Generalized enlarged lymph nodes; R53.81 Other malaise; J44.89 Other specified chronic obstructive pulmonary disease; E87.6 Hypokalemia; D75.89 Other specified diseases of blood and blood-forming organs; R26.9 Unspecified abnormalities of gait and mobility; B37.9 Candidiasis, unspecified; B95.7 Other staphylococcus as the cause of diseases classified elsewhere; R31.9 Hematuria, unspecified; D64.9 Anemia, unspecified; K58.0 Irritable bowel syndrome with diarrhea; L27.0 Generalized skin eruption due to drugs and medicaments taken internally; M19.90 Unspecified osteoarthritis, unspecified site; K30 Functional dyspepsia; L29.9 Pruritus, unspecified; Z88.1 Allergy status to other antibiotic agents; Z90.12 Acquired absence of left breast and nipple; Z91.048 Other nonmedicinal substance allergy status; Z88.8 Allergy status to other drugs, medicaments and biological substances; Z91.018 Allergy to other foods; Z91.041 Radiographic dye allergy status; Z88.5 Allergy status to narcotic agent; Z91.010 Allergy to peanuts; Z88.0 Allergy status to penicillin; Z79.899 Other long term (current) drug therapy; Z79.82 Long term (current) use of aspirin; Z86.14 Personal history of Methicillin resistant Staphylococcus aureus infection; Z86.711 Personal history of pulmonary embolism; Z86.73 Personal history of transient ischemic attack (TIA), and cerebral infarction without residual deficits; Z87.440 Personal history of urinary (tract) infections; Z86.718 Personal history of other venous thrombosis and embolism; Z87.442 Personal history of urinary calculi; Z87.891 Personal history of nicotine dependence
CPT/HCPCS: 32551; 50432; 71045; 71250; 74018; 74150; 74176; 76604; 76705; 76942; 80048; 80053; 80202; 81001; 82365; 82607; 82728; 82746; 82945; 83540; 83550; 83615; 83880; 84132; 84145; 84157; 84439; 84443; 84481; 85025; 85027; 85610; 86140; 86850; 86900; 86901; 87040; 87070; 87077; 87186; 87205; 88108; 88305; 88341; 88342; 89050; 93306; 94640; 94760

== ENCOUNTER → 2023-07-17 | Outpatient (CLI) | payer OTHER ==
--- NOTE | 2023-07-17 13:39 | MM ---
Reason for Exam: Clinical finding. Last mammogram was performed 1 year(s) and 2 month(s) ago. Indicated Problems: Lump or thickening of the right side for 1 Day(s). Patient History: Menarche at age 11. Postmenopausal. Other cancer, age 59. Breast cancer, age 59. Lumpectomy. Benign Excisional Biopsy on the left side. 2013, Benign Excisional Biopsy on the right side. 11/08/2016, Benign Core Biopsy on the right side. 11/08/2016, Benign Core Biopsy on the right side. 09/02/2015, Benign Core Biopsy on the right side. 01/27/2015, Malignant Core Biopsy on the right side. 01/27/2015, Malignant Core Biopsy on the right side. 01/27/2015, Malignant Core Biopsy on the right side. Chemotherapy. Mother had breast cancer, age 60. Prior Study Comparison: 02/23/2017 Bilateral Diagnostic Mammogram, [facility]. 04/02/2019 Bilateral Diagnostic Mammogram, [facility]. 05/16/2022 Bilateral MG 3D diag mammo w/cad PRADIP, [facility]. Tissue Density: Right: The breast tissue is heterogeneously dense. This may lower the sensitivity of mammography. Findings: Analyzed By CAD. No distinct abnormality at the site of clinical concern. Ultrasound is recommended. There is evidence of breast distortion the multiple clips and postoperative distortion. Overall Assessment: Incomplete: need additional imaging evaluation, BI-RAD 0 Management: Diagnostic Breast Ultrasound of the right breast. . Results were given to the patient verbally at the time of exam. Patient should continue monthly self-breast exams. A clinical breast exam by your physician is recommended on an annual basis. This exam should not preclude additional follow-up of suspicious palpable abnormalities. Note on Keara scores and lifetime risk: 1. A Keara score greater than 3% is considered moderate risk. If this is the case, consider specialist referral to assess eligibility for a risk reducing agent. 2. If overall lifetime risk for the development of breast cancer is 20% or higher, the patient may qualify for future screening with alternating mammogram and breast MRI. Electronically signed and approved by: Enrico Washington M.D. Radiologis
--- NOTE | 2023-07-17 14:08 | USB ---
Reason for Exam: Clinical finding. Patient History: Menarche at age 11. Postmenopausal. Other cancer, age 59. Breast cancer, age 59. Lumpectomy. Benign Excisional Biopsy on the left side. 2013, Benign Excisional Biopsy on the right side. 11/08/2016, Benign Core Biopsy on the right side. 11/08/2016, Benign Core Biopsy on the right side. 09/02/2015, Benign Core Biopsy on the right side. 01/27/2015, Malignant Core Biopsy on the right side. 01/27/2015, Malignant Core Biopsy on the right side. 01/27/2015, Malignant Core Biopsy on the right side. Chemotherapy. Mother had breast cancer, age 60. Technique: Method: Targeted. Doppler: Color. Patient done sitting in wheelchair - unable to get on beds. Prior Study Comparison: 02/23/2017 Bilateral Diagnostic Mammogram, [facility]. 04/02/2019 Bilateral Diagnostic Mammogram, [facility]. 05/16/2022 Bilateral MG 3D diag mammo w/cad PRADIP, [facility]. Findings: The area of palpable concern of the right breast was scanned. Focal area of calcifications concordant with mammographic findings and site of clinical abnormality. No distinct mass appreciated. Overall Assessment: Benign, BI-RAD 2 Management: Screening Mammogram of the left breast in 1 month. A clinical breast exam by your physician is recommended on an annual basis and results should be correlated with mammographic findings. This exam should not preclude additional follow-up of suspicious palpable abnormalities. Results were given to the patient verbally at the time of exam. Electronically signed and approved by: Enrico Washington M.D. Radiologis
== END | disposition home or self-care (01) ==
LOC: RADMAMWWP 12:51
PROVIDERS: ATTEND Internal Medicine Hematology & Oncology
DX: C50.511 Malignant neoplasm of lower-outer quadrant of right female breast (principal); N63.0 Unspecified lump in unspecified breast; Z80.3 Family history of malignant neoplasm of breast; Z78.0 Asymptomatic menopausal state
CPT/HCPCS: 77061; 77065

== ENCOUNTER → 2023-09-13 | Outpatient (CLI) | payer OTHER ==
--- NOTE | 2023-09-18 10:35 | CT ---
EXAMINATION TYPE: CT ChestAbdPelvis wo con CT DLP: 1056.3 mGycm, Automated exposure control for dose reduction was used. DATE OF EXAM: 09/13/2023 11:03 AM COMPARISON: Most recent 06/06/2023. CLINICAL INDICATION:Female, 68 years old with history of C50.511 BREAST CANCER; H, follow up breast ca Technique: CT ChestAbdPelvis wo con; Multiple axial images were obtained. Two-dimensional coronal and sagittal reconstructions were obtained. Contrast used: mL of , none Oral contrast used: without Oral Contrast Findings: CHEST: LUNGS/ PLEURA: Resolution of prior pleural effusion with associated atelectasis. No new or enlarging pulmonary nodules. AIRWAY: Patent and unremarkable. HEART: The heart is mildly enlarged for size. Moderate to severe coronary artery atherosclerosis. MEDIASTINUM: No gross evidence of adenopathy. VASCULATURE: No aortic aneurysm. MUSCULOSKELETAL: Moderate disc degeneration changes are present throughout the thoracolumbar spine., No acute finding in the right chest wall to correlate with patient's pain. Severe degeneration change s of shoulders with joint space narrowing and osteophyte formation. SOFT TISSUES/LYMPH NODES: Post treatment changes to the right breast. No new or enlarging lymph nodes . Stable lymph node measuring 5 mm in short axis in the right axilla series 3 image 36. LOWER NECK: No significant findings. ABDOMEN: ABDOMEN LIVER: Unremarkable GALLBLADDER AND BILE DUCTS: Gallstone in the gallbladder neck. PANCREAS: Unremarkable. SPLEEN: Unremarkable. ADRENAL GLANDS: Unremarkable. KIDNEYS AND URETERS: Nonobstructing right renal calculi measuring up to 12 mm. PELVIS BLADDER: Unremarkable REPRODUCTIVE: Left ovarian cyst measuring 41 x 21 mm, previously measuring up to 31 x 18 mm. ABDOMEN & PELVIS STOMACH AND BOWEL: Small hiatal hernia. No evidence of bowel obstruction. PERITONEUM: No evidence of pneumoperitoneum or free fluid. Prior hematoma in the posterior retroperit oneum around the kidney is now thin without fluid collection adjacent exam. VASCULATURE: No evidence of aortic aneurysm. MUSCULOSKELETAL: No acute osseous abnormalities. Moderate disc degeneration changes are present throu ghout the thoracolumbar spine. Pseudoarthrosis of the spinous processes of the lower lumbar spine. LYMPH NODES: No gross evidence for lymphadenopathy. Left external iliac chain lymph nodes are again s een and not significantly changed measuring up to 8 mm in short axis. SOFT TISSUE/ABDOMINAL WALL: Unr emarkable IMPRESSION: 1. No evidence for new or enlarging lymphadenopathy. 2. Mildly increased in size left ovarian/adnexal cystic lesion. Consider surveillance with ultrasoun d yearly. 3. Stable left external iliac chain lymph nodes compared to immediate prior. 4. Resolution of right pleural effusion and right retroperitoneal hematoma. 5. Cholelithiasis. 6. Moderate to severe coronary atherosclerosis. 7. Small hiatal hernia. 8. Nonobstructing right renal calculus.
== END | disposition home or self-care (01) ==
LOC: RADCTMAIN 10:35
PROVIDERS: ATTEND Internal Medicine Hematology & Oncology
DX: K80.20 Calculus of gallbladder without cholecystitis without obstruction (principal); C50.511 Malignant neoplasm of lower-outer quadrant of right female breast; N20.0 Calculus of kidney; K44.9 Diaphragmatic hernia without obstruction or gangrene; I25.10 Atherosclerotic heart disease of native coronary artery without angina pectoris; N83.292 Other ovarian cyst, left side
CPT/HCPCS: 71250; 74176

== ENCOUNTER → 2023-11-14 | Outpatient (CLI) | payer OTHER ==
--- NOTE | 2023-11-14 23:44 | EEG ---
ELECTROENCEPHALOGRAM REPORT PREAMBLE: This is a 68-year-old female, who had history of 3 seizures in her lifetime. The patient is currently on Keppra. She complains of having a feeling of seizure-like activity, but not been witnessed. EEG FINDINGS: This is a 21-channel digital EEG recorded with video component, utilizing 10/20 international system with referential and bipolar montages. Background consists of well developed, well regulated, moderate voltage activity in 9 hertz alpha. Background is posterior dominant and reactive to eye opening and closing. There is some amount of amplitude asymmetry with relatively higher amplitude activity in the left hemispheric region. Photic driving response was not clearly seen. Different stages of sleep were not seen. No focal or generalized epileptiform activity was seen. EKG channel showed no obvious arrhythmia. IMPRESSION: This is a mildly abnormal EEG due to presence of slight amplitude asymmetry, with relatively higher amplitude activity in the left hemispheric region. This can be seen with the previous history of craniotomy. Clinical correlation is recommended. Otherwise, the study was normal with no evidence of focal, lateralized, or epileptiform activity. MMODL / IJN: [id number] /
== END ==
LOC: NEUROMAIN 13:07
PROVIDERS: ATTEND Internal Medicine Hospice and Palliative Medicine
DX: G40.89 Other seizures (principal); Z91.048 Other nonmedicinal substance allergy status; Z88.8 Allergy status to other drugs, medicaments and biological substances; Z91.018 Allergy to other foods; Z91.041 Radiographic dye allergy status; Z88.1 Allergy status to other antibiotic agents; Z88.2 Allergy status to sulfonamides; Z91.010 Allergy to peanuts; Z88.5 Allergy status to narcotic agent; Z88.0 Allergy status to penicillin; Z87.891 Personal history of nicotine dependence
CPT/HCPCS: 95816

== ENCOUNTER 2024-02-05 21:03 | Emergency (ER) | payer MEDICARE ==
--- NOTE | 2024-03-14 14:20 | XR ---
EXAM: XR Chest, 2 Views CLINICAL HISTORY: Sob, chest pain TECHNIQUE: Frontal and lateral views of the chest. COMPARISON: No relevant prior studies available. FINDINGS: Lungs:Unremarkable. No consolidation. Pleural space:Unremarkable. No pneumothorax. Heart: Mild cardiomegaly. Mediastinum:Unremarkable. Normal mediastinal contour. Bones/joints: Moderate thoracic kyphosis. No acute fracture. IMPRESSION: No acute findings in the chest. Dashawn Cole MD Electronically Signed: 02/06/24 00:42 Study ready at 23:31 and initial results transmitted at 00:42 [facility]
== END 2024-02-06 02:22 | disposition home or self-care (01) ==
LOC: EC 21:03
DX: R07.89 Other chest pain (principal)
CPT/HCPCS: 71046; 93005; 99285

== ENCOUNTER → 2024-04-03 | Outpatient (CLI) | payer MEDICARE, OTHER | END | disposition home or self-care (01) | LOC: LABWHC1 14:14 | PROVIDERS: ATTEND General Practice | CPT/HCPCS: 36415; 80177 ==

== ENCOUNTER → 2024-10-21 | Outpatient (CLI) | payer OTHER ==
--- NOTE | 2024-10-21 10:59 | MM ---
Reason for Exam: Screening (asymptomatic). Last mammogram was performed 2 year(s) and 6 month(s) ago. Patient History: Menarche at age 11. Postmenopausal. Other cancer, age 59. Breast cancer, age 59. Lumpectomy. Benign Excisional Biopsy on the left side. 2013, Benign Excisional Biopsy on the right side. 11/08/2016, Benign Core Biopsy on the right side. 11/08/2016, Benign Core Biopsy on the right side. 09/02/2015, Benign Core Biopsy on the right side. 01/27/2015, Malignant Core Biopsy on the right side. 01/27/2015, Malignant Core Biopsy on the right side. 01/27/2015, Malignant Core Biopsy on the right side. Chemotherapy. Mother had breast cancer, age 60. Prior Study Comparison: 04/02/2019 Bilateral Diagnostic Mammogram, [facility]. 05/16/2022 Bilateral MG 3D diag mammo w/cad PRADIP, [facility]. 07/17/2023 Right MG 3D diag mammo w/cad RT, [facility]. Tissue Density: There are scattered areas of fibroglandular density. Findings: Analyzed By CAD. Right breast biopsy clips. Right breast: There is no suspicious group of microcalcifications or new suspicious mass. Benign-appearing calcifications right breast. Left breast: There is no suspicious group of microcalcifications or new suspicious mass. Overall Assessment: Benign, BI-RAD 2 Management: Screening Mammogram of both breasts in [address] [facility] will attempt to contact patient to return for supplemental views and ultrasound if indicated. Patient should continue monthly self-breast exams. A clinical breast exam by your physician is recommended on an annual basis. This exam should not preclude additional follow-up of suspicious palpable abnormalities. Note on Keara scores and lifetime risk: 1. A Keara score greater than 3% is considered moderate risk. If this is the case, consider specialist referral to assess eligibility for a risk reducing agent. 2. If overall lifetime risk for the development of breast cancer is 20% or higher, the patient may qualify for future screening with alternating mammogram and breast MRI. [facility], , 10/21/2024 10:57 AM. Electronically signed and approved by: Jamir Savage DO
--- NOTE | 2024-10-21 11:28 | BD ---
EXAMINATION TYPE: Axial Bone Density DATE OF EXAM: 10/21/2024 CLINICAL HISTORY: 69 years old Female. ICD-10 CODE: Z13.820 OSTEO SCR , Additional History: Height: 4 ft 11 in Weight: 198 FRAX RISK QUESTIONS: Alcohol (3 or more units per day): no Family History (Parent hip fracture): no Glucocorticoids (More than 3mos): no (Ex: prednisone, prednisolone, methylprednisolone, dexamethasone, and hydrocortisone). History of Fracture in Adulthood: yes Secondary Osteoporosis: 1. Type 1 Diabetes: no 2. Hyperthyroidism: no 3. Menopause before 45: no 4. Malnutrition: no 5. Chronic liver disease: no Rheumatoid Arthritis: no Current Tobacco Use: no RISK FACTORS HISTORY OF: Surgery to Spine/Hip(right/left)/Wrist (right/left): no MEDICATIONS: Thyroid Medications: none Osteoporosis Medications: none EXAM MEASUREMENTS: Bone mineral densitometry was performed using the [employer] System. Bone mineral density as measured about the Lumbar spine is: ----- L1-L4(G/cm2): 1.220 T Score Values are as follows: ----- L1: -0.2 ----- L2: -0.6 ----- L3: 1.9 ----- L4: 0.2 ----- L1-L4: 0.3 Z Score Values are as follows: ----- L1: 0.7 ----- L2: 0.2 ----- L3: 2.7 ----- L4: 1.0 ----- L1-L4: 1.2 Bone mineral density has: increased 2.0 % since study of: 2018 Bone mineral density about the R hip (g/cm2): 0.600 Bone mineral density about the L hip (g/cm2): 0.498 T Score values are as follows: -----R Neck: -3.2 -----L Neck: -3.9 -----R Total: -3.5 -----L Total: -3.6 Z Score values are as follows: -----R Neck: -2.0 -----L Neck: -2.8 -----R Total: -2.7 -----L Total: -2.7 Bone mineral density has: decreased -24.3 % since study of: 2018 FRAX%s: The graph provided illustrates a 25.1 % chance for a major osteoporotic fx and a 11.5 % chanc e for the hips probability for fx in 10 years time. IMPRESSION: Osteoporosis (T Score less than -2.5). There is increased fracture risk and therapy is usually indicated based on age. Re-Screen 1-2 years. NOTE: T-SCORE=SD OF THE YOUNG ADULT MEAN. [facility], , 10/21/2024 11:26 AM
--- NOTE | 2024-10-21 11:32 | XR ---
EXAMINATION TYPE: XR abdomen 1V DATE OF EXAM: 10/21/2024 COMPARISON: CT abdomen and pelvis 07/28/2024, KV radiograph 05/17/2023 HISTORY: Abdominal pain TECHNIQUE: Single supine KUB image of the abdomen is obtained FINDINGS: Small bowel demonstrates no evidence for dilatation or air fluid levels. Large amount of stool is present within the colon and rectum. No convincing evidence for pneumoperitoneum. No definitive renal calculi however there is significant amount of stool overlying the kidneys. The lung bases are clear. The osseous structures are intact. IMPRESSION: Overall nonobstructive bowel gas pattern. Large colonic stool burden. Correlate for constipation. [facility], , 10/21/2024 11:30 AM
== END | disposition home or self-care (01) ==
LOC: RADBDWWP 10:01
PROVIDERS: ATTEND Internal Medicine Hospice and Palliative Medicine
DX: Z12.31 Encounter for screening mammogram for malignant neoplasm of breast (principal); Z13.820 Encounter for screening for osteoporosis; M81.0 Age-related osteoporosis without current pathological fracture; R92.323 Mammographic fibroglandular density, bilateral breasts; Z80.3 Family history of malignant neoplasm of breast; Z78.0 Asymptomatic menopausal state; Z85.3 Personal history of malignant neoplasm of breast
CPT/HCPCS: 74018; 77063; 77067; 77080

== ENCOUNTER → 2024-12-09 | Outpatient (CLI) | payer OTHER ==
--- NOTE | 2024-12-09 10:27 | CT ---
EXAMINATION TYPE: CT brain wo con DATE OF EXAM: 12/09/2024 10:13 AM COMPARISON: 11/01/2024 and 12/04/2013 CLINICAL INDICATION: Female, 69 years old with history of R29.818 OTHER SYMPTOMS AND SIGNS INVOLVING THE NER, neuro symptoms, headaches, TECHNIQUE: Examination was done in axial plane without intravenous contrast. Coronal and sagittal r econstructions performed. CT DLP: 1603.1 mGycm, Automated exposure control for dose reduction was used. FINDINGS: There is no evidence of acute intracranial hemorrhage, acute ischemic changes, mass, mass-effect, or extra-axial fluid collection. There is no effacement of cerebral sulci or basal subarachnoid cister ns. There is no midline shift. Mullen-white matter distinction is preserved. Redemonstrated prominent CSF space along the right frontoparietal convexity, possible prominence of t he sylvian fissure. Moderate patchy white matter hypodensities in both cerebral hemispheres. Mild deneen triculomegaly likely due to central cerebral atrophy. Dense pleural calcifications along the midline falx. Atherosclerotic calcifications in the carotid siphons. There is mucosal thickening ethmoid air cells. Mastoid air cells are well pneumatized. Orbits and nicholas bes are intact. 9 mm rounded soft tissue density within the medial aspect of the right orbit. Back in 2013, we noted with larger 1.9 cm. 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 IMPRESSION: 1. Mild ventriculomegaly likely due to central cerebral atrophy. Moderate pattern of chronic small ve ssel ischemic disease. 2. Similar prominent CSF density along the right frontoparietal convexity may be due to prominence of the sylvian fissure or volume loss related to prior infarct. 3. 9 mm rounded density medial aspect of the right orbit. Similar from 10/22/2024 but noted to be small er from the 2013 exam. 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 [facility], , 12/09/2024 10:25 AM
--- NOTE | 2024-12-09 10:35 | CT ---
EXAMINATION TYPE: CT soft tissue neck wo con DATE OF EXAM: 12/09/2024 10:12 AM COMPARISON: None. CLINICAL INDICATION: Female, 69 years old with history of R29.818 OTHER SYMPTOMS AND SIGNS INVOLVING THE NER, neuro symptoms, headaches TECHNIQUE: Axial images at 3 mm thick sections. Reconstructed images in the coronal plane and sagitt al plane are reviewed. Contrast used: mL of , (none if empty) Oral contrast used: (none if empty) CT DLP: 1603.1 mGycm, Automated exposure control for dose reduction was used. FINDINGS: Limited CT sections are obtained the lung apices. The lung apices appear clear. Portion thyroid visu alized is normal. CT neck: The torus tubarius and fossa of Rosenmuller are normal. Hostler Helper spaces are normal. Para nasal sinuses and mastoid air cells are clear. Parotid glands appear normal and symmetrical. Submandibular glands, are normal. Parapharyngeal spac es are normal. No suspicious adenopathy is evident. The hypopharynx appears within normal limits. Vocal cord level appear symmetrical. There is a thoracic kyphosis with compensatory cervical lordosis. Facet degenerative changes are pres ent. No obvious spinal canal stenosis is evident. Prevertebral space is normal. Some foraminal narrow ing at C4-5 C5-6 is likely present. Mild diffuse degenerative disc changes are present. IMPRESSION: 1. No suspicious acute soft tissue changes. 2. Some degenerative changes within the osseous cervical spine. [facility], , 12/09/2024 10:33 AM
== END | disposition home or self-care (01) ==
LOC: RADCTMAIN 08:20
PROVIDERS: ATTEND Internal Medicine Hospice and Palliative Medicine
DX: G93.89 Other specified disorders of brain (principal); H05.89 Other disorders of orbit; R29.818 Other symptoms and signs involving the nervous system; I67.82 Cerebral ischemia
CPT/HCPCS: 70450; 70490

== ENCOUNTER → 2024-12-18 | Outpatient (CLI) | payer OTHER ==
--- NOTE | 2024-12-18 11:16 | USB ---
Reason for Exam: Clinical finding. Patient History: Menarche at age 11. Postmenopausal. Other cancer, age 59. Breast cancer, age 59. Lumpectomy. Benign Excisional Biopsy on the left side. 2013, Benign Excisional Biopsy on the right side. 11/08/2016, Benign Core Biopsy on the right side. 11/08/2016, Benign Core Biopsy on the right side. 09/02/2015, Benign Core Biopsy on the right side. 01/27/2015, Malignant Core Biopsy on the right side. 01/27/2015, Malignant Core Biopsy on the right side. 01/27/2015, Malignant Core Biopsy on the right side. Chemotherapy. Mother had breast cancer, age 60. Technique: Method: Targeted. Prior Study Comparison: 05/16/2022 Bilateral MG 3D diag mammo w/cad PRADIP, [facility]. 07/17/2023 Right MG 3D diag mammo w/cad RT, [facility]. 10/21/2024 Bilateral MG 3D screening mammo w/cad, [facility]. Findings: The area of palpable concern of the right breast and the retroareolar of the right breast were scanned. Limited exam as the patient was scanned upright and was unable to position or forearm. Scanning was targeted to the 11:00 palpable site. Additional scanning of the subareolar region. At the 11:00 palpable side, there is a superficially located focus of densely shadowing calcification measuring 8 x 6 x 5 mm. Previously measured 1.2 x 0.8 x 0.7 cm on 07/17/2023. No other solid or cystic lesion. Overall Assessment: Benign, BI-RAD 2 Management: Screening Mammogram of both breasts in 10 months. The palpable area corresponds to chronic fat necrosis calcifications on mammogram and were also seen back on a 07/17/2023 ultrasound. No suspicious lesion is seen here. If any enlargement or other suspicious changes are encountered, the patient can be rescanned. A clinical breast exam by your physician is recommended on an annual basis and results should be correlated with mammographic findings. This exam should not preclude additional follow-up of suspicious palpable abnormalities. Results were given to the patient verbally at the time of exam. [facility], , 12/18/2024 11:13 AM. Electronically signed and approved by: Baldev Kiser M.D. Radiologist
== END | disposition home or self-care (01) ==
LOC: RADUSWWP 10:30
PROVIDERS: ATTEND Internal Medicine Hospice and Palliative Medicine
DX: N63.10 Unspecified lump in the right breast, unspecified quadrant (principal); Z78.0 Asymptomatic menopausal state; Z80.3 Family history of malignant neoplasm of breast